=== PATIENT | male | born 1940 | race Caucasian/White ===

== ENCOUNTER 2016-11-14 17:11 | Emergency (ER) | payer BC, MEDICARE ==
[2016-11-14] MEDS ORDERED: solu-MEDROL 125 MG IV ONE (17:33)
[2016-11-14] MEDS ORDERED: DUONEB 0.5-3 MG/3 ml Neb IH ONE (17:33)
--- NOTE | 2016-11-14 17:37 | ERPHSYRPT ---
- History of Present Illness Time Seen by Provider: 11/14/16 17:20 Source: patient Exam Limitations: no limitations Patient Subjective Stated Complaint: "i feel like my lungs are jamming up. i have been using my neb tx like crazy" Triage Nursing Assessment: aox3, breathing rapid, able to speak in complete setences, steady gait Physician History: 76 y/o male with history of COPD and HTN comes to the ER with complaints of shortness of breath, wheezing and cough since Thursday. Pt admits to using the nebulizer very frequently withy no relief. Pt was also taking antibiotics that he does not remember the name for the last few days. Pt arrives with an O2 sat of 92% on RA with audible wheezing. Pt denies any fever, chills, chest pain, leg swelling or orthopnea. Timing/Duration: day(s) Cough Quality/Degree: moderate Associated Symptoms: No fever, No chills Allergies/Adverse Reactions: No Known Drug Allergies Allergy (Verified 08/29/12 17:23) Home Medications: Gabapentin 300 mg [Neurontin 300 mg] 300 mg PO DAILY 08/29/12 [History] Glimepiride 2 mg [Amaryl] 2 mg PO DAILY 08/29/12 [History] Sitagliptin Phos/Metformin HCl [Janumet 50-1,000 mg Tablet] 1 each PO BID [History] Dutasteride/Tamsulosin HCl [Rosibel 0.5-0.4 mg Capsule] 1 each PO DAILY 11/29/12 [ History] Fluticasone/Salmeterol Disc [Advair 250-50 Diskus 14 Dose] 1 each IH [History] Fosinopril Sodium 10 mg [monoPRIL 10 MG] 10 mg PO DAILY 11/29/12 [History] Hx Tetanus, Diphtheria Vaccination/Date Given: Yes (2015) Hx Influenza Vaccination/Date Given: Yes (2015) - Review of Systems Constitutional: No Fever, No Chills Eyes: No Symptoms Ears, Nose, & Throat: No Symptoms Respiratory: Cough, Dyspnea, Dyspnea on Exertion (CARREON), Wheezing Cardiac: No Chest Pain, No Edema, No Syncope Abdominal/Gastrointestinal: No Abdominal Pain, No Nausea, No Vomiting, No Diarrhea Genitourinary Symptoms: No Dysuria Musculoskeletal: No Back Pain, No Neck Pain Skin: No Rash Neurological: No Dizziness, No Focal Weakness, No Sensory Changes Psychological: No Symptoms Endocrine: No Symptoms All Other Systems: Reviewed and Negative - Past Medical History Pertinent Past Medical History: Yes Neurological History: No Pertinent History ENT History: No Pertinent History Cardiac History: Hypertension Respiratory History: COPD Endocrine Medical History: Diabetes Type II Musculoskeletal History: Fractures, Degenerative Disk Disease GI Medical History: Hernia, Hepatitis History: No Pertinent History Psycho-Social History: No Pertinent History Male Reproductive Disorders: Prostate Problems Other Medical History: hep c,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 herniorr. as a child - Social History Smoking Status: Former smoker Exposure to second hand smoke: No Drug Use: none Patient Lives Alone: Yes - Nursing Vital Signs Nursing Vital Signs: Initial Vital Signs Temperature 99.1 F Temperature Source Oral Pulse Rate 80 Respiratory Rate 24 Blood Pressure 183/82 Pain Intensity 0 - Physical Exam General Appearance: no apparent distress, alert Eye Exam: PERRL/EOMI, eyes nml inspection Ears, Nose, Throat Exam: normal ENT inspection, TMs normal, pharynx normal, moist mucous membranes Neck Exam: normal inspection, non-tender, supple, full range of motion Respiratory Exam: normal breath sounds, wheezing, No respiratory distress Cardiovascular Exam: regular rate/rhythm, normal heart sounds Gastrointestinal/Abdomen Exam: soft, No tenderness Back Exam: normal inspection, No CVA tenderness, No vertebral tenderness Extremity Exam: normal inspection, normal range of motion Neurologic Exam: alert, oriented x 3, cooperative, normal mood/affect, sensation nml, No motor deficits Skin Exam: normal color, warm, dry, No rash Lymphatic Exam: No adenopathy SpO2: 93 Oxygen Delivery: Room Air Ordered Tests: Active Orders 24 hr Category Date Time Status EKG-ER Only STAT Care 11/14/16 17:34 Active CHEST 2 VIEWS (PA AND LAT) Stat Exams 11/14/16 17:33 Taken BLOOD CULTURE Stat Lab 11/14/16 17:40 Received CBCD [CBC W DIFF] Stat Lab 11/14/16 17:40 Completed CMP Stat Lab 11/14/16 17:40 Completed NT PRO BNP Stat Lab 11/14/16 17:40 Completed TROPONIN Stat Lab 11/14/16 17:40 Completed Respiratory Nebulizer STAT RT 11/14/16 17:33 Completed Medication Summary Discontinued Medications Generic Name Dose Route Start Last Admin Trade Name Janny PRN Reason Stop Dose Admin Albuterol/Ipratropium 3 ml 11/14/16 17:33 11/14/16 17:42 Duoneb 0.5-3 Mg/3 Ml Neb IH 11/14/16 17:34 3 ml STAT ONE Administration Methylprednisolone Sodium Succinate 125 mg 11/14/16 17:33 11/14/16 17:39 Solu-Medrol 125 Mg IV 11/14/16 17:34 125 mg STAT ONE Administration Methylprednisolone Sodium Succinate Confirm 11/14/16 17:38 Solu-Medrol 125 Mg Administered 11/14/16 17:39 Dose 125 mg .ROUTE .STK-MED ONE Lab/Rad Data: Laboratory Result Diagrams 11/14/16 17:40 11/14/16 17:40 Laboratory Results 11/14/16 11/14/16 11/14/16 Range/Units 17:40 17:40 17:40 WBC 11.4 H (4.0-10.5) K/mm3 RBC 4.54 (4.1-5.6) M/mm3 Hgb 13.7 (12.5-18.0) gm/dl Hct 41.0 L (42-50) % MCV 90.3 (78-100) fl MCH 30.2 (26-32) pg MCHC 33.4 (32-36) g/dl RDW 13.1 (11.5-14.0) % Plt Count 168 (150-450) K/mm3 MPV 9.9 H (6-9.5) fl Gran % 57.1 (36.0-66.0) % Lymphocytes % 19.6 L (24.0-44.0) % Monocytes % 9.9 (0.0-12.0) % Eosinophils % 12.9 H (0.00-5.0) % Basophils % 0.5 (0.0-0.4) % Basophils # 0.06 (0-0.4) Sodium 144 (136-145) mEq/L Potassium 3.9 (3.5-5.1) mEq/L Chloride 107 (98-107) mEq/L Carbon Dioxide 28.3 (21-32) mEq/L Anion Gap 12.5 (5-15) MEQ/L BUN 19 (9-20) mg/dL Creatinine 0.63 (0.55-1.30) mg/dl Estimated GFR > 60 ML/MIN Glucose 86 (70-110) MG/DL Calcium 8.7 (8.5-10.1) mg/dL Total Bilirubin 0.4 (0.2-1.0) mg/dL AST 48 H (15-37) U/L ALT 60 (12-78) U/L Alkaline Phosphatase 94 (46-116) U/L Troponin I 0.022 (0.000-0.056) ng/ml NT-Pro-B Natriuret Pep 303 H (0-125) pg/ml Serum Total Protein 7.2 (6.4-8.2) gm/dL Albumin 3.6 (3.4-5.0) g/dL - Progress Progress: improved Air Movement: good Progress Note: 11/14/16 18:32 Pt feels better after receiving duoneb and solumedrol. The CXR is within normal limits. Pt has an elevated BNP of 303 and will need to have this evaluated with echo as an outpatient. Pt will be d/c home on azithromycin, has a script for steroids that he will fill and will continue on neb treatments at home. - Departure Time of Disposition: 18:34 Departure Disposition: Home Clinical Impression: COPD (chronic obstructive pulmonary disease), Heart failure Condition: Stable Critical Care Time: No Referrals: THANH LARKIN MD [Primary Care Provider] - Instructions: Chronic Obstructive Pulmonary Disease, Heart Failure Additional Instructions: Follow up with your primary care doctor regarding BNP of over 300 which may indicate you have congestive heart failure. Finish the antibiotics and steroids until completion. Return to the ER if you should have worsening shortness of breath, cough, chest pain, fever or chills. Prescriptions: Azithromycin 250 mg [Zithromax 250 MG TABLET] 250 mg PO DAILY #4 tablet
[2016-11-14] MEDS ORDERED: solu-MEDROL 125 MG ONE (17:38)
[2016-11-14 17:51] LABS: BASOPHIL % 0.5 % (0.0-0.4); Eosinophil % 12.9 % (0.00-5.0); Granulocytes % 57.1 % (36.0-66.0); Lymphocytes % 19.6 % (24.0-44.0); Mean Cell Volume 90.3 fl (78-100); Mean Corpuscular Hemoglobin 30.2 pg (26-32); Mean Platelet Volume 9.9 fl (6-9.5); Monocytes % 9.9 % (0.0-12.0); Platelet Count 168 K/mm3 (150-450); Red Blood Count 4.54 M/mm3 (4.1-5.6); Red Cell Distribution Width 13.1 % (11.5-14.0); White Blood Count 11.4 K/mm3 (4.0-10.5)
[2016-11-14 18:14] LABS: ALBUMIN 3.6 g/dL (3.4-5.0); ALKALINE PHOSPHATASE 94 U/L (46-116); ANION GAP 12.5 MEQ/L (5-15); BILIRUBIN,TOTAL 0.4 mg/dL (0.2-1.0); BLOOD UREA NITROGEN 19 mg/dL (9-20); CHLORIDE 107 mEq/L (98-107); Carbon Dioxide 28.3 mEq/L (21-32); Glucose 86 MG/DL (70-110); Potassium 3.9 mEq/L (3.5-5.1); SGOT/AST 48 U/L (15-37); SGPT/ALT 60 U/L (12-78); SODIUM 144 mEq/L (136-145); Total Protein 7.2 gm/dL (6.4-8.2)
[2016-11-14 18:21] LABS: TROPONIN 0.022 ng/ml (0.000-0.056)
[2016-11-14] MEDS ORDERED: Zithromax 250 MG TABLET PO ONE (18:32)
[2016-11-14 18:34] VITALS: BP 177/87; PULSE 70
[2016-11-14 18:37] VITALS: O2SAT 93
[2016-11-14] MEDS ORDERED: Zithromax 250 MG TABLET ONE (18:37)
--- NOTE | 2016-11-14 22:50 | XRAY ---
Indication: Short of breath. Comparison: August 29, 2012 PA/lateral chest again hyperinflated and clear. Heart and mediastinal structures within normal limits. Bony thorax intact again with mild osteopenia and minimal degenerative changes. Impression: Stable nonacute hyperinflated chest.
[2016-11-15] MEDS ORDERED: DUONEB 0.5-3 MG/3 ml Neb IH ONE (03:09)
== END 2016-11-14 18:45 ==
LOC: ED 17:11
DX: J44.9 Chronic obstructive pulmonary disease, unspecified (principal); I50.9 Heart failure, unspecified; I10 Essential (primary) hypertension; Z79.899 Other long term (current) drug therapy; E11.9 Type 2 diabetes mellitus without complications; Z87.891 Personal history of nicotine dependence
CPT/HCPCS: 36000; 36415; 71020; 80053; 83880; 84484; 85025; 87040; 93005; 94640; 96374; 99283; J2930

== ENCOUNTER 2016-12-12 12:04 | Observation (INO) | payer MEDICARE ==
[2016-12-12] MEDS ORDERED: ROCEPHIN 1 Gm-D5w 50 ml Bag** 50 ML IV ONE ×2 (12:46→12:58)
[2016-12-12] MEDS ORDERED: DUONEB 0.5-3 MG/3 ml Neb IH ONE (12:46)
[2016-12-12] MEDS ORDERED: solu-MEDROL 125 MG IV ONE (12:46)
[2016-12-12] MEDS ORDERED: Zithromax 500 MG/ 250 ML NaCl Premix 250 ML IV ONE ×2 (12:46→14:02)
--- NOTE | 2016-12-12 12:53 | ERPHSYRPT ---
- History of Present Illness Time Seen by Provider: 12/12/16 12:35 Source: patient Exam Limitations: clinical condition Patient Subjective Stated Complaint: PT STATES HE BECAME MORE SOB OVER THE PAST FEW DAYS. DENIES ANY FEVER. NON PRODUCTIVE COUGH. Triage Nursing Assessment: PT PINK, WARM, DRY. WHEEZES NOTED IN ANTERIOR LUNG AGRAWAL. ALBUTEROL GIVEN PER EMS. PT AFEBRILE. Physician History: PATIENT WITH HISTORY OF COPD COMPLAINS OF PROGRESSIVE DYSPNEA, EXERTIONAL DYSPNEA AND PRODUCTIVE COUGH FOR 3 DAYS. DENIES FEVER, CHILLS OR CHEST PAIN. HAS HAD NO RELIEF FROM NEBULIZERS AT HOME. Severity of Dyspnea-Max: moderate Severity of Dyspnea-Current: moderate Possible Cause: occasional episodes Modifying Factors: Improves With: activity, coughing Associated Symptoms: cough, productive cough International travel in last 2 weeks: No Allergies/Adverse Reactions: No Known Drug Allergies Allergy (Verified 12/12/16 12:18) Home Medications: Fosinopril Sodium 10 mg [monoPRIL 10 MG] 10 mg PO DAILY 11/29/12 [History] Ibuprofen [Advil] 200 mg PO DAILY 12/12/16 [History] Insulin Regular, Human [Humulin R] 50 unit IJ BID 12/12/16 [History] Hx Tetanus, Diphtheria Vaccination/Date Given: Yes (UP TO DATE) Hx Influenza Vaccination/Date Given: Yes Hx Pneumococcal Vaccination/Date Given: Yes Immunizations Up to Date: Yes - Review of Systems Constitutional: No Fever, No Chills Eyes: No Symptoms Ears, Nose, & Throat: No Symptoms Respiratory: Cough, Dyspnea Cardiac: No Symptoms, No Chest Pain, No Edema, No Syncope Abdominal/Gastrointestinal: No Symptoms, No Abdominal Pain, No Nausea, No Vomiting, No Diarrhea Genitourinary Symptoms: No Symptoms, No Dysuria Musculoskeletal: No Symptoms, No Back Pain, No Neck Pain Skin: No Symptoms, No Rash Neurological: No Dizziness, No Focal Weakness, No Sensory Changes Psychological: No Symptoms Endocrine: No Symptoms All Other Systems: Reviewed and Negative - Past Medical History Pertinent Past Medical History: Yes Neurological History: No Pertinent History ENT History: No Pertinent History Cardiac History: Hypertension Respiratory History: COPD Endocrine Medical History: Diabetes Type II Musculoskeletal History: Fractures, Degenerative Disk Disease GI Medical History: Hernia, Hepatitis History: No Pertinent History Psycho-Social History: No Pertinent History Male Reproductive Disorders: Prostate Problems Other Medical History: hep c,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 herniorr. as a child - Social History Smoking Status: Former smoker Exposure to second hand smoke: No Drug Use: none Patient Lives Alone: No - Nursing Vital Signs Nursing Vital Signs: Initial Vital Signs Temperature 98.7 F Temperature Source Oral Pulse Rate 94 Respiratory Rate 18 Blood Pressure [] 160/88 Pain Intensity 0 - Physical Exam General Appearance: no apparent distress, alert Eye Exam: PERRL/EOMI Neck Exam: normal inspection, supple Respiratory Exam: diminished breath sounds, prolonged expirations (DIFFUSELY, ) , wheezing Cardiovascular/Chest Exam: normal heart sounds, regular rate/rhythm Abdominal/Gastrointestinal Exam: soft, No tenderness, No distention, No mass Extremity Exam: non-tender, normal range of motion, normal inspection, no calf tenderness, no pedal edema Peripheral Pulses Exam: carotid (R): 2+, carotid (L): 2+, femoral (R): 2+, femoral (L): 2+, dorsalis-pedis (R): 2+, dorsalis-pedis (L): 2+ Neurologic Exam: alert, oriented x 3, cooperative, 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 tested, sensation nml, No motor deficits Skin Exam: normal color, warm, No dry SpO2 Interpretation: normal SpO2: 92 Oxygen Delivery: Nasal Cannula - Course EKG Interpreted by Me: RATE, Sinus Rhythm, NORMAL AXIS, Non-specific ST Changes (RATE 84) - Radiology Exams Chest X-ray Interpretation: Discussed w/ radiologist (STABLE NONACUTE CHEST) Ordered Tests: Active Orders 24 hr Category Date Time Status Up With Assistance ROUTINE Activity 12/12/16 14:25 Ordered Accucheck ACHS Care 12/12/16 14:25 Ordered Admission/Status Order ROUTINE Care 12/12/16 14:25 Ordered Clam Picker STAT Care 12/12/16 12:21 Active Code Status Order ROUTINE Care 12/12/16 14:25 Ordered EKG-ER Only STAT Care 12/12/16 12:21 Active IV Care Q6H Care 12/12/16 14:25 Ordered IV Insertion STAT Care 12/12/16 12:21 Active Oxygen-ED Only NASAL CANNULA 2 lpm Care 12/12/16 12:22 Active Estee Tate ROUTINE Care 12/12/16 14:25 Ordered Vital Signs Q4H Care 12/12/16 14:25 Ordered Weight,Daily 0600 Care 12/12/16 14:25 Ordered 1800 Calorie ADA Diet 12/12/16 Dinner Ordered CHEST 1 VIEW (PORTABLE) Stat Exams 12/12/16 12:46 Completed BLOOD CULTURE Stat Lab 12/12/16 13:00 Received CBC W DIFF Stat Lab 12/12/16 12:40 Completed CMP Stat Lab 12/12/16 12:40 Completed MAGNESIUM Stat Lab 12/12/16 12:40 Completed TROPONIN Stat Lab 12/12/16 12:40 Completed Oxygen NASAL CANNULA 2 lpm RT 12/12/16 14:25 Ordered Respiratory Nebulizer STAT RT 12/12/16 13:08 Completed Transfer Order Routine Transfer 12/12/16 14:24 Ordered Medication Summary Generic Name Dose Route Start Last Admin Trade Name Freq PRN Reason Stop Dose Admin Azithromycin 250 mls @ 125 mls/hr 12/12/16 12:46 12/12/16 14:06 Zithromax 500 Mg/ 250 Ml Nacl Premix IV 12/12/16 14:45 125 mls/hr STAT ONE Administration Sodium Chloride 1,000 mls @ 100 mls/hr 12/12/16 13:00 12/12/16 13:00 Sodium Chloride 0.9% 1000 Ml IV 01/11/17 12:59 100 mls/hr .Q10H BEATRIZ Administration Ceftriaxone Sodium/Dextrose 50 mls @ 100 mls/hr 12/13/16 10:00 Rocephin 1 Gm-D5w 50 Ml Bag IV 01/12/17 09:59 Q24H10 BEATRIZ Azithromycin 250 mls @ 125 mls/hr 12/13/16 10:00 Zithromax 500 Mg/ 250 Ml Nacl Premix IV 01/12/17 09:59 Q24H10 BEATRIZ Sodium Chloride 1,000 mls @ 50 mls/hr 12/12/16 14:30 Sodium Chloride 0.9% 1000 Ml IV 01/11/17 14:29 .Q20H BEATRIZ Levalbuterol HCl 1.25 mg 12/12/16 14:28 Xopenex 1.25 Mg/0.5 Ml Ud Nebule IH 01/11/17 14:27 Q2HPRN PRN DIFFICULTY BREATHING Magnesium Oxide 400 mg 12/12/16 22:00 Mag-Ox 400 PO 01/11/17 21:59 BID [facility] Methylprednisolone Sodium Succinate 80 mg 12/12/16 18:00 Solu-Medrol 125 Mg IV 01/11/17 17:59 Q6HT BEATRIZ Discontinued Medications Generic Name Dose Route Start Last Admin Trade Name Freq PRN Reason Stop Dose Admin Albuterol Sulfate Confirm 12/12/16 12:55 Proventil Solution 2.5 Mg/0.5 Ml Administered 12/12/16 12:56 Dose 10 mg IH .STK-MED ONE Albuterol Sulfate 10 mg 12/12/16 13:05 12/12/16 13:05 Proventil 2.5 Mg/3 Ml Neb IH 12/12/16 13:06 10 mg STAT ONE Administration Albuterol/Ipratropium 3 ml 12/12/16 12:46 12/12/16 13:00 Duoneb 0.5-3 Mg/3 Ml Neb IH 12/12/16 12:47 Not Given STAT ONE Ceftriaxone Sodium/Dextrose 50 mls @ 100 mls/hr 12/12/16 12:46 12/12/16 13:01 Rocephin 1 Gm-D5w 50 Ml Bag IV 12/12/16 13:15 100 mls/hr STAT ONE Administration Sodium Chloride Confirm 12/12/16 12:58 Sodium Chloride 0.9% 1000 Ml Administered 12/12/16 12:59 Dose 1,000 mls @ ud .ROUTE .STK-MED ONE Ceftriaxone Sodium/Dextrose Confirm 12/12/16 12:58 Rocephin 1 Gm-D5w 50 Ml Bag Administered 12/12/16 12:59 Dose 50 mls @ ud IV .STK-MED ONE Magnesium Sulfate/Dextrose 100 mls @ 200 mls/hr 12/12/16 13:42 12/12/16 14:06 Magnesium 1 Gm / 100 Ml D5w IV 12/12/16 14:11 200 mls/hr STAT ONE Administration Azithromycin Confirm 12/12/16 14:02 Zithromax 500 Mg/ 250 Ml Nacl Premix Administered 12/12/16 14:03 Dose 250 mls @ ud IV .STK-MED ONE Magnesium Sulfate/Dextrose Confirm 12/12/16 14:02 Magnesium 1 Gm / 100 Ml D5w Administered 12/12/16 14:03 Dose 100 mls @ ud IV .STK-MED ONE Methylprednisolone Sodium Succinate 125 mg 12/12/16 12:46 12/12/16 13:00 Solu-Medrol 125 Mg IV 12/12/16 12:47 125 mg STAT ONE Administration Methylprednisolone Sodium Succinate Confirm 12/12/16 12:58 Solu-Medrol 125 Mg Administered 12/12/16 12:59 Dose 125 mg .ROUTE .STK-MED ONE Sodium Chloride Confirm 12/12/16 12:56 Sodium Chloride 3 Ml Ud Nebules Administered 12/12/16 12:57 Dose 3 ml IH .STK-MED ONE Lab/Rad Data: Laboratory Result Diagrams 12/12/16 12:40 12/12/16 12:40 Laboratory Results 12/12/16 12/12/16 Range/Units 12:40 12:40 WBC 8.8 (4.0-10.5) K/mm3 RBC 4.61 (4.1-5.6) M/mm3 Hgb 13.8 (12.5-18.0) gm/dl Hct 41.8 L (42-50) % MCV 90.7 (78-100) fl MCH 29.9 (26-32) pg MCHC 33.0 (32-36) g/dl RDW 13.2 (11.5-14.0) % Plt Count 183 (150-450) K/mm3 MPV 10.1 H (6-9.5) fl Gran % 44.2 (36.0-66.0) % Lymphocytes % 31.7 (24.0-44.0) % Monocytes % 10.5 (0.0-12.0) % Eosinophils % 12.8 H (0.00-5.0) % Basophils % 0.8 (0.0-0.4) % Basophils # 0.07 (0-0.4) Sodium 143 (136-145) mEq/L Potassium 4.3 (3.5-5.1) mEq/L Chloride 107 (98-107) mEq/L Carbon Dioxide 27.7 (21-32) mEq/L Anion Gap 12.6 (5-15) MEQ/L BUN 19 (9-20) mg/dL Creatinine 0.72 (0.55-1.30) mg/dl Estimated GFR > 60 ML/MIN Glucose 90 (70-110) MG/DL Calcium 9.1 (8.5-10.1) mg/dL Magnesium 1.5 L (1.8-2.4) mg/dL Total Bilirubin 0.3 (0.2-1.0) mg/dL AST 57 H (15-37) U/L ALT 65 (12-78) U/L Alkaline Phosphatase 98 (46-116) U/L Troponin I < 0.017 (0.000-0.056) ng/ml Serum Total Protein 7.0 (6.4-8.2) gm/dL Albumin 3.4 (3.4-5.0) g/dL - Progress Progress Note: 12/12/16 13:44 PATIENT GIVEN IV SOLUMEDROL 125MG, AND AFTER 2 SETS OF BLOOD CULTURES, ROCEPHIN 1GM, ZITHROMAX 5OOMG IVPB, A CONTINUOUS ALBUTEROL 10MG AEROSOL OVER 1 HOUR Discussed with : Reilly (DISCUSSED WITH DR LARKIN AT 1400 FOR OBSERVATION) - Departure Time of Disposition: 14:30 Departure Disposition: Observation Clinical Impression: ACUTE EXACERBATION COPD Condition: Stable Critical Care Time: No Referrals: THANH LARKIN MD [Primary Care Provider] -
[2016-12-12 12:54] LABS: BASOPHIL % 0.8 % (0.0-0.4); Eosinophil % 12.8 % (0.00-5.0); Granulocytes % 44.2 % (36.0-66.0); Lymphocytes % 31.7 % (24.0-44.0); Mean Cell Volume 90.7 fl (78-100); Mean Corpuscular Hemoglobin 29.9 pg (26-32); Mean Platelet Volume 10.1 fl (6-9.5); Monocytes % 10.5 % (0.0-12.0); Platelet Count 183 K/mm3 (150-450); Red Blood Count 4.61 M/mm3 (4.1-5.6); Red Cell Distribution Width 13.2 % (11.5-14.0); White Blood Count 8.8 K/mm3 (4.0-10.5)
[2016-12-12] MEDS ORDERED: PROVENTIL Solution 2.5 MG/0.5 ML IH ONE (12:55)
[2016-12-12] MEDS ORDERED: Sodium Chloride 3 ML UD NEBULES IH ONE ×2 (12:56→19:00)
[2016-12-12] MEDS ORDERED: Sodium Chloride 0.9% 1000 ML 1,000 ML ONE (12:58)
[2016-12-12] MEDS ORDERED: solu-MEDROL 125 MG ONE (12:58)
[2016-12-12] MEDS: Sodium Chloride 0.9% 1000 ML 1,000 ML IV SCH ×3 (13:00→23:22)
[2016-12-12] MEDS ORDERED: PROVENTIL 2.5 MG/3 ML NEB IH ONE (13:05)
--- NOTE | 2016-12-12 13:14 | XRAY ---
Indication: Dyspnea. Comparison: November 14, 2016. Portable chest slightly degraded by respiration artifact. Lungs inflated and remain clear. Heart is not enlarged. Vascularity normal. Impression: Stable nonacute chest.
[2016-12-12 13:19] LABS: ALBUMIN 3.4 g/dL (3.4-5.0); ALKALINE PHOSPHATASE 98 U/L (46-116); ANION GAP 12.6 MEQ/L (5-15); BILIRUBIN,TOTAL 0.3 mg/dL (0.2-1.0); BLOOD UREA NITROGEN 19 mg/dL (9-20); CHLORIDE 107 mEq/L (98-107); Carbon Dioxide 27.7 mEq/L (21-32); Glucose 90 MG/DL (70-110); MAGNESIUM 1.5 mg/dL (1.8-2.4); Potassium 4.3 mEq/L (3.5-5.1); SGOT/AST 57 U/L (15-37); SGPT/ALT 65 U/L (12-78); SODIUM 143 mEq/L (136-145)
[2016-12-12 13:20] LABS: TROPONIN < 0.017 ng/ml (0.000-0.056)
[2016-12-12] MEDS ORDERED: Magnesium 1 Gm / 100 Ml D5W*** 100 ML IV ONE ×2 (13:42→14:02)
[2016-12-12] MEDS ORDERED: Xopenex 1.25 MG/0.5 ML UD NEBULE IH PRN (14:28)
[2016-12-12] MEDS: solu-MEDROL 125 MG IV SCH ×2 (17:22→23:26)
[2016-12-12] MEDS: NovoLOG Insulin SQ PRN ×2 (17:23→22:00)
[2016-12-12] MEDS: PROVENTIL 2.5 MG/3 ML NEB IH SCH (18:55)
[2016-12-12] MEDS: MAG-OX 400 PO SCH (21:33)
[2016-12-13] MEDS: solu-MEDROL 125 MG IV SCH ×4 (05:30→23:04)
[2016-12-13] MEDS: NovoLOG Insulin SQ PRN ×4 (08:35→21:47)
[2016-12-13] MEDS: MOTRIN 200 MG PO SCH (08:36)
[2016-12-13] MEDS: Novolin 70/30 SQ SCH (08:36)
[2016-12-13] MEDS: monoPRIL 10 MG PO SCH (08:36)
[2016-12-13] MEDS: MAG-OX 400 PO SCH ×2 (08:36→21:44)
[2016-12-13] MEDS: ROCEPHIN 1 Gm-D5w 50 ml Bag** 50 ML IV SCH (09:14)
[2016-12-13] MEDS ORDERED: IBUPROFEN 200 MG PO SCH (10:00)
[2016-12-13] MEDS: Zithromax 500 MG/ 250 ML NaCl Premix 250 ML IV SCH (10:05)
[2016-12-13] MEDS: PROVENTIL 2.5 MG/3 ML NEB IH SCH ×5 (14:06→23:02)
[2016-12-13] MEDS: Sodium Chloride 0.9% 1000 ML 1,000 ML IV SCH ×2 (14:54→14:55)
[2016-12-13 16:53] LABS: A-aADO2 37; ARTERIAL BLD GAS O2 SATURATION 96.4 % (95-100); ARTERIAL BLOOD GAS BASE EXCESS -0.1 (-2.0-2.0); ARTERIAL BLOOD GAS FIO2 21 %; ARTERIAL BLOOD GAS PO2 68 mmHg (75-100); ARTERIAL BLOOD GAS pH 7.43 (7.35-7.45)
[2016-12-13] MEDS ORDERED: Novolin 70/30 SQ SCH (22:00)
[2016-12-14] MEDS: PROVENTIL 2.5 MG/3 ML NEB IH SCH ×3 (03:06→10:53)
[2016-12-14] MEDS: Sodium Chloride 0.9% 1000 ML 1,000 ML IV SCH (03:10)
[2016-12-14] MEDS: solu-MEDROL 125 MG IV SCH ×2 (05:48→11:04)
[2016-12-14] MEDS: Novolin 70/30 SQ SCH (08:16)
--- NOTE | 2016-12-14 08:20 | PCM.DS ---
Discharge Summary Date of Admission: 12/12/16 15:40 Admitting Physician: NU NORRIS Primary Care Provider: THANH LARKIN Allergies Allergies No Known Drug Allergies Allergy (Verified 12/12/16 12:18) Hospital Summary - Hospital Course Hospital Course: Chief Complaint Diagnosis copd exacerbation Allergies Allergy/AdvReac Type Severity Reaction Status Date / Time No Known Drug Allergies Allergy Verified 12/12/16 12:18 Vital Signs (Last 24 hours) Temp Pulse Resp BP Pulse Ox 12/14/16 07:23 98.2 F 78 18 178/82 94 L 12/14/16 07:00 78 18 92 L 12/14/16 03:47 97.7 F 71 20 166/73 89 L 12/14/16 03:06 71 20 89 L 12/14/16 00:00 97.7 F 58 L 16 169/86 91 L 12/13/16 23:02 58 L 16 91 L 12/13/16 19:38 98.2 F 93 H 16 172/82 91 L 12/13/16 19:32 91 H 22 92 L 12/13/16 16:00 98.0 F 90 18 179/89 93 L 12/13/16 14:08 79 18 91 L 12/13/16 12:00 18 12/13/16 11:46 98.2 F 95 H 18 137/70 93 L 12/13/16 11:04 94 L Home Medications Medication Instructions Recorded Confirmed Last Taken Type Ibuprofen [Advil] 200 mg PO DAILY 12/12/16 12/12/16 12/12/16 History Insulin NPH/Reg 70/30 [Novolin 50 units SQ QHS 12/12/16 12/12/16 12/11/16 21: 00 History 70/30] Insulin NPH/Reg 70/30 [Novolin 60 units SQ QAM 12/12/16 12/12/16 12/12/16 09: 00 History 70/30] Current Medications Generic Name Dose Route Start Last Admin Trade Name Freq PRN Reason Stop Dose Admin Albuterol Sulfate 2.5 mg 12/12/16 19:00 12/14/16 07:04 Proventil 2.5 Mg/3 Ml Neb IH 01/11/17 18:59 2.5 mg Q4HRT BEATRIZ Administration Fosinopril Sodium 10 mg 02/11/17 10:00 12/13/16 08:36 Monopril 10 Mg PO 01/12/17 09:59 10 mg DAILY BEATRIZ Administration Sodium Chloride 1,000 mls @ 100 mls/hr 12/12/16 13:00 12/14/16 03:10 Sodium Chloride 0.9% 1000 Ml IV 01/11/17 12:59 100 mls/hr .Q10H BEATRIZ Administration Ceftriaxone Sodium/Dextrose 50 mls @ 100 mls/hr 12/13/16 10:00 12/13/16 09:14 Rocephin 1 Gm-D5w 50 Ml Bag IV 01/12/17 09:59 100 mls/hr Q24H10 BEATRIZ Administration Azithromycin 250 mls @ 125 mls/hr 12/13/16 10:00 12/13/16 10:05 Zithromax 500 Mg/ 250 Ml Nacl Premix IV 01/12/17 09:59 125 mls/hr Q24H10 BEATRIZ Administration Sodium Chloride 1,000 mls @ 50 mls/hr 12/12/16 14:30 12/13/16 14:55 Sodium Chloride 0.9% 1000 Ml IV 01/11/17 14:29 Not Given .Q20H BEATRIZ Ibuprofen 200 mg 12/13/16 10:00 12/13/16 08:36 Motrin 200 Mg PO 01/12/17 09:59 200 mg DAILY BEATRIZ Administration Insulin Aspart 0 unit 12/12/16 17:01 12/13/16 21:47 Novolog Insulin SQ 01/11/17 17:00 9 unit UD PRN Administration HYPERGLYCEMIA Insulin Human Isoph/Insulin Regular 50 unit 12/13/16 22:00 12/13/16 22:57 Novolin 70/30 SQ 01/12/17 21:59 50 unit QHS BEATRIZ Administration Insulin Human Isoph/Insulin Regular 60 unit 12/13/16 08:00 12/13/16 08:36 Novolin 70/30 SQ 01/12/17 07:59 60 unit AMINSULIN BEATRIZ Administration Levalbuterol HCl 1.25 mg 12/12/16 14:28 12/12/16 19:01 Xopenex 1.25 Mg/0.5 Ml Ud Nebule IH 01/11/17 14:27 1.25 mg Q2HPRN PRN Administration DIFFICULTY BREATHING Magnesium Oxide 400 mg 12/12/16 22:00 12/13/16 21:44 Mag-Ox 400 PO 01/11/17 21:59 400 mg BID BEATRIZ Administration Methylprednisolone Sodium Succinate 80 mg 12/12/16 18:00 12/14/16 05:48 Solu-Medrol 125 Mg IV 01/11/17 17:59 80 mg Q6HT BEATRIZ Administration Discontinued Medications Generic Name Dose Route Start Last Admin Trade Name Freq PRN Reason Stop Dose Admin Albuterol Sulfate Confirm 12/12/16 12:55 Proventil Solution 2.5 Mg/0.5 Ml Administered 12/12/16 12:56 Dose 10 mg IH .STK-MED ONE Albuterol Sulfate 10 mg 12/12/16 13:05 12/12/16 13:05 Proventil 2.5 Mg/3 Ml Neb IH 12/12/16 13:06 10 mg STAT ONE Administration Albuterol/Ipratropium 3 ml 12/12/16 12:46 12/12/16 13:00 Duoneb 0.5-3 Mg/3 Ml Neb IH 12/12/16 12:47 Not Given STAT ONE Azithromycin 250 mls @ 125 mls/hr 12/12/16 12:46 12/12/16 14:06 Zithromax 500 Mg/ 250 Ml Nacl Premix IV 12/12/16 14:45 125 mls/hr STAT ONE Administration Ceftriaxone Sodium/Dextrose 50 mls @ 100 mls/hr 12/12/16 12:46 12/12/16 13:01 Rocephin 1 Gm-D5w 50 Ml Bag IV 12/12/16 13:15 100 mls/hr STAT ONE Administration Sodium Chloride Confirm 12/12/16 12:58 Sodium Chloride 0.9% 1000 Ml Administered 12/12/16 12:59 Dose 1,000 mls @ ud .ROUTE .STK-MED ONE Ceftriaxone Sodium/Dextrose Confirm 12/12/16 12:58 Rocephin 1 Gm-D5w 50 Ml Bag Administered 12/12/16 12:59 Dose 50 mls @ ud IV .STK-MED ONE Magnesium Sulfate/Dextrose 100 mls @ 200 mls/hr 12/12/16 13:42 12/12/16 14:06 Magnesium 1 Gm / 100 Ml D5w IV 12/12/16 14:11 200 mls/hr STAT ONE Administration Azithromycin Confirm 12/12/16 14:02 Zithromax 500 Mg/ 250 Ml Nacl Premix Administered 12/12/16 14:03 Dose 250 mls @ ud IV .STK-MED ONE Magnesium Sulfate/Dextrose Confirm 12/12/16 14:02 Magnesium 1 Gm / 100 Ml D5w Administered 12/12/16 14:03 Dose 100 mls @ ud IV .STK-MED ONE Methylprednisolone Sodium Succinate 125 mg 12/12/16 12:46 12/12/16 13:00 Solu-Medrol 125 Mg IV 12/12/16 12:47 125 mg STAT ONE Administration Methylprednisolone Sodium Succinate Confirm 12/12/16 12:58 Solu-Medrol 125 Mg Administered 12/12/16 12:59 Dose 125 mg .ROUTE .STK-MED ONE Sodium Chloride Confirm 12/12/16 12:56 Sodium Chloride 3 Ml Ud Nebules Administered 12/12/16 12:57 Dose 3 ml IH .STK-MED ONE Sodium Chloride Confirm 12/12/16 19:00 Sodium Chloride 3 Ml Ud Nebules Administered 12/12/16 19:01 Dose 3 ml IH .STK-MED ONE Intake & Output (Last 24 hours) 12/11/16 12/12/16 12/13/16 12/14/16 11:59 11:59 11:59 11:59 Intake Total 2425 3417 Balance 2425 3417 Weight 98.747 kg 100.698 kg Laboratory Results (Last 24 hours) 12/13/16 12/13/16 16:52 16:30 Puncture Site LEFT BRACHIAL pCO2 36 pO2 68 L Base Excess -0.1 O2 Saturation 93.2 L ABG pH 7.43 ABG HCO3 23.9 ABG O2 Sat (Measured) 96.4 Rosas Test NOT APPLICABLE A-a Gradient 37 a/A Ratio 0.65 Hemoglobin 14.0 Carboxyhemoglobin 2.3 Methemoglobin 1.0 L Potassium 4.4 Temperature 37.0 POC O2 Flow Rate 21 NT-Pro-B Natriuret Pep 546 H Orders (Last 24 hours) Category Date Time Status ARTERIAL BLOOD GASES Routine Lab 12/13/16 16:30 Completed BNP [NT PRO BNP] Routine Lab 12/13/16 16:52 Completed HEMOGLOBIN A1C Urgent Lab 12/13/16 11:45 Completed Azithromycin 500 mg/250 ml [Zithromax 500 MG/ 250 ML Med 12/13/16 10:00 Active NaCl Premix] 250 ml IV Q24H10 Ceftriaxone 1 GM/50 ML PREMIX* [ROCEPHIN 1 Gm-D5w 50 ml Med 12/13/16 10:00 Active Bag] 50 ml IV Q24H10 Fosinopril Sodium 10 mg [monoPRIL 10 MG] Med 12/13/16 10:00 Active 10 mg PO DAILY Ibuprofen 200 mg [Motrin 200 mg] Med 12/13/16 10:00 Active 200 mg PO DAILY Insulin NPH/Reg 70/30 [Novolin 70/30] Med 12/13/16 22:00 Active 50 unit SQ QHS Insulin NPH/Reg 70/30 [Novolin 70/30] Med 12/13/16 08:00 Active 60 unit SQ AMINSULIN Qualify for Home Oxygen TODAY RT 12/14/16 08:13 Active Patient Care Notes (Last 24 hours) 12/14/16 08:01 Respiratory Note by Shanice Silva ROOM AIR RESTING SPO2 86%. PLACED ON 2LPM SPO2 96 Initialized on 12/14/16 08:01 - END OF NOTE patient is feeling much better, patient has hypoxic episodes during overnight pulse oxymetry, Patient will oxygen at home, we will make arrangement - Vitals & Intake/Output Vital Signs: Vital Signs Temperature 98.2 F 12/14/16 07:23 Pulse Rate 78 12/14/16 07:23 Respiratory Rate 18 12/14/16 07:23 Blood Pressure 178/82 12/14/16 07:23 O2 Sat by Pulse Oximetry 94 L 12/14/16 07:23 Oxygen-Last Documented O2 Percentage 2 Liters = 28% Intake & Output: Intake & Output 12/11/16 12/12/16 12/13/16 12/14/16 11:59 11:59 11:59 11:59 Intake Total 2420 3417 Balance 2425 3417 Weight 98.747 kg 100.698 kg - Lab Result Diagrams: 12/12/16 12:40 12/12/16 12:40 Lab Results-Last 24 Hrs: Accuchecks Date 12/13/16 Date 12/13/16 Date 12/13/16 Time 16:40 Time 11:30 Accucheck Value: 324 Accucheck Value: 181 Accucheck Value: 181 Lab Results-Last 24 Hours 12/13/16 12/13/16 Range/Units 16:30 16:52 Puncture Site LEFT BRACHIAL pCO2 36 (35-45) mmHg pO2 68 L (75-100) mmHg Base Excess -0.1 (-2.0-2.0) O2 Saturation 93.2 L (94-100) g/dF ABG pH 7.43 (7.35-7.45) ABG HCO3 23.9 (22-28) ABG O2 Sat (Measured) 96.4 (95-100) % Rosas Test NOT APPLICABLE A-a Gradient 37 a/A Ratio 0.65 Hemoglobin 14.0 Carboxyhemoglobin 2.3 (0.0-6.9) % THgb Methemoglobin 1.0 L (1.4-1.5) % Potassium 4.4 (3.5-5.1) Temperature 37.0 C POC O2 Flow Rate 21 % NT-Pro-B Natriuret Pep 546 H (0-125) pg/ml Micro Results-Entire Visit: Accuchecks Date 12/13/1612/13/16 Date 12/13/16 Time 16:40 Time 11:30 Accucheck Value: 324 Accucheck Value: 181 Accucheck Value: 181 - Procedures and Test Procedures and Tests throughout Hospitalization: Therapy Orders & Screens 12/12/16 16:24 Oxygen NASAL CANNULA 2 lpm Comment: Diagnosis: Shortness of Breath Respiratory Nebulizer PRN Comment: Diagnosis: Shortness of Breath 12/13/16 03:00 Respiratory Nebulizer Q4H Comment: ALBUTEROL Q4 HOURS Diagnosis: copd exacerbation 12/14/16 08:13 Qualify for Home Oxygen TODAY Comment: Diagnosis: copd exacerbation Discharge Exam General Appearance: no apparent distress, alert Neurologic Exam: alert, oriented x 3, cooperative, normal mood/affect, nml cerebellar function, sensation nml, No motor deficits Skin Exam: normal color, warm, dry Eye Exam: PERRL, EOMI, eyes nml inspection Ears, Nose, Throat Exam: normal ENT inspection, pharynx normal, moist mucous membranes Neck Exam: normal inspection, non-tender, supple, full range of motion Respiratory Exam: normal breath sounds, lungs clear, No respiratory distress Cardiovascular Exam: regular rate/rhythm, normal heart sounds Gastrointestinal/Abdomen Exam: soft, No tenderness, No mass Extremity Exam: normal inspection, normal range of motion Back Exam: normal inspection, normal range of motion, No CVA tenderness, No vertebral tenderness Male Genitalia Exam: deferred Rectal Exam: deferred Final Diagnosis/Problem List - Final Discharge Diagnosis/Problem (1) Acute exacerbation of chronic bronchitis Current Visit: Yes Status: Resolved Assessment & Plan: Last Vital Signs Temp 98.2 F 12/14/16 07:23 Pulse 78 12/14/16 07:23 Resp 18 12/14/16 07:23 BP 178/82 12/14/16 07:23 Pulse Ox 94 L 12/14/16 07:23 Allergies No Known Drug Allergies Allergy (Verified 12/12/16 12:18) Active Medications Albuterol Sulfate (Proventil 2.5 Mg/3 Ml Neb) 2.5 mg IH Q4HRT BEATRIZ Stop: 01/11/17 18:59 Last Admin: 12/14/16 07:04 Dose: 2.5 mg Fosinopril Sodium (Monopril 10 Mg) 10 mg PO DAILY BEATRIZ Stop: 01/12/17 09:59 Last Admin: 12/13/16 08:36 Dose: 10 mg Sodium Chloride (Sodium Chloride 0.9% 1000 Ml) 1,000 mls @ 100 mls/hr IV .Q10H BEATRIZ Stop: 01/11/17 12:59 Last Admin: 12/14/16 03:10 Dose: 100 mls/hr Ceftriaxone Sodium/Dextrose (Rocephin 1 Gm-D5w 50 Ml Bag) 50 mls @ 100 mls/ hr IV Q24H10 BEATRIZ Stop: 01/12/17 09:59 Last Admin: 12/13/16 09:14 Dose: 100 mls/hr Azithromycin (Zithromax 500 Mg/ 250 Ml Nacl Premix) 250 mls @ 125 mls/hr IV Q24H10 BEATRIZ Stop: 01/12/17 09:59 Last Admin: 12/13/16 10:05 Dose: 125 mls/hr Sodium Chloride (Sodium Chloride 0.9% 1000 Ml) 1,000 mls @ 50 mls/hr IV .Q20H [facility] Stop: 01/11/17 14:29 Last Admin: 12/13/16 14:55 Dose: Not Given Ibuprofen (Motrin 200 Mg) 200 mg PO DAILY [facility] Stop: 01/12/17 09:59 Last Admin: 12/13/16 08:36 Dose: 200 mg Insulin Aspart (Novolog Insulin) 0 unit SQ UD PRN PRN Reason: HYPERGLYCEMIA Stop: 01/11/17 17:00 Last Admin: 12/13/16 21:47 Dose: 9 unit Insulin Human Isoph/Insulin Regular (Novolin 70/30) 50 unit SQ QHS [facility] Stop: 01/12/17 21:59 Last Admin: 12/13/16 22:57 Dose: 50 unit Insulin Human Isoph/Insulin Regular (Novolin 70/30) 60 unit SQ AMINSULIN [facility] Stop: 01/12/17 07:59 Last Admin: 12/14/16 08:16 Dose: 60 unit Levalbuterol HCl (Xopenex 1.25 Mg/0.5 Ml Ud Nebule) 1.25 mg IH Q2HPRN PRN PRN Reason: DIFFICULTY BREATHING Stop: 01/11/17 14:27 Last Admin: 12/12/16 19:01 Dose: 1.25 mg Magnesium Oxide (Mag-Ox 400) 400 mg PO BID [facility] Stop: 01/11/17 21:59 Last Admin: 12/13/16 21:44 Dose: 400 mg Methylprednisolone Sodium Succinate (Solu-Medrol 125 Mg) 80 mg IV Q6HT [facility] Stop: 01/11/17 17:59 Last Admin: 12/14/16 05:48 Dose: 80 mg Intake & Output 12/13/16 12/14/16 11:59 11:59 Intake Total 2422 3413 Balance 2425 3417 Weight 98.747 kg 100.698 kg Orders 12/13/16 08:00 Insulin NPH/Reg 70/30 [Novolin 70/30] 60 unit SQ AMINSULIN 12/13/16 10:00 Fosinopril Sodium 10 mg [monoPRIL 10 MG] 10 mg PO DAILY Ibuprofen 200 mg [Motrin 200 mg] 200 mg PO DAILY 12/13/16 22:00 Insulin NPH/Reg 70/30 [Novolin 70/30] 50 unit SQ QHS Lab Tests 12/13/16 12/13/16 16:30 16:52 Puncture Site LEFT BRACHIAL pCO2 36 pO2 68 L Base Excess -0.1 O2 Saturation 93.2 L ABG pH 7.43 ABG HCO3 23.9 ABG O2 Sat (Measured) 96.4 Rosas Test NOT APPLICABLE A-a Gradient 37 a/A Ratio 0.65 Hemoglobin 14.0 Carboxyhemoglobin 2.3 Methemoglobin 1.0 L Potassium 4.4 Temperature 37.0 POC O2 Flow Rate 21 NT-Pro-B Natriuret Pep 546 H (2) Hypoxia Current Visit: Yes Status: Chronic (3) Type 2 diabetes mellitus Current Visit: Yes Status: Chronic - Discharge Discharge Date: 12/14/16 Disposition: Home, Self-Care Condition: Stable Prescriptions: New Cephalexin Mh 500 mg [Keflex 500 mg] 500 mg PO QID #20 capsule Continue Fosinopril Sodium 10 mg [monoPRIL 10 MG] 10 mg PO DAILY Ibuprofen [Advil] 200 mg PO DAILY Insulin NPH/Reg 70/30 [Novolin 70/30] 60 units SQ QAM Insulin NPH/Reg 70/30 [Novolin 70/30] 50 units SQ QHS Follow up with: THANH LARKIN MD [Primary Care Provider] - 1 Week Forms: Patient Portal Information
[2016-12-14] MEDS: MAG-OX 400 PO SCH (09:41)
[2016-12-14] MEDS: MOTRIN 200 MG PO SCH (09:41)
[2016-12-14] MEDS: monoPRIL 10 MG PO SCH (09:41)
[2016-12-14] MEDS: ROCEPHIN 1 Gm-D5w 50 ml Bag** 50 ML IV SCH (09:42)
[2016-12-14 10:56] VITALS: PULSE 89
[2016-12-14 11:03] VITALS: BP 172/86; O2SAT 95
[2016-12-14] MEDS: Zithromax 500 MG/ 250 ML NaCl Premix 250 ML IV SCH (11:21)
[2016-12-14] MEDS: NovoLOG Insulin SQ PRN (11:56)
--- NOTE | 2016-12-15 07:55 | HP ---
HISTORY OF PRESENT ILLNESS: Leodan Gomez is a 76 year old male with past medical history of chronic obstructive pulmonary disease and diabetes mellitus. He presented to the emergency room yesterday with increasing shortness of breath, cough with yellow phlegm for three days. He did not report any fever, chills or chest pain. He did not have any improvement in his symptoms from his nebulization's at home. Upon initial evaluation in the emergency room he was noted to have blood pressure of 160/88, heart rate 94, respiratory rate 18, temperature 98.7F. After initial work up he was treated with Rocephin 1 gm IV x1, Zithromax 500 mg IV x1, normal saline 1 liter, Xopenex nebulization, Mag-Ox 400 mg p.o. x1, Solu-Medrol 80 mg IV x1. Subsequently he was admitted to the medical floor for further monitoring and management. His course since admission has been unremarkable. At the time of this evaluation, he states the shortness of breath has improved some, still having some chest tightness, productive cough. Denies chest pain, appears comfortable. PAST MEDICAL HISTORY: As noted above. The patient also has history of hypertension. The patient also has history of degenerative joint disease, prior history of hepatitis C. PAST SURGICAL HISTORY: Noncontributory. ALLERGIES: NKDA. MEDICATIONS: Medications were reviewed. 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 FAMILY HISTORY: Noncontributory. REVIEW OF SYSTEMS: Denies headache or dizziness. Complaints of fatigue. Denies fever. Denies chest pain. Complains of shortness of breath, productive cough with yellow phlegm. Complains of chest tightness. Denies abdominal pain, nausea or vomiting. Denies constipation or diarrhea. Denies urinary complaints. PHYSICAL EXAMINATION: VITAL SIGNS: Blood pressure 179/89, heart rate 90, respiratory rate 18, temperature 98F. Oxygen saturation 92% on 2 liters. HEENT: Pallor is present. No icterus is noted. NECK: No JVD is present. CVS: S1, S2 present. RESPIRATORY: Breath sounds bilaterally diminished, occasional wheezing present. ABDOMEN: Soft, nontender. NEURO: He is alert, oriented x3. EXTREMITIES: No edema on bilateral lower extremities. LABORATORY DATA AND TESTS: Labs from yesterday showed unremarkable CBC and unremarkable CMP except AST was 57, magnesium 1.5, troponin less than 0.017. Blood culture is pending. EKG showed sinus rhythm, normal axis, nonspecific ST-T segment changes, rate 84. Chest x-ray had shown no acute changes. ASSESSMENT: A 76 year old male with impression: 1) Acute chronic obstructive pulmonary disease with exacerbation. 2) Acute bronchopneumonia. 3) Hypertension. 4) History of hepatitis C. 5) Sepsis. PLAN: The patient is admitted for further monitoring and management. Will continue supplemental oxygen, IV antibiotics, IV steroids. Will obtain BMP and ABG. Continue to monitor CBC, electrolytes. Likely discharge home in next one to two days if he improved clinically. The patient's clinical condition, work up results and plan of management was discussed with him. He seems to be in understanding and agreement. Discussed with patient's nurse, Betsey.
== END 2016-12-14 12:30 | disposition home or self-care (01) ==
LOC: ED 12:04 → MED SURG 15:40
PROVIDERS: ADMIT General Practice; ATTEND General Practice
DX: J20.9 Acute bronchitis, unspecified (principal); J44.1 Chronic obstructive pulmonary disease with (acute) exacerbation; J44.0 Chronic obstructive pulmonary disease with (acute) lower respiratory infection; J18.0 Bronchopneumonia, unspecified organism; I10 Essential (primary) hypertension; P91.61 Mild hypoxic ischemic encephalopathy [HIE]; E11.9 Type 2 diabetes mellitus without complications; Z79.4 Long term (current) use of insulin; B19.20 Unspecified viral hepatitis C without hepatic coma; A41.9 Sepsis, unspecified organism; Z79.899 Other long term (current) drug therapy
CPT/HCPCS: 36000; 36415; 36600; 71010; 80053; 82375; 82803; 82962; 83036; 83735; 83880; 84484; 85025; 87040; 93005; 93041; 93268; 94640; 94760; 94762; 96360; 96361; 96365; 96367; 96374; 99284; 99285; G0378; J0456; J0696; J1815; J2930; J3475

== ENCOUNTER 2017-01-04 13:45 | Inpatient (IN) | payer MEDICARE ==
[2017-01-04] MEDS ORDERED: FEVERALL 650 MG PR PRN (14:01)
--- NOTE | 2017-01-04 14:08 | PCM.HP ---
History of Present Illness - Chief Complaint Chief Complaint: c/o shortness of breath for 1 week History of Present Illness: is a 76 year old male.started having shortness of breath for 1 week which got worse today so he called ambulance and was admitted to med surg as direct admit. - Review of Systems Constitutional: No Symptoms Eyes: No Symptoms Ears, Nose, & Throat: No Symptoms Respiratory: Cough, Orthopnea, Short Of Breath, Wheezing Cardiac: No Symptoms Abdominal/Gastrointestinal: No Symptoms Genitourinary Symptoms: No Symptoms Musculoskeletal: No Symptoms Skin: No Symptoms Neurological: No Symptoms Psychological: No Symptoms Endocrine: No Symptoms Hematologic/Lymphatic: No Symptoms Immunological/Allergic: No Symptoms Medications & Allergies Home Medications: Home Medication List Fosinopril Sodium 10 mg [monoPRIL 10 MG] 10 mg PO DAILY 11/29/12 [History Confirmed 12/12/16] Ibuprofen [Advil] 200 mg PO DAILY 12/12/16 [History Confirmed 12/12/16] Insulin NPH/Reg 70/30 [Novolin 70/30] 50 units SQ QHS 12/12/16 [History Confirmed 12/12/16] Insulin NPH/Reg 70/30 [Novolin 70/30] 60 units SQ QAM 12/12/16 [History Confirmed 12/12/16] Cephalexin Mh 500 mg [Keflex 500 mg] 500 mg PO QID #20 capsule 12/14/16 [Rx] Allergies/Adverse Reactions: Allergies Allergy/AdvReac Type Severity Reaction Status Date / Time No Known Drug Allergies Allergy Verified 12/12/16 12:18 - Past Medical History Past Medical History: Yes Neurological History: No Pertinent History ENT History: No Pertinent History Cardiac History: Hypertension Respiratory History: COPD, Emphysema Endocrine Medical History: Diabetes Type II Musculoskelatal History: Fractures, Degenerative Disk Disease GI Medical History: Hernia, Hepatitis History: No Pertinent History Pyscho-Social History: No Pertinent History Male Reproductive Disorders: No Pertinent History Comment: hep c,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 herniorr. as a child - Social History Smoking Status: Former smoker Exposure to second hand smoke: No Alcohol: None Drug Use: none - Physical Exam Vital Signs: Vital Signs - 24 hr Temp Pulse Resp BP Pulse Ox 01/04/17 13:53 97.8 F 92 H 24 181/79 97 Oxygen-Last 24 hours O2 Percentage 3 Liters = 32% General Appearance: no apparent distress, alert Neurologic Exam: alert, oriented x 3, cooperative, normal mood/affect, nml cerebellar function, nml station & gait, sensation nml, No motor deficits Eye Exam: PERRL/EOMI, eyes nml inspection Ears, Nose, Throat Exam: normal ENT inspection, TMs normal, pharynx normal, moist mucous membranes Neck Exam: normal inspection, non-tender, supple, full range of motion Respiratory Exam: respiratory distress, diminished breath sounds, crackles/rales , rhonchi, wheezing Cardiovascular Exam: regular rate/rhythm, normal heart sounds, normal peripheral pulses Gastrointestinal/Abdomen Exam: soft, normal bowel sounds, No tenderness, No mass Back Exam: normal inspection, normal range of motion, No CVA tenderness, No vertebral tenderness Extremity Exam: normal inspection, normal range of motion, pelvis stable Skin Exam: normal color, warm, dry, No rash Lymphatic Exam: No adenopathy Results - Radiology Impressions Radiology Exams & Impressions: Radiology Procedures Category Date Time Status CHEST 2 VIEWS (PA AND LAT) Stat Exams 01/04/17 14:01 Ordered - Other Procedures and Tests Respiratory Therapy 01/04/17 14:01 EKG STAT Oxygen NASAL CANNULA 2 lpm Respiratory Therapy Consult ROUTINE Assessment/Plan (1) Acute exacerbation of chronic bronchitis Current Visit: Yes Status: Acute Code(s): J20.9 - ACUTE BRONCHITIS, UNSPECIFIED; J42 - UNSPECIFIED CHRONIC BRONCHITIS (2) Type 2 diabetes mellitus Current Visit: No Status: Chronic Qualifiers: 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
[2017-01-04 14:25] LABS: BASOPHIL % 0.8 % (0.0-0.4); Eosinophil % 12.5 % (0.00-5.0); Granulocytes % 53.8 % (36.0-66.0); Lymphocytes % 20.9 % (24.0-44.0); Mean Cell Volume 91.3 fl (78-100); Mean Corpuscular Hemoglobin 30.3 pg (26-32); Mean Platelet Volume 9.6 fl (6-9.5); Platelet Count 234 K/mm3 (150-450); Red Blood Count 4.49 M/mm3 (4.1-5.6); Red Cell Distribution Width 13.3 % (11.5-14.0); White Blood Count 8.6 K/mm3 (4.0-10.5)
[2017-01-04 14:37] LABS: A-aADO2 96; ARTERIAL BLD GAS O2 SATURATION 97.3 % (95-100); ARTERIAL BLOOD GAS BASE EXCESS 2.7 (-2.0-2.0); ARTERIAL BLOOD GAS FIO2 32 %; ARTERIAL BLOOD GAS PO2 77 mmHg (75-100); ARTERIAL BLOOD GAS pH 7.41 (7.35-7.45)
[2017-01-04] MEDS: solu-MEDROL 40 MG IV SCH ×2 (14:42→22:42)
[2017-01-04 14:51] LABS: ALBUMIN 3.3 g/dL (3.4-5.0); ALKALINE PHOSPHATASE 100 U/L (46-116); ANION GAP 11.8 MEQ/L (5-15); BILIRUBIN,TOTAL 0.4 mg/dL (0.2-1.0); BLOOD UREA NITROGEN 18 mg/dL (9-20); CHLORIDE 107 mEq/L (98-107); Carbon Dioxide 30.1 mEq/L (21-32); Glucose 142 MG/DL (70-110); SGOT/AST 69 U/L (15-37); SGPT/ALT 90 U/L (12-78); SODIUM 144 mEq/L (136-145); Total Protein 6.8 gm/dL (6.4-8.2)
[2017-01-04] MEDS ORDERED: DUONEB 0.5-3 MG/3 ml Neb IH ONE ×2 (15:04→18:42)
[2017-01-04] MEDS: ROCEPHIN 1 Gm-D5w 50 ml Bag** 50 ML IV SCH (15:30)
[2017-01-04] MEDS: Sodium Chloride 0.9% 1000 ML 1,000 ML IV SCH (16:06)
[2017-01-04] MEDS ORDERED: DUONEB 0.5-3 MG/3 ml Neb IH SCH (19:00)
[2017-01-04] MEDS: DUONEB 0.5-3 MG/3 ml Neb IH SCH ×2 (19:53→23:19)
--- NOTE | 2017-01-04 21:21 | XRAY ---
Indication: Short of breath. Comparison: October 11, 2017. PA/lateral chest again hyperinflated with now subtle left base infiltrate/atelectasis. Remaining heart and lungs unremarkable. Bony thorax intact again with mild osteopenia and degenerative changes. Comment: Preliminary interpretation was made by [facility]. No discrepancy.
[2017-01-04] MEDS ORDERED: NovoLOG 70/30 Mix ONE (22:14)
[2017-01-04] MEDS: Novolin 70/30 SQ SCH (22:42)
[2017-01-05] MEDS: DUONEB 0.5-3 MG/3 ml Neb IH SCH ×6 (03:07→22:49)
[2017-01-05] MEDS: solu-MEDROL 40 MG IV SCH ×3 (06:13→21:59)
[2017-01-05] MEDS: Novolin 70/30 SQ SCH ×2 (07:57→21:59)
[2017-01-05] MEDS ORDERED: BABY ASPIRIN 81 MG CHEW PO SCH (10:00)
[2017-01-05] MEDS: PLAVIX 75 MG Tablet PO SCH (10:01)
[2017-01-05] MEDS: monoPRIL 10 MG PO SCH (10:01)
[2017-01-05] MEDS: ECOTRIN 81 MG PO SCH (10:02)
[2017-01-05] MEDS: Sodium Chloride 0.9% 1000 ML 1,000 ML IV SCH (11:54)
--- NOTE | 2017-01-05 12:48 | PCM.NOTE ---
Date and Time: 01/05/17 1245 - Review of Systems Constitutional: No Fever, No Chills Eyes: No Symptoms Ears, Nose, & Throat: No Symptoms Respiratory: No Cough, No Short Of Breath Cardiac: No Chest Pain, No Edema, No Syncope Abdominal/Gastrointestinal: No Abdominal Pain, No Nausea, No Vomiting, No Diarrhea Genitourinary Symptoms: No Dysuria Musculoskeletal: No Back Pain, No Neck Pain Skin: No Rash Neurological: No Dizziness, No Focal Weakness, No Sensory Changes Psychological: No Symptoms Endocrine: No Symptoms Hematologic/Lymphatic: No Symptoms Immunological/Allergic: No Symptoms Objective Exam General Appearance: no apparent distress, alert Neurologic Exam: alert, oriented x 3, cooperative, normal mood/affect, nml cerebellar function, sensation nml, No motor deficits Skin Exam: normal color, warm, dry Eye Exam: PERRL, EOMI, eyes nml inspection Ears, Nose, Throat Exam: normal ENT inspection, pharynx normal, moist mucous membranes Neck Exam: normal inspection, non-tender, supple, full range of motion Respiratory Exam: diminished breath sounds, crackles/rales, rhonchi, No respiratory distress Cardiovascular Exam: regular rate/rhythm, normal heart sounds Gastrointestinal/Abdomen Exam: soft, No tenderness, No mass Extremity Exam: normal inspection, normal range of motion Back Exam: normal inspection, normal range of motion, No CVA tenderness, No vertebral tenderness Male Genitalia Exam: deferred Rectal Exam: deferred OBJECTIVE DATA Vital Signs: Vital Signs - 24 hr Temp Pulse Resp BP Pulse Ox 01/05/17 12:00 98.3 F 93 H 18 156/74 93 L 01/05/17 10:28 102 H 18 94 L 01/05/17 07:31 98.2 F 87 18 188/83 95 01/05/17 06:37 87 18 95 01/05/17 06:00 18 01/05/17 04:00 97.7 F 84 18 133/81 96 01/05/17 03:08 81 18 96 01/05/17 02:00 18 01/05/17 00:00 98.3 F 93 H 20 158/73 97 01/04/17 23:19 85 20 95 01/04/17 22:00 20 01/04/17 20:00 98.1 F 91 H 20 165/75 96 01/04/17 19:53 91 H 22 92 L 01/04/17 16:47 93 H 22 171/103 96 01/04/17 15:45 81 20 96 01/04/17 14:07 97.8 F 92 H 24 18179 98 01/04/17 13:53 97.8 F 92 H 24 181/79 97 Oxygen-Last 24 hours O2 Percentage 2 Liters = 28% O2 Percentage 2 Liters = 28% O2 Percentage 2 Liters = 28% O2 Percentage 2 Liters = 28% O2 Percentage 3 Liters = 32% O2 Percentage 3 Liters = 32% O2 Percentage 3 Liters = 32% Pain Assessment - Last Documented Pain Intensity 0 Pain Scale Used 0-10 Pain Scale Intake and Output: Intake & Output 01/03/17 01/04/17 01/05/17 01/06/17 11:59 11:59 11:59 11:59 Intake Total 2184 Balance 2184 Weight 97.664 kg Lab Results: Accuchecks Date 01/05/17 Date 01/04/17 Date 01/04/17 Time 07:30 Time 22:00 Time 16:30 Accucheck Value: 80 Accucheck Value: 179 Accucheck Value: 88 Lab Results-Last 24 Hours 01/04/17 01/04/17 01/04/17 Range/Units 14:01 14:01 14:16 WBC 8.6 (4.0-10.5) K/mm3 RBC 4.49 (4.1-5.6) M/mm3 Hgb 13.6 (12.5-18.0) gm/dl Hct 41.0 L (42-50) % MCV 91.3 (78-100) fl MCH 30.3 (26-32) pg MCHC 33.2 (32-36) g/dl RDW 13.3 (11.5-14.0) % Plt Count 234 (150-450) K/mm3 MPV 9.6 H (6-9.5) fl Gran % 53.8 (36.0-66.0) % Lymphocytes % 20.9 L (24.0-44.0) % Monocytes % 12.0 (0.0-12.0) % Eosinophils % 12.5 H (0.00-5.0) % Basophils % 0.8 (0.0-0.4) % Basophils # 0.07 (0-0.4) Puncture Site RIGHT BRACHIAL pCO2 44 (35-45) mmHg pO2 77 (75-100) mmHg Base Excess 2.7 H (-2.0-2.0) O2 Saturation 94.7 (94-100) g/dF ABG pH 7.41 (7.35-7.45) ABG HCO3 27.9 (22-28) ABG O2 Sat (Measured) 97.3 (95-100) % Rosas Test NOT APPLICABLE A-a Gradient 96 a/A Ratio 0.45 Hemoglobin 13.8 Carboxyhemoglobin 1.6 (0.0-6.9) % THgb Methemoglobin 1.1 L (1.4-1.5) % Potassium 4.3 (3.5-5.1) Temperature 37.0 C POC O2 Flow Rate 32 % Sodium (136-145) mEq/L Chloride (98-107) mEq/L Carbon Dioxide (21-32) mEq/L Anion Gap (5-15) MEQ/L BUN (9-20) mg/dL Creatinine (0.55-1.30) mg/dl Estimated GFR ML/MIN Glucose (70-110) MG/DL Hemoglobin A1c 7.8 H (4.5-6.2) Calcium (8.5-10.1) mg/dL Total Bilirubin (0.2-1.0) mg/dL AST (15-37) U/L ALT (12-78) U/L Alkaline Phosphatase (46-116) U/L NT-Pro-B Natriuret Pep (0-125) pg/ml Serum Total Protein (6.4-8.2) gm/dL Albumin (3.4-5.0) g/dL /03/18 Range/Units 14:16 WBC (4.0-10.5) K/mm3 RBC (4.1-5.6) M/mm3 Hgb (12.5-18.0) gm/dl Hct (42-50) % MCV (78-100) fl MCH (26-32) pg MCHC (32-36) g/dl RDW (11.5-14.0) % Plt Count (150-450) K/mm3 MPV (6-9.5) fl Gran % (36.0-66.0) % Lymphocytes % (24.0-44.0) % Monocytes % (0.0-12.0) % Eosinophils % (0.00-5.0) % Basophils % (0.0-0.4) % Basophils # (0-0.4) Puncture Site pCO2 (35-45) mmHg pO2 (75-100) mmHg Base Excess (-2.0-2.0) O2 Saturation (94-100) g/dF ABG pH (7.35-7.45) ABG HCO3 (22-28) ABG O2 Sat (Measured) (95-100) % Rosas Test A-a Gradient a/A Ratio Hemoglobin Carboxyhemoglobin (0.0-6.9) % THgb Methemoglobin (1.4-1.5) % Potassium 5.0 (3.5-5.1) Temperature C POC O2 Flow Rate % Sodium 144 (136-145) mEq/L Chloride 107 (98-107) mEq/L Carbon Dioxide 30.1 (21-32) mEq/L Anion Gap 11.8 (5-15) MEQ/L BUN 18 (9-20) mg/dL Creatinine 0.85 (0.55-1.30) mg/dl Estimated GFR > 60 ML/MIN Glucose 142 H (70-110) MG/DL Hemoglobin A1c (4.5-6.2) Calcium 9.2 (8.5-10.1) mg/dL Total Bilirubin 0.4 (0.2-1.0) mg/dL AST 69 H (15-37) U/L ALT 90 H (12-78) U/L Alkaline Phosphatase 100 (46-116) U/L NT-Pro-B Natriuret Pep 133 H (0-125) pg/ml Serum Total Protein 6.8 (6.4-8.2) gm/dL Albumin 3.3 L (3.4-5.0) g/dL Radiology Exams: Radiology Procedures Category Date Time Status CHEST 2 VIEWS (PA AND LAT) Stat Exams 01/04/17 14:01 Completed Assessment/Plan (1) Acute exacerbation of chronic bronchitis Current Visit: Yes Status: Acute Assessment & Plan: Chief Complaint Diagnosis c/o shortness of breath for 1 week Allergies Allergy/AdvReac Type Severity Reaction Status Date / Time No Known Drug Allergies Allergy Verified 12/12/16 12:18 Vital Signs (Last 24 hours) Temp Pulse Resp BP Pulse Ox 01/05/17 12:00 98.3 F 93 H 18 156/74 93 L 01/05/17 10:28 102 H 18 94 L 01/05/17 07:31 98.2 F 87 18 188/83 95 01/05/17 06:37 87 18 95 01/05/17 06:00 18 01/05/17 04:00 97.7 F 84 18 133/81 96 01/05/17 03:08 81 18 96 01/05/17 02:00 18 01/05/17 00:00 98.3 F 93 H 20 158/73 97 01/04/17 23:19 85 20 95 01/04/17 22:00 20 01/04/17 20:00 98.1 F 91 H 20 165/75 96 01/04/17 19:53 91 H 22 92 L 01/04/17 16:47 93 H 22 171/103 96 01/04/17 15:45 81 20 96 01/04/17 14:07 97.8 F 92 H 24 181/79 98 01/04/17 13:53 97.8 F 92 H 24 181/79 97 Home Medications Medication Instructions Recorded Confirmed Last Taken Type Albuterol 2.5 mg/3 ml Neb 2.5 mg IH QID PRN 01/04/17 01/04/17 01/04/17 12:00 History [Proventil 2.5 mg/3 ml Neb] 1 Neb Aspirin 81 gm Chew [Baby 81 mg PO DAILY 01/04/17 01/04/17 01/04/17 09:00 History Aspirin 81 mg Chew] Clopidogrel Bisulfate 75 mg 75 mg PO DAILY 01/04/17 01/04/17 01/04/17 09:00 History [PLAVIX 75 MG Tablet] 75 mg Current Medications Generic Name Dose Route Start Last Admin Trade Name Freq PRN Reason Stop Dose Admin Acetaminophen 650 mg 01/04/17 14:01 Feverall 650 Mg OK 02/03/17 14:00 Q4H PRN PRN PAIN AND/OR FEVER Albuterol/Ipratropium 3 ml 01/04/17 19:00 01/05/17 10:27 Duoneb 0.5-3 Mg/3 Ml Neb IH 02/03/17 18:59 3 ml Q4HRT BEATRIZ Administration Aspirin 81 mg 01/05/17 10:00 01/05/17 10:02 Ecotrin 81 Mg PO 02/04/17 09:59 81 mg DAILY BEATRIZ Administration Clopidogrel Bisulfate 75 mg 01/05/17 10:00 01/05/17 10:01 Plavix 75 Mg Tablet PO 02/04/17 09:59 75 mg DAILY BEATRIZ Administration Fosinopril Sodium 10 mg 01/05/17 10:00 01/05/17 10:01 Monopril 10 Mg PO 02/04/17 09:59 10 mg DAILY BEATRIZ Administration Ceftriaxone Sodium/Dextrose 50 mls @ 100 mls/hr 01/04/17 15:00 01/04/17 15:30 Rocephin 1 Gm-D5w 50 Ml Bag IV 02/03/17 14:59 100 mls/hr Q24H BEATRIZ Administration Sodium Chloride 1,000 mls @ 50 mls/hr 01/04/17 14:15 01/05/17 11:54 Sodium Chloride 0.9% 1000 Ml IV 02/03/17 14:14 50 mls/hr .Q20H BEATRIZ Administration Insulin Aspart 0 unit 01/04/17 14:01 Novolog Insulin SQ 02/03/17 14:00 UD PRN ACCUCHEK Insulin Human Isoph/Insulin Regular 50 unit 01/04/17 22:00 01/04/17 22:42 Novolin 70/30 SQ 02/03/17 21:59 50 unit HS BEATRIZ Administration Insulin Human Isoph/Insulin Regular 60 unit 01/05/17 08:00 01/05/17 07:57 Novolin 70/30 SQ 02/04/17 07:59 60 unit AMINSULIN BEATRIZ Administration Methylprednisolone Sodium Succinate 40 mg 01/04/17 14:15 01/05/17 06:13 Solu-Medrol 40 Mg IV 02/03/17 14:14 40 mg Q8HT BEATRIZ Administration Discontinued Medications Generic Name Dose Route Start Last Admin Trade Name Freq PRN Reason Stop Dose Admin Albuterol/Ipratropium 3 ml 01/04/17 19:00 01/04/17 15:11 Duoneb 0.5-3 Mg/3 Ml Neb IH 02/03/17 18:59 3 ml Q6HRT BEATRIZ Administration Albuterol/Ipratropium Confirm 01/04/17 15:04 Duoneb 0.5-3 Mg/3 Ml Neb Administered 01/04/17 15:05 Dose 3 ml IH .STK-MED ONE Albuterol/Ipratropium Confirm 01/04/17 18:42 Duoneb 0.5-3 Mg/3 Ml Neb Administered 01/04/17 18:43 Dose 3 ml IH .STK-MED ONE Insulin Aspart Confirm 01/04/17 22:14 Novolog 70/30 Mix Administered 01/04/17 22:15 Dose 50 unit .ROUTE .STK-MED ONE Intake & Output (Last 24 hours) 01/03/17 01/04/17 01/05/17 01/06/17 11:59 11:59 11:59 11:59 Intake Total 2184 Balance 2184 Weight 97.664 kg Laboratory Results (Last 24 hours) 01/04/17 01/04/17 01/04/17 14:16 14:16 14:01 WBC 8.6 RBC 4.49 Hgb 13.6 Hct 41.0 L MCV 91.3 MCH 30.3 MCHC 33.2 RDW 13.3 Plt Count 234 MPV 9.6 H Gran % 53.8 Lymphocytes % 20.9 L Monocytes % 12.0 Eosinophils % 12.5 H Basophils % 0.8 Basophils # 0.07 Puncture Site pCO2 pO2 Base Excess O2 Saturation ABG pH ABG HCO3 ABG O2 Sat (Measured) Rosas Test A-a Gradient a/A Ratio Hemoglobin Carboxyhemoglobin Methemoglobin Potassium 5.0 Temperature POC O2 Flow Rate Sodium 144 Chloride 107 Carbon Dioxide 30.1 Anion Gap 11.8 BUN 18 Creatinine 0.85 Estimated GFR > 60 Glucose 142 H Hemoglobin A1c 7.8 H Calcium 9.2 Total Bilirubin 0.4 AST 69 H ALT 90 H Alkaline Phosphatase 100 NT-Pro-B Natriuret Pep 133 H Serum Total Protein 6.8 Albumin 3.3 L 01/04/17 14:01 WBC RBC Hgb Hct MCV MCH MCHC RDW Plt Count MPV Gran % Lymphocytes % Monocytes % Eosinophils % Basophils % Basophils # Puncture Site RIGHT BRACHIAL pCO2 44 pO2 77 Base Excess 2.7 H O2 Saturation 94.7 ABG pH 7.41 ABG HCO3 27.9 ABG O2 Sat (Measured) 97.3 Rosas Test NOT APPLICABLE A-a Gradient 96 a/A Ratio 0.45 Hemoglobin 13.8 Carboxyhemoglobin 1.6 Methemoglobin 1.1 L Potassium 4.3 Temperature 37.0 POC O2 Flow Rate 32 Sodium Chloride Carbon Dioxide Anion Gap BUN Creatinine Estimated GFR Glucose Hemoglobin A1c Calcium Total Bilirubin AST ALT Alkaline Phosphatase NT-Pro-B Natriuret Pep Serum Total Protein Albumin Orders (Last 24 hours) Category Date Time Status Up Ad Vonnie Activity 01/04/17 14:02 Active Accucheck ACHS Care 01/04/17 14:02 Active Admission/Status Order ROUTINE Care 01/04/17 14:01 Active Code Status Order ROUTINE Care 01/04/17 14:02 Active 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/Discharge Plan Cons 01/04/17 14:31 Active 1800 Calorie ADA Diet 01/04/17 Dinner Active Nutritional Admission Screen Diet 01/04/17 14:31 Active CHEST 2 VIEWS (PA AND LAT) Stat Exams 01/04/17 14:01 Completed ARTERIAL BLOOD GASES Stat Lab 01/04/17 14:01 Completed CBC W DIFF Stat Lab 01/04/17 14:16 Completed CMP Stat Lab 01/04/17 14:16 Completed HEMOGLOBIN A1C Urgent Lab 01/04/17 14:01 Completed NT PRO BNP Stat Lab 01/04/17 14:16 Completed Acetaminophen 650 mg [Feverall 650 mg] Med 01/04/17 14:01 Active 650 mg OK Q4H PRN PRN Albuterol/Ipratropium 3ml Neb* [DUONEB 0.5-3 MG/3 ml Med 01/04/17 15:04 Discontinued Neb] 3 ml IH .STK-MED ONE Albuterol/Ipratropium 3ml Neb* [DUONEB 0.5-3 MG/3 ml Med 01/04/17 18:42 Discontinued Neb] 3 ml IH .STK-MED ONE Albuterol/Ipratropium 3ml Neb* [DUONEB 0.5-3 MG/3 ml Med 01/04/17 19:00 Active Neb] 3 ml IH Q4HRT Albuterol/Ipratropium 3ml Neb* [DUONEB 0.5-3 MG/3 ml Med 01/04/17 19:00 Discontinued Neb] 3 ml IH Q6HRT Aspirin EC 81 mg [Ecotrin 81 mg] Med 01/05/17 10:00 Active 81 mg PO DAILY Ceftriaxone 1 GM/50 ML PREMIX* [ROCEPHIN 1 Gm-D5w 50 ml Med 01/04/17 15:00 Active Bag] 50 ml IV Q24H Clopidogrel Bisulfate 75 mg [PLAVIX 75 MG Tablet] Med 01/05/17 10:00 Active 75 mg PO DAILY Fosinopril Sodium 10 mg [monoPRIL 10 MG] Med 01/05/17 10:00 Active 10 mg PO DAILY Insulin Aspart [NovoLOG Insulin] Med 01/04/17 14:01 Active See Dose Instructions SQ UD PRN Insulin NPH/Reg 70/30 [Novolin 70/30] Med 01/04/17 22:00 Active 50 unit SQ HS Insulin NPH/Reg 70/30 [Novolin 70/30] Med 01/05/17 08:00 Active 60 unit SQ AMINSULIN Insuln Asp Prt/Insulin Aspart* [NovoLOG 70/30 Mix] Med 01/04/17 22:14 Discontinued 50 unit .ROUTE .STK-MED ONE Methylprednisolone Sod Suc 40M [solu-MEDROL 40 MG] Med 01/04/17 14:15 Active 40 mg IV Q8HT NaCl 0.9% 1000 ml [Sodium Chloride 0.9% 1000 ML] 1,000 Med 01/04/17 14:15 Active ml IV 50 mls/hr EKG STAT RT 01/04/17 14:01 Completed Oxygen NASAL CANNULA 2 lpm RT 01/04/17 14:01 Active RT Screen per Nursing Assess RT 01/04/17 14:31 Completed Respiratory Nebulizer Q4H RT 01/04/17 15:48 Active Respiratory Therapy Consult RT 01/04/17 14:01 Completed Patient Care Notes (Last 24 hours) 01/05/17 08:09 Nursing Note by DANIELLE HURTADO charge to pt: 1 humidifier kit Initialized on 01/05/17 08:09 - END OF NOTE 01/04/17 14:03 Nursing Note by Iris Del Valle pt brought in by [facility] reported that pt wears 2L oxygen at home and had an increase SOB. AMBulance medics reported that pt o2 sat 82% on his 2 L , he was brought on the ambulance and put on 15L nonrebreather and given a nebulizer treatment. pt able to speak in full sentences resp 24. skin color natural, pink, and dry. RT called and reported oxygen turned down to 3L and placed on a nasal cannula. current saturation 97% on 3L. denies SOB at present time. RT in to see pt. 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
[2017-01-05] MEDS: ROCEPHIN 1 Gm-D5w 50 ml Bag** 50 ML IV SCH (14:05)
[2017-01-05] MEDS: NovoLOG Insulin SQ PRN (21:59)
[2017-01-06] MEDS: DUONEB 0.5-3 MG/3 ml Neb IH SCH ×5 (02:55→18:57)
[2017-01-06] MEDS: solu-MEDROL 40 MG IV SCH ×2 (05:31→14:10)
[2017-01-06] MEDS: Novolin 70/30 SQ SCH ×2 (07:39→22:17)
[2017-01-06] MEDS: Sodium Chloride 0.9% 1000 ML 1,000 ML IV SCH (07:40)
[2017-01-06] MEDS: ECOTRIN 81 MG PO SCH (08:55)
[2017-01-06] MEDS: monoPRIL 10 MG PO SCH (08:55)
[2017-01-06] MEDS: PLAVIX 75 MG Tablet PO SCH (08:55)
[2017-01-06] MEDS: PULMICORT 0.5 MG/2 ML RESPULES IH SCH ×2 (13:14→18:57)
[2017-01-06] MEDS: ROCEPHIN 1 Gm-D5w 50 ml Bag** 50 ML IV SCH (14:11)
--- NOTE | 2017-01-06 14:16 | PROG NOTE ---
DATE: 01/06/2017 Chart is reviewed and events noted. At the time of this evaluation the patient states that he still continues to have shortness of breath. He states he feels about the same as when he came in. He complains of cough, chest congestion, denies chest pain. Appears comfortable. PHYSICAL EXAMINATION: VITAL SIGNS: Blood pressure 127/60, heart rate 90, respiratory rate 22, temperature 97.9F. Oxygen saturation 90%. HEENT: No pallor or icterus is noted. NECK: No JVD is present. CVS: S1, S2 present. RESPIRATORY: Breath sounds are bilaterally diminished and clear to auscultation. Bilateral rhonchi present. ABDOMEN: Soft, nontender. NEURO: He is alert, oriented x3. EXTREMITIES: No edema on bilateral lower extremities. LABORATORY DATA AND TESTS: There were no new labs today. Medications were reviewed. ASSESSMENT: A 76 year old male with impression: 1) Chronic obstructive pulmonary disease with exacerbation. 2) Congestive heart failure with decompensation. 3) Diabetes mellitus. PLAN: Continue the patient's IV steroids, antibiotics. Addition of diuretic. Will repeat chest x-ray. Pulmonary consultation. The patient's clinical condition, work-up results and plan of management were discussed with him. He seems to be in understanding and agreement. Discussed with supportive employment case manager.
[2017-01-06] MEDS: BUMEX 1 MG IV SCH (14:41)
--- NOTE | 2017-01-06 14:42 | XRAY ---
Indication: COPD. Comparison: March 06, 2017. PA/lateral chest unchanged again hyperinflated with left base infiltrate/atelectasis. Remaining lungs clear. Heart is not enlarged. No new cardiopulmonary findings.
[2017-01-06] MEDS: NovoLOG Insulin SQ PRN ×2 (16:36→22:18)
[2017-01-06] MEDS ORDERED: Dulcolax 10 MG SUPP ONE (20:50)
[2017-01-06] MEDS: solu-MEDROL 125 MG IV SCH (22:15)
[2017-01-06] MEDS ORDERED: MILK OF MAGNESIA 30 ML ONE (22:50)
[2017-01-07] MEDS: DUONEB 0.5-3 MG/3 ml Neb IH SCH ×5 (00:05→15:02)
[2017-01-07] MEDS: Sodium Chloride 0.9% 1000 ML 1,000 ML IV SCH (04:40)
[2017-01-07] MEDS: solu-MEDROL 125 MG IV SCH ×2 (05:14→13:27)
[2017-01-07] MEDS: PULMICORT 0.5 MG/2 ML RESPULES IH SCH (06:42)
[2017-01-07] MEDS: Novolin 70/30 SQ SCH (08:11)
[2017-01-07] MEDS: NovoLOG Insulin SQ PRN ×3 (08:11→16:36)
[2017-01-07] MEDS: BUMEX 1 MG IV SCH (09:46)
[2017-01-07] MEDS: ECOTRIN 81 MG PO SCH (09:46)
[2017-01-07] MEDS: PLAVIX 75 MG Tablet PO SCH (09:46)
[2017-01-07] MEDS: monoPRIL 10 MG PO SCH (09:48)
--- NOTE | 2017-01-07 14:12 | PROG NOTE ---
DATE: 01/07/2017 Chart is reviewed and events noted. At the time of this evaluation the patient is alert, awake, and comfortable. He states his shortness of breath is better, denies any new complaints. He states he is wanting to go home. PHYSICAL EXAMINATION: VITAL SIGNS: Blood pressure 187/85, heart rate 85, respiratory rate 20, temperature 98.3F. Oxygen saturation 94% on 2 liters. HEENT: No pallor or icterus is noted. NECK: No JVD is present. CVS: S1, S2 present. RESPIRATORY: Breath sounds are bilaterally diminished and clear to auscultation. ABDOMEN: Soft, nontender. NEURO: He is alert, oriented x3. EXTREMITIES: No edema on bilateral lower extremities. LABORATORY DATA AND TESTS: Chest x-ray from 01/06/2017 showed unchanged hyperinflated lungs with left base infiltrate/atelectasis, remaining lungs clear. No new labs. Medications were reviewed. ASSESSMENT: A 76 year old male with impression: 1) CHRONIC OBSTRUCTIVE PULMONARY DISEASE WITH EXACERBATION, CLINICALLY IMPROVING. 2) CONGESTIVE HEART FAILURE WITH DECOMPENSATION. 3) DIABETES MELLITUS. PLAN: Continue current management, taper steroids. Pulmonary consultation has been requested. Likely discharge home later today. Will ambulate the patient and check oxygen saturation. Likely discharge home later today if continues to improve. The patient's clinical condition, work-up results and plan of management was discussed with him. He seems to be in understanding and agreement. Discussed with foster care case manager Delmi.
[2017-01-07] MEDS: ROCEPHIN 1 Gm-D5w 50 ml Bag** 50 ML IV SCH (14:41)
--- NOTE | 2017-01-07 14:45 | CONS ---
CONSULT DATE: 01/07/2017 REASON FOR CONSULTATION: Chronic obstructive pulmonary disease exacerbation. HISTORY: Leodan Gomez is a 76 year-old male with prior history of smoking and illicit substance abuse who has been sick for about a week. The patient reports that he started having cough productive of expectoration. He has been hospitalized since 01/04/2017 and has received IV steroids and antibiotics with improvement/resolution of symptoms. On his good days effort tolerance is fairly well preserved. He also has supplemental oxygen that he uses PRN. The patient does have nebulizer at home. His symptoms were well controlled on Symbicort. However, he states that his insurance recently stopped covering for the same. He denies any significant expectoration or any hemoptysis at this point. PAST MEDICAL HISTORY: Positive for coronary artery disease, hypertension, diabetes mellitus. PAST SURGICAL HISTORY: No recent surgery. In the past he had right knee surgery. PERSONAL AND SOCIAL HISTORY: He has smoked but quit smoking when he turned 52. He also used illicit drugs up until 2016 off and on. MEDICATIONS: Medications are reviewed. ALLERGIES: NKDA. PHYSICAL EXAMINATION: An elderly male who appears fairly comfortable. Vital signs are noted. HEENT: Normocephalic. Pupils are reactive. Oral exam is unremarkable. NECK: Supple. CVS: First and second heart sounds are normal, regular, rhythmic. RESPIRATORY: Shows diminished breath sounds, fairly clear to auscultation. ABDOMEN: Soft. EXTREMITIES: Chronic stasis changes are noted on feet. LABORATORY DATA AND TESTS: Hemoglobin A1C 7.8. Sodium 141, potassium 5.0, chloride 107, bicarb 30, glucose 142, BUN 18, creatinine 0.8. The pH 7.42, pCO2 44, pO2 77. White blood cell count 8.4, hemoglobin 13.6, hematocrit 41, PLT 234,000. Chest x-ray shows clear lung freire, basilar atelectasis present on admission has resolved. ASSESSMENT: This is a 76 year old male admitted with: 1) CHRONIC OBSTRUCTIVE PULMONARY DISEASE EXACERBATION. 2) ACUTE BRONCHITIS. 3) HYPOXIA. 4) CORONARY ARTERY DISEASE, COMPENSATED. 5) DIABETES MELLITUS. RECOMMENDATIONS: The patient is doing well from pulmonary standpoint. May discharge home without outpatient follow up, need to abstain from illicit substance and smoking was stressed. PFT as outpatient. Will attempt to get the patient back on Symbicort. Further recommendations pending clinical improvement. Thank you for allowing me to participate in the care of Leodan Gomez.
[2017-01-07 17:18] VITALS: BP 186/90; PULSE 100; O2SAT 92
--- NOTE | 2017-01-09 09:34 | DS ---
DISCHARGE DIAGNOSES: 1) CHRONIC OBSTRUCTIVE PULMONARY DISEASE EXACERBATION, CLINICALLY IMPROVED. 2) CONGESTIVE HEART FAILURE WITH DECOMPENSATION: 3) DIABETES MELLITUS. CONSULTANTS ON CASE: Dr. Caden Winston, Pulmonary. HOSPITAL COURSE: Leodan Gomez is a 76 year-old male with past medical history of chronic obstructive pulmonary disease, hypertension, and congestive heart failure. He was admitted on 01/04/2017 with increasing shortness of breath. Upon admission he was placed on oxygen nebulization, IV steroids, IV antibiotics. Lab work up had shown unremarkable CBC. CMP was notable for glucose of 142, hemoglobin A1C 7.8, AST 69, ALT 90. NT-BNP was 133. Chest x-ray from 01/04/2017 showed hyperinflated chest with left base infiltrate/atelectasis. Follow up chest x-ray from 01/06/2017 showed unchanged again hyperinflated with left base infiltrates/atelectasis, no new cardiopulmonary findings. During his further course ABG showed pH of 7.41, pCO2 44, pO2 77. He had also been placed on IV diuretic. He was evaluated by pulmonary and was treated conservatively. The rest of his course was essentially more or less unremarkable. He improved clinically, remained hemodynamically stable. After discussion with pulmonary client development consultant, he was discharged home in stable condition on 01/07/2017. He ambulated with stable oxygen saturations. Please refer to discharge medication list from 01/07/2017 for details of medications on discharge. Upon discharge the patient was advised to continue supplemental oxygen as directed. Also he was advised to start discharge medications as directed. The patient will garbage pick up worker samples of Symbicort from our office and he was instructed to pick those up and use as directed. The patient has been scheduled to see pulmonary in the next two weeks. Compliance with diet and medications was stressed. Complete cessation of smoking was stressed. The patient was advised to return to the Emergency Room [facility] if any new signs and symptoms or reappearance of previous signs and symptoms are noted. The patient's clinical condition, work-up results and plan of management was discussed with him. He seems to be in understanding and agreement. Discussed with patient's nurse. Please refer to my note from 01/07/2017 for his physical exam prior to discharge. Please refer to patient's chart, labs, diagnostic work up results and notes for details.
== END 2017-01-07 17:00 | disposition home or self-care (01) | DRG 192 ==
LOC: MED SURG 13:45 → OBSVTOIN 01-06 14:00
PROVIDERS: ADMIT General Practice; ATTEND General Practice
DX: J44.0 Chronic obstructive pulmonary disease with (acute) lower respiratory infection (principal); J20.9 Acute bronchitis, unspecified; J44.1 Chronic obstructive pulmonary disease with (acute) exacerbation; E11.618 Type 2 diabetes mellitus with other diabetic arthropathy; R09.02 Hypoxemia; I50.9 Heart failure, unspecified; I25.10 Atherosclerotic heart disease of native coronary artery without angina pectoris; K75.9 Inflammatory liver disease, unspecified; Z79.4 Long term (current) use of insulin
CPT/HCPCS: 36415; 36600; 71020; 80053; 82375; 82803; 82962; 83036; 83880; 85025; 93005; 94640; 94760; G0378; J0696; J1815; J2920; J2930

== ENCOUNTER 2018-09-25 10:00 | Emergency (ER) | payer MEDICARE ==
--- NOTE | 2018-09-25 10:21 | ERPHSYRPT ---
- History of Present Illness Time Seen by Provider: 09/25/18 10:15 Source: patient, EMS, [facility] records Exam Limitations: no limitations Patient Subjective Stated Complaint: Pt states "They took my suprapubic cath out and now they cannot get it in." Triage Nursing Assessment: PT alert and oriented X 3, skin pwd. PT able to speak in clear full sentences. PT suprapubic catheter site is red, intact. no catheter in place upon arrival. Physician History: The patient is a 78-year-old male brought in by ambulance from one of the local [facility], [facility], for reinsertion of a catheter into the suprapubic orifice. He had a suprapubic catheter placed about 5 weeks ago. The catheter was removed today because it was some redness around the area. The nurse tried to replace it and was unable to do so. His urologist asked that the patient be sent to the ER for placement of the catheter. His past medical history is significant for diabetes, CHF, COPD, and stroke. Timing/Duration: today, sudden Activites at Onset: none Onset Location: suprapubic Pain Radiation: none Severity of Pain-Max: none Severity of Pain-Current: none Modifying Factors: Improves With: urinating Prior abdominal problems: other (suprapubic catheter placement) Allergies/Adverse Reactions: No Known Drug Allergies Allergy (Verified 12/12/16 12:18) Home Medications: Fosinopril Sodium 10 mg [monoPRIL 10 MG] 10 mg PO DAILY 11/29/12 [History] Insulin NPH/Reg 70/30 [Novolin 70/30] 50 units SQ QHS 12/12/16 [History] Insulin NPH/Reg 70/30 [Novolin 70/30] 60 units SQ QAM 12/12/16 [History] Albuterol 2.5 mg/3 ml Neb [Proventil 2.5 mg/3 ml Neb] 2.5 mg IH QID PRN [History] Aspirin 81 gm Chew [Baby Aspirin 81 mg Chew] 81 mg PO DAILY 01/04/17 [ History] Clopidogrel Bisulfate 75 mg [PLAVIX 75 MG Tablet] 75 mg PO DAILY 01/04/17 [History] Hx Tetanus, Diphtheria Vaccination/Date Given: Yes Hx Influenza Vaccination/Date Given: Yes Hx Pneumococcal Vaccination/Date Given: Yes Immunizations Up to Date: Yes - Past Medical History Pertinent Past Medical History: Yes Neurological History: No Pertinent History ENT History: No Pertinent History Cardiac History: Hypertension Respiratory History: COPD, Emphysema Endocrine Medical History: Diabetes Type II Musculoskeletal History: Fractures, Degenerative Disk Disease GI Medical History: Hernia, Hepatitis History: No Pertinent History Psycho-Social History: No Pertinent History Male Reproductive Disorders: No Pertinent History Other Medical History: hep c,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 herniorr. as a child - Social History Smoking Status: Former smoker Exposure to second hand smoke: Yes Drug Use: none Patient Lives Alone: No - Review of Systems Constitutional: No Fever, No Chills Eyes: No Symptoms Ears, Nose, & Throat: No Symptoms Respiratory: No Cough, No Dyspnea Cardiac: No Chest Pain, No Edema, No Syncope Abdominal/Gastrointestinal: No Abdominal Pain, No Nausea, No Vomiting, No Diarrhea Genitourinary Symptoms: Urinary Retention Musculoskeletal: No Back Pain, No Neck Pain Skin: No Rash Neurological: No Dizziness, No Focal Weakness, No Sensory Changes Psychological: No Symptoms Endocrine: No Symptoms Hematologic/Lymphatic: No Symptoms Immunological/Allergic: No Symptoms All Other Systems: Reviewed and Negative - Nursing Vital Signs Nursing Vital Signs: Initial Vital Signs Temperature 98.0 F 09/25/18 10:01 Pulse Rate 72 09/25/18 10:01 Respiratory Rate 16 09/25/18 10:01 Blood Pressure 148/77 09/25/18 10:01 O2 Sat by Pulse Oximetry 94 L 09/25/18 10:01 Pain Scale Pain Intensity 0 - Physical Exam General Appearance: no apparent distress, alert Eye Exam: PERRL/EOMI Ears, Nose, Throat Exam: pharynx normal, moist mucous membranes Neck Exam: normal inspection, supple Respiratory Exam: normal breath sounds, lungs clear Cardiovascular Exam: regular rate/rhythm, No edema Rectal Exam: not done Male Genital Exam: normal genitalia (The site of the suprapubic catheter insertion site is devoid of the suprapubic catheter. The area is red with purplish discoloration. There is mild tenderness to palpation.) Back Exam: normal inspection, No CVA tenderness Extremity Exam: normal inspection, normal range of motion, No pedal edema Neurologic Exam: alert, oriented x 3, cooperative, sensation nml, No motor deficits Skin Exam: normal color, warm, dry, No rash SpO2 Interpretation: normal SpO2: 94 Oxygen Delivery: Room Air Ordered Tests: Active Orders 24 hr Category Date Time Status CULTURE,URINE Stat Lab 09/25/18 11:04 Ordered - Progress Progress: improved Progress Note: 09/25/18 11:11 replaced suprapubic cath. Counseled pt/family regarding: diagnosis - Departure Time of Disposition: 11:13 Departure Disposition: Home ([facility]) Clinical Impression: Suprapubic catheter Condition: Stable Critical Care Time: No Referrals: JEAN PIERRE PINA [Primary Care Provider] - Additional Instructions: You had a Pillai catheter placed back in the suprapubic region. To treat possible infection, take levofloxacin 750 mg daily for 7 days. Follow-up with your primary medical doctor on Thursday. Prescriptions: Levofloxacin 750 mg PO DAILY #7 tablet
[2018-09-25 11:02] VITALS: BP 129/71
[2018-09-25 11:37] VITALS: PULSE 75; O2SAT 96
== END 2018-09-25 12:17 ==
LOC: ED 10:00
DX: Z43.6 Encounter for attention to other artificial openings of urinary tract (principal); Z79.899 Other long term (current) drug therapy; E11.9 Type 2 diabetes mellitus without complications; Z79.4 Long term (current) use of insulin
CPT/HCPCS: 51702; 87077; 87086; 87186; 99284

== ENCOUNTER 2019-04-16 11:28 | Emergency (ER) | payer MEDICARE ==
[2019-04-16] MEDS ORDERED: Rocephin 1000 MG INJ IM ONE (11:41)
[2019-04-16] MEDS ORDERED: Cipro 500 MG PO ONE (11:43)
[2019-04-16 11:48] VITALS: BP 155/84; PULSE 83; O2SAT 93
[2019-04-16] MEDS ORDERED: Rocephin 1000 MG INJ ONE (11:52)
[2019-04-16] MEDS ORDERED: Cipro 500 MG ONE (11:52)
--- NOTE | 2019-04-16 12:00 | ERPHSYRPT ---
- History of Present Illness Time Seen by Provider: 04/16/19 11:40 Source: patient, family Exam Limitations: no limitations Patient Subjective Stated Complaint: fell and hit left great toe 2 weeks ago.. scraped top of left great toe. red and sore. denies fever Triage Nursing Assessment: alert and oriented states fell 2 weeks ago and hit left great toe. abrasion to the toe of the great toe. redness with no drainage.. + pedal pulse present. Physician History: 78 y/o diabetic white male scraped left foot big toe one to two weeks ago. pt doctoring it himself with topical antibiotics. not improving. redness around the two abrasion sites. Timing/Duration: week(s) (one to two) Quality: burning Severity: mild Location: feet (left foot big toe) Possible Causes: other (scraped against wheelchair) Associated Symptoms: change in skin texture (abrasion left big toe) Allergies/Adverse Reactions: No Known Drug Allergies Allergy (Verified 04/16/19 11:49) Home Medications: Fosinopril Sodium 10 mg [monoPRIL 10 MG] 10 mg PO DAILY 11/29/12 [History] Insulin NPH/Reg 70/30 [Novolin 70/30] 50 units SQ QHS 12/12/16 [History] Insulin NPH/Reg 70/30 [Novolin 70/30] 60 units SQ QAM 12/12/16 [History] Albuterol 2.5 mg/3 ml Neb [Proventil 2.5 mg/3 ml Neb] 2.5 mg IH QID PRN [History] Aspirin 81 gm Chew [Baby Aspirin 81 mg Chew] 81 mg PO DAILY 01/04/17 [ History] Clopidogrel Bisulfate 75 mg [PLAVIX 75 MG Tablet] 75 mg PO DAILY 01/04/17 [History] Hx Tetanus, Diphtheria Vaccination/Date Given: Yes Hx Influenza Vaccination/Date Given: Yes Hx Pneumococcal Vaccination/Date Given: Yes Immunizations Up to Date: Yes - Review of Systems Constitutional: No Symptoms Eyes: No Symptoms Ears, Nose, & Throat: No Symptoms Respiratory: No Symptoms Cardiac: No Symptoms Abdominal/Gastrointestinal: No Symptoms Genitourinary Symptoms: No Symptoms Musculoskeletal: No Symptoms Skin: Other (abrasion left big toe x2) Neurological: No Symptoms Psychological: No Symptoms Endocrine: No Symptoms Hematologic/Lymphatic: No Symptoms Immunological/Allergic: No Symptoms All Other Systems: Reviewed and Negative - Past Medical History Pertinent Past Medical History: Yes Neurological History: No Pertinent History ENT History: No Pertinent History Cardiac History: Hypertension Respiratory History: COPD, Emphysema Endocrine Medical History: Diabetes Type II Musculoskeletal History: Fractures, Degenerative Disk Disease GI Medical History: Hernia, Hepatitis History: No Pertinent History Psycho-Social History: No Pertinent History Male Reproductive Disorders: No Pertinent History Other Medical History: hep c,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 herniorr. as a child - Social History Smoking Status: Never smoker Exposure to second hand smoke: No Drug Use: marijuana Patient Lives Alone: No - Nursing Vital Signs Nursing Vital Signs: Initial Vital Signs Pulse Rate 83 04/16/19 11:39 Respiratory Rate 18 04/16/19 11:39 Blood Pressure 155/84 04/16/19 11:39 O2 Sat by Pulse Oximetry 93 L 04/16/19 11:39 Pain Scale Pain Intensity 3 - Physical Exam General Appearance: no apparent distress, alert Eye Exam: PERRL/EOMI Ears, Nose, Throat Exam: normal ENT inspection, moist mucous membranes Neck Exam: normal inspection, non-tender, supple, full range of motion Respiratory Exam: airway intact, No chest tenderness, No respiratory distress Gastrointestinal/Abdomen Exam: soft, No tenderness Rectal Exam: not done Back Exam: normal inspection, normal range of motion, No CVA tenderness, No vertebral tenderness Extremity Exam: other (two abrasions left foot anteromedial 1st toe. no abscess. no drainage. 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 Skin Exam: normal color, warm, dry, abrasion Lymphatic Exam: No adenopathy SpO2 Interpretation: borderline oxygenation SpO2: 93 O2 Delivery: Room Air Ordered Tests: Medication Summary Discontinued Medications Generic Name Dose Route Start Last Admin Trade Name Freq PRN Reason Stop Dose Admin Ceftriaxone Sodium 1,000 mg 04/16/19 11:41 Rocephin 1000 Mg Inj IM 04/16/19 11:42 STAT ONE Ceftriaxone Sodium Confirm 04/16/19 11:52 Rocephin 1000 Mg Inj Administered 04/16/19 11:53 Dose 1,000 mg .ROUTE .STK-MED ONE Ciprofloxacin 500 mg 04/16/19 11:43 Cipro 500 Mg PO 04/16/19 11:44 STAT ONE Ciprofloxacin Confirm 04/16/19 11:52 Cipro 500 Mg Administered 04/16/19 11:53 Dose 500 mg .ROUTE .STK-MED ONE - Progress Progress: unchanged Counseled pt/family regarding: diagnosis, need for follow-up - Departure Departure Disposition: Home Clinical Impression: Cellulitis Condition: Stable Critical Care Time: No Referrals: [facility] [Primary Care Provider] - Additional Instructions: keep sites clean with soap and water. apply antibiotic ointment after washing. return in 24 hours for wound check. Prescriptions: Ciprofloxacin [Cipro 500 MG] 500 mg PO BID #14 tablet
== END 2019-04-16 12:53 | disposition home or self-care (01) ==
LOC: ED 11:28
DX: L03.032 Cellulitis of left toe (principal); S90.412A Abrasion, left great toe, initial encounter; W19.XXXA Unspecified fall, initial encounter; I10 Essential (primary) hypertension; J44.9 Chronic obstructive pulmonary disease, unspecified; E11.9 Type 2 diabetes mellitus without complications; K75.9 Inflammatory liver disease, unspecified
CPT/HCPCS: 96372; 99283; J0696; A9270-GY

== ENCOUNTER 2019-04-17 12:41 | Emergency (ER) | payer MEDICARE ==
[2019-04-17] MEDS ORDERED: Rocephin 1000 MG INJ IM ONE (12:57)
--- NOTE | 2019-04-17 13:03 | ERPHSYRPT ---
- History of Present Illness Time Seen by Provider: 04/17/19 12:58 Source: patient Exam Limitations: no limitations Physician History: patient came for great toe wound check, patient was in ER yesterday and advised to come in today for wound check. Patient has diabetis. Allergies/Adverse Reactions: No Known Drug Allergies Allergy (Verified 04/16/19 11:49) Home Medications: Fosinopril Sodium 10 mg [monoPRIL 10 MG] 10 mg PO DAILY 11/29/12 [History] Insulin NPH/Reg 70/30 [Novolin 70/30] 50 units SQ QHS 12/12/16 [History] Insulin NPH/Reg 70/30 [Novolin 70/30] 60 units SQ QAM 12/12/16 [History] Albuterol 2.5 mg/3 ml Neb [Proventil 2.5 mg/3 ml Neb] 2.5 mg IH QID PRN [History] Aspirin 81 gm Chew [Baby Aspirin 81 mg Chew] 81 mg PO DAILY 01/04/17 [ History] Clopidogrel Bisulfate 75 mg [PLAVIX 75 MG Tablet] 75 mg PO DAILY 01/04/17 [History] Hx Tetanus, Diphtheria Vaccination/Date Given: Yes Hx Influenza Vaccination/Date Given: Yes Hx Pneumococcal Vaccination/Date Given: Yes - Review of Systems Constitutional: No Symptoms Eyes: No Symptoms Ears, Nose, & Throat: No Symptoms Respiratory: No Symptoms Skin: Other - Past Medical History Pertinent Past Medical History: Yes Neurological History: No Pertinent History ENT History: No Pertinent History Cardiac History: Hypertension Respiratory History: COPD, Emphysema Endocrine Medical History: Diabetes Type II Musculoskeletal History: Fractures, Degenerative Disk Disease GI Medical History: Hernia, Hepatitis History: No Pertinent History Psycho-Social History: No Pertinent History Male Reproductive Disorders: No Pertinent History Other Medical History: hep c,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 herniorr. as a child - Social History Smoking Status: Never smoker Exposure to second hand smoke: No Drug Use: marijuana Patient Lives Alone: No - Physical Exam General Appearance: no apparent distress, alert Eye Exam: PERRL/EOMI, eyes nml inspection Ears, Nose, Throat Exam: normal ENT inspection, TMs normal, pharynx normal, moist mucous membranes Neck Exam: normal inspection, non-tender, supple, full range of motion Respiratory Exam: normal breath sounds, lungs clear, No respiratory distress Cardiovascular Exam: regular rate/rhythm, normal heart sounds, normal peripheral pulses Gastrointestinal/Abdomen Exam: soft, normal bowel sounds, No tenderness, No mass Back Exam: normal inspection, normal range of motion, No CVA tenderness, No vertebral tenderness Extremity Exam: normal inspection, normal range of motion, pelvis stable, other (left great toe superficial diabetic wound, redness has decreased from yesterday ) Neurologic Exam: alert, oriented x 3, cooperative, normal mood/affect, nml cerebellar function, nml station & gait, sensation nml, No motor deficits Skin Exam: normal color, warm, dry, No rash Lymphatic Exam: No adenopathy - Course Nursing assessment & vital signs reviewed: Yes Ordered Tests: Active Orders 24 hr Category Date Time Status Wound Care STAT Care 04/17/19 12:57 Active Medication Summary Generic Name Dose Route Start Last Admin Trade Name Janny PRN Reason Stop Dose Admin Ceftriaxone Sodium 1,000 mg 04/17/19 12:57 Rocephin 1000 Mg Inj IM 04/17/19 12:58 STAT ONE - Progress Progress: improved Counseled pt/family regarding: diagnosis, need for follow-up - Departure Departure Disposition: Home Clinical Impression: Cellulitis of toe of left foot Cellulitis Qualifiers: Site of cellulitis: extremity Site of cellulitis of extremity: toe Laterality: left Qualified Code(s): L03.032 - Cellulitis of left toe Condition: Stable Critical Care Time: No Referrals: [facility] [Primary Care Provider] - Instructions: Wound Care, Wound Care (DC) Additional Instructions: Discharge/Care Plan GILBERT FINE was seen on 04/17/19 in the Emergency Room. The patient was counseled regarding Diagnosis,Lab results, Imaging studies, need for follow up and when to return to the Emergency Room. Prescriptions given: Discharge Note I have spoken with the patient and/or caregivers. I have explained the patient' s condition, diagnosis and treatment plan based on the information available to me at this time. I have answered the patient's and/or caregiver's questions and addressed any concerns. The patient and/or caregivers have as good understanding of the patient's diagnosis, condition and treatment plan as can be expected at this point. The vital signs have been stable. The patient's condition is stable and appropriate for discharge from the emergency department. The patient will pursue further outpatient evaluation with the primary care physician or other designated or consulting physician as outlined in the discharge instructions. The patient and/or caregivers are agreeable to this plan of care and follow-up instructions have been explained in detail. The patient and/or caregivers have received these instruction. The patient/and or caregivers are aware that any significant change in condition or worsening of symptoms should prompt an immediate return to this or the closest emergency department or call 911. Prescriptions: Insulin Regular, Human [NovoLIN R] 10 unit SQ TIDAC #30 unit
[2019-04-17 13:09] VITALS: O2SAT 98
[2019-04-17] MEDS ORDERED: Rocephin 1000 MG INJ ONE (13:11)
[2019-04-17 13:41] VITALS: BP 136/80; PULSE 68
== END 2019-04-17 13:40 | disposition home or self-care (01) ==
LOC: ED 12:41
DX: L03.032 Cellulitis of left toe (principal); K75.89 Other specified inflammatory liver diseases; E11.9 Type 2 diabetes mellitus without complications; I10 Essential (primary) hypertension; J44.9 Chronic obstructive pulmonary disease, unspecified; Z79.899 Other long term (current) drug therapy
CPT/HCPCS: 96372; 99283; J0696

== ENCOUNTER 2019-10-27 17:30 | Inpatient (IN) | payer MEDICARE ==
[2019-10-27] MEDS ORDERED: Sodium Chloride 0.9% 1000 ML 1,000 ML IV STA ×2 (18:07→21:37)
[2019-10-27] MEDS ORDERED: Sodium Chloride 0.9% 1000 ML 1,000 ML ONE ×2 (18:11→21:40)
[2019-10-27 18:30] LABS: Absolute Neutrophil Ct (ANC) 19.46 (1.4-6.9); BASOPHIL % 0.1 % (0.0-0.4); Basophil (Absolute #) 0.02 (0-0.4); Eosinophil % 0.2 % (0.00-5.0); Eosinophil (Absolute #) 0.05 (0-0.5); Hematocrit 37.9 % (42-50); Hemoglobin 12.4 gm/dl (12.5-18.0); Lymphocyte (Absolute #) 1.21 (1.0-4.6); Lymphocytes % 5.2 % (24.0-44.0); Mean Cell Volume 88.3 fl (78-100); Mean Corpuscular Hemoglobin 28.9 pg (26-32); Mean Corpuscular Hgb Concent. 32.7 g/dl (32-36); Mean Platelet Volume 9.4 fl (6-9.5); Monocyte (Absolute #) 2.62 (0.0-1.3); Monocytes % 11.2 % (0.0-12.0); Neutrophil % 83.3 % (36.0-66.0); Platelet Count 245 K/mm3 (150-450); Red Blood Count 4.29 M/mm3 (4.1-5.6); Red Cell Distribution Width 12.7 % (11.5-14.0); White Blood Count 23.4 K/mm3 (4.0-10.5)
[2019-10-27 18:41] LABS: ALBUMIN 3.9 g/dL (3.5-5.0); ALKALINE PHOSPHATASE 109 U/L (38-126); BLOOD UREA NITROGEN 33 mg/dL (9-20); CHLORIDE 99 mmol/L (98-107); Calcium 9.3 mg/dL (8.4-10.2); Carbon Dioxide 27 mmol/L (22-30); Glucose 414 mg/dL (74-106); Potassium 4.5 mmol/L (3.5-5.1); SGOT/AST 22 U/L (17-59); SGPT/ALT 18 U/L (0-50); SODIUM 135 mmol/L (137-145); Total Protein 7.9 g/dL (6.3-8.2)
[2019-10-27 18:45] LABS: Appearance CLOUDY (CLEAR); Bacteria MANY /HPF (NEGATIVE); Bilirubin NEGATIVE (NEGATIVE); Blood MODERATE Ery/ul (0-5); Glucose >=500 mg/dL (NEGATIVE); Ketones TRACE (NEGATIVE); Leukocyte Esterase LARGE (NEGATIVE); Mucus SLIGHT /HPF (NEGATIVE); Nitrite POSITIVE (NEGATIVE); Protein,Urine Dip 100 (Negative); RBC 26-50 /HPF (0-2); Specific Gravity 1.028 (1.005-1.025); Urobilinogen NEGATIVE mg/dL (0-1); WBC >100 /HPF (0-5)
[2019-10-27 18:46] LABS: Amphetamine,Urine NEGATIVE (NEGATIVE); Barbiturate,Urine NEGATIVE (NEGATIVE); Benzodiazepine,Urine NEGATIVE (NEGATIVE); Cocaine,Urine NEGATIVE (NEGATIVE); Methadone,Urine NEGATIVE (NEGATIVE); Opiate,Urine NEGATIVE (NEGATIVE); PCP,Urine NEGATIVE (NEGATIVE); THC,Urine NEGATIVE (NEGATIVE)
[2019-10-27 19:11] LABS: INFLUENZA A NEGATIVE (NEGATIVE); INFLUENZA B NEGATIVE (NEGATIVE); RESPIRATORY SYNCTIAL VIRUS NEGATIVE (Negative)
[2019-10-27] MEDS ORDERED: Zosyn 3.375GM/100 Ml D5W 3.375 GM/100 ML IVPB IV STA (21:37)
[2019-10-27] MEDS ORDERED: Zosyn 3.375GM/100 Ml D5W 3.375 GM/100 ML IVPB IV ONE (21:40)
[2019-10-27] MEDS ORDERED: Levofloxacin 250MG Tablet ONE (21:41)
[2019-10-27 22:32] LABS: Lactic Acid 2.4 (0.4-2.0)
[2019-10-27 23:59] LABS: Slide Review 1 YES
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
[2019-10-28 00:54] LABS: Lactic Acid 2.3 (0.4-2.0)
[2019-10-28] MEDS ORDERED: PHENERGAN 25 MG PO PRN (01:38)
[2019-10-28] MEDS ORDERED: MILK OF MAGNESIA 30 ML PO PRN (01:39)
[2019-10-28] MEDS ORDERED: PROVENTIL 2.5 MG/3 ML NEB IH PRN (01:47)
[2019-10-28] MEDS: Sodium Chloride 0.9% 1000 ML 1,000 ML IV SCH ×2 (02:00→12:47)
[2019-10-28 04:43] LABS: Hematocrit 35.3 % (42-50); Hemoglobin 11.4 gm/dl (12.5-18.0); Mean Cell Volume 88.7 fl (78-100); Mean Corpuscular Hemoglobin 28.6 pg (26-32); Mean Corpuscular Hgb Concent. 32.3 g/dl (32-36); Mean Platelet Volume 9.9 fl (6-9.5); Platelet Count 228 K/mm3 (150-450); Red Blood Count 3.98 M/mm3 (4.1-5.6); Red Cell Distribution Width 12.6 % (11.5-14.0)
[2019-10-28] MEDS: Zosyn 3.375GM/100 Ml D5W 3.375 GM/100 ML IVPB IV SCH ×3 (04:53→17:22)
[2019-10-28 04:55] LABS: ANION GAP 8.6 MEQ/L (5-15); BLOOD UREA NITROGEN 24 mg/dL (9-20); CHLORIDE 105 mmol/L (98-107); Calcium 8.6 mg/dL (8.4-10.2); Carbon Dioxide 28 mmol/L (22-30); Creatinine 1 0.55 mg/dL (0.66-1.25); Glucose 310 mg/dL (74-106); Potassium 4.1 mmol/L (3.5-5.1); SODIUM 138 mmol/L (137-145)
[2019-10-28 05:45] LABS: Lymphocytes 6 % (24-44); Monocyte 7 % (0.0-12.0); Neutrophils 87 % (36.-66.); Platelet Estimate NORMAL (NORMAL); Total Cells Counted 100
--- NOTE | 2019-10-28 08:35 | XRAY ---
Indication: Fever. Comparison: 2016. Portable chest remains hyperinflated with minimal left base subsegmental atelectasis/scarring and left upper lung calcified granulomas. No focal infiltrate, consolidation, or large effusion. Heart is not enlarged. Bony thorax intact again with osteopenia and degenerative changes. Impression: Stable nonacute chest with chronic features.
--- NOTE | 2019-10-28 08:37 | XRAY ---
Indication: Fever. Altered mental status. Multiple contiguous axial images obtained through the head without contrast. Comparison: August 29, 2012. Again age-appropriate global atrophy and mild periventricular degenerative micro-ischemia bilaterally. No acute intracranial hemorrhage, abnormal extra-axial fluid collection, or mass effect. Fourth ventricle is midline without hydrocephalus. Bony calvarium intact. Mild mucosal thickening floor of the left maxillary sinus. Mastoid air cells are clear. Impression: Nonacute senile brain. Mild paranasal sinus disease. CTDI 55.21
[2019-10-28] MEDS: NovoLOG Insulin SQ PRN ×4 (09:11→22:12)
[2019-10-28 16:34] LABS: Appearance CLOUDY (CLEAR); Bacteria MODERATE /HPF (NEGATIVE); Bilirubin NEGATIVE (NEGATIVE); Blood LARGE Ery/ul (0-5); Glucose >=500 mg/dL (NEGATIVE); Ketones TRACE (NEGATIVE); Leukocyte Esterase LARGE (NEGATIVE); Nitrite NEGATIVE (NEGATIVE); Protein,Urine Dip 100 (Negative); Specific Gravity 1.022 (1.005-1.025); Urobilinogen NEGATIVE mg/dL (0-1); WBC >100 /HPF (0-5)
[2019-10-28 16:48] LABS: RBC >101 /HPF (0-2)
[2019-10-28] MEDS: TYLENOL 325 MG PO PRN (17:53)
--- NOTE | 2019-10-28 19:15 | PCM.HP ---
History of Present Illness - Chief Complaint Chief Complaint: confusion and altered mental status , found unresponsive and confused at History of Present Illness: is a 79 year old male.brought in by ems: found by his neighbor - altered mental status pos: hx freq UTI POS HX OF OLD CVA;RT WITH LT UPPER EXTREMITY WEAKNESS Timing/Duration: today Severity: mild Modifying Factors: Improves With: other (CHRONIC SUPRA-PUBIC CATH ) Associated Symptoms: nausea, fever, other (CONFUSION--) - Review of Systems Constitutional: Lethargy, Weakness Eyes: No Symptoms Ears, Nose, & Throat: No Symptoms Respiratory: No Cough, No Short Of Breath Cardiac: No Chest Pain, No Edema, No Syncope Abdominal/Gastrointestinal: No Abdominal Pain, No Nausea, No Vomiting, No Diarrhea Genitourinary Symptoms: No Dysuria Musculoskeletal: No Back Pain, No Neck Pain Skin: No Rash Neurological: No Dizziness, No Focal Weakness, No Sensory Changes Psychological: No Symptoms Endocrine: No Symptoms Hematologic/Lymphatic: No Symptoms Immunological/Allergic: No Symptoms Medications & Allergies Home Medications: Home Medication List Clopidogrel Bisulfate 75 mg [PLAVIX 75 MG Tablet] 75 mg PO DAILY 01/04/17 [History Confirmed 10/28/19] Aspirin [Aspirin EC] 81 mg PO DAILY 10/28/19 [History Confirmed 10/28/19] Atorvastatin Calcium 80 mg PO DAILY 10/28/19 [History Confirmed 10/28/19] Escitalopram Oxalate 10 mg [Lexapro 10 MG] 10 mg PO HS 10/28/19 [History Confirmed 10/28/19] Gabapentin 300 mg PO TID 10/28/19 [History Confirmed 10/28/19] Insulin NPH Human Isophane [Humulin N] 50 units SQ BIDWM 10/28/19 [History Confirmed 10/28/19] Metformin HCl [Metformin HCl ER] 500 mg PO DAILY 10/28/19 [History Confirmed ] Tamsulosin HCl 1 tablet PO HS 10/28/19 [History Confirmed 10/28/19] Allergies/Adverse Reactions: Allergies Allergy/AdvReac Type Severity Reaction Status Date / Time No Known Drug Allergies Allergy Verified 10/27/19 17:48 - Past Medical History Past Medical History: Yes Neurological History: No Pertinent History ENT History: No Pertinent History Cardiac History: Hypertension Respiratory History: COPD, Emphysema Endocrine Medical History: Diabetes Type II Musculoskelatal History: Fractures, Degenerative Disk Disease GI Medical History: Hernia, Hepatitis History: No Pertinent History Pyscho-Social History: No Pertinent History Male Reproductive Disorders: No Pertinent History Comment: hep c,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 pt poor historian, recalled medical history from previous admission - Past Surgical History Past Surgical History: Yes Neuro Surgical History: No Pertinent History Cardiac History: No Pertinent History Respiratory Surgery: No Pertinent History GI Surgical History: Hernia Repair Genitourinary Surgical Hx: No Pertinent History Musculskeletal Surgical Hx: Orthopedic Surgery Male Surgical History: No Pertinent History Other Surgical History: right knee fx,growth removed from right knee, left lower leg spiral fx,hdwe in right knee,states damian. herniorr. as a child. pt lencho historian, surgical history recalled from previous admission - Social History Smoking Status: Never smoker Exposure to second hand smoke: No Alcohol: None Drug Use: marijuana - Physical Exam Vital Signs: Vital Signs - 24 hr Temp Pulse Resp BP Pulse Ox 10/28/19 16:00 100.1 F 118 H 19 177/72 95 10/28/19 12:00 98.1 F 74 21 188/87 93 L 10/28/19 08:00 98.5 F 78 19 183/75 95 10/28/19 04:15 97.7 F 87 18 170/80 97 10/28/19 01:58 81 22 96 10/28/19 01:51 100.3 F 77 24 154/72 94 L 10/28/19 00:38 95 10/28/19 00:38 93 H 18 134/89 94 L 10/27/19 22:57 88 22 157/60 95 10/27/19 22:04 96 H 18 138/89 94 L 10/27/19 20:52 100 H 18 169/69 95 10/27/19 20:00 91 H 21 169/69 98 Oxygen-Last 24 hours O2 Percentage 2 Liters = 28% O2 Percentage 2 Liters = 28% O2 Percentage 2 Liters = 28% O2 Percentage 2 Liters = 28% O2 Percentage 2 Liters = 28% O2 Percentage 2 Liters = 28% O2 Percentage 2 Liters = 28% O2 Percentage 2 Liters = 28% General Appearance: moderate distress Neurologic Exam: disoriented, confusion, No motor deficits Eye Exam: PERRL/EOMI, eyes nml inspection Ears, Nose, Throat Exam: normal ENT inspection, TMs normal, pharynx normal, moist mucous membranes Neck Exam: normal inspection, non-tender, supple, full range of motion Respiratory Exam: normal breath sounds, lungs clear, No respiratory distress Cardiovascular Exam: regular rate/rhythm, normal heart sounds, normal peripheral pulses Gastrointestinal/Abdomen Exam: soft, normal bowel sounds, No tenderness, No mass Back Exam: normal inspection, normal range of motion, No CVA tenderness, No vertebral tenderness Extremity Exam: normal inspection, normal range of motion, pelvis stable Skin Exam: normal color, warm, dry, No rash Lymphatic Exam: No adenopathy Results - Labs Lab/Micro Results: Accuchecks Accucheck Value: 247 Accucheck Value: 318 Lab Results-Last 24 Hours 10/27/19 10/27/19 10/27/19 Range/Units 18:20 18:20 21:45 WBC (4.0-10.5) K/mm3 RBC (4.1-5.6) M/mm3 Hgb (12.5-18.0) gm/dl Hct (42-50) % MCV (78-100) fl MCH (26-32) pg MCHC (32-36) g/dl RDW (11.5-14.0) % Plt Count (150-450) K/mm3 MPV (6-9.5) fl Segmented Neutrophils (36.-66.) % Lymphocytes (Manual) (24-44) % Monocytes (Manual) (0.0-12.0) % Platelet Estimate (NORMAL) RBC Morphology Sodium (137-145) mmol/L Potassium (3.5-5.1) mmol/L Chloride (98-107) mmol/L Carbon Dioxide (22-30) mmol/L Anion Gap (5-15) MEQ/L BUN (9-20) mg/dL Creatinine (0.66-1.25) mg/dL Estimated GFR ML/MIN Glucose (74-106) mg/dL Hemoglobin A1c (4.5-6.0) % Lactic Acid (0.4-2.0) Calcium (8.4-10.2) mg/dL Troponin I 0.017 (0.000-0.034) ng/mL Urine Color (YELLOW) Urine Appearance (CLEAR) Urine pH (5-6) Ur Specific [place] (1.005-1.025) Urine Protein (Negative) Urine Ketones (NEGATIVE) Urine Blood (0-5) Alvarez/ul Urine Nitrite (NEGATIVE) Urine Bilirubin (NEGATIVE) Urine Urobilinogen (0-1) mg/dL Ur Leukocyte Esterase (NEGATIVE) Urine WBC (Auto) (0-5) /HPF Urine RBC (Auto) (0-2) /HPF U Hyaline Cast (Auto) (0-2) /LPF U Epithel Cells (Auto) (FEW) /HPF Urine Bacteria (Auto) (NEGATIVE) /HPF Urine Culture Reflexed (NO) Urine Glucose (NEGATIVE) mg/dL Influenza Type A Ag NEGATIVE (NEGATIVE) Influenza Type B Ag NEGATIVE (NEGATIVE) RSV (PCR) NEGATIVE (Negative) Group A Strep Antibody NEGATIVE (NEGATIVE) Slides for Path Review YES 10/27/19 10/28/19 10/28/19 Range/Units 22:26 00:49 04:37 WBC 23.0 H (4.0-10.5) K/mm3 RBC 3.98 L (4.1-5.6) M/mm3 Hgb 11.4 L (12.5-18.0) gm/dl Hct 35.3 L (42-50) % MCV 88.7 (78-100) fl MCH 28.6 (26-32) pg MCHC 32.3 (32-36) g/dl RDW 12.6 (11.5-14.0) % Plt Count 228 (150-450) K/mm3 MPV 9.9 H (6-9.5) fl Segmented Neutrophils 87 H (36.-66.) % Lymphocytes (Manual) 6 L (24-44) % Monocytes (Manual) 7 (0.0-12.0) % Platelet Estimate NORMAL (NORMAL) RBC Morphology NORMAL Sodium (137-145) mmol/L Potassium (3.5-5.1) mmol/L Chloride (98-107) mmol/L Carbon Dioxide (22-30) mmol/L Anion Gap (5-15) MEQ/L BUN (9-20) mg/dL Creatinine (0.66-1.25) mg/dL Estimated GFR ML/MIN Glucose (74-106) mg/dL Hemoglobin A1c (4.5-6.0) % Lactic Acid 2.4 H 2.3 H (0.4-2.0) Calcium (8.4-10.2) mg/dL Troponin I (0.000-0.034) ng/mL Urine Color (YELLOW) Urine Appearance (CLEAR) Urine pH (5-6) Ur Specific [place] (1.005-1.025) Urine Protein (Negative) Urine Ketones (NEGATIVE) Urine Blood (0-5) Alvarez/ul Urine Nitrite (NEGATIVE) Urine Bilirubin (NEGATIVE) Urine Urobilinogen (0-1) mg/dL Ur Leukocyte Esterase (NEGATIVE) Urine WBC (Auto) (0-5) /HPF Urine RBC (Auto) (0-2) /HPF U Hyaline Cast (Auto) (0-2) /LPF U Epithel Cells (Auto) (FEW) /HPF Urine Bacteria (Auto) (NEGATIVE) /HPF Urine Culture Reflexed (NO) Urine Glucose (NEGATIVE) mg/dL Influenza Type A Ag (NEGATIVE) Influenza Type B Ag (NEGATIVE) RSV (PCR) (Negative) Group A Strep Antibody (NEGATIVE) Slides for Path Review 10/28/19 10/28/19 10/28/19 Range/Units 04:37 04:37 15:45 WBC (4.0-10.5) K/mm3 RBC (4.1-5.6) M/mm3 Hgb (12.5-18.0) gm/dl Hct (42-50) % MCV (78-100) fl MCH (26-32) pg MCHC (32-36) g/dl RDW (11.5-14.0) % Plt Count (150-450) K/mm3 MPV (6-9.5) fl Segmented Neutrophils (36.-66.) % Lymphocytes (Manual) (24-44) % Monocytes (Manual) (0.0-12.0) % Platelet Estimate (NORMAL) RBC Morphology Sodium 138 (137-145) mmol/L Potassium 4.1 (3.5-5.1) mmol/L Chloride 105 (98-107) mmol/L Carbon Dioxide 28 (22-30) mmol/L Anion Gap 8.6 (5-15) MEQ/L BUN 24 H (9-20) mg/dL Creatinine 0.55 L (0.66-1.25) mg/dL Estimated GFR > 60.0 ML/MIN Glucose 310 H (74-106) mg/dL Hemoglobin A1c 8.62 H (4.5-6.0) % Lactic Acid (0.4-2.0) Calcium 8.6 (8.4-10.2) mg/dL Troponin I (0.000-0.034) ng/mL Urine Color YELLOW (YELLOW) Urine Appearance CLOUDY (CLEAR) Urine pH 5.0 (5-6) Ur Specific [place] 1.022 (1.005-1.025) Urine Protein 100 (Negative) Urine Ketones TRACE (NEGATIVE) Urine Blood LARGE (0-5) Alvarez/ul Urine Nitrite NEGATIVE (NEGATIVE) Urine Bilirubin NEGATIVE (NEGATIVE) Urine Urobilinogen NEGATIVE (0-1) mg/dL Ur Leukocyte Esterase LARGE (NEGATIVE) Urine WBC (Auto) >100 (0-5) /HPF Urine RBC (Auto) >101 (0-2) /HPF U Hyaline Cast (Auto) 3-5 (0-2) /LPF U Epithel Cells (Auto) NONE (FEW) /HPF Urine Bacteria (Auto) MODERATE (NEGATIVE) /HPF Urine Culture Reflexed ORDERED SEPARATELY (NO) Urine Glucose >=500 (NEGATIVE) mg/dL Influenza Type A Ag (NEGATIVE) Influenza Type B Ag (NEGATIVE) RSV (PCR) (Negative) Group A Strep Antibody (NEGATIVE) Slides for Path Review Microbiology 10/27/19 04:02 Urine Culture - Preliminary Suprapubic Cath GRAM POSITIVE ID AND SENSITIVITY PENDING Accuchecks Accucheck Value: 247 Accucheck Value: 318 - Radiology Impressions Radiology Exams & Impressions: Radiology Procedures Category Date Time Status CHEST 1 VIEW (PORTABLE) Stat Exams 10/27/19 18:06 Completed HEAD WITHOUT CONTRAST [CT] Stat Exams 10/27/19 18:55 Completed - Other Procedures and Tests Respiratory Therapy 10/28/19 01:46 Respiratory Therapy Assessment DAILY 10/28/19 01:47 Oxygen NASAL CANNULA 2 lpm Peak Expiratory Flow Rate DAILY Assessment/Plan (1) Sepsis Current Visit: Yes Status: Acute Qualifiers: Sepsis type: Escherichia coli, in Sepsis acute organ dysfunction status: with acute organ dysfunction Severe sepsis acute organ dysfunction type: acute renal failure Severe sepsis shock status: unspecified Assessment & Plan: Chief Complaint Diagnosis URO-SEPSIS,UTI,DEHYDRATION,ALTERED MENTAL STATUS Allergies Allergy/AdvReac Type Severity Reaction Status Date / Time No Known Drug Allergies Allergy Verified 10/27/19 17:48 Vital Signs (Last 24 hours) Temp Pulse Resp BP Pulse Ox 10/28/19 16:00 100.1 F 118 H 19 177/72 95 10/28/19 12:00 98.1 F 74 21 188/87 93 L 10/28/19 08:00 98.5 F 78 19 183/75 95 10/28/19 04:15 97.7 F 87 18 170/80 97 10/28/19 01:58 81 22 96 10/28/19 01:51 100.3 F 77 24 154/72 94 L 10/28/19 00:38 95 10/28/19 00:38 93 H 18 134/89 94 L 10/27/19 22:57 88 22 157/60 95 10/27/19 22:04 96 H 18 138/89 94 L 10/27/19 20:52 100 H 18 169/69 95 10/27/19 20:00 91 H 21 169/69 98 Home Medications Medication Instructions Recorded Confirmed Last Taken Type Aspirin [Aspirin EC] 81 mg PO DAILY 10/28/19 10/28/19 Unknown History Atorvastatin Calcium 80 mg PO DAILY 10/28/19 10/28/19 Unknown History Escitalopram Oxalate 10 mg 10 mg PO HS 10/28/19 10/28/19 Unknown History [Lexapro 10 MG] Gabapentin 300 mg PO TID 10/28/19 10/28/19 Unknown History Insulin NPH Human Isophane 50 units SQ BIDWM 10/28/19 10/28/19 Unknown History [Humulin N] Metformin HCl [Metformin HCl ER] 500 mg PO DAILY 10/28/19 10/28/19 Unknown History Tamsulosin HCl 1 tablet PO HS 10/28/19 10/28/19 Unknown History Current Medications Generic Name Dose Route Start Last Admin Trade Name Freq PRN Reason Stop Dose Admin Acetaminophen 650 mg 10/28/19 01:38 10/28/19 17:53 Tylenol 325 Mg PO 11/27/19 01:37 650 mg Q4H PRN PRN Administration PAIN AND/OR FEVER Albuterol Sulfate 2.5 mg 10/28/19 01:47 Proventil 2.5 Mg/3 Ml Neb IH 11/27/19 01:46 QIDPRN PRN SHORTNESS OF BREATH/WHEEZING Piperacillin Sod/Tazobactam Sod 3.375 gm in 100 mls @ 200 mls/hr 10/28/19 06: 00 10/28/19 17:22 Zosyn 3.375gm/100 Ml D5w IV 11/27/19 05:59 200 mls/hr Q6HT BEATRIZ Administration Sodium Chloride 1,000 mls @ 100 mls/hr 10/28/19 01:45 10/28/19 12:47 Sodium Chloride 0.9% 1000 Ml IV 10/28/19 21:44 100 mls/hr .Q10H BEATRIZ Administration Insulin Aspart 0 unit 10/28/19 01:36 10/28/19 17:21 Novolog Insulin SQ 11/27/19 01:35 5 unit UD PRN Administration HYPERGLYCEMIA Magnesium Hydroxide 30 ml 10/28/19 01:39 Milk Of Magnesia 30 Ml PO 11/27/19 01:38 HS PRN PRN CONSTIPATION Promethazine HCl 12.5 mg 10/28/19 01:38 Phenergan 25 Mg PO 11/27/19 01:37 Q6HPRN PRN NAUSEA/VOMITING Discontinued Medications Generic Name Dose Route Start Last Admin Trade Name Freq PRN Reason Stop Dose Admin Sodium Chloride 1,000 mls @ 999 mls/hr 10/27/19 18:07 10/27/19 19:15 Sodium Chloride 0.9% 1000 Ml IV 10/27/19 19:07 Infused .Q1H1M STA Infusion Sodium Chloride Confirm 10/27/19 18:11 Sodium Chloride 0.9% 1000 Ml Administered 10/27/19 18:12 Dose 1,000 mls @ ud .ROUTE .STK-MED ONE Piperacillin Sod/Tazobactam Sod 3.375 gm in 100 mls @ 200 mls/hr 10/27/19 21: 37 10/27/19 22:17 Zosyn 3.375gm/100 Ml D5w IV 10/27/19 22:06 Infused STAT STA Infusion Sodium Chloride 1,000 mls @ 999 mls/hr 10/27/19 21:37 10/27/19 22:48 Sodium Chloride 0.9% 1000 Ml IV 10/27/19 22:37 Infused .Q1H1M STA Infusion Sodium Chloride Confirm 10/27/19 21:40 Sodium Chloride 0.9% 1000 Ml Administered 10/27/19 21:41 Dose 1,000 mls @ ud .ROUTE .STK-MED ONE Piperacillin Sod/Tazobactam Sod Confirm 10/27/19 21:40 Zosyn 3.375gm/100 Ml D5w Administered 10/27/19 21:41 Dose 3.375 gm in 100 mls @ ud IV .STK-MED ONE Levofloxacin 750 mg 10/28/19 21:40 10/27/19 21:49 Levofloxacin 250mg Tablet PO 10/28/19 21:41 750 mg STAT ONE Administration Levofloxacin Confirm 10/27/19 21:41 Levofloxacin 250mg Tablet Administered 10/27/19 21:42 Dose 750 mg .ROUTE .STK-MED ONE Intake & Output (Last 24 hours) 10/26/19 10/27/19 10/28/19 10/29/19 11:59 11:59 11:59 11:59 Intake Total 407 480 Output Total 1250 1300 Balance -843 -820 Weight 91.7 kg 91.7 kg Microbiology Results (Last 24 hours) 10/28/19 15:45 Urine, Indwelling Catheter Urine Culture - Pending 10/27/19 04:02 Suprapubic Cath Urine Culture - Preliminary GRAM POSITIVE ID AND SENSITIVITY PENDING 10/27/19 18:20 Blood Blood Culture Gram Stain - Pending 10/27/19 18:20 Blood Blood Culture - Pending 10/27/19 18:15 Blood Blood Culture Gram Stain - Pending 10/27/19 18:15 Blood Blood Culture - Pending Laboratory Results (Last 24 hours) 10/28/19 10/28/19 10/28/19 15:45 04:37 04:37 WBC RBC Hgb Hct MCV MCH MCHC RDW Plt Count MPV Segmented Neutrophils Lymphocytes (Manual) Monocytes (Manual) Platelet Estimate RBC Morphology Sodium 138 Potassium 4.1 Chloride 105 Carbon Dioxide 28 Anion Gap 8.6 BUN 24 H Creatinine 0.55 L Estimated GFR > 60.0 Glucose 310 H Hemoglobin A1c 8.62 H Lactic Acid Calcium 8.6 Troponin I Urine Color YELLOW Urine Appearance CLOUDY Urine pH 5.0 Ur Specific [place] 1.022 Urine Protein 100 Urine Ketones TRACE Urine Blood LARGE Urine Nitrite NEGATIVE Urine Bilirubin NEGATIVE Urine Urobilinogen NEGATIVE Ur Leukocyte Esterase LARGE Urine WBC (Auto) >100 Urine RBC (Auto) >101 U Hyaline Cast (Auto) 3-5 U Epithel Cells (Auto) NONE Urine Bacteria (Auto) MODERATE Urine Culture Reflexed ORDERED SEPARATELY Urine Glucose >=500 Slides for Path Review 10/28/19 10/28/19 10/27/19 04:37 00:49 22:26 WBC 23.0 H RBC 3.98 L Hgb 11.4 L Hct 35.3 L MCV 88.7 MCH 28.6 MCHC 32.3 RDW 12.6 Plt Count 228 MPV 9.9 H Segmented Neutrophils 87 H Lymphocytes (Manual) 6 L Monocytes (Manual) 7 Platelet Estimate NORMAL RBC Morphology NORMAL Sodium Potassium Chloride Carbon Dioxide Anion Gap BUN Creatinine Estimated GFR Glucose Hemoglobin A1c Lactic Acid 2.3 H 2.4 H Calcium Troponin I Urine Color Urine Appearance Urine pH Ur Specific [place] Urine Protein Urine Ketones Urine Blood Urine Nitrite Urine Bilirubin Urine Urobilinogen Ur Leukocyte Esterase Urine WBC (Auto) Urine RBC (Auto) U Hyaline Cast (Auto) U Epithel Cells (Auto) Urine Bacteria (Auto) Urine Culture Reflexed Urine Glucose Slides for Path Review 10/27/19 10/27/19 21:45 18:20 WBC RBC Hgb Hct MCV MCH MCHC RDW Plt Count MPV Segmented Neutrophils Lymphocytes (Manual) Monocytes (Manual) Platelet Estimate RBC Morphology Sodium Potassium Chloride Carbon Dioxide Anion Gap BUN Creatinine Estimated GFR Glucose Hemoglobin A1c Lactic Acid Calcium Troponin I 0.017 Urine Color Urine Appearance Urine pH Ur Specific [place] Urine Protein Urine Ketones Urine Blood Urine Nitrite Urine Bilirubin Urine Urobilinogen Ur Leukocyte Esterase Urine WBC (Auto) Urine RBC (Auto) U Hyaline Cast (Auto) U Epithel Cells (Auto) Urine Bacteria (Auto) Urine Culture Reflexed Urine Glucose Slides for Path Review YES Orders (Last 24 hours) Category Date Time Status Bedrest ROUTINE Activity 10/28/19 01:32 Active ACCUCHECK [Accucheck] ACHS Care 10/28/19 07:30 Active Admit as Inpatient ROUTINE Care 10/28/19 01:19 Active Miscellaneous Nursing Order ROUTINE Care 10/28/19 01:41 Active Estee Tate ROUTINE Care 10/28/19 01:37 Active Telemetry q6h Care 10/28/19 01:32 Active Vital Signs Q4H Care 10/28/19 01:33 Active Infection Control Consult ROUTINE Cons 10/28/19 08:00 Active Infection Control Consult ROUTINE Cons 10/28/19 16:48 Active 2000 Calorie ADA Diet 10/28/19 Breakfast Active HEAD WITHOUT CONTRAST [CT] Stat Exams 10/27/19 18:55 Completed BLOOD CULTURE Stat Lab 10/27/19 18:20 Received BMP AM.LAB Lab 10/28/19 04:37 Completed CBC AM.LAB Lab 10/29/19 04:00 Ordered CBC W DIFF AM.LAB Lab 10/28/19 04:37 Completed CBC W DIFF Stat Lab 10/27/19 18:20 Completed CMP AM.LAB Lab 10/29/19 04:00 Ordered CMP Stat Lab 10/27/19 18:20 Completed CULTURE,URINE Urgent Lab 10/28/19 15:45 Ordered ETHYL ALCOHOL Stat Lab 10/27/19 18:20 Completed HEMOGLOBIN A1C Routine Lab 10/28/19 04:37 Completed Lactic Acid AM.LAB Lab 10/29/19 04:00 Ordered Lactic Acid Stat Lab 10/27/19 22:26 Completed Lactic Acid Stat Lab 10/28/19 00:49 Completed Manual Differential NC Routine Lab 10/28/19 04:37 Completed Respiratory Panel Stat Lab 10/27/19 18:20 Completed Strep Swab [Group A Strep] Stat Lab 10/27/19 18:20 Completed TROPONIN Q3H Lab 10/27/19 18:15 Completed TROPONIN Q3H Lab 10/27/19 21:45 Completed UA W/RFX UR CULTURE Stat Lab 10/27/19 18:29 Completed UA W/RFX UR CULTURE Urgent Lab 10/28/19 15:45 Completed Urine Triage Profile Stat Lab 10/27/19 18:29 Completed Acetaminophen 325 mg [Tylenol 325 mg] Med 10/28/19 01:38 Active 650 mg PO Q4H PRN PRN Albuterol 2.5 mg/3 ml Neb [Proventil 2.5 mg/3 ml Neb Med 10/28/19 01:47 Active ] 2.5 mg IH QIDPRN PRN Insulin Aspart [NovoLOG Insulin] Med 10/28/19 01:36 Active See Dose Instructions SQ UD PRN Levofloxacin [Levofloxacin 250MG Tablet] Med 10/27/19 21:41 Discontinued 750 mg .ROUTE .STK-MED ONE Levofloxacin [Levofloxacin 250MG Tablet] Med 10/28/19 21:40 Discontinued 750 mg PO STAT ONE Magnesium Hydroxide 30 ml [Milk of Magnesia 30 ml Med 10/28/19 01:39 Active ] 30 ml PO HS PRN PRN NaCl 0.9% 1000 ml [Sodium Chloride 0.9% 1000 ML] 1,000 Med 10/27/19 21:40 Discontinued ml .ROUTE UD NaCl 0.9% 1000 ml [Sodium Chloride 0.9% 1000 ML] 1,000 Med 10/28/19 01:45 Active ml IV 100 mls/hr NaCl 0.9% 1000 ml [Sodium Chloride 0.9% 1000 ML] 1,000 Med 10/27/19 21:37 Discontinued ml IV 999 mls/hr Piperacillin/Tazobactam Premix [Zosyn 3.375GM/100 Ml Med 10/28/19 06:00 Active D5W] 3.375 gm in 100 ml IV Q6HT Piperacillin/Tazobactam Premix [Zosyn 3.375GM/100 Ml Med 10/27/19 21:37 Discontinued D5W] 3.375 gm in 100 ml IV STAT Piperacillin/Tazobactam Premix [Zosyn 3.375GM/100 Ml Med 10/27/19 21:40 Discontinued D5W] 3.375 gm in 100 ml IV UD Promethazine HCl 25 mg [Phenergan 25 mg] Med 10/28/19 01:38 Active 12.5 mg PO Q6HPRN PRN Oxygen NASAL CANNULA 2 lpm RT 10/28/19 01:47 Active Peak Expiratory Flow Rate DAILY RT 10/28/19 01:47 Active Pulse Oximetry .spot check RT 10/28/19 01:47 Active Respiratory Therapy Assessment DAILY RT 10/28/19 01:46 Active Transfer Order Routine Transfer 10/28/19 Completed Patient Care Notes (Last 24 hours) 10/28/19 18:27 Nursing Note by Sofy Seymour attempt to get pt to feed himself, will hold spoon at times, but will not lift spoon to mouth. Fed pt per this nurse Initialized on 10/28/19 18:27 - END OF NOTE 10/28/19 15:46 Nursing Note by Maximo Mayorga Suprapubic catheter changed per Dr Larkin telephone order. Urine sent to lab. Pt tolerated procedure well. Statlock placed on pt. Initialized on 10/28/19 15:46 - END OF NOTE 10/28/19 12:18 Case Management Note by Delmi Roque DR. ORDERED CBC, CMP, LACTIC ACID TO BE DRAWN IN THE MORNING, 10/29/19. CONTINUE CURRENT TREATMENT FOR UROSEPSIS. Initialized on 10/28/19 12:18 - END OF NOTE 10/28/19 11:00 (created 10/28/19 12:22) Case Management Note by Delmi Roque PT IS CONFUSED, UNABLE TO DISCUSS DISCHARGE PLAN AT THIS TIME. DR. LARKIN DID REPORT THAT EPISODE OF UROSEPSIS HAPPENED TO PT APPROX 5 YEARS AGO WITH SAME CONFUSION. REPORTS THAT HE FEELS PT WILL GET BETTER WITH TREATMENT. DR. LARKIN REPORTS THAT PT HAS A NEIGHBOR THAT HELPS HIM AT HOME AND BRINGS HIM TO APPTS. CASE MANAGEMENT WILL CONTINUE TO FOLLOW PT FOR ALL DC NEEDS. Initialized on 10/28/19 12:22 - END OF NOTE 10/28/19 01:34 Nursing Note by Benja Silva Documented in MAR that pt was given 3 tablets of Levaquin 250 mg in ER. 2 Levaquin 250 mg tablets found in patient's bed when transferring from ER cot to ACU bed. HS stated that another tablet was found on the floor in ER. Initialized on 10/28/19 01:34 - END OF NOTE (2) Altered mental status Current Visit: Yes Status: Acute Qualifiers: Altered mental status type: disorientation Qualified Code(s): R41.0 - Disorientation, unspecified Code(s): R41.82 - ALTERED MENTAL STATUS, UNSPECIFIED (3) UTI (urinary tract infection) Current Visit: Yes Status: Acute Qualifiers: Indwelling urinary catheter type: cystostomy catheter Encounter type: initial encounter Code(s): N39.0 - URINARY TRACT INFECTION, SITE NOT SPECIFIED (4) Suprapubic catheter Current Visit: No Status: Acute Code(s): Z93.59 - OTHER CYSTOSTOMY STATUS (5) Type 2 diabetes mellitus Current Visit: No Status: Chronic Qualifiers:
[2019-10-28] MEDS ORDERED: Levofloxacin 250MG Tablet PO ONE (21:40)
[2019-10-29] MEDS: Zosyn 3.375GM/100 Ml D5W 3.375 GM/100 ML IVPB IV SCH ×2 (00:07→06:32)
[2019-10-29 05:24] LABS: Hemoglobin 11.6 gm/dl (12.5-18.0); Mean Cell Volume 89.8 fl (78-100); Mean Corpuscular Hemoglobin 28.9 pg (26-32); Mean Corpuscular Hgb Concent. 32.2 g/dl (32-36); Mean Platelet Volume 9.8 fl (6-9.5); Platelet Count 208 K/mm3 (150-450); Red Blood Count 4.01 M/mm3 (4.1-5.6); Red Cell Distribution Width 12.6 % (11.5-14.0); White Blood Count 19.4 K/mm3 (4.0-10.5)
[2019-10-29 05:38] LABS: ALBUMIN 2.9 g/dL (3.5-5.0); ALKALINE PHOSPHATASE 109 U/L (38-126); ANION GAP 6.4 MEQ/L (5-15); BLOOD UREA NITROGEN 16 mg/dL (9-20); CHLORIDE 102 mmol/L (98-107); Calcium 8.2 mg/dL (8.4-10.2); Carbon Dioxide 30 mmol/L (22-30); Creatinine 1 0.64 mg/dL (0.66-1.25); Glucose 254 mg/dL (74-106); Potassium 3.5 mmol/L (3.5-5.1); SGOT/AST 27 U/L (17-59); SGPT/ALT 16 U/L (0-50); SODIUM 136 mmol/L (137-145); Total Protein 6.5 g/dL (6.3-8.2)
[2019-10-29] MEDS ORDERED: PHARMACY DOSING REQUEST MC ONE (08:07)
--- NOTE | 2019-10-29 08:25 | PCM.NOTE ---
Date and Time: 10/29/19822 Subjective Assessment: more alert, doing better - Review of Systems Constitutional: No Fever, No Chills Eyes: No Symptoms Ears, Nose, & Throat: No Symptoms Respiratory: No Cough, No Short Of Breath Cardiac: No Chest Pain, No Edema, No Syncope Abdominal/Gastrointestinal: No Abdominal Pain, No Nausea, No Vomiting, No Diarrhea Genitourinary Symptoms: No Dysuria Musculoskeletal: No Back Pain, No Neck Pain Skin: No Rash Neurological: No Dizziness, No Focal Weakness, No Sensory Changes Psychological: No Symptoms Endocrine: No Symptoms Hematologic/Lymphatic: No Symptoms Immunological/Allergic: No Symptoms Objective Exam General Appearance: no apparent distress, alert Neurologic Exam: alert, oriented x 3, cooperative, normal mood/affect, nml cerebellar function, sensation nml, No motor deficits Skin Exam: normal color, warm, dry Eye Exam: PERRL, EOMI, eyes nml inspection Ears, Nose, Throat Exam: normal ENT inspection, pharynx normal, moist mucous membranes Neck Exam: normal inspection, non-tender, supple, full range of motion Respiratory Exam: normal breath sounds, lungs clear, No respiratory distress Cardiovascular Exam: regular rate/rhythm, normal heart sounds Gastrointestinal/Abdomen Exam: soft, No tenderness, No mass Extremity Exam: normal inspection, normal range of motion Back Exam: normal inspection, normal range of motion, No CVA tenderness, No vertebral tenderness Male Genitalia Exam: deferred Rectal Exam: deferred OBJECTIVE DATA Vital Signs: Vital Signs - 24 hr Temp Pulse Resp BP Pulse Ox 10/29/19 07:17 98.4 F 67 18 125/61 96 10/29/19 07:06 98.6 F 65 18 186/87 93 L 10/29/19 06:31 83 20 92 L 10/29/19 05:00 150/80 10/29/19 04:30 99.3 F 81 24 182/78 97 10/29/19 02:00 24 10/29/19 00:00 98.2 F 70 24 183/85 96 10/28/19 20:59 69 20 94 L 10/28/19 20:00 98.2 F 69 24 149/68 94 L 10/28/19 16:00 100.1 F 118 H 19 177/72 95 10/28/19 12:00 98.1 F 74 21 188/87 93 L Oxygen-Last 24 hours O2 Percentage 3 Liters = 32% O2 Percentage 2 Liters = 28% O2 Percentage 2 Liters = 28% O2 Percentage 2 Liters = 28% Oxygen Flowrate (L/min)-RT 2 Oxygen Flowrate (L/min)-RT 2 Oxygen Flowrate (L/min)-RT 2 Pain Assessment - Last Documented Pain Intensity 0 Pain Scale Used FLACC Intake and Output: Intake & Output 10/26/19 10/27/19 10/28/19 10/29/19 11:59 11:59 11:59 11:59 Intake Total 407 2760 Output Total 1250 2050 Balance -843 710 Weight 91.7 kg 91.7 kg Lab Results: Accuchecks Date 10/28/19 Time 21:30 Accucheck Value: 365 Accucheck Value: 239 Accucheck Value: 247 Lab Results-Last 24 Hours 10/28/19 10/29/19 10/29/19 Range/Units 15:45 05:24 05:24 WBC 19.4 H (4.0-10.5) K/mm3 RBC 4.01 L (4.1-5.6) M/mm3 Hgb 11.6 L (12.5-18.0) gm/dl Hct 36.0 L (42-50) % MCV 89.8 (78-100) fl MCH 28.9 (26-32) pg MCHC 32.2 (32-36) g/dl RDW 12.6 (11.5-14.0) % Plt Count 208 (150-450) K/mm3 MPV 9.8 H (6-9.5) fl Sodium 136 L (137-145) mmol/L Potassium 3.5 (3.5-5.1) mmol/L Chloride 102 (98-107) mmol/L Carbon Dioxide 30 (22-30) mmol/L Anion Gap 6.4 (5-15) MEQ/L BUN 16 (9-20) mg/dL Creatinine 0.64 L (0.66-1.25) mg/dL Estimated GFR > 60.0 ML/MIN Glucose 254 H (74-106) mg/dL Lactic Acid (0.4-2.0) Calcium 8.2 L (8.4-10.2) mg/dL Total Bilirubin 0.70 (0.2-1.3) mg/dL AST 27 (17-59) U/L ALT 16 (0-50) U/L Alkaline Phosphatase 109 (38-126) U/L Serum Total Protein 6.5 (6.3-8.2) g/dL Albumin 2.9 L (3.5-5.0) g/dL Urine Color YELLOW (YELLOW) Urine Appearance CLOUDY (CLEAR) Urine pH 5.0 (5-6) Ur Specific [place] 1.022 (1.005-1.025) Urine Protein 100 (Negative) Urine Ketones TRACE (NEGATIVE) Urine Blood LARGE (0-5) Alvarez/ul Urine Nitrite NEGATIVE (NEGATIVE) Urine Bilirubin NEGATIVE (NEGATIVE) Urine Urobilinogen NEGATIVE (0-1) mg/dL Ur Leukocyte Esterase LARGE (NEGATIVE) Urine WBC (Auto) >100 (0-5) /HPF Urine RBC (Auto) >101 (0-2) /HPF U Hyaline Cast (Auto) 3-5 (0-2) /LPF U Epithel Cells (Auto) NONE (FEW) /HPF Urine Bacteria (Auto) MODERATE (NEGATIVE) /HPF Urine Culture Reflexed ORDERED SEPARATELY (NO) Urine Glucose >=500 (NEGATIVE) mg/dL 10/29/19 Range/Units 05:55 WBC (4.0-10.5) K/mm3 RBC (4.1-5.6) M/mm3 Hgb (12.5-18.0) gm/dl Hct (42-50) % MCV (78-100) fl MCH (26-32) pg MCHC (32-36) g/dl RDW (11.5-14.0) % Plt Count (150-450) K/mm3 MPV (6-9.5) fl Sodium (137-145) mmol/L Potassium (3.5-5.1) mmol/L Chloride (98-107) mmol/L Carbon Dioxide (22-30) mmol/L Anion Gap (5-15) MEQ/L BUN (9-20) mg/dL Creatinine (0.66-1.25) mg/dL Estimated GFR ML/MIN Glucose (74-106) mg/dL Lactic Acid 1.2 (0.4-2.0) Calcium (8.4-10.2) mg/dL Total Bilirubin (0.2-1.3) mg/dL AST (17-59) U/L ALT (0-50) U/L Alkaline Phosphatase (38-126) U/L Serum Total Protein (6.3-8.2) g/dL Albumin (3.5-5.0) g/dL Urine Color (YELLOW) Urine Appearance (CLEAR) Urine pH (5-6) Ur Specific [place] (1.005-1.025) Urine Protein (Negative) Urine Ketones (NEGATIVE) Urine Blood (0-5) Alvarze/ul Urine Nitrite (NEGATIVE) Urine Bilirubin (NEGATIVE) Urine Urobilinogen (0-1) mg/dL Ur Leukocyte Esterase (NEGATIVE) Urine WBC (Auto) (0-5) /HPF Urine RBC (Auto) (0-2) /HPF U Hyaline Cast (Auto) (0-2) /LPF U Epithel Cells (Auto) (FEW) /HPF Urine Bacteria (Auto) (NEGATIVE) /HPF Urine Culture Reflexed (NO) Urine Glucose (NEGATIVE) mg/dL Radiology Exams: Radiology Procedures Category Date Time Status CHEST 1 VIEW (PORTABLE) Stat Exams 10/27/19 18:06 Completed HEAD WITHOUT CONTRAST [CT] Stat Exams 10/27/19 18:55 Completed Multi-Disciplinary Progress Notes: Multi-Disciplinary Progress Notes 10/28/19 12:18 Case Management Note by Delmi Roque DR. ORDERED CBC, CMP, LACTIC ACID TO BE DRAWN IN THE MORNING, 10/29/19. CONTINUE CURRENT TREATMENT FOR UROSEPSIS. Initialized on 10/28/19 12:18 - END OF NOTE 10/28/19 11:00 (created 10/28/19 12:22) Case Management Note by Delmi Roque PT IS CONFUSED, UNABLE TO DISCUSS DISCHARGE PLAN AT THIS TIME. DR. LARKIN DID REPORT THAT EPISODE OF UROSEPSIS HAPPENED TO PT APPROX 5 YEARS AGO WITH SAME CONFUSION. REPORTS THAT HE FEELS PT WILL GET BETTER WITH TREATMENT. DR. LARKIN REPORTS THAT PT HAS A NEIGHBOR THAT HELPS HIM AT HOME AND BRINGS HIM TO [facility] [place], [facility]. CASE MANAGEMENT WILL CONTINUE TO FOLLOW PT FOR ALL DC NEEDS. Initialized on 10/28/19 12:22 - END OF NOTE Assessment/Plan (1) Sepsis Current Visit: Yes Status: Acute Qualifiers: Sepsis type: methicillin resistant Staphylococcus aureus Sepsis acute organ dysfunction status: with acute organ dysfunction Severe sepsis acute organ dysfunction type: acute renal failure Severe sepsis shock status: unspecified Assessment & Plan: Chief Complaint Diagnosis confusion and altered mental status , found unresponsive and confused at Allergies Allergy/AdvReac Type Severity Reaction Status Date / Time No Known Drug Allergies Allergy Verified 10/27/19 17:48 Vital Signs (Last 24 hours) Temp Pulse Resp BP Pulse Ox 10/29/19 07:17 98.4 F 67 18 125/61 96 10/29/19 07:06 98.6 F 65 18 186/87 93 L 10/29/19 06:31 83 20 92 L 10/29/19 05:00 150/80 10/29/19 04:30 99.3 F 81 24 182/78 97 10/29/19 02:00 24 10/29/19 00:00 98.2 F 70 24 183/85 96 10/28/19 20:59 69 20 94 L 10/28/19 20:00 98.2 F 69 24 149/68 94 L 10/28/19 16:00 100.1 F 118 H 19 177/72 95 10/28/19 12:00 98.1 F 74 21 188/87 93 L Home Medications Medication Instructions Recorded Confirmed Last Taken Type Aspirin [Aspirin EC] 81 mg PO DAILY 10/28/19 10/28/19 Unknown History Atorvastatin Calcium 80 mg PO DAILY 10/28/19 10/28/19 Unknown History Escitalopram Oxalate 10 mg 10 mg PO HS 10/28/19 10/28/19 Unknown History [Lexapro 10 MG] Gabapentin 300 mg PO TID 10/28/19 10/28/19 Unknown History Insulin NPH Human Isophane 50 units SQ BIDWM 10/28/19 10/28/19 Unknown History [Humulin N] Metformin HCl [Metformin HCl ER] 500 mg PO DAILY 10/28/19 10/28/19 Unknown History Tamsulosin HCl 1 tablet PO HS 10/28/19 10/28/19 Unknown History Current Medications Generic Name Dose Route Start Last Admin Trade Name Freq PRN Reason Stop Dose Admin Acetaminophen 650 mg 10/28/19 01:38 10/28/19 17:53 Tylenol 325 Mg PO 11/27/19 01:37 650 mg Q4H PRN PRN Administration PAIN AND/OR FEVER Albuterol Sulfate 2.5 mg 10/28/19 01:47 Proventil 2.5 Mg/3 Ml Neb IH 11/27/19 01:46 QIDPRN PRN SHORTNESS OF BREATH/WHEEZING Insulin Aspart 0 unit 10/28/19 01:36 10/28/19 22:12 Novolog Insulin SQ 11/27/19 01:35 11 unit UD PRN Administration HYPERGLYCEMIA Magnesium Hydroxide 30 ml 10/28/19 01:39 Milk Of Magnesia 30 Ml PO 11/27/19 01:38 HS PRN PRN CONSTIPATION Minocycline HCl 200 mg 10/29/19 10:00 Minocycline Hcl PO 10/29/19 10:01 1000 BEATRIZ Minocycline HCl 100 mg 10/29/19 22:00 Minocycline Hcl PO 11/28/19 21:59 BID BEATRIZ Promethazine HCl 12.5 mg 10/28/19 01:38 Phenergan 25 Mg PO 11/27/19 01:37 Q6HPRN PRN NAUSEA/VOMITING Discontinued Medications Generic Name Dose Route Start Last Admin Trade Name Freq PRN Reason Stop Dose Admin Sodium Chloride 1,000 mls @ 999 mls/hr 10/27/19 18:07 10/27/19 19:15 Sodium Chloride 0.9% 1000 Ml IV 10/27/19 19:07 Infused .Q1H1M STA Infusion Sodium Chloride Confirm 10/27/19 18:11 Sodium Chloride 0.9% 1000 Ml Administered 10/27/19 18:12 Dose 1,000 mls @ ud .ROUTE .STK-MED ONE Piperacillin Sod/Tazobactam Sod 3.375 gm in 100 mls @ 200 mls/hr 10/27/19 21: 37 10/27/19 22:17 Zosyn 3.375gm/100 Ml D5w IV 10/27/19 22:06 Infused STAT STA Infusion Sodium Chloride 1,000 mls @ 999 mls/hr 10/27/19 21:37 10/27/19 22:48 Sodium Chloride 0.9% 1000 Ml IV 10/27/19 22:37 Infused .Q1H1M STA Infusion Sodium Chloride Confirm 10/27/19 21:40 Sodium Chloride 0.9% 1000 Ml Administered 10/27/19 21:41 Dose 1,000 mls @ ud .ROUTE .STK-MED ONE Piperacillin Sod/Tazobactam Sod Confirm 10/27/19 21:40 Zosyn 3.375gm/100 Ml D5w Administered 10/27/19 21:41 Dose 3.375 gm in 100 mls @ ud IV .STK-MED ONE Piperacillin Sod/Tazobactam Sod 3.375 gm in 100 mls @ 200 mls/hr 10/28/19 06: 00 10/29/19 06:32 Zosyn 3.375gm/100 Ml D5w IV 11/27/19 05:59 200 mls/hr Q6HT BEATRIZ Administration Sodium Chloride 1,000 mls @ 100 mls/hr 10/28/19 01:45 10/28/19 12:47 Sodium Chloride 0.9% 1000 Ml IV 10/28/19 21:44 100 mls/hr .Q10H BEATRIZ Administration Levofloxacin 750 mg 10/28/19 21:40 10/27/19 21:49 Levofloxacin 250mg Tablet PO 10/28/19 21:41 750 mg STAT ONE Administration Levofloxacin Confirm 10/27/19 21:41 Levofloxacin 250mg Tablet Administered 10/27/19 21:42 Dose 750 mg .ROUTE .STK-MED ONE Non-Formulary Medication 1 each 10/29/19 08:07 Pharmacy Dosing Request 10/29/19 08:08 STAT ONE Intake & Output (Last 24 hours) 10/26/19 10/27/19 10/28/19 10/29/19 11:59 11:59 11:59 11:59 Intake Total 407 2760 Output Total 1250 2050 Balance -843 710 Weight 91.7 kg 91.7 kg Microbiology Results (Last 24 hours) 10/27/19 04:02 Suprapubic Cath Urine Culture - Final Methicillin Resist Staph Aur 10/28/19 15:45 Urine, Indwelling Catheter Urine Culture - Pending Laboratory Results (Last 24 hours) 10/29/19 10/29/19 10/29/19 05:55 05:24 05:24 WBC 19.4 H RBC 4.01 L Hgb 11.6 L Hct 36.0 L MCV 89.8 MCH 28.9 MCHC 32.2 RDW 12.6 Plt Count 208 MPV 9.8 H Sodium 136 L Potassium 3.5 Chloride 102 Carbon Dioxide 30 Anion Gap 6.4 BUN 16 Creatinine 0.64 L Estimated GFR > 60.0 Glucose 254 H Lactic Acid 1.2 Calcium 8.2 L Total Bilirubin 0.70 AST 27 ALT 16 Alkaline Phosphatase 109 Serum Total Protein 6.5 Albumin 2.9 L Urine Color Urine Appearance Urine pH Ur Specific [place] Urine Protein Urine Ketones Urine Blood Urine Nitrite Urine Bilirubin Urine Urobilinogen Ur Leukocyte Esterase Urine WBC (Auto) Urine RBC (Auto) U Hyaline Cast (Auto) U Epithel Cells (Auto) Urine Bacteria (Auto) Urine Culture Reflexed Urine Glucose 10/28/19 15:45 WBC RBC Hgb Hct MCV MCH MCHC RDW Plt Count MPV Sodium Potassium Chloride Carbon Dioxide Anion Gap BUN Creatinine Estimated GFR Glucose Lactic Acid Calcium Total Bilirubin AST ALT Alkaline Phosphatase Serum Total Protein Albumin Urine Color YELLOW Urine Appearance CLOUDY Urine pH 5.0 Ur Specific [place] 1.022 Urine Protein 100 Urine Ketones TRACE Urine Blood LARGE Urine Nitrite NEGATIVE Urine Bilirubin NEGATIVE Urine Urobilinogen NEGATIVE Ur Leukocyte Esterase LARGE Urine WBC (Auto) >100 Urine RBC (Auto) >101 U Hyaline Cast (Auto) 3-5 U Epithel Cells (Auto) NONE Urine Bacteria (Auto) MODERATE Urine Culture Reflexed ORDERED SEPARATELY Urine Glucose >=500 Orders (Last 24 hours) Category Date Time Status ACCUCHECK [Accucheck] ACHS Care 10/28/19 07:30 Active Ambulate Patient ROUTINE Care 10/29/19 08:10 Active Infection Control Consult Cons 10/28/19 08:00 Active Infection Control Consult ROUTINE Cons 10/28/19 16:48 Completed CBC AM.LAB Lab 10/29/19 05:24 Completed CMP AM.LAB Lab 10/29/19 05:24 Completed CULTURE,URINE Urgent Lab 10/28/19 15:45 Ordered Lactic Acid AM.LAB Lab 10/29/19 05:55 Completed UA W/RFX UR CULTURE Urgent Lab 10/28/19 15:45 Completed Levofloxacin [Levofloxacin 250MG Tablet] Med 10/28/19 21:40 Discontinued 750 mg PO STAT ONE Minocycline HCl Med 10/29/19 22:00 Active 100 mg PO BID Minocycline HCl Med 10/29/19 10:00 Active 200 mg PO 1000 Pharmacy Dosing Request Med 10/29/19 08:07 Discontinued 1 each MC STAT ONE EKG STAT RT 10/29/19 06:02 Completed Patient Care Notes (Last 24 hours) 10/29/19 06:07 Nursing Note by Lucy Mauricio Called Dr Recio to report change in patient heart rhythm, appears to be having frequent PVC's, approximately every 3rd beat. Received new order for 12 lead EKG. Initialized on 10/29/19 06:07 - END OF NOTE 10/28/19 18:27 Nursing Note by Sofy Seymour attempt to get pt to feed himself, will hold spoon at times, but will not lift spoon to mouth. Fed pt per this nurse Initialized on 10/28/19 18:27 - END OF NOTE 10/28/19 15:46 Nursing Note by Maximo Mayorga Suprapubic catheter changed per Dr Larkin telephone order. Urine sent to lab. Pt tolerated procedure well. Statlock placed on pt. Initialized on 10/28/19 15:46 - END OF NOTE 10/28/19 12:18 Case Management Note by Delmi Roque DR. ORDERED CBC, CMP, LACTIC ACID TO BE DRAWN IN THE MORNING, 10/29/19. CONTINUE CURRENT TREATMENT FOR UROSEPSIS. Initialized on 10/28/19 12:18 - END OF NOTE 10/28/19 11:00 (created 10/28/19 12:22) Case Management Note by Delmi Roque PT IS CONFUSED, UNABLE TO DISCUSS DISCHARGE PLAN AT THIS TIME. DR. LARKIN DID REPORT THAT EPISODE OF UROSEPSIS HAPPENED TO PT APPROX 5 YEARS AGO WITH SAME CONFUSION. REPORTS THAT HE FEELS PT WILL GET BETTER WITH TREATMENT. DR. LARKIN REPORTS THAT PT HAS A NEIGHBOR THAT HELPS HIM AT HOME AND BRINGS HIM TO [facility]. CASE MANAGEMENT WILL CONTINUE TO FOLLOW PT FOR ALL DC NEEDS. Initialized on 10/28/19 12:22 - END OF NOTE according to report will d/c zosyn and start minocycline (2) Altered mental status Current Visit: Yes Status: Acute Qualifiers: Altered mental status type: disorientation Qualified Code(s): R41.0 - Disorientation, unspecified Code(s): R41.82 - ALTERED MENTAL STATUS, UNSPECIFIED (3) UTI (urinary tract infection) Current Visit: Yes Status: Acute Qualifiers: Indwelling urinary catheter type: cystostomy catheter Encounter type: initial encounter Code(s): N39.0 - URINARY TRACT INFECTION, SITE NOT SPECIFIED (4) Suprapubic catheter Current Visit: No Status: Acute Code(s): Z93.59 - OTHER CYSTOSTOMY STATUS (5) Type 2 diabetes mellitus Current Visit: No Status: Chronic Qualifiers:
[2019-10-29] MEDS: NovoLOG Insulin SQ PRN ×4 (09:11→21:09)
[2019-10-29] MEDS: Novolin N SQ SCH ×2 (09:44→17:17)
[2019-10-29] MEDS: ECOTRIN 81 MG PO SCH (09:45)
[2019-10-29] MEDS: NEURONTIN 300 MG PO SCH ×3 (09:45→21:09)
[2019-10-29] MEDS: PLAVIX 75 MG Tablet PO SCH (09:46)
[2019-10-29] MEDS: Glucophage XR 500 MG PO SCH (09:46)
[2019-10-29] MEDS ORDERED: MINOCYCLINE HCL PO SCH (10:00)
[2019-10-29] MEDS ORDERED: NON-FORMULARY ITEM (Metformin Hcl [Metformin Hcl Er] 500 MG) PO SCH (10:00)
[2019-10-29] MEDS ORDERED: NON-FORMULARY ITEM (Atorvastatin Calcium [Atorvastatin Calcium] 80 MG) PO SCH (10:00)
[2019-10-29] MEDS: Lexapro 10 MG PO SCH (21:08)
[2019-10-29] MEDS: MINOCYCLINE HCL PO SCH (21:08)
[2019-10-29] MEDS: ZOCOR 20MG PO SCH (21:09)
[2019-10-29] MEDS: Flomax 0.4 MG PO SCH (21:09)
--- NOTE | 2019-10-30 07:30 | PCM.NOTE ---
Date and Time: 10/30/19728 Subjective Assessment: doing ok - Review of Systems Constitutional: No Fever, No Chills Eyes: No Symptoms Ears, Nose, & Throat: No Symptoms Respiratory: No Cough, No Short Of Breath Cardiac: No Chest Pain, No Edema, No Syncope Abdominal/Gastrointestinal: No Abdominal Pain, No Nausea, No Vomiting, No Diarrhea Genitourinary Symptoms: No Dysuria Musculoskeletal: No Back Pain, No Neck Pain Skin: No Rash Neurological: No Dizziness, No Focal Weakness, No Sensory Changes Psychological: No Symptoms Endocrine: No Symptoms Hematologic/Lymphatic: No Symptoms Immunological/Allergic: No Symptoms Objective Exam General Appearance: no apparent distress, alert Neurologic Exam: alert, oriented x 3, cooperative, normal mood/affect, nml cerebellar function, sensation nml, No motor deficits Skin Exam: normal color, warm, dry Eye Exam: PERRL, EOMI, eyes nml inspection Ears, Nose, Throat Exam: normal ENT inspection, pharynx normal, moist mucous membranes Neck Exam: normal inspection, non-tender, supple, full range of motion Respiratory Exam: normal breath sounds, lungs clear, No respiratory distress Cardiovascular Exam: regular rate/rhythm, normal heart sounds Gastrointestinal/Abdomen Exam: soft, No tenderness, No mass Extremity Exam: normal inspection, normal range of motion Back Exam: normal inspection, normal range of motion, No CVA tenderness, No vertebral tenderness Male Genitalia Exam: deferred Rectal Exam: deferred OBJECTIVE DATA Vital Signs: Vital Signs - 24 hr Temp Pulse Resp BP Pulse Ox 10/30/19 04:00 97.9 F 96 H 17 139/71 95 10/30/19 02:00 20 10/29/19 23:53 96 10/29/19 23:39 97.9 F 95 H 19 159/85 96 10/29/19 20:10 98.6 F 91 H 21 150/79 94 L 10/29/19 20:00 20 10/29/19 16:10 98.0 F 56 L 18 161/82 10/29/19 14:00 18 10/29/19 13:00 97.6 F 82 18 156/60 10/29/19 08:00 18 Oxygen-Last 24 hours O2 Percentage 2 Liters = 28% O2 Percentage 2 Liters = 28% O2 Percentage 2 Liters = 28% Pain Assessment - Last Documented Pain Intensity 0 Pain Scale Used FLACC Intake and Output: Intake & Output 10/27/19 10/28/19 10/29/19 10/30/19 11:59 11:59 11:59 11:59 Intake Total 407 3140 640 Output Total 1250 2050 1350 Balance -843 1090 -710 Weight 91.7 kg 91.7 kg Lab Results: Accuchecks Date 10/29/19 Date 10/29/19 Time 21:30 Time 17:49 Accucheck Value: 198 Accucheck Value: 275 Accucheck Value: 335 Accucheck Value: 254 Assessment/Plan (1) Sepsis Current Visit: Yes Status: Resolved Qualifiers: Sepsis type: methicillin resistant Staphylococcus aureus Sepsis acute organ dysfunction status: with acute organ dysfunction Severe sepsis acute organ dysfunction type: acute renal failure Severe sepsis shock status: unspecified (2) Altered mental status Current Visit: Yes Status: Acute Qualifiers: Altered mental status type: disorientation Qualified Code(s): R41.0 - Disorientation, unspecified Code(s): R41.82 - ALTERED MENTAL STATUS, UNSPECIFIED (3) UTI (urinary tract infection) Current Visit: Yes Status: Resolved Qualifiers: Indwelling urinary catheter type: cystostomy catheter Encounter type: initial encounter Code(s): N39.0 - URINARY TRACT INFECTION, SITE NOT SPECIFIED (4) Suprapubic catheter Current Visit: Yes Status: Chronic Code(s): Z93.59 - OTHER CYSTOSTOMY STATUS (5) Type 2 diabetes mellitus Current Visit: Yes Status: Chronic Qualifiers: 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
[2019-10-30] MEDS: Novolin N SQ SCH ×2 (08:52→17:22)
[2019-10-30] MEDS: NovoLOG Insulin SQ PRN ×3 (08:53→21:20)
[2019-10-30] MEDS: Glucophage XR 500 MG PO SCH (08:53)
[2019-10-30] MEDS: NEURONTIN 300 MG PO SCH ×3 (08:53→21:20)
[2019-10-30] MEDS: ECOTRIN 81 MG PO SCH (08:53)
[2019-10-30] MEDS: MINOCYCLINE HCL PO SCH ×2 (08:53→21:20)
[2019-10-30] MEDS: PLAVIX 75 MG Tablet PO SCH (08:53)
--- NOTE | 2019-10-30 14:16 | PCM.DS ---
Discharge Summary Date of Admission: 10/28/19 01:14 Admitting Physician: THANH LARKIN Primary Care Provider: THANH LARKIN Allergies Allergies No Known Drug Allergies Allergy (Verified 10/27/19 17:48) Hospital Summary - Hospital Course Hospital Course: Chief Complaint Diagnosis confusion and altered mental status , found unresponsive and confused at Allergies Allergy/AdvReac Type Severity Reaction Status Date / Time No Known Drug Allergies Allergy Verified 10/27/19 17:48 Vital Signs (Last 24 hours) Temp Pulse Resp BP Pulse Ox 10/30/19 13:00 98.5 F 101 H 18 151/84 95 10/30/19 08:02 88 18 96 10/30/19 08:00 18 10/30/19 07:45 98.4 F 90 18 166/80 95 10/30/19 04:00 97.9 F 96 H 17 139/71 95 10/30/19 02:00 20 10/29/19 23:53 96 10/29/19 23:39 97.9 F 95 H 19 159/85 96 10/29/19 20:10 98.6 F 91 H 21 150/79 94 L 10/29/19 20:00 20 10/29/19 16:10 98.0 F 56 L 18 161/82 Home Medications Medication Instructions Recorded Confirmed Last Taken Type Aspirin [Aspirin EC] 81 mg PO DAILY 10/28/19 10/28/19 Unknown History Atorvastatin Calcium 80 mg PO DAILY 10/28/19 10/28/19 Unknown History Escitalopram Oxalate 10 mg 10 mg PO HS 10/28/19 10/28/19 Unknown History [Lexapro 10 MG] Gabapentin 300 mg PO TID 10/28/19 10/28/19 Unknown History Insulin NPH Human Isophane 50 units SQ BIDWM 10/28/19 10/28/19 Unknown History [Humulin N] Metformin HCl [Metformin HCl ER] 500 mg PO DAILY 10/28/19 10/28/19 Unknown History Tamsulosin HCl 1 tablet PO HS 10/28/19 10/28/19 Unknown History Current Medications Generic Name Dose Route Start Last Admin Trade Name Freq PRN Reason Stop Dose Admin Acetaminophen 650 mg 10/28/19 01:38 10/28/19 17:53 Tylenol 325 Mg PO 11/27/19 01:37 650 mg Q4H PRN PRN Administration PAIN AND/OR FEVER Albuterol Sulfate 2.5 mg 10/28/19 01:47 Proventil 2.5 Mg/3 Ml Neb IH 11/27/19 01:46 QIDPRN PRN SHORTNESS OF BREATH/WHEEZING Aspirin 81 mg 10/29/19 10:00 10/30/19 08:53 Ecotrin 81 Mg PO 11/28/19 09:59 81 mg DAILY BEATRIZ Administration Clopidogrel Bisulfate 75 mg 10/29/19 10:00 10/30/19 08:53 Plavix 75 Mg Tablet PO 11/28/19 09:59 75 mg DAILY BEATRIZ Administration Escitalopram Oxalate 10 mg 10/29/19 22:00 10/29/19 21:08 Lexapro 10 Mg PO 11/28/19 21:59 10 mg HS BEATRIZ Administration Gabapentin 300 mg 10/29/19 10:00 10/30/19 08:53 Neurontin 300 Mg PO 11/28/19 09:59 300 mg TID BEATRIZ Administration Insulin Aspart 0 unit 10/28/19 01:36 10/30/19 12:20 Novolog Insulin SQ 11/27/19 01:35 11 unit UD PRN Administration HYPERGLYCEMIA Insulin Human NPH 50 unit 10/29/19 09:00 10/30/19 08:52 Novolin N SQ 11/28/19 08:59 50 unit BIDWM BEATRIZ Administration Magnesium Hydroxide 30 ml 10/28/19 01:39 Milk Of Magnesia 30 Ml PO 11/27/19 01:38 HS PRN PRN CONSTIPATION Metformin HCl 500 mg 10/29/19 10:00 10/30/19 08:53 Glucophage Xr 500 Mg PO 11/28/19 09:59 500 mg DAILY BEATRIZ Administration Minocycline HCl 100 mg 10/29/19 22:00 10/30/19 08:53 Minocycline Hcl PO 11/28/19 21:59 100 mg BID BEATRIZ Administration Promethazine HCl 12.5 mg 10/28/19 01:38 Phenergan 25 Mg PO 11/27/19 01:37 Q6HPRN PRN NAUSEA/VOMITING Simvastatin 80 mg 10/29/19 22:00 10/29/19 21:09 Zocor 20mg PO 11/28/19 21:59 80 mg HS BEATRIZ Administration Tamsulosin HCl 0.4 mg 10/29/19 22:00 10/29/19 21:09 Flomax 0.4 Mg PO 11/28/19 21:59 0.4 mg HS BEATRIZ Administration Discontinued Medications Generic Name Dose Route Start Last Admin Trade Name Chaseq PRN Reason Stop Dose Admin Sodium Chloride 1,000 mls @ 999 mls/hr 10/27/19 18:07 10/27/19 19:15 Sodium Chloride 0.9% 1000 Ml IV 10/27/19 19:07 Infused .Q1H1M STA Infusion Sodium Chloride Confirm 10/27/19 18:11 Sodium Chloride 0.9% 1000 Ml Administered 10/27/19 18:12 Dose 1,000 mls @ ud .ROUTE .STK-MED ONE Piperacillin Sod/Tazobactam Sod 3.375 gm in 100 mls @ 200 mls/hr 10/27/19 21: 37 10/27/19 22:17 Zosyn 3.375gm/100 Ml D5w IV 10/27/19 22:06 Infused STAT STA Infusion Sodium Chloride 1,000 mls @ 999 mls/hr 10/27/19 21:37 10/27/19 22:48 Sodium Chloride 0.9% 1000 Ml IV 10/27/19 22:37 Infused .Q1H1M STA Infusion Sodium Chloride Confirm 10/27/19 21:40 Sodium Chloride 0.9% 1000 Ml Administered 10/27/19 21:41 Dose 1,000 mls @ ud .ROUTE .STK-MED ONE Piperacillin Sod/Tazobactam Sod Confirm 10/27/19 21:40 Zosyn 3.375gm/100 Ml D5w Administered 10/27/19 21:41 Dose 3.375 gm in 100 mls @ ud IV .STK-MED ONE Piperacillin Sod/Tazobactam Sod 3.375 gm in 100 mls @ 200 mls/hr 10/28/19 06: 00 10/29/19 06:32 Zosyn 3.375gm/100 Ml D5w IV 11/27/19 05:59 200 mls/hr Q6HT BEATRIZ Administration Sodium Chloride 1,000 mls @ 100 mls/hr 10/28/19 01:45 10/28/19 12:47 Sodium Chloride 0.9% 1000 Ml IV 10/28/19 21:44 100 mls/hr .Q10H BEATRIZ Administration Levofloxacin 750 mg 10/28/19 21:40 10/27/19 21:49 Levofloxacin 250mg Tablet PO 10/28/19 21:41 750 mg STAT ONE Administration Levofloxacin Confirm 10/27/19 21:41 Levofloxacin 250mg Tablet Administered 10/27/19 21:42 Dose 750 mg .ROUTE .STK-MED ONE Minocycline HCl 200 mg 10/29/19 10:00 10/29/19 09:10 Minocycline Hcl PO 10/29/19 10:01 200 mg 1000 BEATRIZ Administration Non-Formulary Medication 1 each 10/29/19 08:07 10/29/19 09:28 Pharmacy Dosing Request 10/29/19 08:08 1 each STAT ONE Administration Intake & Output (Last 24 hours) 10/28/19 10/29/19 10/30/19 10/31/19 11:59 11:59 11:59 11:59 Intake Total 407 3140 1040 Output Total 1250 2050 1350 Balance -843 1090 -310 Weight 91.7 kg 91.7 kg Microbiology Results (Last 24 hours) 10/28/19 15:45 Urine, Indwelling Catheter Urine Culture - Final Methicillin Resist Staph Aur 10/27/19 18:20 Blood Blood Culture Gram Stain - Pending 10/27/19 18:20 Blood Blood Culture - Preliminary NO GROWTH TO DATE 10/27/19 18:15 Blood Blood Culture Gram Stain - Pending 10/27/19 18:15 Blood Blood Culture - Preliminary NO GROWTH TO DATE Orders (Last 24 hours) Category Date Time Status 2000 Calorie ADA Diet 10/30/19 Dinner Active CBC Routine Lab 10/31/19 05:00 Ordered UA W/RFX UR CULTURE Routine Lab 10/31/19 05:00 Uncollected Escitalopram Oxalate 10 mg [Lexapro 10 MG] Med 10/29/19 22:00 Active 10 mg PO HS Minocycline HCl Med 10/29/19 22:00 Active 100 mg PO BID Simvastatin 20Mg [Zocor 20Mg] Med 10/29/19 22:00 Active 80 mg PO HS Tamsulosin HCl 0.4 mg [Flomax 0.4 MG] Med 10/29/19 22:00 Active 0.4 mg PO HS Patient Care Notes (Last 24 hours) 10/30/19 05:26 Nursing Note by Lucy Mauricio Patient has refused turn and reposition by staff this shift. medical office supervisor spoke with patient and he declined. Has been encouraged to make changes to position and shift his weight. Initialized on 10/30/19 05:26 - END OF NOTE - Vitals & Intake/Output Vital Signs: Vital Signs Temperature 98.5 F 10/30/19 13:00 Pulse Rate 101 H 10/30/19 13:00 Respiratory Rate 18 10/30/19 13:00 Blood Pressure 151/84 10/30/19 13:00 O2 Sat by Pulse Oximetry 95 10/30/19 13:00 Oxygen-Last Documented O2 Percentage 2 Liters = 28% Intake & Output: Intake & Output 10/28/19 10/29/19 10/30/19 10/31/19 11:59 11:59 11:59 11:59 Intake Total 407 3140 1040 Output Total 1250 2050 1350 Balance -843 1090 -310 Weight 91.7 kg 91.7 kg - Lab Result Diagrams: 10/29/19 05:24 10/29/19 05:24 Lab Results-Last 24 Hrs: Accuchecks Date 10/29/19 Date 10/29/19 Time 21:30 Time 17:49 Accucheck Value: 378 Accucheck Value: 186 Accucheck Value: 198 Accucheck Value: 275 Micro Results-Entire Visit: Microbiology 10/28/19 15:45 Urine Culture - Final Urine, Indwelling Catheter Methicillin Resist Staph Aur 10/27/19 18:20 Blood Culture - Preliminary Blood NO GROWTH TO DATE 10/27/19 18:15 Blood Culture - Preliminary Blood NO GROWTH TO DATE 10/27/19 04:02 Urine Culture - Final Suprapubic Cath Methicillin Resist Staph Aur Accuchecks Date 10/29/19 Date 10/29/19 Time 21:30 Time 17:49 Accucheck Value: 378 Accucheck Value: 186 Accucheck Value: 198 Accucheck Value: 275 - Procedures and Test Procedures and Tests throughout Hospitalization: Therapy Orders & Screens 10/28/19 01:46 Respiratory Therapy Assessment DAILY Comment: Diagnosis: URO-SEPSIS,UTI,DEHYDRATION,ALTERED MENTAL STATUS 10/28/19 01:47 Oxygen NASAL CANNULA 2 lpm Comment: Diagnosis: URO-SEPSIS,UTI,DEHYDRATION,ALTERED MENTAL STATUS Peak Expiratory Flow Rate DAILY Comment: Reason For Exam: Diagnosis: URO-SEPSIS,UTI,DEHYDRATION,ALTERED MENTAL STATUS 10/29/19 06:02 EKG STAT Comment: Diagnosis: confusion and altered mental status , found unresponsive and confused at ho Discharge Exam General Appearance: no apparent distress, alert Neurologic Exam: alert, oriented x 3, cooperative, normal mood/affect, nml cerebellar function, sensation nml, No motor deficits Eye Exam: PERRL, EOMI, eyes nml inspection Ears, Nose, Throat Exam: normal ENT inspection, pharynx normal, moist mucous membranes Neck Exam: normal inspection, non-tender, supple, full range of motion Respiratory Exam: normal breath sounds, lungs clear, No respiratory distress Cardiovascular Exam: regular rate/rhythm, normal heart sounds Gastrointestinal/Abdomen Exam: soft, No tenderness, No mass Male Genitalia Exam: deferred Rectal Exam: deferred Back Exam: normal inspection, normal range of motion, No CVA tenderness, No vertebral tenderness Extremity Exam: normal inspection, normal range of motion Skin Exam: normal color, warm, dry Final Diagnosis/Problem List - Final Discharge Diagnosis/Problem (1) Sepsis Current Visit: Yes Status: Resolved (2) Altered mental status Current Visit: Yes Status: Resolved Code(s): R41.82 - ALTERED MENTAL STATUS , UNSPECIFIED (3) UTI (urinary tract infection) Current Visit: Yes Status: Resolved Code(s): N39.0 - URINARY TRACT INFECTION , SITE NOT SPECIFIED (4) Suprapubic catheter Current Visit: Yes Status: Chronic Code(s): Z93.59 - OTHER CYSTOSTOMY STATUS (5) Type 2 diabetes mellitus Current Visit: Yes Status: Chronic - Discharge Discharge Date: 10/30/19 Disposition: Home, Self-Care Condition: Stable Prescriptions: New Minocycline HCl 100 mg PO BID #20 capsule Continue Clopidogrel Bisulfate 75 mg [PLAVIX 75 MG Tablet] 75 mg PO DAILY Tamsulosin HCl 1 tablet PO HS Atorvastatin Calcium 80 mg PO DAILY Gabapentin 300 mg PO TID Escitalopram Oxalate 10 mg [Lexapro 10 MG] 10 mg PO HS Metformin HCl [Metformin HCl ER] 500 mg PO DAILY Insulin NPH Human Isophane [Humulin N] 50 units SQ BIDWM Aspirin [Aspirin EC] 81 mg PO DAILY Follow up with: THANH LARKIN MD [Primary Care Provider] - 1 Week
[2019-10-30] MEDS: Flomax 0.4 MG PO SCH (21:19)
[2019-10-30] MEDS: Lexapro 10 MG PO SCH (21:19)
[2019-10-30] MEDS: ZOCOR 20MG PO SCH (21:20)
[2019-10-31 05:27] LABS: Hematocrit 35.5 % (42-50); Hemoglobin 11.5 gm/dl (12.5-18.0); Mean Cell Volume 88.8 fl (78-100); Mean Corpuscular Hemoglobin 28.8 pg (26-32); Mean Corpuscular Hgb Concent. 32.4 g/dl (32-36); Mean Platelet Volume 9.8 fl (6-9.5); Platelet Count 225 K/mm3 (150-450); Red Cell Distribution Width 12.6 % (11.5-14.0); White Blood Count 17.1 K/mm3 (4.0-10.5)
[2019-10-31 05:42] LABS: Appearance CLEAR (CLEAR); Bilirubin NEGATIVE (NEGATIVE); Blood LARGE Ery/ul (0-5); Glucose 50 mg/dL (NEGATIVE); Ketones NEGATIVE (NEGATIVE); Leukocyte Esterase NEGATIVE (NEGATIVE); Mucus SLIGHT /HPF (NEGATIVE); Nitrite NEGATIVE (NEGATIVE); Protein,Urine Dip 30 (Negative); RBC 51-100 /HPF (0-2); Specific Gravity 1.018 (1.005-1.025); Urobilinogen 4 mg/dL (0-1)
[2019-10-31] MEDS: Novolin N SQ SCH ×2 (08:18→16:50)
[2019-10-31] MEDS: ECOTRIN 81 MG PO SCH (10:13)
[2019-10-31] MEDS: Glucophage XR 500 MG PO SCH (10:13)
[2019-10-31] MEDS: PLAVIX 75 MG Tablet PO SCH (10:14)
[2019-10-31] MEDS: MINOCYCLINE HCL PO SCH ×2 (10:15→22:50)
[2019-10-31] MEDS: NEURONTIN 300 MG PO SCH ×3 (10:15→22:49)
[2019-10-31] MEDS: NovoLOG Insulin SQ PRN ×2 (12:13→17:12)
--- NOTE | 2019-10-31 12:27 | PCM.NOTE ---
Date and Time: 10/31/19 1226 Subjective Assessment: doing better, awaiting placement as his caregiver cannot take care of him - Review of Systems Constitutional: No Fever, No Chills Eyes: No Symptoms Ears, Nose, & Throat: No Symptoms Respiratory: No Cough, No Short Of Breath Cardiac: No Chest Pain, No Edema, No Syncope Abdominal/Gastrointestinal: No Abdominal Pain, No Nausea, No Vomiting, No Diarrhea Genitourinary Symptoms: No Dysuria Musculoskeletal: No Back Pain, No Neck Pain Skin: No Rash Neurological: No Dizziness, No Focal Weakness, No Sensory Changes Psychological: No Symptoms Endocrine: No Symptoms Hematologic/Lymphatic: No Symptoms Immunological/Allergic: No Symptoms Objective Exam General Appearance: no apparent distress, alert Neurologic Exam: alert, oriented x 3, cooperative, normal mood/affect, nml cerebellar function, sensation nml, No motor deficits Skin Exam: normal color, warm, dry Eye Exam: PERRL, EOMI, eyes nml inspection Ears, Nose, Throat Exam: normal ENT inspection, pharynx normal, moist mucous membranes Neck Exam: normal inspection, non-tender, supple, full range of motion Respiratory Exam: normal breath sounds, lungs clear, No respiratory distress Cardiovascular Exam: regular rate/rhythm, normal heart sounds Gastrointestinal/Abdomen Exam: soft, No tenderness, No mass Extremity Exam: normal inspection, normal range of motion Back Exam: normal inspection, normal range of motion, No CVA tenderness, No vertebral tenderness Male Genitalia Exam: deferred Rectal Exam: deferred OBJECTIVE DATA Vital Signs: Vital Signs - 24 hr Temp Pulse Resp BP Pulse Ox 10/31/19 11:42 94 L 10/31/19 08:07 98.0 F 98 H 18 140/67 96 10/31/19 08:00 18 10/31/19 05:00 97.1 F 100 H 22 154/78 96 10/31/19 02:00 22 10/31/19 00:25 98.5 F 95 H 19 140/60 96 10/30/19 20:48 96 10/30/19 20:06 97.9 F 93 H 20 139/78 95 10/30/19 16:38 98.1 F 101 H 18 130/80 95 10/30/19 14:00 18 10/30/19 13:00 98.5 F 101 H 18 151/84 95 Oxygen-Last 24 hours O2 Percentage 2 Liters = 28% Pain Assessment - Last Documented Pain Intensity 0 Pain Scale Used FLACC Intake and Output: Intake & Output 10/29/19 10/30/19 10/31/19 11/01/19 11:59 11:59 11:59 11:59 Intake Total 3140 1040 1440 Output Total 2050 1350 500 Balance 1090 -310 940 Weight 91.7 kg Lab Results: Accuchecks Accucheck Value: 178 Accucheck Value: 190 Accucheck Value: 195 Lab Results-Last 24 Hours 10/31/19 10/31/19 Range/Units 05:00 05:23 WBC 17.1 H (4.0-10.5) K/mm3 RBC 4.00 L (4.1-5.6) M/mm3 Hgb 11.5 L (12.5-18.0) gm/dl Hct 35.5 L (42-50) % MCV 88.8 (78-100) fl MCH 28.8 (26-32) pg MCHC 32.4 (32-36) g/dl RDW 12.6 (11.5-14.0) % Plt Count 225 (150-450) K/mm3 MPV 9.8 H (6-9.5) fl Urine Color JESSIE (YELLOW) Urine Appearance CLEAR (CLEAR) Urine pH 5.0 (5-6) Ur Specific [place] 1.018 (1.005-1.025) Urine Protein 30 (Negative) Urine Ketones NEGATIVE (NEGATIVE) Urine Blood LARGE (0-5) Alvarez/ul Urine Nitrite NEGATIVE (NEGATIVE) Urine Bilirubin NEGATIVE (NEGATIVE) Urine Urobilinogen 4 (0-1) mg/dL Ur Leukocyte Esterase NEGATIVE (NEGATIVE) Urine WBC (Auto) 3-5 (0-5) /HPF Urine RBC (Auto) 51-100 (0-2) /HPF U Epithel Cells (Auto) NONE (FEW) /HPF Urine Bacteria (Auto) NONE (NEGATIVE) /HPF Urine Mucus (Auto) SLIGHT (NEGATIVE) /HPF Urine Culture Reflexed YES (NO) Urine Glucose 50 (NEGATIVE) mg/dL Assessment/Plan (1) Sepsis Current Visit: Yes Status: Resolved Qualifiers: Sepsis type: methicillin resistant Staphylococcus aureus Sepsis acute organ dysfunction status: with acute organ dysfunction Severe sepsis acute organ dysfunction type: acute renal failure Severe sepsis shock status: unspecified Assessment & Plan: unable to take care of him at all by himself at home. will try for placement. (2) Altered mental status Current Visit: Yes Status: Resolved Qualifiers: Altered mental status type: disorientation Qualified Code(s): R41.0 - Disorientation, unspecified Code(s): R41.82 - ALTERED MENTAL STATUS, UNSPECIFIED (3) UTI (urinary tract infection) Current Visit: Yes Status: Resolved Qualifiers: Indwelling urinary catheter type: cystostomy catheter Encounter type: initial encounter Code(s): N39.0 - URINARY TRACT INFECTION, SITE NOT SPECIFIED (4) Suprapubic catheter Current Visit: Yes Status: Chronic Code(s): Z93.59 - OTHER CYSTOSTOMY STATUS (5) Type 2 diabetes mellitus Current Visit: Yes Status: Chronic Qualifiers: Diabetes mellitus residential insulin use: with long goods drier use Diabetes mellitus complication status: with hyperglycemia Qualified Code(s): E11.65 - Type 2 diabetes mellitus with hyperglycemia; Z79.4 - roasterman (current) use of insulin
[2019-10-31] MEDS: Flomax 0.4 MG PO SCH (22:49)
[2019-10-31] MEDS: Lexapro 10 MG PO SCH (22:49)
[2019-10-31] MEDS: ZOCOR 20MG PO SCH (22:50)
[2019-11-01] MEDS: Novolin N SQ SCH ×2 (09:12→18:00)
--- NOTE | 2019-11-01 09:12 | PCM.NOTE ---
Date and Time: 11/01/19910 Subjective Assessment: doing ok - Review of Systems Constitutional: No Fever, No Chills Eyes: No Symptoms Ears, Nose, & Throat: No Symptoms Respiratory: Cough, Wheezing, No Short Of Breath Cardiac: No Chest Pain, No Edema, No Syncope Abdominal/Gastrointestinal: No Abdominal Pain, No Nausea, No Vomiting, No Diarrhea Genitourinary Symptoms: No Dysuria Musculoskeletal: No Back Pain, No Neck Pain Skin: No Rash Neurological: No Dizziness, No Focal Weakness, No Sensory Changes Psychological: No Symptoms Endocrine: No Symptoms Hematologic/Lymphatic: No Symptoms Immunological/Allergic: No Symptoms Objective Exam General Appearance: no apparent distress, alert Neurologic Exam: alert, oriented x 3, cooperative, normal mood/affect, nml cerebellar function, sensation nml, No motor deficits Skin Exam: normal color, warm, dry Eye Exam: PERRL, EOMI, eyes nml inspection Ears, Nose, Throat Exam: normal ENT inspection, pharynx normal, moist mucous membranes Neck Exam: normal inspection, non-tender, supple, full range of motion Respiratory Exam: diminished breath sounds, No respiratory distress Cardiovascular Exam: regular rate/rhythm, normal heart sounds Gastrointestinal/Abdomen Exam: soft, No tenderness, No mass Extremity Exam: normal inspection, normal range of motion Back Exam: normal inspection, normal range of motion, No CVA tenderness, No vertebral tenderness Male Genitalia Exam: deferred Rectal Exam: deferred OBJECTIVE DATA Vital Signs: Vital Signs - 24 hr Temp Pulse Resp BP Pulse Ox 11/01/19 05:00 98.1 F 91 H 20 162/71 94 L 11/01/19 02:00 18 11/01/19 01:00 96 H 18 153/82 96 10/31/19 22:53 97 10/31/19 21:00 98.3 F 97 H 18 169/85 97 10/31/19 20:00 18 10/31/19 16:28 98.4 F 93 H 18 153/83 94 L 10/31/19 14:00 18 10/31/19 13:00 98.2 F 101 H 18 136/71 97 10/31/19 11:42 94 L Pain Assessment - Last Documented Pain Intensity 0 Pain Scale Used FLACC Intake and Output: Intake & Output 10/29/19 10/30/19 10/31/19 11/01/19 11:59 11:59 11:59 11:59 Intake Total 3140 1040 1440 980 Output Total 2049 1350 500 500 Balance 1090 -310 940 480 Weight 91.7 kg Lab Results: Accuchecks Accucheck Value: 147 Accucheck Value: 204 Accucheck Value: 211 Multi-Disciplinary Progress Notes: Multi-Disciplinary Progress Notes 10/31/19 15:32 Case Management Note by Sharee Stuart FROM [facility] CALLED- WILL INITIATE PA (COULD TAKE A COUPLE OF DAYS). I FAXED OVER PT NOTES AND TODAY'S PROGRESS NOTES FOR HER TO SEND IN WITH PA REQUEST Initialized on 10/31/19 15:32 - END OF NOTE 10/31/19 14:45 Case Management Note by Sharee Stuart ATTEMPTED TO S/W GREGORY ABOUT DC HOME EARLIER TODAY SHE STATED SHE WOULD NOT TAKE HIM HOME IF HE COULD NOT TRANSFER AND HUNG UP ON ME. BUSINESS DEVELOPMENT ENGINEER AND MYSELF WENT IN TO TRY TO SEE PATIENT TRANSFER AND HE WAS UNABLE TO DO SO WITHOUT MODERATE TO HEAVY ASSIST. PATIENT LIVES ALONE AND USES A SCOOTER BUT MUST BE ABLE TO TRANSFER SELF BEFORE HE CAN SAFELY DISCHARGE HOME. PATIENT AGREEABLE TO REHAB STAY. REFERRAL CALLED TO JORGE AT [facility] PER PATIENT'S CHOICE AND CLINICALS SENT. S/W CARLO HE WAS NOTIFIED AND ALSO AGREEABLE. [facility] PAPERWORK COMPLETED-NO LEVEL II REQUIRED. [facility] PAPERS PLACED ON CHART AND ALSO FAXED TO [facility]. SKILLED NURSING STAY WILL REQUIRE PRECERT. PATIENT WORKING WITH PT WELL WHILE WE WAIT TO HEAR IF HE CAN GO FOR REHAB. Initialized on 10/31/19 14:45 - END OF NOTE 10/31/19 13:57 Nutrition Note by Jennifer Pack F/u note: 1999 ADA diet con't with 50-75% po intake. Labs 10/29= Na 136, Cr 0.64, glu 254 , alb 2.9, hgb 11.5, hct 35.5. 10/28 last weight - stable. goal #1 to decrease glu met; goal #2 to maintain po intake >=50% met. Note pt to be d/c'd to facility. Will monitor and f/u prn. TRAY Ferguson Initialized on 10/31/19 13:57 - END OF NOTE Assessment/Plan (1) Sepsis Current Visit: Yes Status: Resolved Qualifiers: Sepsis type: methicillin resistant Staphylococcus aureus Sepsis acute organ dysfunction status: with acute organ dysfunction Severe sepsis acute organ dysfunction type: acute renal failure Severe sepsis shock status: unspecified Assessment & Plan: resolved. Awaiting NH placement (2) Altered mental status Current Visit: Yes Status: Resolved Qualifiers: Altered mental status type: disorientation Qualified Code(s): R41.0 - Disorientation, unspecified Code(s): R41.82 - ALTERED MENTAL STATUS, UNSPECIFIED (3) UTI (urinary tract infection) Current Visit: Yes Status: Resolved Qualifiers: Indwelling urinary catheter type: cystostomy catheter Encounter type: initial encounter Code(s): N39.0 - URINARY TRACT INFECTION, SITE NOT SPECIFIED (4) Suprapubic catheter Current Visit: Yes Status: Chronic Code(s): Z93.59 - OTHER CYSTOSTOMY STATUS (5) Type 2 diabetes mellitus Current Visit: Yes Status: Chronic Qualifiers: Diabetes mellitus longterm insulin use: with sportspersons use Diabetes mellitus complication status: with hyperglycemia Qualified Code(s): E11.65 - Type 2 diabetes mellitus with hyperglycemia; Z79.4 - nursing home (current) use of insulin
[2019-11-01] MEDS: NovoLOG Insulin SQ PRN ×3 (09:13→18:00)
[2019-11-01] MEDS: NEURONTIN 300 MG PO SCH ×3 (09:13→22:07)
[2019-11-01] MEDS: MINOCYCLINE HCL PO SCH ×2 (09:13→22:07)
[2019-11-01] MEDS: Glucophage XR 500 MG PO SCH (09:13)
[2019-11-01] MEDS: PLAVIX 75 MG Tablet PO SCH (09:13)
[2019-11-01] MEDS: ECOTRIN 81 MG PO SCH (09:13)
[2019-11-01] MEDS: Flomax 0.4 MG PO SCH (22:07)
[2019-11-01] MEDS: ZOCOR 20MG PO SCH (22:07)
[2019-11-01] MEDS: Lexapro 10 MG PO SCH (22:07)
[2019-11-02] MEDS: Novolin N SQ SCH ×2 (07:55→17:07)
[2019-11-02] MEDS: ECOTRIN 81 MG PO SCH (10:29)
[2019-11-02] MEDS: Glucophage XR 500 MG PO SCH (10:30)
[2019-11-02] MEDS: MINOCYCLINE HCL PO SCH ×2 (10:30→22:21)
[2019-11-02] MEDS: NEURONTIN 300 MG PO SCH ×3 (10:30→22:21)
[2019-11-02] MEDS: PLAVIX 75 MG Tablet PO SCH (10:30)
[2019-11-02] MEDS: NovoLOG Insulin SQ PRN (12:26)
[2019-11-02] MEDS ORDERED: DULCOLAX 5 MG PO PRN (13:59)
--- NOTE | 2019-11-02 13:59 | PCM.NOTE ---
Date and Time: 11/02/19 1352 Subjective Assessment: Patient states plans to go to rehab to get strength back. Seems confused at times but alert and pleasant. - Review of Systems Constitutional: Weakness Eyes: No Symptoms Ears, Nose, & Throat: No Symptoms Respiratory: No Symptoms Cardiac: No Symptoms Abdominal/Gastrointestinal: No Symptoms, Other (states will always have roberson catheter (chart notes cystostomy cath)) Skin: No Symptoms Objective Exam General Appearance: no apparent distress, obese, other (lies on right side, very still; little movement) Neurologic Exam: alert, cooperative, normal mood/affect Skin Exam: normal color, warm, dry, No rash Respiratory Exam: normal breath sounds, lungs clear, No crackles/rales, No rhonchi, No wheezing Cardiovascular Exam: regular rate/rhythm, normal heart sounds, No murmur, No friction rub, No gallop Gastrointestinal/Abdomen Exam: soft, normal bowel sounds, No tenderness, No distention, No mass Comments: 11/02/19 13:[address] OBJECTIVE DATA Vital Signs: Vital Signs - 24 hr Temp Pulse Resp BP Pulse Ox 11/02/19 12:23 87 18 90 L 11/02/19 11:56 98.4 F 89 18 140/71 95 11/02/19 09:00 98.4 F 80 18 162/82 95 11/02/19 08:00 18 11/02/19 05:00 98.2 F 86 18 153/83 95 11/02/19 02:00 18 11/02/19 01:00 98.7 F 86 18 158/70 95 11/01/19 22:35 93 H 20 95 11/01/19 21:00 98.6 F 93 H 20 143/76 95 11/01/19 20:00 19 11/01/19 17:55 103 H 19 95 11/01/19 17:00 99 H 18 184/79 94 L Pain Assessment - Last Documented Pain Intensity 0 Pain Scale Used 0-10 Pain Scale Intake and Output: Intake & Output 10/31/19 11/01/19 11/02/19 11/03/19 06:59 06:59 06:59 06:59 Intake Total 1360 1460 1340 Output Total 177 165 8569 Balance 860 960 140 Lab Results: Accuchecks Date 11/02/19 Date 11/02/19 Date 11/01/19 Time 02:39 Time 07:30 Time 16:30 Accucheck Value: 87 Accucheck Value: 69 Accucheck Value: 162 Multi-Disciplinary Progress Notes: Multi-Disciplinary Progress Notes 11/01/19 15:36 Physical Therapy Note by Lexie Weber PT. IS ALERT AND ORIENTED UPON PT ARRIVAL TO ROOM. CONT. 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 PT. IN BED UPON ARRIVAL TO ROOM. REPORTS DIFFUSE LE PN W/ MOBILITY. SUPINE TO SIT W/ MOD ASSIST X 2. BED TO CHAIR TRANSFER W/ MOD - MAX ASSIST X 2 TO L SIDE WHICH IS HEMIPARETIC SIDE. PT. ABLE TO ASSIST SLIGHTLY W/ SCOOTING TO EDGE OF BED AND TO SCOOT BACK IN CHAIR. DIFFICULTY NOTED W/ THIS D/T L UE FLACCIDITY. WILL CONT. P.T. AND PROGRESS TOLERATED. NSG TO ASSIST W/ MOBILITY TOMORROW. LEXIE WEBER, PT Initialized on 11/01/19 15:36 - END OF NOTE 11/01/19 14:04 Case Management Note by Martha Rutledge SPOKE WITH JORGE AT [facility], STILL WAITING ON P.A. PAPERS AT THIS TIME. Initialized on 11/01/19 14:04 - END OF NOTE Assessment/Plan (1) UTI (urinary tract infection) Current Visit: Yes Status: Resolved Qualifiers: Indwelling urinary catheter type: cystostomy catheter Encounter type: initial encounter Assessment & Plan: Urine culture form 10/31 no growth so seems to have resolved. Code(s): N39.0 - URINARY TRACT INFECTION, SITE NOT SPECIFIED (2) Type 2 diabetes mellitus Current Visit: Yes Status: Chronic Qualifiers: Diabetes mellitus care home insulin use: with exterminator helper termite use Diabetes mellitus complication status: with hyperglycemia Qualified Code(s): E11.65 - Type 2 diabetes mellitus with hyperglycemia; Z79.4 - exterminator helper 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 Assessment & Plan: Blood glucoses have been lower end of normal and I changed sliding scale from moderate dose to low dose. Will also decrease long acting insulin. (3) Generalized weakness Current Visit: Yes Status: Acute Assessment & Plan: Looking to go for rehab for PT/OT. Code(s): R53.1 - WEAKNESS
[2019-11-02] MEDS: TYLENOL 325 MG PO PRN (22:20)
[2019-11-02] MEDS: Lexapro 10 MG PO SCH (22:21)
[2019-11-02] MEDS: Colace 100 MG PO SCH (22:21)
[2019-11-02] MEDS: ZOCOR 20MG PO SCH (22:21)
[2019-11-02] MEDS: Flomax 0.4 MG PO SCH (22:21)
[2019-11-03] MEDS: Colace 100 MG PO SCH ×2 (08:43→22:34)
[2019-11-03] MEDS: PLAVIX 75 MG Tablet PO SCH (08:43)
[2019-11-03] MEDS: ECOTRIN 81 MG PO SCH (08:43)
[2019-11-03] MEDS: NEURONTIN 300 MG PO SCH ×3 (08:43→22:33)
[2019-11-03] MEDS: Glucophage XR 500 MG PO SCH (08:43)
[2019-11-03] MEDS: MINOCYCLINE HCL PO SCH ×2 (08:44→22:35)
[2019-11-03] MEDS: Novolin N SQ SCH ×2 (08:57→17:29)
--- NOTE | 2019-11-03 12:06 | PCM.NOTE ---
Date and Time: 11/03/19 1202 Subjective Assessment: doing ok - Review of Systems Constitutional: No Fever, No Chills Eyes: No Symptoms Ears, Nose, & Throat: No Symptoms Respiratory: No Cough, No Short Of Breath Cardiac: No Chest Pain, No Edema, No Syncope Abdominal/Gastrointestinal: No Abdominal Pain, No Nausea, No Vomiting, No Diarrhea Genitourinary Symptoms: No Dysuria Musculoskeletal: No Back Pain, No Neck Pain Skin: No Rash Neurological: No Dizziness, No Focal Weakness, No Sensory Changes Psychological: No Symptoms Endocrine: No Symptoms Hematologic/Lymphatic: No Symptoms Immunological/Allergic: No Symptoms Objective Exam General Appearance: no apparent distress, alert Neurologic Exam: alert, oriented x 3, cooperative, normal mood/affect, nml cerebellar function, sensation nml, No motor deficits Skin Exam: normal color, warm, dry Eye Exam: PERRL, EOMI, eyes nml inspection Ears, Nose, Throat Exam: normal ENT inspection, pharynx normal, moist mucous membranes Neck Exam: normal inspection, non-tender, supple, full range of motion Respiratory Exam: normal breath sounds, lungs clear, No respiratory distress Cardiovascular Exam: regular rate/rhythm, normal heart sounds Gastrointestinal/Abdomen Exam: soft, No tenderness, No mass Extremity Exam: normal inspection, normal range of motion Back Exam: normal inspection, normal range of motion, No CVA tenderness, No vertebral tenderness Male Genitalia Exam: deferred Rectal Exam: deferred OBJECTIVE DATA Vital Signs: Vital Signs - 24 hr Temp Pulse Resp BP Pulse Ox 11/03/19 11:25 98.4 F 87 18 150/66 96 11/03/19 08:06 91 L 11/03/19 07:52 97.9 F 82 18 145/79 95 11/03/19 05:00 98.4 F 80 16 132/70 95 11/03/19 02:00 16 11/03/19 01:00 97.3 F 84 18 138/74 95 11/02/19 23:56 95 H 18 93 L 11/02/19 21:00 100.1 F 96 H 20 130/62 94 L 11/02/19 20:00 20 11/02/19 16:26 98.9 F 87 18 143/68 87 L 11/02/19 14:00 18 11/02/19 12:23 87 18 90 L Oxygen-Last 24 hours O2 Percentage 6 Liters = 44% Pain Assessment - Last Documented Pain Intensity 0 Pain Scale Used 0-10 Pain Scale Intake and Output: Intake & Output 11/01/19 11/02/19 11/03/19 11/04/19 11:59 11:59 11:59 11:59 Intake Total 1220 1100 200 Output Total 500 1200 1350 Balance 720 -100 -1150 Lab Results: Accuchecks Date 11/03/19 Date 11/02/19 Date 11/02/19 Time 07:30 Time 21:30 Time 16:30 Accucheck Value: 190 Accucheck Value: 201 Accucheck Value: 168 Multi-Disciplinary Progress Notes: Multi-Disciplinary Progress Notes 11/03/19 10:17 Case Management Note by Martha Rutledge SPOKE WITH JORGE AT [facility], STILL WAITING ON P.A. PAPERS AT THIS TIME. Initialized on 11/03/19 10:17 - END OF NOTE Assessment/Plan (1) Sepsis Current Visit: Yes Status: Resolved Qualifiers: Sepsis type: methicillin resistant Staphylococcus aureus Sepsis acute organ dysfunction status: with acute organ dysfunction Severe sepsis acute organ dysfunction type: acute renal failure Severe sepsis shock status: unspecified (2) Altered mental status Current Visit: Yes Status: Resolved Qualifiers: Altered mental status type: disorientation Qualified Code(s): R41.0 - Disorientation, unspecified Code(s): R41.82 - ALTERED MENTAL STATUS, UNSPECIFIED (3) UTI (urinary tract infection) Current Visit: Yes Status: Resolved Qualifiers: Indwelling urinary catheter type: cystostomy catheter Encounter type: initial encounter Code(s): N39.0 - URINARY TRACT INFECTION, SITE NOT SPECIFIED (4) Suprapubic catheter Current Visit: Yes Status: Chronic Code(s): Z93.59 - OTHER CYSTOSTOMY STATUS (5) Type 2 diabetes mellitus Current Visit: Yes Status: Chronic Qualifiers: Diabetes mellitus intermediate insulin use: with intermediate use Diabetes mellitus complication status: with hyperglycemia Qualified Code(s): E11.65 - Type 2 diabetes mellitus with hyperglycemia; 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
[2019-11-03] MEDS: NovoLOG Insulin SQ PRN ×2 (17:29→22:35)
[2019-11-03] MEDS: Flomax 0.4 MG PO SCH (22:32)
[2019-11-03] MEDS: ZOCOR 20MG PO SCH (22:33)
[2019-11-03] MEDS: Lexapro 10 MG PO SCH (22:34)
[2019-11-04] MEDS: Glucophage XR 500 MG PO SCH (09:08)
[2019-11-04] MEDS: NEURONTIN 300 MG PO SCH ×3 (09:08→21:25)
[2019-11-04] MEDS: Novolin N SQ SCH ×2 (09:08→16:47)
[2019-11-04] MEDS: Colace 100 MG PO SCH ×2 (09:08→21:25)
[2019-11-04] MEDS: PLAVIX 75 MG Tablet PO SCH (09:09)
[2019-11-04] MEDS: ECOTRIN 81 MG PO SCH (09:09)
[2019-11-04] MEDS: MINOCYCLINE HCL PO SCH ×2 (09:09→21:26)
[2019-11-04 09:11] LABS: Hemoglobin 11.5 gm/dl (12.5-18.0); Mean Cell Volume 88.5 fl (78-100); Mean Corpuscular Hemoglobin 28.3 pg (26-32); Mean Corpuscular Hgb Concent. 31.9 g/dl (32-36); Mean Platelet Volume 9.2 fl (6-9.5); Platelet Count 372 K/mm3 (150-450); Red Blood Count 4.07 M/mm3 (4.1-5.6); Red Cell Distribution Width 12.7 % (11.5-14.0); White Blood Count 10.8 K/mm3 (4.0-10.5)
--- NOTE | 2019-11-04 12:45 | PCM.NOTE ---
Date and Time: 11/04/19 1244 Subjective Assessment: as above - Review of Systems Constitutional: No Fever, No Chills Eyes: No Symptoms Ears, Nose, & Throat: No Symptoms Respiratory: No Cough, No Short Of Breath Cardiac: No Chest Pain, No Edema, No Syncope Abdominal/Gastrointestinal: No Abdominal Pain, No Nausea, No Vomiting, No Diarrhea Genitourinary Symptoms: No Dysuria Musculoskeletal: No Back Pain, No Neck Pain Skin: No Rash Neurological: No Dizziness, No Focal Weakness, No Sensory Changes Psychological: No Symptoms Endocrine: No Symptoms Hematologic/Lymphatic: No Symptoms Immunological/Allergic: No Symptoms Objective Exam General Appearance: no apparent distress, alert Neurologic Exam: alert, oriented x 3, cooperative, normal mood/affect, nml cerebellar function, sensation nml, No motor deficits Skin Exam: normal color, warm, dry Eye Exam: PERRL, EOMI, eyes nml inspection Ears, Nose, Throat Exam: normal ENT inspection, pharynx normal, moist mucous membranes Neck Exam: normal inspection, non-tender, supple, full range of motion Respiratory Exam: normal breath sounds, lungs clear, No respiratory distress Cardiovascular Exam: regular rate/rhythm, normal heart sounds Gastrointestinal/Abdomen Exam: soft, No tenderness, No mass Extremity Exam: normal inspection, normal range of motion Back Exam: normal inspection, normal range of motion, No CVA tenderness, No vertebral tenderness Male Genitalia Exam: deferred Rectal Exam: deferred OBJECTIVE DATA Vital Signs: Vital Signs - 24 hr Temp Pulse Resp BP Pulse Ox 11/04/19 07:43 98.1 F 86 22 138/66 92 L 11/04/19 07:25 91 L 11/04/19 04:59 98.8 F 81 20 140/67 97 11/04/19 00:53 98.6 F 89 20 131/70 92 L 11/03/19 21:00 98.3 F 71 20 142/78 93 L 11/03/19 16:47 98.5 F 87 18 120/67 95 Pain Assessment - Last Documented Pain Intensity 0 [facility] Intake and Output: Intake & Output 11/02/19 11/03/19 11/04/19 11/05/19 11:59 11:59 11:59 11:59 Intake Total 1100 200 200 Output Total 1200 1350 1100 Balance -100 -1150 -900 Lab Results: Accuchecks Date 11/03/19 Time 21:30 Accucheck Value: 295 Accucheck Value: 286 Lab Results-Last 24 Hours 11/04/19 Range/Units 09:00 WBC 10.8 H (4.0-10.5) K/mm3 RBC 4.07 L (4.1-5.6) M/mm3 Hgb 11.5 L (12.5-18.0) gm/dl Hct 36.0 L (42-50) % MCV 88.5 (78-100) fl MCH 28.3 (26-32) pg MCHC 31.9 L (32-36) g/dl RDW 12.7 (11.5-14.0) % Plt Count 372 (150-450) K/mm3 MPV 9.2 (6-9.5) fl Multi-Disciplinary Progress Notes: Multi-Disciplinary Progress Notes 11/03/19 16:21 Physical Therapy Note by Lexie Weber PT. SEEMS CONFUSED AT TIMES. REFERS TO HIS BED A CAR. PT. IN BED UPON P.T. ARRIVAL TO ROOM. REPORTS NO C/O. WOULD LIKE FOR "GEORGE" TO BRING HIS TEETH." PT. PERFORMED SUPINE TO SIT W/ MOD-MAX ASSIST. HAS SOME DIFFICULTY MAINTAINING STATIC SITTING BALANCE ON SIDE OF BED D/T TRUNK WEAKNESS AND FLACCID L UE. PERFORMED SQUAT PIVOT TRANSFER FROM BED TO ZACARIAS-CHAIR W/ MOD-MAX ASSIST X 2. PLACED CALL LIGHT ON REACH AND ELEVATED L HAND D/T 3+PITTING EDEMA. ASSISTED DRAWER IN STITCH BONDING MACHINE W/ ZACARIAS-CHAIR TO BEDSIDE COMMODE TRANSFER IN PM. PT. REQUIRED MOD- MAX ASSIST X 2 FOR THIS WELL. PT. IRRITABLE AT TIMES AND YELLS OUT WHEN HE IS ASSISTED TO PLACE LES ARE ON FLOOR SO THAT HE CAN WB APPROPRIATELY. PT. NOT AMBULATORY AT THIS TIME D/T LE WEAKNESS AND BALANCE DEFICITS. WILL CONT. P.T. TOLERATED DURING STAY LEXIE WEBER PT Initialized on 11/03/19 16:21 - END OF NOTE 11/03/19 15:14 Nutrition Note by Carolyn Palacios F/u Note: Note 1800 ada diet con't with 50-100% po intake. Glu 190-282. No new labs. Still recommend Pt may benefit from adding MALIK restriction. goals ongoing. Pt refused diet ed. Will monitor and f/u prn. RAY De Leon Initialized on 11/03/19 15:14 - END OF NOTE Assessment/Plan (1) Sepsis Current Visit: Yes Status: Resolved Qualifiers: Sepsis type: methicillin resistant Staphylococcus aureus Sepsis acute organ dysfunction status: with acute organ dysfunction Severe sepsis acute organ dysfunction type: acute renal failure Severe sepsis shock status: unspecified (2) Altered mental status Current Visit: Yes Status: Resolved Qualifiers: Altered mental status type: disorientation Qualified Code(s): R41.0 - Disorientation, unspecified Code(s): R41.82 - ALTERED MENTAL STATUS, UNSPECIFIED (3) UTI (urinary tract infection) Current Visit: Yes Status: Resolved Qualifiers: Indwelling urinary catheter type: cystostomy catheter Encounter type: initial encounter Code(s): N39.0 - URINARY TRACT INFECTION, SITE NOT SPECIFIED (4) Suprapubic catheter Current Visit: Yes Status: Chronic Code(s): Z93.59 - OTHER CYSTOSTOMY STATUS (5) Type 2 diabetes mellitus Current Visit: Yes Status: Chronic Qualifiers: Diabetes mellitus chcf insulin use: with chcf use Diabetes mellitus complication status: with hyperglycemia Qualified Code(s): E11.65 - Type 2 diabetes mellitus with hyperglycemia; Z79.4 - snf (current) use of insulin
[2019-11-04] MEDS: ZOCOR 20MG PO SCH (21:25)
[2019-11-04] MEDS: Lexapro 10 MG PO SCH (21:26)
[2019-11-04] MEDS: Flomax 0.4 MG PO SCH (21:26)
[2019-11-05] MEDS: Novolin N SQ SCH ×2 (08:07→17:11)
[2019-11-05] MEDS: MINOCYCLINE HCL PO SCH ×2 (09:11→22:57)
[2019-11-05] MEDS: ECOTRIN 81 MG PO SCH (09:11)
[2019-11-05] MEDS: Colace 100 MG PO SCH ×2 (09:11→22:56)
[2019-11-05] MEDS: Glucophage XR 500 MG PO SCH (09:11)
[2019-11-05] MEDS: NEURONTIN 300 MG PO SCH ×3 (09:12→22:56)
[2019-11-05] MEDS: PLAVIX 75 MG Tablet PO SCH (09:12)
--- NOTE | 2019-11-05 09:22 | PCM.NOTE ---
Date and Time: 11/05/19920 Subjective Assessment: doing better - Review of Systems Constitutional: No Fever, No Chills Eyes: No Symptoms Ears, Nose, & Throat: No Symptoms Respiratory: No Cough, No Short Of Breath Cardiac: No Chest Pain, No Edema, No Syncope Abdominal/Gastrointestinal: No Abdominal Pain, No Nausea, No Vomiting, No Diarrhea Genitourinary Symptoms: No Dysuria Musculoskeletal: No Back Pain, No Neck Pain Skin: No Rash Neurological: No Dizziness, No Focal Weakness, No Sensory Changes Psychological: No Symptoms Endocrine: No Symptoms Hematologic/Lymphatic: No Symptoms Immunological/Allergic: No Symptoms Objective Exam General Appearance: no apparent distress, alert Neurologic Exam: alert, oriented x 3, cooperative, normal mood/affect, nml cerebellar function, sensation nml, No motor deficits Skin Exam: normal color, warm, dry Eye Exam: PERRL, EOMI, eyes nml inspection Ears, Nose, Throat Exam: normal ENT inspection, pharynx normal, moist mucous membranes Neck Exam: normal inspection, non-tender, supple, full range of motion Respiratory Exam: normal breath sounds, lungs clear, No respiratory distress Cardiovascular Exam: regular rate/rhythm, normal heart sounds Gastrointestinal/Abdomen Exam: soft, No tenderness, No mass Extremity Exam: normal inspection, normal range of motion Back Exam: normal inspection, normal range of motion, No CVA tenderness, No vertebral tenderness Male Genitalia Exam: deferred Rectal Exam: deferred OBJECTIVE DATA Vital Signs: Vital Signs - 24 hr Temp Pulse Resp BP Pulse Ox 11/05/19 07:39 98.1 F 79 18 137/68 90 L 11/05/19 04:19 98.4 F 74 20 155/73 94 L 11/05/19 01:00 98.4 F 77 20 148/70 93 L 11/04/19 21:00 98.3 F 79 20 136/66 92 L 11/04/19 16:50 97.8 F 76 20 132/68 94 L 11/04/19 13:09 98 F 80 20 140/78 93 L Oxygen-Last 24 hours O2 Percentage 2 Liters = 28% Pain Assessment - Last Documented Pain Intensity 0 Pain Scale Used 0-10 Pain Scale Intake and Output: Intake & Output 11/02/19 11/03/19 11/04/19 11/05/19 11:59 11:59 11:59 11:59 Intake Total 1100 200 200 240 Output Total 1200 1350 1100 1050 Balance -100 -1150 -900 -810 Lab Results: Accuchecks Date 11/05/19 Date 11/04/19 Time 22:00 Time 11:30 Accucheck Value: 128 Accucheck Value: 196 Multi-Disciplinary Progress Notes: Multi-Disciplinary Progress Notes 11/04/19 19:06 Case Management Note by Sharee Stuart S/W ROSALIA [facility]- PATIENT'S FAMILY HAS NOTHING TO DO WITH PATIENT. [facility] AND [facility] ARE THE ONLY PEOPLE PATIENT HAS. [facility]ORY CAN NOT CARE FOR PATIENT IF HE CANNOT TRANSFER HIMSELF AND [facility] CAN ALSO NOT PROVIDE 24 HRS CARE FOR PATIENT HE NEEDS. PATIENT STILL UNABLE TO TRANSFER SELF SAFELY. STILL WAITING ON [place] APPROVAL AT THIS TIME. WILL CHECK WITH [facility] ON THURSDAY Initialized on 11/04/19 19:06 - END OF NOTE 11/04/19 15:59 Case Management Note by Martha Rutledge talked with dustin at [place], continue to wait on p.a. papers. Initialized on 11/04/19 15:59 - END OF NOTE 11/04/19 14:18 Case Management Note by Martha Rutledge FROM [facility] REQUESTING PROGRESS NOTES FROM PAST COUPLE OF DAYS. PAPERS SENT. STILL AWAITING ACCEPTANCE. Initialized on 11/04/19 14:18 - END OF NOTE 11/04/19 12:50 Physical Therapy Note by Chavez Ruth Pt in mandy-chair and agreeable to PT. Pt was able to stand with walker and 2 person assist. Pt was able to stand for 20 sec x2. Pt needs much cuing to stand and maintain upright posture. Pt reports L knee pain with transfers and standing. Pt was returned to chair with tray locked and call light near by. Initialized on 11/04/19 12:50 - END OF NOTE Assessment/Plan (1) Sepsis Current Visit: Yes Status: Resolved Qualifiers: Sepsis type: methicillin resistant Staphylococcus aureus Sepsis acute organ dysfunction status: with acute organ dysfunction Severe sepsis acute organ dysfunction type: acute renal failure Severe sepsis shock status: unspecified Assessment & Plan: Last Vital Signs Temp 98.1 F 11/05/19 07:39 Pulse 79 11/05/19 07:39 Resp 18 11/05/19 07:39 BP 137/68 11/05/19 07:39 Pulse Ox 90 L 11/05/19 07:39 Allergies No Known Drug Allergies Allergy (Verified 10/27/19 17:48) Active Medications Acetaminophen (Tylenol 325 Mg) 650 mg PO Q4H PRN PRN PRN Reason: PAIN AND/OR FEVER Stop: 11/27/19 01:37 Last Admin: 11/02/19 22:20 Dose: 650 mg Albuterol Sulfate (Proventil 2.5 Mg/3 Ml Neb) 2.5 mg IH QIDPRN PRN PRN Reason: SHORTNESS OF BREATH/WHEEZING Stop: 11/27/19 01:46 Aspirin (Ecotrin 81 Mg) 81 mg PO DAILY [facility] Stop: 11/28/19 09:59 Last Admin: 11/05/19 09:11 Dose: 81 mg Bisacodyl (Dulcolax 5 Mg) 10 mg PO QDP PRN PRN Reason: CONSTIPATION Stop: 12/02/19 13:58 Last Admin: 11/02/19 17:07 Dose: 10 mg Clopidogrel Bisulfate (Plavix 75 Mg Tablet) 75 mg PO DAILY [facility] Stop: 11/28/19 09:59 Last Admin: 11/05/19 09:12 Dose: 75 mg Docusate Sodium (Colace 100 Mg) 100 mg PO BID [facility] Stop: 12/02/19 21:59 Last Admin: 11/05/19 09:11 Dose: 100 mg Escitalopram Oxalate (Lexapro 10 Mg) 10 mg PO HS [facility] Stop: 11/28/19 21:59 Last Admin: 11/04/19 21:26 Dose: 10 mg Gabapentin (Neurontin 300 Mg) 300 mg PO TID [facility] Stop: 11/28/19 09:59 Last Admin: 11/05/19 09:12 Dose: 300 mg Insulin Aspart (Novolog Insulin) 0 unit SQ UD PRN PRN Reason: HYPERGLYCEMIA Stop: 12/02/19 07:39 Last Admin: 11/03/19 22:35 Dose: 4 unit Insulin Human NPH (Novolin N) 50 unit SQ BIDWM [facility] Stop: 11/28/19 08:59 Last Admin: 11/05/19 08:07 Dose: Not Given Magnesium Hydroxide (Milk Of Magnesia 30 Ml) 30 ml PO HS PRN PRN PRN Reason: CONSTIPATION Stop: 11/27/19 01:38 Metformin HCl (Glucophage Xr 500 Mg) 500 mg PO DAILY [facility] Stop: 11/28/19 09:59 Last Admin: 11/05/19 09:11 Dose: 500 mg Minocycline HCl (Minocycline Hcl) 100 mg PO BID [facility] Stop: 11/28/19 21:59 Last Admin: 11/05/19 09:11 Dose: 100 mg Promethazine HCl (Phenergan 25 Mg) 12.5 mg PO Q6HPRN PRN PRN Reason: NAUSEA/VOMITING Stop: 11/27/19 01:37 Simvastatin (Zocor 20mg) 80 mg PO HS [facility] Stop: 11/28/19 21:59 Last Admin: 11/04/19 21:25 Dose: 80 mg Tamsulosin HCl (Flomax 0.4 Mg) 0.4 mg PO HS [facility] Stop: 11/28/19 21:59 Last Admin: 11/04/19 21:26 Dose: 0.4 mg Intake & Output 11/04/19 11/05/19 11:59 11:59 Intake Total 200 240 Output Total 1100 1050 Balance -900 -810 (2) Altered mental status Current Visit: Yes Status: Resolved Qualifiers: Altered mental status type: disorientation Qualified Code(s): R41.0 - Disorientation, unspecified Code(s): R41.82 - ALTERED MENTAL STATUS, UNSPECIFIED (3) UTI (urinary tract infection) Current Visit: Yes Status: Resolved Qualifiers: Indwelling urinary catheter type: cystostomy catheter Encounter type: initial encounter Code(s): N39.0 - URINARY TRACT INFECTION, SITE NOT SPECIFIED (4) Suprapubic catheter Current Visit: Yes Status: Chronic Code(s): Z93.59 - OTHER CYSTOSTOMY STATUS (5) Type 2 diabetes mellitus Current Visit: Yes Status: Chronic Qualifiers: Diabetes mellitus intermediate insulin use: with supervisor intermediates use Diabetes mellitus complication status: with hyperglycemia Qualified Code(s): E11.65 - Type 2 diabetes mellitus with hyperglycemia; 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
[2019-11-05] MEDS: NovoLOG Insulin SQ PRN (17:11)
[2019-11-05] MEDS: Flomax 0.4 MG PO SCH (22:56)
[2019-11-05] MEDS: ZOCOR 20MG PO SCH (22:56)
[2019-11-05] MEDS: Lexapro 10 MG PO SCH (22:56)
--- NOTE | 2019-11-06 06:21 | PCM.NOTE ---
Date and Time: 11/06/19620 Subjective Assessment: doing better - Review of Systems Constitutional: No Fever, No Chills Eyes: No Symptoms Ears, Nose, & Throat: No Symptoms Respiratory: No Cough, No Short Of Breath Cardiac: No Chest Pain, No Edema, No Syncope Abdominal/Gastrointestinal: No Abdominal Pain, No Nausea, No Vomiting, No Diarrhea Genitourinary Symptoms: No Dysuria Musculoskeletal: No Back Pain, No Neck Pain Skin: No Rash Neurological: No Dizziness, No Focal Weakness, No Sensory Changes Psychological: No Symptoms Endocrine: No Symptoms Hematologic/Lymphatic: No Symptoms Immunological/Allergic: No Symptoms Objective Exam General Appearance: no apparent distress, alert Neurologic Exam: alert, oriented x 3, cooperative, normal mood/affect, nml cerebellar function, sensation nml, No motor deficits Skin Exam: normal color, warm, dry Eye Exam: PERRL, EOMI, eyes nml inspection Ears, Nose, Throat Exam: normal ENT inspection, pharynx normal, moist mucous membranes Neck Exam: normal inspection, non-tender, supple, full range of motion Respiratory Exam: normal breath sounds, lungs clear, No respiratory distress Cardiovascular Exam: regular rate/rhythm, normal heart sounds Gastrointestinal/Abdomen Exam: soft, No tenderness, No mass Extremity Exam: normal inspection, normal range of motion Back Exam: normal inspection, normal range of motion, No CVA tenderness, No vertebral tenderness Male Genitalia Exam: deferred Rectal Exam: deferred OBJECTIVE DATA Vital Signs: Vital Signs - 24 hr Temp Pulse Resp BP Pulse Ox 11/06/19 04:00 98.1 F 78 20 124/68 94 L 11/05/19 23:56 98.5 F 80 18 176/76 94 L 11/05/19 22:03 84 18 95 11/05/19 20:00 98.3 F 84 20 160/70 95 11/05/19 16:31 97.5 F 84 18 139/74 95 11/05/19 13:00 97.9 F 80 18 136/98 89 L 11/05/19 09:52 79 18 92 L 11/05/19 07:39 98.1 F 79 18 137/68 90 L Pain Assessment - Last Documented Pain Intensity 0 Pain Scale Used 0-10 Pain Scale Intake and Output: Intake & Output 01/02/20 01/03/20 01/04/20 01/05/20 11:59 11:59 11:59 11:59 Intake Total 200 200 240 600 Output Total 1350 1100 1050 900 [facility] -1150 -900 -810 -300 Lab Results: Accuchecks Date 11/05/19 Time 22:00 Accucheck Value: 164 Accucheck Value: 216 Accucheck Value: 195 Accucheck Value: 92 Assessment/Plan (1) Sepsis Current Visit: Yes Status: Resolved Qualifiers: Sepsis type: methicillin resistant Staphylococcus aureus Sepsis acute organ dysfunction status: with acute organ dysfunction Severe sepsis acute organ dysfunction type: acute renal failure Severe sepsis shock status: unspecified (2) Altered mental status Current Visit: Yes Status: Resolved Qualifiers: Altered mental status type: disorientation Qualified Code(s): R41.0 - Disorientation, unspecified Code(s): R41.82 - ALTERED MENTAL STATUS, UNSPECIFIED (3) UTI (urinary tract infection) Current Visit: Yes Status: Resolved Qualifiers: Indwelling urinary catheter type: cystostomy catheter Encounter type: initial encounter Code(s): N39.0 - URINARY TRACT INFECTION, SITE NOT SPECIFIED (4) Suprapubic catheter Current Visit: Yes Status: Chronic Code(s): Z93.59 - OTHER CYSTOSTOMY STATUS (5) Type 2 diabetes mellitus Current Visit: Yes Status: Chronic Qualifiers: Diabetes mellitus assistant terminal manager insulin use: with fpc use Diabetes mellitus complication status: with hyperglycemia Qualified Code(s): E11.65 - Type 2 diabetes mellitus with hyperglycemia; Z79.4 - exterminator helper 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
[2019-11-06] MEDS: Novolin N SQ SCH ×2 (08:09→17:36)
[2019-11-06] MEDS: Glucophage XR 500 MG PO SCH (09:16)
[2019-11-06] MEDS: ECOTRIN 81 MG PO SCH (09:16)
[2019-11-06] MEDS: Colace 100 MG PO SCH ×2 (09:16→22:30)
[2019-11-06] MEDS: NEURONTIN 300 MG PO SCH ×3 (09:16→22:31)
[2019-11-06] MEDS: MINOCYCLINE HCL PO SCH ×2 (09:16→22:31)
[2019-11-06] MEDS: PLAVIX 75 MG Tablet PO SCH (09:17)
[2019-11-06] MEDS: NovoLOG Insulin SQ PRN (11:58)
[2019-11-06] MEDS: ZOCOR 20MG PO SCH (22:30)
[2019-11-06] MEDS: Lexapro 10 MG PO SCH (22:30)
[2019-11-06] MEDS: Flomax 0.4 MG PO SCH (22:31)
[2019-11-07] MEDS: Novolin N SQ SCH (07:33)
[2019-11-07] MEDS: Colace 100 MG PO SCH (08:04)
[2019-11-07] MEDS: Glucophage XR 500 MG PO SCH (08:04)
[2019-11-07] MEDS: PLAVIX 75 MG Tablet PO SCH (08:04)
[2019-11-07] MEDS: ECOTRIN 81 MG PO SCH (08:04)
[2019-11-07] MEDS: MINOCYCLINE HCL PO SCH (08:05)
[2019-11-07] MEDS: NEURONTIN 300 MG PO SCH (08:05)
[2019-11-07] MEDS: NovoLOG Insulin SQ PRN (11:34)
--- NOTE | 2019-11-07 12:32 | PCM.DS ---
Discharge Summary Date of Admission: 10/28/19 01:14 Date of Discharge: 10/30/19 Admitting Physician: THANH LARKIN Primary Care Provider: THANH LARKIN Allergies Allergies No Known Drug Allergies Allergy (Verified 10/27/19 17:48) Hospital Summary - Hospital Course Hospital Course: Chief Complaint Diagnosis confusion and altered mental status , found unresponsive and confused at Allergies Allergy/AdvReac Type Severity Reaction Status Date / Time No Known Drug Allergies Allergy Verified 10/27/19 17:48 Vital Signs (Last 24 hours) Temp Pulse Resp BP Pulse Ox 11/07/19 08:05 94 L 11/07/19 07:42 97.8 F 69 18 160/73 91 L 11/07/19 04:00 97.5 F 69 18 153/70 94 L 11/06/19 23:38 98.4 F 86 22 139/87 93 L 11/06/19 20:38 77 20 95 11/06/19 19:57 98.1 F 78 24 156/73 94 L 11/06/19 16:00 98.1 F 75 18 144/62 93 L Home Medications Medication Instructions Recorded Confirmed Last Taken Type Aspirin [Aspirin EC] 81 mg PO DAILY 10/28/19 10/28/19 Unknown History Atorvastatin Calcium 80 mg PO DAILY 10/28/19 10/28/19 Unknown History Escitalopram Oxalate 10 mg 10 mg PO HS 10/28/19 10/28/19 Unknown History [Lexapro 10 MG] Gabapentin 300 mg PO TID 10/28/19 10/28/19 Unknown History Insulin NPH Human Isophane 50 units SQ BIDWM 10/28/19 10/28/19 Unknown History [Humulin N] Metformin HCl [Metformin HCl ER] 500 mg PO DAILY 10/28/19 10/28/19 Unknown History Tamsulosin HCl 1 tablet PO HS 10/28/19 10/28/19 Unknown History Minocycline HCl 100 mg PO BID #20 capsule 10/30/19 Unknown Rx Current Medications Generic Name Dose Route Start Last Admin Trade Name Freq PRN Reason Stop Dose Admin Acetaminophen 650 mg 10/28/19 01:38 11/02/19 22:20 Tylenol 325 Mg PO 11/27/19 01:37 650 mg Q4H PRN PRN Administration PAIN AND/OR FEVER Albuterol Sulfate 2.5 mg 10/28/19 01:47 Proventil 2.5 Mg/3 Ml Neb IH 11/27/19 01:46 QIDPRN PRN SHORTNESS OF BREATH/WHEEZING Aspirin 81 mg 10/29/19 10:00 11/07/19 08:04 Ecotrin 81 Mg PO 11/28/19 09:59 81 mg DAILY BEATRIZ Administration Bisacodyl 10 mg 11/02/19 13:59 11/02/19 17:07 Dulcolax 5 Mg PO 12/02/19 13:58 10 mg QDP PRN Administration CONSTIPATION Clopidogrel Bisulfate 75 mg 10/29/19 10:00 11/07/19 08:04 Plavix 75 Mg Tablet PO 11/28/19 09:59 75 mg DAILY BEATRIZ Administration Docusate Sodium 100 mg 11/02/19 22:00 11/07/19 08:04 Colace 100 Mg PO 12/02/19 21:59 100 mg BID BEATRIZ Administration Escitalopram Oxalate 10 mg 10/29/19 22:00 11/06/19 22:30 Lexapro 10 Mg PO 11/28/19 21:59 10 mg HS BEATRIZ Administration Gabapentin 300 mg 10/29/19 10:00 11/07/19 08:05 Neurontin 300 Mg PO 11/28/19 09:59 300 mg TID BEATRIZ Administration Insulin Aspart 0 unit 11/02/19 07:40 11/07/19 11:34 Novolog Insulin SQ 12/02/19 07:39 2 unit UD PRN Administration HYPERGLYCEMIA Insulin Human NPH 50 unit 10/29/19 09:00 11/07/19 07:33 Novolin N SQ 11/28/19 08:59 Not Given BIDWM BEATRIZ Magnesium Hydroxide 30 ml 10/28/19 01:39 Milk Of Magnesia 30 Ml PO 11/27/19 01:38 HS PRN PRN CONSTIPATION Metformin HCl 500 mg 10/29/19 10:00 11/07/19 08:04 Glucophage Xr 500 Mg PO 11/28/19 09:59 500 mg DAILY BEATRIZ Administration Minocycline HCl 100 mg 10/29/19 22:00 11/07/19 08:05 Minocycline Hcl PO 11/28/19 21:59 100 mg BID BEATRIZ Administration Promethazine HCl 12.5 mg 10/28/19 01:38 Phenergan 25 Mg PO 11/27/19 01:37 Q6HPRN PRN NAUSEA/VOMITING Simvastatin 80 mg 10/29/19 22:00 11/06/19 22:30 Zocor 20mg PO 11/28/19 21:59 80 mg HS BEATRIZ Administration Tamsulosin HCl 0.4 mg 10/29/19 22:00 11/06/19 22:31 Flomax 0.4 Mg PO 11/28/19 21:59 0.4 mg HS BEATRIZ Administration Discontinued Medications Generic Name Dose Route Start Last Admin Trade Name Freq PRN Reason Stop Dose Admin Sodium Chloride 1,000 mls @ 999 mls/hr 10/27/19 18:07 10/27/19 19:15 Sodium Chloride 0.9% 1000 Ml IV 10/27/19 19:07 Infused .Q1H1M STA Infusion Sodium Chloride Confirm 10/27/19 18:11 Sodium Chloride 0.9% 1000 Ml Administered 10/27/19 18:12 Dose 1,000 mls @ ud .ROUTE .STK-MED ONE Piperacillin Sod/Tazobactam Sod 3.375 gm in 100 mls @ 200 mls/hr 10/27/19 21: 37 10/27/19 22:17 Zosyn 3.375gm/100 Ml D5w IV 10/27/19 22:06 Infused STAT STA Infusion Sodium Chloride 1,000 mls @ 999 mls/hr 10/27/19 21:37 10/27/19 22:48 Sodium Chloride 0.9% 1000 Ml IV 10/27/19 22:37 Infused .Q1H1M STA Infusion Sodium Chloride Confirm 10/27/19 21:40 Sodium Chloride 0.9% 1000 Ml Administered 10/27/19 21:41 Dose 1,000 mls @ ud .ROUTE .STK-MED ONE Piperacillin Sod/Tazobactam Sod Confirm 10/27/19 21:40 Zosyn 3.375gm/100 Ml D5w Administered 10/27/19 21:41 Dose 3.375 gm in 100 mls @ ud IV .STK-MED ONE Piperacillin Sod/Tazobactam Sod 3.375 gm in 100 mls @ 200 mls/hr 10/28/19 06: 00 10/29/19 06:32 Zosyn 3.375gm/100 Ml D5w IV 11/27/19 05:59 200 mls/hr Q6HT BEATRIZ Administration Sodium Chloride 1,000 mls @ 100 mls/hr 10/28/19 01:45 10/28/19 12:47 Sodium Chloride 0.9% 1000 Ml IV 10/28/19 21:44 100 mls/hr .Q10H BEATRIZ Administration Insulin Aspart 0 unit 10/28/19 01:36 11/01/19 18:00 Novolog Insulin SQ 11/27/19 01:35 3 unit UD PRN Administration HYPERGLYCEMIA Levofloxacin 750 mg 10/28/19 21:40 10/27/19 21:49 Levofloxacin 250mg Tablet PO 10/28/19 21:41 750 mg STAT ONE Administration Levofloxacin Confirm 10/27/19 21:41 Levofloxacin 250mg Tablet Administered 10/27/19 21:42 Dose 750 mg .ROUTE .STK-MED ONE Minocycline HCl 200 mg 10/29/19 10:00 10/29/19 09:10 Minocycline Hcl PO 10/29/19 10:01 200 mg 1000 BEATRIZ Administration Non-Formulary Medication 1 each 10/29/19 08:07 10/29/19 09:28 Pharmacy Dosing Request [facility] 10/29/19 08:08 1 each STAT ONE Administration Intake & Output (Last 24 hours) 11/05/19 11/06/19 11/07/19 11/08/19 11:59 11:59 11:59 11:59 Intake Total 240 600 600 Output Total [id number] Balance -810 -300 -600 Orders (Last 24 hours) Category Date Time Status Discharge Routine Discharge 11/07/19 Ordered Patient Care Notes (Last 24 hours) 11/07/19 11:27 Nursing Note by Maria Isabel Packer Report called to Luz Marina at [facility]. Wheelchair van requested at this time DON reported they are to busy with dialysis runs to pick pt up. Discharge planning notified. Initialized on 11/07/19 11:27 - END OF NOTE 11/07/19 11:19 Nursing Note by Maria Isabel Packer Pt denies wanting anyone notified of transfer to [facility]. Initialized on 11/07/19 11:19 - END OF NOTE 11/07/19 11:08 Case Management Note by Delmi Roque CALL TO DR. LARKIN, PLAN FOR PT TO DISCHARGE TO [facility] TODAY. Initialized on 11/07/19 11:08 - END OF NOTE 11/07/19 10:50 (created 11/07/19 11:07) Case Management Note by Delmi Roque RECEIVED PHONE CALL FROM JAHAIRA WOODRUFF NURSING DELPHI PROGRAMMER AT [facility]. REPORTS THAT PT HAS BEEN APPROVED TO GO TO REHAB AT [facility] TODAY , 11/07/2019. WILL CALL TO REPORT TO DR. LARKIN. Initialized on 11/07/19 11:07 - END OF NOTE 11/07/19 10:00 (created 11/07/19 11:05) Case Management Note by Delmi Roque SPOKE WITH JAHAIRA WOODRUFF AT [facility] DELPHI PROGRAMMER FOR SNF PRIOR AUTH. JAHAIRA REPORTS THAT THEY HAVE JUST RECEIVED THE REQUESTED INFORMATION, AND THEY SHOULD HAVE AN ANSWER TODAY FOR REHAB. Initialized on 11/07/19 11:05 - END OF NOTE - Vitals & Intake/Output Vital Signs: Vital Signs Temperature 97.8 F 11/07/19 07:42 Pulse Rate 69 11/07/19 07:42 Respiratory Rate 18 11/07/19 07:42 Blood Pressure 160/73 11/07/19 07:42 O2 Sat by Pulse Oximetry 94 L 11/07/19 08:05 Oxygen-Last Documented O2 Percentage 2 Liters = 28% Intake & Output: Intake & Output 11/05/19 11/06/19 11/07/19 11/08/19 11:59 11:59 11:59 11:59 Intake Total 240 600 600 Output Total 4805 026 3727 Balance -810 -300 -600 - Lab Result Diagrams: 11/04/19 09:00 10/29/19 05:24 Lab Results-Last 24 Hrs: Accuchecks Date 11/07/19 Date 11/07/19 Date 11/06/19 Date 11/06/19 Time 11:30 Time 07:00 Time 21:00 Time 16:30 Accucheck Value: 130 Accucheck Value: 136 Micro Results-Entire Visit: Microbiology 10/31/19 05:00 Urine Culture - Final Urine, Void NO GROWTH 10/27/19 18:15 Blood Culture Gram Stain - Final Blood Not Reportable Blood Culture - Final NO GROWTH 10/27/19 18:20 Blood Culture Gram Stain - Final Blood Not Reportable Blood Culture - Final NO GROWTH 10/28/19 15:45 Urine Culture - Final Urine, Indwelling Catheter Methicillin Resist Staph Aur 10/27/19 04:02 Urine Culture - Final Suprapubic Cath Methicillin Resist Staph Aur Accuchecks Date 11/07/19 Date 11/07/19 Date 11/06/19 Date 11/06/19 Time 11:30 Time 07:00 Time 21:00 Time 16:30 Accucheck Value: 130 Accucheck Value: 136 - Procedures and Test Procedures and Tests throughout Hospitalization: Therapy Orders & Screens 11/03/19 12:14 PT Eval & Treat (MD Order) ROUTINE Reason for Eval:: increased weakness Diagnosis: confusion and altered mental status , found unresponsive and confused at 10/28/19 01:46 Respiratory Therapy Assessment DAILY Comment: Diagnosis: URO-SEPSIS,UTI,DEHYDRATION,ALTERED MENTAL STATUS 10/28/19 01:47 Oxygen NASAL CANNULA 2 lpm Comment: Diagnosis: URO-SEPSIS,UTI,DEHYDRATION,ALTERED MENTAL STATUS Peak Expiratory Flow Rate DAILY Comment: Reason For Exam: Diagnosis: URO-SEPSIS,UTI,DEHYDRATION,ALTERED MENTAL STATUS 10/29/19 06:02 EKG STAT Comment: Diagnosis: confusion and altered mental status , found unresponsive and confused at 10/31/19 10:47 PT Eval & Treat (MD Order) ROUTINE Reason for Eval:: EVALUATE ABILITY TO AMBULATE AND TRANSFER, PATIENT LIVES ALONE Diagnosis: confusion and altered mental status , found unresponsive and confused at Discharge Exam General Appearance: no apparent distress, alert Neurologic Exam: alert, oriented x 3, cooperative, normal mood/affect, nml cerebellar function, sensation nml, No motor deficits Eye Exam: PERRL, EOMI, eyes nml inspection Ears, Nose, Throat Exam: normal ENT inspection, pharynx normal, moist mucous membranes Neck Exam: normal inspection, non-tender, supple, full range of motion Respiratory Exam: normal breath sounds, lungs clear, No respiratory distress Cardiovascular Exam: regular rate/rhythm, normal heart sounds Gastrointestinal/Abdomen Exam: soft, No tenderness, No mass Male Genitalia Exam: deferred Rectal Exam: deferred Back Exam: normal inspection, normal range of motion, No CVA tenderness, No vertebral tenderness Extremity Exam: normal inspection, normal range of motion Skin Exam: normal color, warm, dry Final Diagnosis/Problem List - Final Discharge Diagnosis/Problem (1) Sepsis Current Visit: Yes Status: Resolved (2) Altered mental status Current Visit: Yes Status: Resolved Code(s): R41.82 - ALTERED MENTAL STATUS , UNSPECIFIED (3) UTI (urinary tract infection) Current Visit: Yes Status: Resolved Code(s): N39.0 - URINARY TRACT INFECTION , SITE NOT SPECIFIED (4) Suprapubic catheter Current Visit: Yes Status: Chronic Code(s): Z93.59 - OTHER CYSTOSTOMY STATUS (5) Type 2 diabetes mellitus Current Visit: Yes Status: Chronic - Discharge Discharge Date: 11/07/19 Disposition: Home, Self-Care Condition: Stable Prescriptions: New Minocycline HCl 100 mg PO BID #20 capsule Continue Clopidogrel Bisulfate 75 mg [PLAVIX 75 MG Tablet] 75 mg PO DAILY Tamsulosin HCl 1 tablet PO HS Atorvastatin Calcium 80 mg PO DAILY Gabapentin 300 mg PO TID Escitalopram Oxalate 10 mg [Lexapro 10 MG] 10 mg PO HS Metformin HCl [Metformin HCl ER] 500 mg PO DAILY Insulin NPH Human Isophane [Humulin N] 50 units SQ BIDWM Aspirin [Aspirin EC] 81 mg PO DAILY Instructions: Sepsis, Adult (DC) Additional Instructions: [facility] ORDERS: --PT/OT EVAL AND TREAT --SUPRAPUBIC CATHETER CARE --1999 ADA DIET --ACCUCHECKS ACHS --SEE ATTACHED MED LIST FOR MEDICATION ORDERS. Follow up with: THANH LARKIN MD [Primary Care Provider] - 11/07/19 2:30 pm
[2019-11-07 13:48] VITALS: BP 111/55; PULSE 78; O2SAT 92
== END 2019-11-07 14:25 | DRG 872 ==
LOC: ED 17:30 → MED SURG 10-28 01:14
PROVIDERS: ADMIT General Practice; ATTEND General Practice
DX: A41.9 Sepsis, unspecified organism (principal); N39.0 Urinary tract infection, site not specified; E11.9 Type 2 diabetes mellitus without complications; I10 Essential (primary) hypertension; Z93.59 Other cystostomy status; Z79.01 Long term (current) use of anticoagulants; Z79.899 Other long term (current) drug therapy
CPT/HCPCS: 36415; 51702; 70450; 80048; 80053; 80307; 81001; 82962; 83036; 83605; 84484; 85025; 85027; 87040; 87077; 87086; 87186; 87631; 87651; 93005; 93041; 94760; 94762; 96360; 96361; 96365; 97110; 97161; 97530; 99291; 99292; G0480; 36000; 71045; 99285; J2543; A9270-GY

== ENCOUNTER 2020-07-24 20:55 | Observation (INO) | payer MEDICARE ==
--- NOTE | 2020-07-24 21:05 | ERPHSYRPT ---
- History of Present Illness Time Seen by Provider: 07/24/20 21:15 Source: patient Exam Limitations: no limitations Physician History: Patient is a 80-year-old male with a history of COPD presents to our ED via EMS with complaints of COPD exacerbation. Patient received 125mg of Solu-Medrol in route. Patient states that he has been using his nebulizer all day with little relief. Patient has been coughing. Cough is productive of yellow mucus. Symptoms have been constant. No associated chest pain. No nausea vomiting or diaphoresis. Symptoms are mild to moderate in intensity. No specific worsening or improving factors. Patient voices no other complaints or concerns at this time. Timing/Duration: today Activities at Onset: none Severity of Dyspnea-Max: moderate Severity of Dyspnea-Current: moderate Possible Cause: occasional episodes Modifying Factors: Improves With: activity, albuterol nebulizer, coughing Associated Symptoms: cough, wheezing, No chest pain/discomfort, No edema, No ankle swelling, No dizziness Allergies/Adverse Reactions: No Known Drug Allergies Allergy (Verified 07/24/20 21:10) Home Medications: Clopidogrel Bisulfate 75 mg [PLAVIX 75 MG Tablet] 75 mg PO DAILY 01/04/17 [History] Aspirin [Aspirin EC] 81 mg PO DAILY 10/28/19 [History] Atorvastatin Calcium 80 mg PO DAILY 10/28/19 [History] Escitalopram Oxalate 10 mg [Lexapro 10 MG] 10 mg PO HS 10/28/19 [History] Gabapentin 300 mg PO TID 10/28/19 [History] Insulin NPH Human Isophane [Humulin N] 50 units SQ BIDWM 10/28/19 [History] Metformin HCl [Metformin HCl ER] 500 mg PO DAILY 10/28/19 [History] Tamsulosin HCl 1 tablet PO HS 10/28/19 [History] Hx Tetanus, Diphtheria Vaccination/Date Given: Yes Hx Influenza Vaccination/Date Given: Yes Hx Pneumococcal Vaccination/Date Given: Yes - Review of Systems Constitutional: No Symptoms, No Fever, No Chills Eyes: No Symptoms Ears, Nose, & Throat: No Symptoms Respiratory: No Symptoms, No Cough, No Dyspnea Cardiac: No Symptoms, No Chest Pain, No Edema, No Syncope Abdominal/Gastrointestinal: No Symptoms, No Abdominal Pain, No Nausea, No Vomiting, No Diarrhea Genitourinary Symptoms: No Symptoms, No Dysuria Musculoskeletal: No Symptoms, No Back Pain, No Neck Pain Skin: No Symptoms, No Rash Neurological: No Symptoms, No Dizziness, No Focal Weakness, No Sensory Changes Psychological: No Symptoms Endocrine: No Symptoms Hematologic/Lymphatic: No Symptoms Immunological/Allergic: No Symptoms All Other Systems: Reviewed and Negative - Past Medical History Pertinent Past Medical History: Yes Neurological History: No Pertinent History ENT History: No Pertinent History Cardiac History: Hypertension Respiratory History: COPD, Emphysema Endocrine Medical History: Diabetes Type II Musculoskeletal History: Fractures, Degenerative Disk Disease GI Medical History: Hernia, Hepatitis History: No Pertinent History Psycho-Social History: No Pertinent History Male Reproductive Disorders: No Pertinent History Other Medical History: hep c,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 pt lencho historian, recalled medical history from previous admission - Past Surgical History Past Surgical History: Yes Neuro Surgical History: No Pertinent History Cardiac: No Pertinent History Respiratory: No Pertinent History Gastrointestinal: Hernia Repair Genitourinary: No Pertinent History Musculoskeletal: Orthopedic Surgery Male Surgical History: No Pertinent History Other Surgical History: right knee fx,growth removed from right knee, left lower leg spiral fx,hdwe in right knee,states damian. herniorr. as a child. pt lencho historian, surgical history recalled from previous admission - Social History Smoking Status: Never smoker Exposure to second hand smoke: No Drug Use: marijuana Patient Lives Alone: No - Nursing Vital Signs Nursing Vital Signs: Initial Vital Signs Temperature 98.7 F 07/24/20 21:10 Pulse Rate 91 H 07/24/20 21:10 Respiratory Rate 22 07/24/20 21:10 Blood Pressure 167/120 07/24/20 21:10 O2 Sat by Pulse Oximetry 92 L 07/24/20 21:10 Pain Scale Pain Intensity 0 - Physical Exam General Appearance: no apparent distress, alert Eye Exam: PERRL/EOMI Ears, Nose, Throat Exam: hearing grossly normal, normal ENT inspection, normal pharynx Neck Exam: normal inspection, non-tender, supple, full range of motion Respiratory Exam: respiratory distress, airway intact, prolonged expirations, wheezing Cardiovascular/Chest Exam: normal heart sounds, regular rate/rhythm, other (1+ pitting edema bilaterally) Abdominal/Gastrointestinal Exam: soft, No tenderness, No distention, No mass Extremity Exam: non-tender, normal range of motion, normal inspection, no calf tenderness, no pedal edema Peripheral Pulses Exam: dorsalis-pedis (R): 2+, dorsalis-pedis (L): 2+ Neurologic Exam: alert, oriented x 3, cooperative, tie in machine operator II-XII nml as tested, sensation nml, No motor deficits Skin Exam: normal color, warm, No dry Lymphatic Exam: No adenopathy SpO2 Interpretation: normal SpO2: 96 O2 Delivery: Nasal Cannula - Course Nursing assessment & vital signs reviewed: Yes EKG Interpreted by Me: RATE ([id number]), Sinus Tach, NORMAL AXIS, NORMAL INTERVALS - Radiology Exams Chest X-ray Interpretation: Teleradiologist Report (PD and old granulomatous disease. Mild bibasilar atelectasis or scarring.) Ordered Tests: Active Orders 24 hr Category Date Time Status E Business Project Manager STAT Care 07/24/20 21:03 Active EKG-ER Only STAT Care 07/24/20 21:02 Active IV Insertion STAT Care 07/24/20 21:02 Active Pulse Oximetry (ED) STAT Care 07/24/20 21:02 Active CHEST 1 VIEW (PORTABLE) Stat Exams 07/24/20 21:03 Taken BLOOD CULTURE Stat Lab 07/24/20 21:44 Received CBC W DIFF Stat Lab 07/24/20 21:43 Completed CMP Stat Lab 07/24/20 21:43 Completed CULTURE,URINE Stat Lab 07/24/20 22:24 Received MAGNESIUM Stat Lab 07/24/20 21:43 Completed NT PRO BNP Stat Lab 07/24/20 21:43 Completed TROPONIN Q3H Lab 07/24/20 21:43 Completed TROPONIN Q3H Lab 07/25/20 00:15 Ordered TROPONIN Q3H Lab 07/25/20 03:15 Ordered TROPONIN Q3H Lab 07/25/20 06:15 Ordered TROPONIN Q3H Lab 07/25/20 09:15 Ordered UA W/RFX UR CULTURE Stat Lab 07/24/20 22:24 Completed Medication Summary Generic Name Dose Route Start Last Admin Trade Name Freq PRN Reason Stop Dose Admin Azithromycin / Sodium Chloride 250 mls @ 125 mls/hr 07/24/20 23:21 IV 07/25/20 01:20 STAT ONE Magnesium Sulfate/Dextrose 100 mls @ 100 mls/hr 07/24/20 23:30 Magnesium 1 Gm / 100 Ml D5w IV 07/25/20 01:29 Q1H BEATRIZ Discontinued Medications Generic Name Dose Route Start Last Admin Trade Name Chaseq PRN Reason Stop Dose Admin Ceftriaxone Sodium/Dextrose 2 g in 50 mls @ 100 mls/hr 07/24/20 23:21 Rocephin 2 Gm-D5w 50ml Bag IV 07/24/20 23:50 STAT STA Lab/Rad Data: Laboratory Result Diagrams 07/24/20 21:43 07/24/20 21:43 Laboratory Results 07/24/20 07/24/20 07/24/20 Range/Units 22:24 21:46 21:43 WBC (4.0-10.5) K/mm3 RBC (4.1-5.6) M/mm3 Hgb (12.5-18.0) gm/dl Hct (42-50) % MCV (78-100) fl MCH (26-32) pg MCHC (32-36) g/dl RDW (11.5-14.0) % Plt Count (150-450) K/mm3 MPV (7.5-11.0) fl Gran % (36.0-66.0) % Eos # (Auto) (0-0.5) Absolute Lymphs (auto) (1.0-4.6) Absolute Monos (auto) (0.0-1.3) Lymphocytes % (24.0-44.0) % Monocytes % (0.0-12.0) % Eosinophils % (0.00-5.0) % Basophils % (0.0-0.4) % Absolute Granulocytes (1.4-6.9) Basophils # (0-0.4) Sodium (137-145) mmol/L Potassium (3.5-5.1) mmol/L Chloride (98-107) mmol/L Carbon Dioxide (22-30) mmol/L Anion Gap (5-15) MEQ/L BUN (9-20) mg/dL Creatinine (0.66-1.25) mg/dL Estimated GFR ML/MIN Glucose (74-106) mg/dL Calcium (8.4-10.2) mg/dL Magnesium (1.6-2.3) mg/dL Total Bilirubin (0.2-1.3) mg/dL AST (17-59) U/L ALT (0-50) U/L Alkaline Phosphatase (38-126) U/L Troponin I (0.000-0.034) ng/mL NT-Pro-B Natriuret Pep (0-1800) pg/mL Serum Total Protein (6.3-8.2) g/dL Albumin (3.5-5.0) g/dL Urine Color YELLOW (YELLOW) Urine Appearance CLOUDY (CLEAR) Urine pH 7.0 (5-6) Ur Specific [place] 1.015 (1.005-1.025) Urine Protein 100 (Negative) Urine Ketones NEGATIVE (NEGATIVE) Urine Blood LARGE (0-5) Alvarez/ul Urine Nitrite POSITIVE (NEGATIVE) Urine Bilirubin NEGATIVE (NEGATIVE) Urine Urobilinogen NEGATIVE (0-1) mg/dL Ur Leukocyte Esterase SMALL (NEGATIVE) Urine WBC (Auto) 26-50 (0-5) /HPF Urine RBC (Auto) >101 (0-2) /HPF U Epithel Cells (Auto) NONE (FEW) /HPF Urine Bacteria (Auto) RARE (NEGATIVE) /HPF Amorphous Crystals FEW (NEGATIVE) /HPF Urine Mucus (Auto) SLIGHT (NEGATIVE) /HPF Urine Culture Reflexed YES (NO) Urine Glucose NEGATIVE (NEGATIVE) mg/dL Influenza Type A Ag NEGATIVE (NEGATIVE) Influenza Type B Ag NEGATIVE (NEGATIVE) RSV (PCR) NEGATIVE (Negative) SARS-CoV-2 (PCR) NEGATIVE (NEGATIVE) 07/24/20 07/24/20 07/24/20 Range/Units 21:43 21:43 21:43 WBC 9.9 (4.0-10.5) K/mm3 RBC 4.37 (4.1-5.6) M/mm3 Hgb 12.3 L (12.5-18.0) gm/dl Hct 39.1 L (42-50) % MCV 89.5 (78-100) fl MCH 28.1 (26-32) pg MCHC 31.5 L (32-36) g/dl RDW 13.9 (11.5-14.0) % Plt Count 200 (150-450) K/mm3 MPV 9.8 (7.5-11.0) fl Gran % 57.5 (36.0-66.0) % Eos # (Auto) 1.23 H (0-0.5) Absolute Lymphs (auto) 1.80 (1.0-4.6) Absolute Monos (auto) 1.10 (0.0-1.3) Lymphocytes % 18.3 L (24.0-44.0) % Monocytes % 11.2 (0.0-12.0) % Eosinophils % 12.5 H (0.00-5.0) % Basophils % 0.5 (0.0-0.4) % Absolute Granulocytes 5.67 (1.4-6.9) Basophils # 0.05 (0-0.4) Sodium 140 (137-145) mmol/L Potassium 3.7 (3.5-5.1) mmol/L Chloride 105 (98-107) mmol/L Carbon Dioxide 31 H (22-30) mmol/L Anion Gap 8.6 (5-15) MEQ/L BUN 14 (9-20) mg/dL Creatinine 0.65 L (0.66-1.25) mg/dL Estimated GFR > 60.0 ML/MIN Glucose 97 (74-106) mg/dL Calcium 9.0 (8.4-10.2) mg/dL Magnesium 1.5 L (1.6-2.3) mg/dL Total Bilirubin 0.40 (0.2-1.3) mg/dL AST 32 (17-59) U/L ALT 21 (0-50) U/L Alkaline Phosphatase 110 (38-126) U/L Troponin I < 0.012 (0.000-0.034) ng/mL NT-Pro-B Natriuret Pep 119 (0-1800) pg/mL Serum Total Protein 7.6 (6.3-8.2) g/dL Albumin 4.0 (3.5-5.0) g/dL Urine Color (YELLOW) Urine Appearance (CLEAR) Urine pH (5-6) Ur Specific [place] (1.005-1.025) Urine Protein (Negative) Urine Ketones (NEGATIVE) Urine Blood (0-5) Alvarez/ul Urine Nitrite (NEGATIVE) Urine Bilirubin (NEGATIVE) Urine Urobilinogen (0-1) mg/dL Ur Leukocyte Esterase (NEGATIVE) Urine WBC (Auto) (0-5) /HPF Urine RBC (Auto) (0-2) /HPF U Epithel Cells (Auto) (FEW) /HPF Urine Bacteria (Auto) (NEGATIVE) /HPF Amorphous Crystals (NEGATIVE) /HPF Urine Mucus (Auto) (NEGATIVE) /HPF Urine Culture Reflexed (NO) Urine Glucose (NEGATIVE) mg/dL Influenza Type A Ag (NEGATIVE) Influenza Type B Ag (NEGATIVE) RSV (PCR) (Negative) SARS-CoV-2 (PCR) (NEGATIVE) - Progress Progress: improved Air Movement: good Progress Note: 07/24/20 23:54 Patient reassessed. Wheezing improved. Patient breathing easier. Patient appears to have had a COPD exacerbation. Will admit for further evaluation and treatment. Case discussed with Dr. Grover who accepts admission to observation. Plan of care discussed with patient. He agrees to admission to [facility] for further evaluation and treatment. Blood cultures obtained. Antibiotics infused. Magnesium was low. Magnesium replaced with 2 g of magnesium sulfate. Rapid COVID negative. Albuterol nebulizer ordered as a floor order. Solu-Medrol administered in route via EMS. Blood Culture(s) Obtained: Yes Antibiotics given: Yes Discussed with : Chloe Will see patient in: hospital (observation) Counseled pt/family regarding: lab results, diagnosis, need for follow-up, rad results - Departure Departure Disposition: Observation Clinical Impression: SOB (shortness of breath), Wheezing, Hypoxia, Tachycardia, COPD exacerbation, Hypomagnesemia Condition: Stable Critical Care Time: No
[2020-07-24 21:47] LABS: Absolute Neutrophil Ct (ANC) 5.67 (1.4-6.9); BASOPHIL % 0.5 % (0.0-0.4); Basophil (Absolute #) 0.05 (0-0.4); Eosinophil % 12.5 % (0.00-5.0); Eosinophil (Absolute #) 1.23 (0-0.5); Hematocrit 39.1 % (42-50); Hemoglobin 12.3 gm/dl (12.5-18.0); Lymphocytes % 18.3 % (24.0-44.0); Mean Cell Volume 89.5 fl (78-100); Mean Corpuscular Hemoglobin 28.1 pg (26-32); Mean Corpuscular Hgb Concent. 31.5 g/dl (32-36); Mean Platelet Volume 9.8 fl (7.5-11.0); Monocytes % 11.2 % (0.0-12.0); Neutrophil % 57.5 % (36.0-66.0); Platelet Count 200 K/mm3 (150-450); Red Blood Count 4.37 M/mm3 (4.1-5.6); Red Cell Distribution Width 13.9 % (11.5-14.0); White Blood Count 9.9 K/mm3 (4.0-10.5)
[2020-07-24 22:08] LABS: ALKALINE PHOSPHATASE 110 U/L (38-126); ANION GAP 8.6 MEQ/L (5-15); BLOOD UREA NITROGEN 14 mg/dL (9-20); CHLORIDE 105 mmol/L (98-107); Carbon Dioxide 31 mmol/L (22-30); Creatinine 1 0.65 mg/dL (0.66-1.25); EST GLOMERULAR FILTRATION RATE > 60.0 ML/MIN; Glucose 97 mg/dL (74-106); MAGNESIUM 1.5 mg/dL (1.6-2.3); NT PRO BNP 119 pg/mL (0-1800); Potassium 3.7 mmol/L (3.5-5.1); SGOT/AST 32 U/L (17-59); SGPT/ALT 21 U/L (0-50); SODIUM 140 mmol/L (137-145); Total Protein 7.6 g/dL (6.3-8.2)
[2020-07-24 22:19] LABS: INFLUENZA A NEGATIVE (NEGATIVE); INFLUENZA B NEGATIVE (NEGATIVE); RESPIRATORY SYNCTIAL VIRUS NEGATIVE (Negative)
[2020-07-24 22:39] LABS: Amourphous Crystal FEW /HPF (NEGATIVE); Appearance CLOUDY (CLEAR); Bacteria RARE /HPF (NEGATIVE); Bilirubin NEGATIVE (NEGATIVE); Blood LARGE Ery/ul (0-5); Glucose NEGATIVE (NEGATIVE); Ketones NEGATIVE (NEGATIVE); Leukocyte Esterase SMALL (NEGATIVE); Mucus SLIGHT /HPF (NEGATIVE); Nitrite POSITIVE (NEGATIVE); Protein,Urine Dip 100 (Negative); Specific Gravity 1.015 (1.005-1.025); Urobilinogen NEGATIVE mg/dL (0-1); WBC 26-50 /HPF (0-5)
[2020-07-24 22:40] LABS: RBC >101 /HPF (0-2)
[2020-07-24] MEDS ORDERED: ZITHROMAX IV 500 MG*** 0 MG in Sodium Chloride 0.9% 250 ML 250 ML IV ONE (23:21)
[2020-07-24] MEDS ORDERED: ROCEPHIN 2 Gm-D5w 50ML BAG** 2 G/50 ML IVPB IV STA (23:21)
[2020-07-25] MEDS ORDERED: DUONEB 0.5-3 MG/3 ml Neb IH ONE
[2020-07-25] MEDS: DUONEB 0.5-3 MG/3 ml Neb IH SCH ×6 (00:03→18:55)
[2020-07-25] MEDS: Magnesium 1 Gm / 100 Ml D5W*** 100 ML IV SCH ×2 (01:58→02:32)
[2020-07-25 05:50] LABS: ALBUMIN 3.5 g/dL (3.5-5.0); ALKALINE PHOSPHATASE 101 U/L (38-126); BLOOD UREA NITROGEN 13 mg/dL (9-20); CHLORIDE 102 mmol/L (98-107); Calcium 8.3 mg/dL (8.4-10.2); Carbon Dioxide 27 mmol/L (22-30); Creatinine 1 0.51 mg/dL (0.66-1.25); EST GLOMERULAR FILTRATION RATE > 60.0 ML/MIN; Glucose 271 mg/dL (74-106); Potassium 4.3 mmol/L (3.5-5.1); SGOT/AST 27 U/L (17-59); SGPT/ALT 19 U/L (0-50); SODIUM 136 mmol/L (137-145); Total Protein 6.9 g/dL (6.3-8.2)
[2020-07-25] MEDS ORDERED: Zithromax 500 MG/ 250 ML NaCl Premix 500 MG/250 ML IVPB IV ONE (07:00)
[2020-07-25] MEDS: HUMULIN R SQ PRN ×3 (07:45→16:38)
[2020-07-25] MEDS ORDERED: Novolin N SQ SCH (08:00)
--- NOTE | 2020-07-25 08:17 | XRAY ---
Exam: AP portable chest film from 07/24/2020. Comparison: AP portable chest film from 10/27/2019. Indication: Shortness of breath, history of COPD per patient. Findings: The transverse heart size is normal. A calcified, mildly tortuous descending thoracic aorta is seen. The sonia and mediastinal structures appear unremarkable. I again see a couple small calcified granulomas within the left upper lung field. Minimal linear scarring versus plate atelectasis is seen at the lateral margin of the right lower lung field. Stable hazy density seen at the left cardiophrenic angle which I believe is due to a prominent left epicardial fat pad. This can be seen on a prior CT scan from 2011. I see no air space infiltrates, vascular congestion, pneumothorax, or pleural fluid. Very slight elevation of the right hemidiaphragm is seen representing no change. No acute osseous process is seen. Impression: 1. No new air space infiltrates or other acute cardiopulmonary disease is seen.
[2020-07-25] MEDS: Novolin N SQ SCH ×2 (08:34→16:37)
--- NOTE | 2020-07-25 08:56 | PCM.HP ---
History of Present Illness - Chief Complaint Chief Complaint: c/o shortness of breath for 2 days History of Present Illness: is a 80-year-old male with a history of COPD presents to our ED via EMS with complaints of COPD exacerbation. Patient received 125mg of Solu-Medrol in route. Patient states that he has been using his nebulizer all day with little relief. Patient has been coughing. Cough is productive of yellow mucus. Symptoms have been constant. No associated chest pain. No nausea vomiting or diaphoresis. Symptoms are mild to moderate in intensity. No specific worsening or improving factors. Patient voices no other complaints or concerns at this time. Timing/Duration: today Activities at Onset: none Severity of Dyspnea-Max: moderate Severity of Dyspnea-Current: moderate Possible Cause: occasional episodes Modifying Factors: Improves With: activity, albuterol nebulizer, coughing Associated Symptoms: cough, wheezing, No chest pain/discomfort, No edema, No ankle swelling, No dizziness - Review of Systems Constitutional: No Fever, No Chills Eyes: No Symptoms Ears, Nose, & Throat: No Symptoms Respiratory: Cough, Orthopnea, Short Of Breath, Wheezing Cardiac: No Chest Pain, No Edema, No Syncope Abdominal/Gastrointestinal: No Abdominal Pain, No Nausea, No Vomiting, No Diarrhea Genitourinary Symptoms: No Dysuria Musculoskeletal: No Back Pain, No Neck Pain Skin: No Rash Neurological: No Dizziness, No Focal Weakness, No Sensory Changes Psychological: No Symptoms Endocrine: No Symptoms Hematologic/Lymphatic: No Symptoms Immunological/Allergic: No Symptoms Medications & Allergies Home Medications: Home Medication List Clopidogrel Bisulfate 75 mg [PLAVIX 75 MG Tablet] 75 mg PO DAILY 01/04/17 [History Confirmed 07/25/20] Aspirin [Aspirin EC] 81 mg PO DAILY 10/28/19 [History Confirmed 07/25/20] Atorvastatin Calcium 80 mg PO DAILY 10/28/19 [History Confirmed 07/25/20] Escitalopram Oxalate 10 mg [Lexapro 10 MG] 10 mg PO HS 10/28/19 [History Confirmed 07/25/20] Gabapentin 300 mg PO BID 10/28/19 [History Confirmed 07/25/20] Insulin NPH Human Isophane [Humulin N] 50 units SQ BIDWM 10/28/19 [History Confirmed 07/25/20] Metformin HCl [Metformin HCl ER] 500 mg PO DAILY 10/28/19 [History Confirmed 07/25/20] Tamsulosin HCl 1 tablet PO HS 10/28/19 [History Confirmed 07/25/20] Ipratropium/Albuterol Sulfate [Iprat-Albut 0.5-3(2.5) mg/3 ml] 1 neb IH QID 07/25/20 [History Confirmed 07/25/20] Allergies/Adverse Reactions: Allergies Allergy/AdvReac Type Severity Reaction Status Date / Time No Known Drug Allergies Allergy Verified 07/25/20 00:33 - Past Medical History Past Medical History: Yes Neurological History: No Pertinent History ENT History: No Pertinent History Cardiac History: Hypertension Respiratory History: COPD, Emphysema Endocrine Medical History: Diabetes Type II Musculoskelatal History: Fractures, Degenerative Disk Disease GI Medical History: Hernia, Hepatitis History: No Pertinent History Pyscho-Social History: No Pertinent History Male Reproductive Disorders: No Pertinent History Comment: hep c,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 pt poor historian, recalled medical history from previous admission - Past Surgical History Past Surgical History: Yes Neuro Surgical History: No Pertinent History Cardiac History: No Pertinent History Respiratory Surgery: No Pertinent History GI Surgical History: Hernia Repair Genitourinary Surgical Hx: No Pertinent History Musculskeletal Surgical Hx: Orthopedic Surgery Male Surgical History: No Pertinent History Other Surgical History: right knee fx,growth removed from right knee, left lower leg spiral fx,hdwe in right knee,states damian. herniorr. as a child - Social History Smoking Status: Current every day smoker How long have you smoked: 66 years Exposure to second hand smoke: No Alcohol: Rarely Drug Use: none - Physical Exam Vital Signs: Vital Signs - 24 hr Temp Pulse Resp BP Pulse Ox 07/25/20 07:50 98.4 F 93 H 16 141/82 95 07/25/20 07:47 98.4 F 93 H 18 141/82 98 07/25/20 06:23 97 H 22 93 L 07/25/20 04:00 98.1 F 95 H 20 146/69 94 L 07/25/20 02:36 80 20 93 L 07/25/20 00:29 93 L 07/25/20 00:24 91 H 20 93 L 07/25/20 00:00 98.1 F 91 H 20 182/88 93 L 07/24/20 23:57 98.1 F 78 20 182/88 95 07/24/20 23:56 96 07/24/20 23:09 80 19 184/94 96 07/24/20 22:06 81 21 185/93 95 07/24/20 21:32 93 L 07/24/20 21:10 98.7 F 91 H 22 167/120 92 L General Appearance: mild distress, alert Neurologic Exam: alert, oriented x 3, cooperative, normal mood/affect, nml cerebellar function, nml station & gait, sensation nml, No motor deficits Eye Exam: PERRL/EOMI, eyes nml inspection Ears, Nose, Throat Exam: normal ENT inspection, TMs normal, pharynx normal, moist mucous membranes Neck Exam: normal inspection, non-tender, supple, full range of motion Respiratory Exam: diminished breath sounds, crackles/rales, rhonchi, wheezing, No respiratory distress Cardiovascular Exam: regular rate/rhythm, normal heart sounds, normal peripheral pulses Gastrointestinal/Abdomen Exam: soft, normal bowel sounds, No tenderness, No mass Back Exam: normal inspection, normal range of motion, No CVA tenderness, No vertebral tenderness Extremity Exam: normal inspection, normal range of motion, pelvis stable Skin Exam: normal color, warm, dry, No rash Lymphatic Exam: No adenopathy Results - Labs Lab/Micro Results: Lab Results-Last 24 Hours 07/24/20 07/24/20 07/24/20 Range/Units 21:43 21:43 21:43 WBC 9.9 (4.0-10.5) K/mm3 RBC 4.37 (4.1-5.6) M/mm3 Hgb 12.3 L (12.5-18.0) gm/dl Hct 39.1 L (42-50) % MCV 89.5 (78-100) fl MCH 28.1 (26-32) pg MCHC 31.5 L (32-36) g/dl RDW 13.9 (11.5-14.0) % Plt Count 200 (150-450) K/mm3 MPV 9.8 (7.5-11.0) fl Gran % 57.5 (36.0-66.0) % Eos # (Auto) 1.23 H (0-0.5) Absolute Lymphs (auto) 1.80 (1.0-4.6) Absolute Monos (auto) 1.10 (0.0-1.3) Lymphocytes % 18.3 L (24.0-44.0) % Monocytes % 11.2 (0.0-12.0) % Eosinophils % 12.5 H (0.00-5.0) % Basophils % 0.5 (0.0-0.4) % Absolute Granulocytes 5.67 (1.4-6.9) Basophils # 0.05 (0-0.4) Sodium 140 (137-145) mmol/L Potassium 3.7 (3.5-5.1) mmol/L Chloride 105 (98-107) mmol/L Carbon Dioxide 31 H (22-30) mmol/L Anion Gap 8.6 (5-15) MEQ/L BUN 14 (9-20) mg/dL Creatinine 0.65 L (0.66-1.25) mg/dL Estimated GFR > 60.0 ML/MIN Glucose 97 (74-106) mg/dL POC Glucometer (74 to 106) mg/dL Calcium 9.0 (8.4-10.2) mg/dL Magnesium 1.5 L (1.6-2.3) mg/dL Total Bilirubin 0.40 (0.2-1.3) mg/dL AST 32 (17-59) U/L ALT 21 (0-50) U/L Alkaline Phosphatase 110 (38-126) U/L Troponin I < 0.012 (0.000-0.034) ng/mL NT-Pro-B Natriuret Pep 119 (0-1800) pg/mL Serum Total Protein 7.6 (6.3-8.2) g/dL Albumin 4.0 (3.5-5.0) g/dL Urine Color (YELLOW) Urine Appearance (CLEAR) Urine pH (5-6) Ur Specific Trent (1.005-1.025) Urine Protein (Negative) Urine Ketones (NEGATIVE) Urine Blood (0-5) Alvarez/ul Urine Nitrite (NEGATIVE) Urine Bilirubin (NEGATIVE) Urine Urobilinogen (0-1) mg/dL Ur Leukocyte Esterase (NEGATIVE) Urine WBC (Auto) (0-5) /HPF Urine RBC (Auto) (0-2) /HPF U Epithel Cells (Auto) (FEW) /HPF Urine Bacteria (Auto) (NEGATIVE) /HPF Amorphous Crystals (NEGATIVE) /HPF Urine Mucus (Auto) (NEGATIVE) /HPF Urine Culture Reflexed (NO) Urine Glucose (NEGATIVE) mg/dL Influenza Type A Ag (NEGATIVE) Influenza Type B Ag (NEGATIVE) RSV (PCR) (Negative) SARS-CoV-2 (PCR) (NEGATIVE) 07/24/20 07/24/20 07/24/20 Range/Units 21:43 21:46 22:24 WBC (4.0-10.5) K/mm3 RBC (4.1-5.6) M/mm3 Hgb (12.5-18.0) gm/dl Hct (42-50) % MCV (78-100) fl MCH (26-32) pg MCHC (32-36) g/dl RDW (11.5-14.0) % Plt Count (150-450) K/mm3 MPV (7.5-11.0) fl Gran % (36.0-66.0) % Eos # (Auto) (0-0.5) Absolute Lymphs (auto) (1.0-4.6) Absolute Monos (auto) (0.0-1.3) Lymphocytes % (24.0-44.0) % Monocytes % (0.0-12.0) % Eosinophils % (0.00-5.0) % Basophils % (0.0-0.4) % Absolute Granulocytes (1.4-6.9) Basophils # (0-0.4) Sodium (137-145) mmol/L Potassium (3.5-5.1) mmol/L Chloride (98-107) mmol/L Carbon Dioxide (22-30) mmol/L Anion Gap (5-15) MEQ/L BUN (9-20) mg/dL Creatinine (0.66-1.25) mg/dL Estimated GFR ML/MIN Glucose (74-106) mg/dL POC Glucometer (74 to 106) mg/dL Calcium (8.4-10.2) mg/dL Magnesium (1.6-2.3) mg/dL Total Bilirubin (0.2-1.3) mg/dL AST (17-59) U/L ALT (0-50) U/L Alkaline Phosphatase (38-126) U/L Troponin I (0.000-0.034) ng/mL NT-Pro-B Natriuret Pep (0-1800) pg/mL Serum Total Protein (6.3-8.2) g/dL Albumin (3.5-5.0) g/dL Urine Color YELLOW (YELLOW) Urine Appearance CLOUDY (CLEAR) Urine pH 7.0 (5-6) Ur Specific Trent 1.015 (1.005-1.025) Urine Protein 100 (Negative) Urine Ketones NEGATIVE (NEGATIVE) Urine Blood LARGE (0-5) Alvarez/ul Urine Nitrite POSITIVE (NEGATIVE) Urine Bilirubin NEGATIVE (NEGATIVE) Urine Urobilinogen NEGATIVE (0-1) mg/dL Ur Leukocyte Esterase SMALL (NEGATIVE) Urine WBC (Auto) 26-50 (0-5) /HPF Urine RBC (Auto) >101 (0-2) /HPF U Epithel Cells (Auto) NONE (FEW) /HPF Urine Bacteria (Auto) RARE (NEGATIVE) /HPF Amorphous Crystals FEW (NEGATIVE) /HPF Urine Mucus (Auto) SLIGHT (NEGATIVE) /HPF Urine Culture Reflexed YES (NO) Urine Glucose NEGATIVE (NEGATIVE) mg/dL Influenza Type A Ag NEGATIVE (NEGATIVE) Influenza Type B Ag NEGATIVE (NEGATIVE) RSV (PCR) NEGATIVE (Negative) SARS-CoV-2 (PCR) NEGATIVE (NEGATIVE) 07/25/20 07/25/20 07/25/20 Range/Units 00:23 05:00 05:00 WBC (4.0-10.5) K/mm3 RBC (4.1-5.6) M/mm3 Hgb (12.5-18.0) gm/dl Hct (42-50) % MCV (78-100) fl MCH (26-32) pg MCHC (32-36) g/dl RDW (11.5-14.0) % Plt Count (150-450) K/mm3 MPV (7.5-11.0) fl Gran % (36.0-66.0) % Eos # (Auto) (0-0.5) Absolute Lymphs (auto) (1.0-4.6) Absolute Monos (auto) (0.0-1.3) Lymphocytes % (24.0-44.0) % Monocytes % (0.0-12.0) % Eosinophils % (0.00-5.0) % Basophils % (0.0-0.4) % Absolute Granulocytes (1.4-6.9) Basophils # (0-0.4) Sodium 136 L (137-145) mmol/L Potassium 4.3 (3.5-5.1) mmol/L Chloride 102 (98-107) mmol/L Carbon Dioxide 27 (22-30) mmol/L Anion Gap 11.0 (5-15) MEQ/L BUN 13 (9-20) mg/dL Creatinine 0.51 L (0.66-1.25) mg/dL Estimated GFR > 60.0 ML/MIN Glucose 271 H (74-106) mg/dL POC Glucometer (74 to 106) mg/dL Calcium 8.3 L (8.4-10.2) mg/dL Magnesium (1.6-2.3) mg/dL Total Bilirubin 0.30 (0.2-1.3) mg/dL AST 27 (17-59) U/L ALT 19 (0-50) U/L Alkaline Phosphatase 101 (38-126) U/L Troponin I < 0.012 < 0.012 (0.000-0.034) ng/mL NT-Pro-B Natriuret Pep (0-1800) pg/mL Serum Total Protein 6.9 (6.3-8.2) g/dL Albumin 3.5 (3.5-5.0) g/dL Urine Color (YELLOW) Urine Appearance (CLEAR) Urine pH (5-6) Ur Specific Trent (1.005-1.025) Urine Protein (Negative) Urine Ketones (NEGATIVE) Urine Blood (0-5) Alvarez/ul Urine Nitrite (NEGATIVE) Urine Bilirubin (NEGATIVE) Urine Urobilinogen (0-1) mg/dL Ur Leukocyte Esterase (NEGATIVE) Urine WBC (Auto) (0-5) /HPF Urine RBC (Auto) (0-2) /HPF U Epithel Cells (Auto) (FEW) /HPF Urine Bacteria (Auto) (NEGATIVE) /HPF Amorphous Crystals (NEGATIVE) /HPF Urine Mucus (Auto) (NEGATIVE) /HPF Urine Culture Reflexed (NO) Urine Glucose (NEGATIVE) mg/dL Influenza Type A Ag (NEGATIVE) Influenza Type B Ag (NEGATIVE) RSV (PCR) (Negative) SARS-CoV-2 (PCR) (NEGATIVE) 09/23/20 09/23/20 09/23/20 Range/Units 05:32 06:07 07:28 WBC (4.0-10.5) K/mm3 RBC (4.1-5.6) M/mm3 Hgb (12.5-18.0) gm/dl Hct (42-50) % MCV (78-100) fl MCH (26-32) pg MCHC (32-36) g/dl RDW (11.5-14.0) % Plt Count (150-450) K/mm3 MPV (7.5-11.0) fl Gran % (36.0-66.0) % Eos # (Auto) (0-0.5) Absolute Lymphs (auto) (1.0-4.6) Absolute Monos (auto) (0.0-1.3) Lymphocytes % (24.0-44.0) % Monocytes % (0.0-12.0) % Eosinophils % (0.00-5.0) % Basophils % (0.0-0.4) % Absolute Granulocytes (1.4-6.9) Basophils # (0-0.4) Sodium (137-145) mmol/L Potassium (3.5-5.1) mmol/L Chloride (98-107) mmol/L Carbon Dioxide (22-30) mmol/L Anion Gap (5-15) MEQ/L BUN (9-20) mg/dL Creatinine (0.66-1.25) mg/dL Estimated GFR ML/MIN Glucose (74-106) mg/dL POC Glucometer 283 H (74 to 106) mg/dL Calcium (8.4-10.2) mg/dL Magnesium 1.9 (1.6-2.3) mg/dL Total Bilirubin (0.2-1.3) mg/dL AST (17-59) U/L ALT (0-50) U/L Alkaline Phosphatase (38-126) U/L Troponin I < 0.012 (0.000-0.034) ng/mL NT-Pro-B Natriuret Pep (0-1800) pg/mL Serum Total Protein (6.3-8.2) g/dL Albumin (3.5-5.0) g/dL Urine Color (YELLOW) Urine Appearance (CLEAR) Urine pH (5-6) Ur Specific Trent (1.005-1.025) Urine Protein (Negative) Urine Ketones (NEGATIVE) Urine Blood (0-5) Alvarez/ul Urine Nitrite (NEGATIVE) Urine Bilirubin (NEGATIVE) Urine Urobilinogen (0-1) mg/dL Ur Leukocyte Esterase (NEGATIVE) Urine WBC (Auto) (0-5) /HPF Urine RBC (Auto) (0-2) /HPF U Epithel Cells (Auto) (FEW) /HPF Urine Bacteria (Auto) (NEGATIVE) /HPF Amorphous Crystals (NEGATIVE) /HPF Urine Mucus (Auto) (NEGATIVE) /HPF Urine Culture Reflexed (NO) Urine Glucose (NEGATIVE) mg/dL Influenza Type A Ag (NEGATIVE) Influenza Type B Ag (NEGATIVE) RSV (PCR) (Negative) SARS-CoV-2 (PCR) (NEGATIVE) Accuchecks Date 07/25/20 Time 07:46 - Radiology Impressions Radiology Exams & Impressions: Radiology Procedures Category Date Time Status CHEST 1 VIEW (PORTABLE) Stat Exams 07/24/20 21:03 Completed - Other Procedures and Tests Respiratory Therapy 07/25/20 00:04 Oxygen Nasal Cannula 3 lpm 07/25/20 00:05 Peak Expiratory Flow Rate ONCE 07/25/20 00:21 Respiratory Therapy Assessment DAILY Assessment/Plan (1) COPD exacerbation Current Visit: Yes Status: Acute Code(s): J44.1 - CHRONIC OBSTRUCTIVE PULMONARY DISEASE W (ACUTE) EXACERBATION (2) SOB (shortness of breath) Current Visit: Yes Status: Acute Code(s): R06.02 - SHORTNESS OF BREATH (3) COPD (chronic obstructive pulmonary disease) Current Visit: No Status: Acute (4) Type 2 diabetes mellitus Current Visit: No Status: Chronic Qualifiers:
[2020-07-25] MEDS: Zithromax 500 MG/ 250 ML NaCl Premix 500 MG/250 ML IVPB IV SCH (08:59)
[2020-07-25] MEDS: PLAVIX 75 MG Tablet PO SCH (09:46)
[2020-07-25] MEDS: ECOTRIN 81 MG PO SCH (09:46)
[2020-07-25] MEDS: NEURONTIN 300 MG PO SCH ×2 (09:46→21:08)
[2020-07-25] MEDS: ENOXAPARIN SODIUM SQ SCH (09:46)
[2020-07-25] MEDS ORDERED: NON-FORMULARY ITEM (Atorvastatin Calcium [Atorvastatin Calcium] 80 MG) PO SCH (10:00)
[2020-07-25] MEDS ORDERED: Glucophage XR 500 MG PO SCH (10:00)
[2020-07-25] MEDS ORDERED: ENOXAPARIN SODIUM SQ SCH (10:00)
[2020-07-25] MEDS ORDERED: NON-FORMULARY ITEM (Metformin Hcl [Metformin Hcl Er] 500 MG) PO SCH (10:00)
[2020-07-25] MEDS ORDERED: PULMICORT 0.5 MG/2 ML RESPULES IH ONE (10:07)
[2020-07-25] MEDS: PULMICORT 0.5 MG/2 ML RESPULES IH SCH ×2 (10:31→18:55)
[2020-07-25] MEDS ORDERED: ZOCOR 20MG PO SCH (22:00)
[2020-07-25] MEDS ORDERED: ROCEPHIN 1 Gm-D5w 50 ml Bag** 1 G/50 ML IVPB IV SCH (22:00)
[2020-07-25] MEDS ORDERED: Lexapro 10 MG PO SCH (22:00)
[2020-07-25] MEDS ORDERED: Flomax 0.4 MG PO SCH (22:00)
[2020-07-26] MEDS: PULMICORT 0.5 MG/2 ML RESPULES IH SCH (06:47)
[2020-07-26] MEDS: DUONEB 0.5-3 MG/3 ml Neb IH SCH ×2 (06:47→11:09)
--- NOTE | 2020-07-26 09:05 | PCM.DS ---
Discharge Summary Date of Admission: 07/24/20 23:50 Admitting Physician: THANH LARKIN Primary Care Provider: THANH LARKIN Allergies Allergies No Known Drug Allergies Allergy (Verified 07/25/20 00:33) Hospital Summary - Hospital Course Hospital Course: Chief Complaint Diagnosis c/o shortness of breath for 2 days Allergies Allergy/AdvReac Type Severity Reaction Status Date / Time No Known Drug Allergies Allergy Verified 07/25/20 00:33 Vital Signs (Last 24 hours) Temp Pulse Resp BP Pulse Ox 07/26/20 07:00 97.5 F 74 16 149/71 97 07/26/20 06:47 76 16 95 07/26/20 03:00 97.7 F 70 17 145/67 91 L 07/25/20 23:52 98.1 F 85 20 158/74 95 07/25/20 20:00 98.3 F 98 H 18 136/65 92 L 07/25/20 18:55 98 H 18 92 L 07/25/20 16:00 98.1 F 101 H 18 110/52 93 L 07/25/20 15:02 100 H 22 93 L 07/25/20 11:48 97.8 F 80 18 128/60 92 L 07/25/20 10:38 97 H 20 92 L Home Medications Medication Instructions Recorded Confirmed Last Taken Type Ipratropium/Albuterol Sulfate 1 neb IH QID 07/25/20 07/25/20 07/24/20 History [Iprat-Albut 0.5-3(2.5) mg/3 ml] Current Medications Generic Name Dose Route Start Last Admin Trade Name Chaseq PRN Reason Stop Dose Admin Albuterol/Ipratropium 3 ml 07/25/20 10:00 07/26/20 06:47 Duoneb 0.5-3 Mg/3 Ml Neb IH 08/24/20 09:59 3 ml QIDRT BEATRIZ Administration Aspirin 81 mg 07/25/20 10:00 07/25/20 09:46 Ecotrin 81 Mg PO 08/24/20 09:59 81 mg DAILY BEATRIZ Administration Budesonide 0.5 mg 07/25/20 10:00 07/26/20 06:47 Pulmicort 0.5 Mg/2 Ml Respules IH 08/24/20 09:59 0.5 mg BIDRT BEATRIZ Administration Clopidogrel Bisulfate 75 mg 07/25/20 10:00 07/25/20 09:46 Plavix 75 Mg Tablet PO 08/24/20 09:59 75 mg DAILY BEATRIZ Administration Enoxaparin Sodium 30 mg 07/25/20 10:00 07/25/20 09:46 Enoxaparin Sodium SQ 08/24/20 09:59 30 mg DAILY BEATRIZ Administration Escitalopram Oxalate 10 mg 07/25/20 22:00 07/25/20 21:08 Lexapro 10 Mg PO 08/24/20 21:59 10 mg HS BEATRIZ Administration Gabapentin 300 mg 07/25/20 10:00 07/25/20 21:08 Neurontin 300 Mg PO 08/24/20 09:59 300 mg BID BEATRIZ Administration Ceftriaxone Sodium/Dextrose 1 g in 50 mls @ 100 mls/hr 07/25/20 22:00 07/25/20 21:09 Rocephin 1 Gm-D5w 50 Ml Bag IV 08/24/20 21:59 100 mls/hr Q24H22 BEATRIZ Administration Azithromycin 500 mg in 250 mls @ 250 mls/hr 07/25/20 10:00 07/25/20 08:59 Zithromax 500 Mg/ 250 Ml Nacl Premix IV 08/24/20 09:59 Not Given Q24H10 BEATRIZ Insulin Human NPH 50 unit 07/25/20 08:00 07/25/20 16:37 Novolin N SQ 08/24/20 07:59 50 unit BIDWM BEATRIZ Administration Insulin Human Regular 0 unit 07/25/20 07:28 07/25/20 16:38 Humulin R SQ 08/24/20 07:27 2 unit UD PRN Administration HYPERGLYCEMIA Metformin HCl 500 mg 07/26/20 17:00 Glucophage Xr 500 Mg PO 08/25/20 16:59 1700 BEATRIZ Simvastatin 40 mg 07/25/20 22:00 07/25/20 21:08 Zocor 20mg PO 08/24/20 21:59 40 mg HS BEATRIZ Administration Tamsulosin HCl 0.4 mg 07/25/20 22:00 07/25/20 21:08 Flomax 0.4 Mg PO 08/24/20 21:59 0.4 mg HS BEATRIZ Administration Discontinued Medications Generic Name Dose Route Start Last Admin Trade Name Chaseq PRN Reason Stop Dose Admin Albuterol/Ipratropium Confirm 07/25/20 00:00 Duoneb 0.5-3 Mg/3 Ml Neb Administered 07/25/20 00:01 Dose 3 ml IH .STK-MED ONE Albuterol/Ipratropium 3 ml 07/25/20 03:00 07/25/20 06:20 Duoneb 0.5-3 Mg/3 Ml Neb IH 08/24/20 02:59 3 ml Q4HRT BEATRIZ Administration Budesonide Confirm 07/25/20 10:07 Pulmicort 0.5 Mg/2 Ml Respules Administered 07/25/20 10:08 Dose 0.5 mg IH .STK-MED ONE Enoxaparin Sodium 40 mg 07/25/20 10:00 Enoxaparin Sodium SQ 08/24/20 09:59 DAILY BEATRIZ Ceftriaxone Sodium/Dextrose 2 g in 50 mls @ 100 mls/hr 07/24/20 23:21 07/25/20 01:18 Rocephin 2 Gm-D5w 50ml Bag IV 07/24/20 23:50 100 mls/hr STAT STA Administration Magnesium Sulfate/Dextrose 100 mls @ 100 mls/hr 07/24/20 23:30 07/25/20 02:32 Magnesium 1 Gm / 100 Ml D5w IV 07/25/20 01:29 100 mls/hr Q1H BEATRIZ Administration Azithromycin 500 mg in 250 mls @ 125 mls/hr 07/25/20 07:00 07/25/20 07:18 Zithromax 500 Mg/ 250 Ml Nacl Premix IV 07/25/20 08:59 125 mls/hr ONCE ONE Administration Metformin HCl 500 mg 07/25/20 10:00 07/25/20 09:46 Glucophage Xr 500 Mg PO 08/24/20 09:59 500 mg DAILY BEATRIZ Administration Intake & Output (Last 24 hours) 07/23/20 07/24/20 07/25/20 07/26/20 11:59 11:59 11:59 11:59 Intake Total 720 1780 Output Total 950 550 Balance -230 1230 Weight 97.5 kg Microbiology Results (Last 24 hours) 07/24/20 21:44 Blood Blood Culture Gram Stain - Pending 07/24/20 21:44 Blood Blood Culture - Preliminary NO GROWTH TO DATE 07/24/20 21:43 Blood Blood Culture Gram Stain - Pending 07/24/20 21:43 Blood Blood Culture - Preliminary NO GROWTH TO DATE 07/24/20 22:24 Urine, Catheterized Urine Culture - Preliminary GRAM NEGATIVE ID AND SENSITIVITY PENDING Laboratory Results (Last 24 hours) 07/26/20 07/25/20 07/25/20 07:03 20:40 16:18 POC Glucometer 118 H 158 H 239 H Hemoglobin A1c 07/25/20 07/25/20 11:44 08:00 POC Glucometer 250 H Hemoglobin A1c 7.83 H Orders (Last 24 hours) Category Date Time Status POCT GLUCOSE Stat Lab 07/25/20 11:40 Received POCT GLUCOSE Stat Lab 07/25/20 11:40 Received POCT GLUCOSE Stat Lab 07/25/20 11:42 Received POCT GLUCOSE Stat Lab 07/25/20 11:44 Completed POCT GLUCOSE Stat Lab 07/25/20 16:18 Completed POCT GLUCOSE Stat Lab 07/25/20 20:40 Completed POCT GLUCOSE Stat Lab 07/26/20 07:03 Completed Albuterol/Ipratropium 3ml Neb* [DUONEB 0.5-3 MG/3 ml Med 07/25/20 10:00 Active Neb] 3 ml IH QIDRT Aspirin EC 81 mg [Ecotrin 81 mg] Med 07/25/20 10:00 Active 81 mg PO DAILY Azithromycin 500 mg/250 ml [Zithromax 500 MG/ 250 ML Med 07/25/20 10:00 Active NaCl Premix] 500 mg in 250 ml IV Q24H10 Budesonide 0.5 mg/2 ml [Pulmicort 0.5 mg/2 ml Med 07/25/20 10:07 Discontinued Respules] 0.5 mg IH .STK-MED ONE Budesonide 0.5 mg/2 ml [Pulmicort 0.5 mg/2 ml Med 07/25/20 10:00 Active Respules] 0.5 mg IH BIDRT Ceftriaxone 1 GM/50 ML PREMIX* [ROCEPHIN 1 Gm-D5w 50 ml Med 07/25/20 22:00 Active Bag] 1 g in 50 ml IV Q24H22 Clopidogrel Bisulfate 75 mg [PLAVIX 75 MG Tablet] Med 07/25/20 10:00 Active 75 mg PO DAILY Enoxaparin Sodium [Enoxaparin Sodium] Med 07/25/20 10:00 Active 30 mg SQ DAILY Enoxaparin Sodium [Enoxaparin Sodium] Med 07/25/20 10:00 Discontinued 40 mg SQ DAILY Escitalopram Oxalate 10 mg [Lexapro 10 MG] Med 07/25/20 22:00 Active 10 mg PO HS Gabapentin 300 mg [Neurontin 300 mg] Med 07/25/20 10:00 Active 300 mg PO BID Metformin HCl Xr 500 mg [Glucophage XR 500 MG] Med 07/26/20 17:00 Active 500 mg PO 1700 Metformin HCl Xr 500 mg [Glucophage XR 500 MG] Med 07/25/20 10:00 Discontinued 500 mg PO DAILY Simvastatin 20Mg [Zocor 20Mg] Med 07/25/20 22:00 Active 40 mg PO HS Tamsulosin HCl 0.4 mg [Flomax 0.4 MG] Med 07/25/20 22:00 Active 0.4 mg PO HS Qualify for Home Oxygen ROUTINE RT 07/26/20 08:30 Active Patient Care Notes (Last 24 hours) 07/26/20 06:53 Respiratory Note by Shanice Silva PT GIVEN AEROSOL MASK FOR [place] Initialized on 07/26/20 06:53 - END OF NOTE 07/25/20 09:46 Case Management Note by Sharee Stuart PATIENT HAS [facility]. RICKY AT [facility] NOTIFIED PATIENT HERE OBS. SHE VERIFIED UNDERSTANDING. NURSING WILL NEED TO NOTIFY [facility] AT TIME OF DC AT [phone]. THEY WILL NEED FAXED THE DC INSTRUCTIONS, MED LIST AND DC SUMMARY(IF AVAILABLE) TO [phone] Initialized on 07/25/20 09:46 - END OF NOTE - Vitals & Intake/Output Vital Signs: Vital Signs Temperature 97.5 F 07/26/20 07:00 Pulse Rate 74 07/26/20 07:00 Respiratory Rate 16 09/24/20 07:00 Blood Pressure 149/71 07/26/20 07:00 O2 Sat by Pulse Oximetry 97 07/26/20 07:00 Intake & Output: Intake & Output 07/23/20 07/24/20 07/25/20 07/26/20 11:59 11:59 11:59 11:59 Intake Total 720 1780 Output Total 950 550 Balance -230 1230 Weight 97.5 kg - Lab Result Diagrams: 07/24/20 21:43 07/25/20 05:00 Lab Results-Last 24 Hrs: Lab Results-Last 24 Hours 07/25/20 07/25/20 07/25/20 Range/Units 08:00 11:44 16:18 POC Glucometer 250 H 239 H (74 to 106) mg/dL Hemoglobin A1c 7.83 H (4.5-6.0) % 07/25/20 07/26/20 Range/Units 20:40 07:03 POC Glucometer 158 H 118 H (74 to 106) mg/dL Hemoglobin A1c (4.5-6.0) % Micro Results-Entire Visit: Microbiology 07/24/20 21:44 Blood Culture - Preliminary Blood NO GROWTH TO DATE 07/24/20 21:43 Blood Culture - Preliminary Blood NO GROWTH TO DATE 07/24/20 22:24 Urine Culture - Preliminary Urine, Catheterized GRAM NEGATIVE ID AND SENSITIVITY PENDING Accuchecks Date 07/26/20 Date 07/25/20 Date 07/25/20 Date 07/25/20 Date 07/25/20 Time 07:03 Time 16:38 Time 12:00 - Radiology Exams Ordered Rad Exams-Entire Visit: Radiology Procedures Category Date Time Status CHEST 1 VIEW (PORTABLE) Stat Exams 07/24/20 21:03 Completed - Procedures and Test Procedures and Tests throughout Hospitalization: Therapy Orders & Screens 07/25/20 00:04 Oxygen Nasal Cannula 3 lpm Comment: 07/25/20 00:05 Peak Expiratory Flow Rate ONCE Comment: Reason For Exam: 07/25/20 00:21 Respiratory Therapy Assessment DAILY Comment: 07/25/20 00:32 Smoking Cessation Education ONCE Comment: Diagnosis: copd exacerbation Smoking Status: Current every day smoker How long have you smoked: 66 years Have you smoked in the past 12 months: Yes Approximately how many cigarettes per day: 30 Do you dip or chew tobacco: No If,Former Smoker,when did you quit: 07/26/20 08:30 Qualify for Home Oxygen ROUTINE Comment: Diagnosis: c/o shortness of breath for 2 days Discharge Exam General Appearance: no apparent distress, alert Neurologic Exam: alert, oriented x 3, cooperative, normal mood/affect, nml cerebellar function, sensation nml, No motor deficits Eye Exam: PERRL, EOMI, eyes nml inspection Ears, Nose, Throat Exam: normal ENT inspection, pharynx normal, moist mucous membranes Neck Exam: normal inspection, non-tender, supple, full range of motion Respiratory Exam: diminished breath sounds, crackles/rales, rhonchi, wheezing, No respiratory distress Cardiovascular Exam: regular rate/rhythm, normal heart sounds Gastrointestinal/Abdomen Exam: soft, No tenderness, No mass Male Genitalia Exam: deferred Rectal Exam: deferred Back Exam: normal inspection, normal range of motion, No CVA tenderness, No vertebral tenderness Extremity Exam: normal inspection, normal range of motion Skin Exam: normal color, warm, dry Final Diagnosis/Problem List - Final Discharge Diagnosis/Problem (1) COPD exacerbation Current Visit: Yes Status: Acute Assessment & Plan: Chief Complaint Diagnosis c/o shortness of breath for 2 days Allergies Allergy/AdvReac Type Severity Reaction Status Date / Time No Known Drug Allergies Allergy Verified 07/25/20 00:33 Vital Signs (Last 24 hours) Temp Pulse Resp BP Pulse Ox 07/26/20 07:00 97.5 F 74 16 149/71 97 07/26/20 06:47 76 16 95 07/26/20 03:00 97.7 F 70 17 145/67 91 L 07/25/20 23:52 98.1 F 85 20 158/74 95 07/25/20 20:00 98.3 F 98 H 18 136/65 92 L 07/25/20 18:55 98 H 18 92 L 07/25/20 16:00 98.1 F 101 H 18 110/52 93 L 07/25/20 15:02 100 H 22 93 L 07/25/20 11:48 97.8 F 80 18 128/60 92 L 07/25/20 10:38 97 H 20 92 L Home Medications Medication Instructions Recorded Confirmed Last Taken Type Ipratropium/Albuterol Sulfate 1 neb IH QID 07/25/20 07/25/20 07/24/20 History [Iprat-Albut 0.5-3(2.5) mg/3 ml] Current Medications Generic Name Dose Route Start Last Admin Trade Name Janny PRN Reason Stop Dose Admin Albuterol/Ipratropium 3 ml 07/25/20 10:00 07/26/20 06:47 Duoneb 0.5-3 Mg/3 Ml Neb IH 08/24/20 09:59 3 ml QIDRT BEATRIZ Administration Aspirin 81 mg 07/25/20 10:00 07/25/20 09:46 Ecotrin 81 Mg PO 08/24/20 09:59 81 mg DAILY BEATRIZ Administration Budesonide 0.5 mg 07/25/20 10:00 07/26/20 06:47 Pulmicort 0.5 Mg/2 Ml Respules IH 08/24/20 09:59 0.5 mg BIDRT BEATRIZ Administration Clopidogrel Bisulfate 75 mg 07/25/20 10:00 07/25/20 09:46 Plavix 75 Mg Tablet PO 08/24/20 09:59 75 mg DAILY BEATRIZ Administration Enoxaparin Sodium 30 mg 07/25/20 10:00 07/25/20 09:46 Enoxaparin Sodium SQ 08/24/20 09:59 30 mg DAILY BEATRIZ Administration Escitalopram Oxalate 10 mg 07/25/20 22:00 07/25/20 21:08 Lexapro 10 Mg PO 08/24/20 21:59 10 mg HS BEATRIZ Administration Gabapentin 300 mg 07/25/20 10:00 07/25/20 21:08 Neurontin 300 Mg PO 08/24/20 09:59 300 mg BID BEATRIZ Administration Ceftriaxone Sodium/Dextrose 1 g in 50 mls @ 100 mls/hr 07/25/20 22:00 07/25/20 21:09 Rocephin 1 Gm-D5w 50 Ml Bag IV 08/24/20 21:59 100 mls/hr Q24H22 BEATRIZ Administration Azithromycin 500 mg in 250 mls @ 250 mls/hr 07/25/20 10:00 07/25/20 08:59 Zithromax 500 Mg/ 250 Ml Nacl Premix IV 08/24/20 09:59 Not Given Q24H10 BEATRIZ Insulin Human NPH 50 unit 07/25/20 08:00 07/25/20 16:37 Novolin N SQ 08/24/20 07:59 50 unit BIDWM BEATRIZ Administration Insulin Human Regular 0 unit 07/25/20 07:28 07/25/20 16:38 Humulin R SQ 08/24/20 07:27 2 unit UD PRN Administration HYPERGLYCEMIA Metformin HCl 500 mg 07/26/20 17:00 Glucophage Xr 500 Mg PO 08/25/20 16:59 1700 BEATRIZ Simvastatin 40 mg 07/25/20 22:00 07/25/20 21:08 Zocor 20mg PO 08/24/20 21:59 40 mg HS BEATRIZ Administration Tamsulosin HCl 0.4 mg 07/25/20 22:00 07/25/20 21:08 Flomax 0.4 Mg PO 08/24/20 21:59 0.4 mg HS BEATRIZ Administration Discontinued Medications Generic Name Dose Route Start Last Admin Trade Name Freq PRN Reason Stop Dose Admin Albuterol/Ipratropium Confirm 07/25/20 00:00 Duoneb 0.5-3 Mg/3 Ml Neb Administered 07/25/20 00:01 Dose 3 ml IH .STK-MED ONE Albuterol/Ipratropium 3 ml 07/25/20 03:00 07/25/20 06:20 Duoneb 0.5-3 Mg/3 Ml Neb IH 08/24/20 02:59 3 ml Q4HRT BEATRIZ Administration Budesonide Confirm 07/25/20 10:07 Pulmicort 0.5 Mg/2 Ml Respules Administered 07/25/20 10:08 Dose 0.5 mg IH .STK-MED ONE Enoxaparin Sodium 40 mg 07/25/20 10:00 Enoxaparin Sodium SQ 08/24/20 09:59 DAILY BEATRIZ Ceftriaxone Sodium/Dextrose 2 g in 50 mls @ 100 mls/hr 07/24/20 23:21 07/25/20 01:18 Rocephin 2 Gm-D5w 50ml Bag IV 07/24/20 23:50 100 mls/hr STAT STA Administration Magnesium Sulfate/Dextrose 100 mls @ 100 mls/hr 07/24/20 23:30 07/25/20 02:32 Magnesium 1 Gm / 100 Ml D5w IV 07/25/20 01:29 100 mls/hr Q1H BEATRIZ Administration Azithromycin 500 mg in 250 mls @ 125 mls/hr 07/25/20 07:00 07/25/20 07:18 Zithromax 500 Mg/ 250 Ml Nacl Premix IV 07/25/20 08:59 125 mls/hr ONCE ONE Administration Metformin HCl 500 mg 07/25/20 10:00 07/25/20 09:46 Glucophage Xr 500 Mg PO 08/24/20 09:59 500 mg DAILY BEATRIZ Administration Intake & Output (Last 24 hours) 07/23/20 07/24/20 07/25/20 07/26/20 11:59 11:59 11:59 11:59 Intake Total 720 1780 Output Total 950 550 Balance -230 1230 Weight 97.5 kg Microbiology Results (Last 24 hours) 07/24/20 21:44 Blood Blood Culture Gram Stain - Pending 07/24/20 21:44 Blood Blood Culture - Preliminary NO GROWTH TO DATE 07/24/20 21:43 Blood Blood Culture Gram Stain - Pending 07/24/20 21:43 Blood Blood Culture - Preliminary NO GROWTH TO DATE 07/24/20 22:24 Urine, Catheterized Urine Culture - Preliminary GRAM NEGATIVE ID AND SENSITIVITY PENDING Laboratory Results (Last 24 hours) 07/26/20 07/25/20 07/25/20 07:03 20:40 16:18 POC Glucometer 118 H 158 H 239 H Hemoglobin A1c 07/25/20 07/25/20 11:44 08:00 POC Glucometer 250 H Hemoglobin A1c 7.83 H Orders (Last 24 hours) Category Date Time Status POCT GLUCOSE Stat Lab 07/25/20 11:40 Received POCT GLUCOSE Stat Lab 07/25/20 11:40 Received POCT GLUCOSE Stat Lab 07/25/20 11:42 Received POCT GLUCOSE Stat Lab 07/25/20 11:44 Completed POCT GLUCOSE Stat Lab 07/25/20 16:18 Completed POCT GLUCOSE Stat Lab 07/25/20 20:40 Completed POCT GLUCOSE Stat Lab 07/26/20 07:03 Completed Albuterol/Ipratropium 3ml Neb* [DUONEB 0.5-3 MG/3 ml Med 07/25/20 10:00 Active Neb] 3 ml IH QIDRT Aspirin EC 81 mg [Ecotrin 81 mg] Med 07/25/20 10:00 Active 81 mg PO DAILY Azithromycin 500 mg/250 ml [Zithromax 500 MG/ 250 ML Med 07/25/20 10:00 Active NaCl Premix] 500 mg in 250 ml IV Q24H10 Budesonide 0.5 mg/2 ml [Pulmicort 0.5 mg/2 ml Med 07/25/20 10:07 Discontinued Respules] 0.5 mg IH .STK-MED ONE Budesonide 0.5 mg/2 ml [Pulmicort 0.5 mg/2 ml Med 07/25/20 10:00 Active Respules] 0.5 mg IH BIDRT Ceftriaxone 1 GM/50 ML PREMIX* [ROCEPHIN 1 Gm-D5w 50 ml Med 07/25/20 22:00 Active Bag] 1 g in 50 ml IV Q24H22 Clopidogrel Bisulfate 75 mg [PLAVIX 75 MG Tablet] Med 07/25/20 10:00 Active 75 mg PO DAILY Enoxaparin Sodium [Enoxaparin Sodium] Med 07/25/20 10:00 Active 30 mg SQ DAILY Enoxaparin Sodium [Enoxaparin Sodium] Med 07/25/20 10:00 Discontinued 40 mg SQ DAILY Escitalopram Oxalate 10 mg [Lexapro 10 MG] Med 07/25/20 22:00 Active 10 mg PO HS Gabapentin 300 mg [Neurontin 300 mg] Med 07/25/20 10:00 Active 300 mg PO BID Metformin HCl Xr 500 mg [Glucophage XR 500 MG] Med 07/26/20 17:00 Active 500 mg PO 1700 Metformin HCl Xr 500 mg [Glucophage XR 500 MG] Med 07/25/20 10:00 Discontinued 500 mg PO DAILY Simvastatin 20Mg [Zocor 20Mg] Med 07/25/20 22:00 Active 40 mg PO HS Tamsulosin HCl 0.4 mg [Flomax 0.4 MG] Med 07/25/20 22:00 Active 0.4 mg PO HS Qualify for Home Oxygen ROUTINE RT 07/26/20 08:30 Active Patient Care Notes (Last 24 hours) 07/26/20 06:53 Respiratory Note by Shanice Silva PT GIVEN AEROSOL MASK FOR [place] Initialized on 07/26/20 06:53 - END OF NOTE 07/25/20 09:46 Case Management Note by Sharee Stuart PATIENT HAS [facility]. RICKY AT [facility] NOTIFIED PATIENT HERE OBS. SHE VERIFIED UNDERSTANDING. NURSING WILL NEED TO NOTIFY [facility] AT TIME OF DC AT [phone]. THEY WILL NEED FAXED THE DC INSTRUCTIONS, MED LIST AND DC [facility](IF AVAILABLE) TO [phone] Initialized on 07/25/20 09:46 - END OF NOTE pt will require 2l oxygen NC 24 hour a day with portability Code(s): J44.1 - CHRONIC OBSTRUCTIVE PULMONARY DISEASE W (ACUTE) EXACERBATION (2) SOB (shortness of breath) Current Visit: Yes Status: Acute Code(s): R06.02 - SHORTNESS OF BREATH (3) COPD (chronic obstructive pulmonary disease) Current Visit: No Status: Resolved (4) Type 2 diabetes mellitus Current Visit: No Status: Chronic - Discharge Discharge Date: 07/26/20 Disposition: Home, Self-Care Condition: Stable Prescriptions: New Cephalexin Mh 500 mg [Keflex 500 mg] 500 mg PO QID #30 capsule Continue Clopidogrel Bisulfate 75 mg [PLAVIX 75 MG Tablet] 75 mg PO DAILY Tamsulosin HCl 1 tablet PO HS Atorvastatin Calcium 80 mg PO DAILY Gabapentin 300 mg PO BID Escitalopram Oxalate 10 mg [Lexapro 10 MG] 10 mg PO HS Metformin HCl [Metformin HCl ER] 500 mg PO DAILY Insulin NPH Human Isophane [Humulin N] 50 units SQ BIDWM Aspirin [Aspirin EC] 81 mg PO DAILY Ipratropium/Albuterol Sulfate [Iprat-Albut 0.5-3(2.5) mg/3 ml] 1 neb IH QID Follow up with: THANH LARKIN MD [Primary Care Provider] - 1 Week
[2020-07-26] MEDS: NEURONTIN 300 MG PO SCH (09:31)
[2020-07-26] MEDS: ECOTRIN 81 MG PO SCH (09:31)
[2020-07-26] MEDS: PLAVIX 75 MG Tablet PO SCH (09:31)
[2020-07-26] MEDS: ENOXAPARIN SODIUM SQ SCH (09:40)
[2020-07-26] MEDS: Zithromax 500 MG/ 250 ML NaCl Premix 500 MG/250 ML IVPB IV SCH (09:41)
[2020-07-26] MEDS: Novolin N SQ SCH (09:45)
[2020-07-26 11:30] VITALS: BP 175/79; PULSE 103; O2SAT 90
[2020-07-26] MEDS ORDERED: Glucophage XR 500 MG PO SCH (17:00)
== END 2020-07-26 13:43 | disposition home or self-care (01) ==
LOC: ED 20:55 → MED SURG 23:50
PROVIDERS: ADMIT General Practice; ATTEND General Practice
DX: J44.1 Chronic obstructive pulmonary disease with (acute) exacerbation (principal); E11.9 Type 2 diabetes mellitus without complications; I10 Essential (primary) hypertension; Z79.01 Long term (current) use of anticoagulants; Z79.899 Other long term (current) drug therapy
CPT/HCPCS: 36000; 36415; 71045; 80053; 81001; 82962; 83036; 83735; 83880; 84484; 85025; 87040; 87077; 87086; 87186; 87631; 93005; 93041; 94150; 94640; 94760; 99285; G0378; U0003; J0456; J0696; J1650; J1815; J3475; A9270-GY

== ENCOUNTER 2020-08-15 12:01 | Observation (INO) | payer MEDICARE ==
[2020-08-15] MEDS ORDERED: Zithromax 500 MG/ 250 ML NaCl Premix 500 MG/250 ML IVPB IV STA (12:30)
[2020-08-15] MEDS ORDERED: ROCEPHIN 1 Gm-D5w 50 ml Bag** 1 G/50 ML IVPB IV STA (12:30)
[2020-08-15] MEDS ORDERED: solu-MEDROL 125 MG IV ONE (12:30)
[2020-08-15] MEDS ORDERED: DUONEB 0.5-3 MG/3 ml Neb IH ONE ×2 (12:30→12:47)
[2020-08-15] MEDS ORDERED: BABY ASPIRIN 81 MG CHEW PO ONE (12:32)
[2020-08-15 12:37] LABS: Absolute Neutrophil Ct (ANC) 6.04 (1.4-6.9); BASOPHIL % 0.5 % (0.0-0.4); Basophil (Absolute #) 0.05 (0-0.4); Eosinophil % 11.6 % (0.00-5.0); Eosinophil (Absolute #) 1.14 (0-0.5); Hematocrit 37.7 % (42-50); Hemoglobin 11.8 gm/dl (12.5-18.0); Lymphocyte (Absolute #) 1.54 (1.0-4.6); Lymphocytes % 15.7 % (24.0-44.0); Mean Corpuscular Hemoglobin 28.2 pg (26-32); Mean Corpuscular Hgb Concent. 31.3 g/dl (32-36); Mean Platelet Volume 10.3 fl (7.5-11.0); Monocyte (Absolute #) 1.07 (0.0-1.3); Monocytes % 10.9 % (0.0-12.0); Neutrophil % 61.3 % (36.0-66.0); Platelet Count 195 K/mm3 (150-450); Red Blood Count 4.19 M/mm3 (4.1-5.6); Red Cell Distribution Width 13.6 % (11.5-14.0); White Blood Count 9.8 K/mm3 (4.0-10.5)
--- NOTE | 2020-08-15 12:41 | ERPHSYRPT ---
- History of Present Illness Time Seen by Provider: 08/15/20 12:16 Source: patient, EMS Exam Limitations: no limitations Patient Subjective Stated Complaint: SOB Triage Nursing Assessment: Patient brought back to ED via EMS and transferred to bed with assist of 3. Patient A+O X3. Patient's skin pink, warm and dry. Patient complains of increased SOB for the past 3 days. Patient states he has an occasional productive cough with thick, yellow sputum noted. Patient's lungs noted to be wheezy throughout. Patient wears home o2 at 2 liters per N/C. Physician History: 80 years old male with history of COPD, diabetes mellitus, hypertension, hyperlipidemia, BPH presented in the ER with chief complaint of gradually worsen ing shortness of breath since last night. Patient uses 2 L oxygen normally but last night was feeling as if he is not getting enough air, increase his oxygen to 3 L but still not feeling at his baseline, has been increase wheezing all over with cough productive of yellow-green sputum. Denies fever or chills. Shortness of breath gets worse with activity and no significant relief except for increasing oxygen. On the way to the ER he received a DuoNeb and currently feeling better but still wheezing all over. Denies fever or chills or chest pain/palpitations. Denies any sick contact. Timing/Duration: yesterday, gradual onset, worse Activities at Onset: rest Severity of Dyspnea-Max: moderate Severity of Dyspnea-Current: moderate Possible Cause: occasional episodes Modifying Factors: Improves With: oxygen, rest. Worsens With: coughing Associated Symptoms: cough, edema, wheezing, leg swelling, productive cough, No dizziness, No heaviness, No heart racing, No lightheadedness, No muscle spasms feet, No painful breathing Allergies/Adverse Reactions: No Known Drug Allergies Allergy (Verified 08/15/20 12:05) Home Medications: Clopidogrel Bisulfate 75 mg [PLAVIX 75 MG Tablet] 75 mg PO DAILY 01/04/17 [History] Aspirin [Aspirin EC] 81 mg PO DAILY 10/28/19 [History] Atorvastatin Calcium 80 mg PO DAILY 10/28/19 [History] Escitalopram Oxalate 10 mg [Lexapro 10 MG] 10 mg PO HS 10/28/19 [History] Gabapentin 300 mg PO BID 10/28/19 [History] Insulin NPH Human Isophane [Humulin N] 50 units SQ BIDWM 10/28/19 [History] Metformin HCl [Metformin HCl ER] 500 mg PO DAILY 10/28/19 [History] Tamsulosin HCl 1 tablet PO HS 10/28/19 [History] Ipratropium/Albuterol Sulfate [Iprat-Albut 0.5-3(2.5) mg/3 ml] 1 neb IH QID 07/25/20 [History] Hx Tetanus, Diphtheria Vaccination/Date Given: Yes Hx Influenza Vaccination/Date Given: Yes Hx Pneumococcal Vaccination/Date Given: Yes Immunizations Up to Date: Yes Travel Risk - International Travel Have you traveled outside of the country in past 3 weeks: No - Coronavirus Screening Are you exhibiting any of the following symptoms?: Yes Symptoms: Cough: New Onset, Shortness of Breath Close contact with a COVID-19 positive Pt in past 14-21 Days: No - Review of Systems Constitutional: Fatigue Eyes: No Symptoms Ears, Nose, & Throat: No Symptoms Respiratory: Cough, Dyspnea, Wheezing Cardiac: No Symptoms Abdominal/Gastrointestinal: No Symptoms Genitourinary Symptoms: No Symptoms Musculoskeletal: No Symptoms Skin: No Symptoms Neurological: No Symptoms Psychological: No Symptoms Endocrine: No Symptoms Hematologic/Lymphatic: No Symptoms Immunological/Allergic: No Symptoms - Past Medical History Pertinent Past Medical History: Yes Neurological History: No Pertinent History ENT History: No Pertinent History Cardiac History: Hypertension Respiratory History: COPD, Emphysema Endocrine Medical History: Diabetes Type II Musculoskeletal History: Fractures, Degenerative Disk Disease GI Medical History: Hernia, Hepatitis History: No Pertinent History Psycho-Social History: No Pertinent History Male Reproductive Disorders: No Pertinent History Other Medical History: hep c,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 pt poor historian, recalled medical history from previous admission - Past Surgical History Past Surgical History: Yes Neuro Surgical History: No Pertinent History Cardiac: No Pertinent History Respiratory: No Pertinent History Gastrointestinal: Hernia Repair Genitourinary: No Pertinent History Musculoskeletal: Orthopedic Surgery Male Surgical History: No Pertinent History Other Surgical History: right knee fx,growth removed from right knee, left lower leg spiral fx,hdwe in right knee,states damian. herniorr. as a child - Social History Smoking Status: Former smoker How long have you smoked: 66 years Exposure to second hand smoke: No Drug Use: none Patient Lives Alone: Yes - Nursing Vital Signs Nursing Vital Signs: Initial Vital Signs Temperature 98.6 F 08/15/20 12:06 Pulse Rate 89 08/15/20 12:06 Respiratory Rate 25 H 08/15/20 12:06 Blood Pressure 169/90 08/15/20 12:06 O2 Sat by Pulse Oximetry 99 08/15/20 12:06 Pain Scale Pain Intensity 0 - Physical Exam General Appearance: no apparent distress, alert Eye Exam: PERRL/EOMI, eyes nml inspection Ears, Nose, Throat Exam: hearing grossly normal, pharyngeal erythema Neck Exam: normal inspection, non-tender, supple, full range of motion Respiratory Exam: diminished breath sounds, crackles/rales, rhonchi, wheezing Cardiovascular/Chest Exam: normal heart sounds, regular rate/rhythm Abdominal/Gastrointestinal Exam: soft, normal bowel sounds Extremity Exam: non-tender, pedal edema Neurologic Exam: alert, oriented x 3, cooperative, mainspring torque tester II-XII nml as tested Skin Exam: normal color SpO2 Interpretation: normal SpO2: 99 O2 Delivery: Nasal Cannula - Course EKG Interpreted by Me: RATE (85), NORMAL AXIS, NORMAL INTERVALS, Non-specific ST Changes Ordered Tests: Active Orders 24 hr Category Date Time Status Bedrest with BRP/BSC ROUTINE Activity 08/15/20 13:22 Ordered Up With Assistance ROUTINE Activity 08/15/20 13:21 Ordered Cath for Specimen-Straight STAT Care 08/15/20 12:31 Active Code Status Order ROUTINE Care 08/15/20 13:21 Ordered EKG-ER Only STAT Care 08/15/20 12:30 Active Fall Protocol ROUTINE Care 08/15/20 13:22 Ordered IV Care Q6H Care 08/15/20 13:21 Ordered IV Insertion STAT Care 08/15/20 12:30 Active Oxygen-ED Only Nasal Cannula 3 lpm Care 08/15/20 12:30 Active POCT Glucose Check ACHS Care 08/15/20 13:[address] in Observation ROUTINE Care 08/15/20 13:21 Ordered Juvenal Hose, Apply ROUTINE Care 08/15/20 13:21 Ordered Weight,Daily 0600 Care 08/15/20 13:21 Ordered Consistent Carbohydrate Diet 1800 Calorie Diet 08/15/20 Dinner Ordered CHEST 1 VIEW (PORTABLE) Stat Exams 08/15/20 12:31 Completed BLOOD CULTURE Stat Lab 08/15/20 12:55 Received CBC W DIFF AM.LAB Lab 08/16/20 04:00 Ordered CBC W DIFF Stat Lab 08/15/20 12:15 Completed CMP AM.LAB Lab 08/16/20 04:00 Ordered CMP Stat Lab 08/15/20 12:15 Completed Lactic Acid Stat Lab 08/15/20 12:30 Completed MAGNESIUM Stat Lab 08/15/20 12:15 Completed NT PRO BNP Stat Lab 08/15/20 12:15 Completed TROPONIN Q3H Lab 08/15/20 12:15 Completed TROPONIN Q3H Lab 08/15/20 15:45 Ordered TROPONIN Q3H Lab 08/15/20 18:45 Ordered TROPONIN Q3H Lab 08/15/20 21:45 Ordered TROPONIN Q3H Lab 08/16/20 00:45 Ordered Respiratory MDI STAT RT 08/15/20 13:22 Active Respiratory Therapy Assessment DAILY RT 08/15/20 13:24 Ordered Medication Summary Generic Name Dose Route Start Last Admin Trade Name Freq PRN Reason Stop Dose Admin Azithromycin 500 mg in 250 mls @ 250 mls/hr 08/15/20 12:30 Zithromax 500 Mg/ 250 Ml Nacl Premix IV 08/15/20 13:29 STAT STA Discontinued Medications Generic Name Dose Route Start Last Admin Trade Name Freq PRN Reason Stop Dose Admin Albuterol Sulfate 4 puff 08/15/20 13:03 08/15/20 13:05 Ventolin Common Canister IH 08/15/20 13:04 4 puff STAT ONE Administration Albuterol/Ipratropium 3 ml 08/15/20 12:30 08/15/20 13:04 Duoneb 0.5-3 Mg/3 Ml Neb IH 08/15/20 12:31 Not Given STAT ONE Albuterol/Ipratropium Confirm 08/15/20 12:47 Duoneb 0.5-3 Mg/3 Ml Neb Administered 08/15/20 12:48 Dose 3 ml IH .STK-MED ONE Aspirin 324 mg 08/15/20 12:32 08/15/20 12:53 Baby Aspirin 81 Mg Chew PO 08/15/20 12:33 324 mg STAT ONE Administration Aspirin Confirm 08/15/20 12:48 Baby Aspirin 81 Mg Chew Administered 08/15/20 12:49 Dose 324 mg .ROUTE .STK-MED ONE Ceftriaxone Sodium/Dextrose 1 g in 50 mls @ 100 mls/hr 08/15/20 12:30 08/15/20 12:52 Rocephin 1 Gm-D5w 50 Ml Bag IV 08/15/20 12:59 100 mls/hr STAT STA 100 mls/hr Administration Ceftriaxone Sodium/Dextrose Confirm 08/15/20 12:48 Rocephin 1 Gm-D5w 50 Ml Bag Administered 08/15/20 12:49 Dose 1 g in 50 mls @ ud IV .STK-MED ONE Methylprednisolone Sodium Succinate 125 mg 08/15/20 12:30 08/15/20 12:52 Solu-Medrol 125 Mg IV 08/15/20 12:31 125 mg STAT ONE Administration Methylprednisolone Sodium Succinate Confirm 08/15/20 12:48 Solu-Medrol 125 Mg Administered 08/15/20 12:49 Dose 125 mg .ROUTE .STK-MED ONE Lab/Rad Data: Laboratory Result Diagrams 08/15/20 12:15 08/15/20 12:15 Laboratory Results 08/15/20 08/15/20 08/15/20 Range/Units 12:30 12:15 12:15 WBC (4.0-10.5) K/mm3 RBC (4.1-5.6) M/mm3 Hgb (12.5-18.0) gm/dl Hct (42-50) % MCV (78-100) fl MCH (26-32) pg MCHC (32-36) g/dl RDW (11.5-14.0) % Plt Count (150-450) K/mm3 MPV (7.5-11.0) fl Gran % (36.0-66.0) % Eos # (Auto) (0-0.5) Absolute Lymphs (auto) (1.0-4.6) Absolute Monos (auto) (0.0-1.3) Lymphocytes % (24.0-44.0) % Monocytes % (0.0-12.0) % Eosinophils % (0.00-5.0) % Basophils % (0.0-0.4) % Absolute Granulocytes (1.4-6.9) Basophils # (0-0.4) Sodium 141 (137-145) mmol/L Potassium 4.0 (3.5-5.1) mmol/L Chloride 105 (98-107) mmol/L Carbon Dioxide 31 H (22-30) mmol/L Anion Gap 9.4 (5-15) MEQ/L BUN 13 (9-20) mg/dL Creatinine 0.58 L (0.66-1.25) mg/dL Estimated GFR > 60.0 ML/MIN Glucose 89 (74-106) mg/dL Lactic Acid 1.1 (0.4-2.0) Calcium 9.1 (8.4-10.2) mg/dL Magnesium 1.6 (1.6-2.3) mg/dL Total Bilirubin 0.30 (0.2-1.3) mg/dL AST 31 (17-59) U/L ALT 22 (0-50) U/L Alkaline Phosphatase 103 (38-126) U/L Troponin I 0.013 (0.000-0.034) ng/mL NT-Pro-B Natriuret Pep 211 (0-1800) pg/mL Serum Total Protein 6.5 (6.3-8.2) g/dL Albumin 3.7 (3.5-5.0) g/dL 08/15/20 Range/Units 12:15 WBC 9.8 (4.0-10.5) K/mm3 RBC 4.19 (4.1-5.6) M/mm3 Hgb 11.8 L (12.5-18.0) gm/dl Hct 37.7 L (42-50) % MCV 90.0 (78-100) fl MCH 28.2 (26-32) pg MCHC 31.3 L (32-36) g/dl RDW 13.6 (11.5-14.0) % Plt Count 195 (150-450) K/mm3 MPV 10.3 (7.5-11.0) fl Gran % 61.3 (36.0-66.0) % Eos # (Auto) 1.14 H (0-0.5) Absolute Lymphs (auto) 1.54 (1.0-4.6) Absolute Monos (auto) 1.07 (0.0-1.3) Lymphocytes % 15.7 L (24.0-44.0) % Monocytes % 10.9 (0.0-12.0) % Eosinophils % 11.6 H (0.00-5.0) % Basophils % 0.5 (0.0-0.4) % Absolute Granulocytes 6.04 (1.4-6.9) Basophils # 0.05 (0-0.4) Sodium (137-145) mmol/L Potassium (3.5-5.1) mmol/L Chloride (98-107) mmol/L Carbon Dioxide (22-30) mmol/L Anion Gap (5-15) MEQ/L BUN (9-20) mg/dL Creatinine (0.66-1.25) mg/dL Estimated GFR ML/MIN Glucose (74-106) mg/dL Lactic Acid (0.4-2.0) Calcium (8.4-10.2) mg/dL Magnesium (1.6-2.3) mg/dL Total Bilirubin (0.2-1.3) mg/dL AST (17-59) U/L ALT (0-50) U/L Alkaline Phosphatase (38-126) U/L Troponin I (0.000-0.034) ng/mL NT-Pro-B Natriuret Pep (0-1800) pg/mL Serum Total Protein (6.3-8.2) g/dL Albumin (3.5-5.0) g/dL - Progress Progress: improved, re-examined Air Movement: fair Progress Note: 08/15/20 13:25 80 years old is evaluated for increasing shortness of breath and wheezing with productive cough. He has received DuoNeb in route to ER and I have given him an albuterol puffs, on reevaluation having some improvement in wheezing and he is currently on 4 L with oxygen saturation are around 95%. He is not in any distress throughout stay in the ER. Work-up showed normal white count, grossly unremarkable chemistries including troponin and lactate. Chest x-ray negative for any focal pneumonic infiltrates. I believe patient has COPD exacerbation and I have given him a dose of Rocephin/Zithromax. Patient I believe would benefit with frequent nebs and steroids along with antibiotics and monitoring. I have discussed with Dr. Larkin and patient is accepted for admission. COVID- 19 rapid testing would be obtained before sending him to the floor. Blood Culture(s) Obtained: Yes Antibiotics given: Yes Discussed with : Chloe Will see patient in: hospital (observation) Counseled pt/family regarding: lab results, diagnosis, rad results - Departure Departure Disposition: Observation Clinical Impression: COPD exacerbation Condition: Stable Critical Care Time: No Referrals: THANH LARKIN MD [Primary Care Provider] - Instructions: Chronic Obstructive Pulmonary Disease
[2020-08-15] MEDS ORDERED: ROCEPHIN 1 Gm-D5w 50 ml Bag** 1 G/50 ML IVPB IV ONE (12:48)
[2020-08-15] MEDS ORDERED: BABY ASPIRIN 81 MG CHEW ONE (12:48)
[2020-08-15] MEDS ORDERED: solu-MEDROL 125 MG ONE (12:48)
--- NOTE | 2020-08-15 12:51 | XRAY ---
Indication: Short of breath and wheezing. Comparison: July 24, 2020. Portable chest remains clear again with incidental left upper lobe calcific granuloma. Heart is not enlarged. Bony thorax intact again with mild osteopenia and degenerative changes. Impression: Continued nonacute chest with chronic features.
[2020-08-15 12:56] LABS: ALBUMIN 3.7 g/dL (3.5-5.0); ALKALINE PHOSPHATASE 103 U/L (38-126); ANION GAP 9.4 MEQ/L (5-15); BLOOD UREA NITROGEN 13 mg/dL (9-20); CHLORIDE 105 mmol/L (98-107); Calcium 9.1 mg/dL (8.4-10.2); Carbon Dioxide 31 mmol/L (22-30); Creatinine 1 0.58 mg/dL (0.66-1.25); EST GLOMERULAR FILTRATION RATE > 60.0 ML/MIN; Glucose 89 mg/dL (74-106); MAGNESIUM 1.6 mg/dL (1.6-2.3); NT PRO BNP 211 pg/mL (0-1800); SGOT/AST 31 U/L (17-59); SGPT/ALT 22 U/L (0-50); SODIUM 141 mmol/L (137-145); Total Protein 6.5 g/dL (6.3-8.2)
[2020-08-15] MEDS ORDERED: VENTOLIN COMMON CANISTER IH ONE (13:03)
[2020-08-15] MEDS ORDERED: TYLENOL 325 MG PO PRN (13:21)
[2020-08-15] MEDS ORDERED: Zofran 4 MG/2 ML VIAL IV PRN (13:21)
[2020-08-15] MEDS ORDERED: Zithromax 500 MG/ 250 ML NaCl Premix 500 MG/250 ML IVPB IV ONE (13:58)
[2020-08-15] MEDS: solu-MEDROL 125 MG IV SCH (18:15)
[2020-08-15] MEDS: HUMALOG SQ PRN ×2 (18:16→21:56)
[2020-08-15] MEDS: DUONEB 0.5-3 MG/3 ml Neb IH SCH (19:11)
[2020-08-15] MEDS: Flomax 0.4 MG PO SCH (21:57)
[2020-08-15] MEDS: Glucophage 500 MG PO SCH (21:57)
[2020-08-15] MEDS: NEURONTIN 300 MG PO SCH (21:57)
[2020-08-15] MEDS: Pepcid 20 MG VIAL IV SCH (21:57)
[2020-08-15] MEDS: ZOCOR 20MG PO SCH (21:57)
[2020-08-15] MEDS: Lexapro 10 MG PO SCH (21:57)
[2020-08-15] MEDS ORDERED: NON-FORMULARY ITEM (Atorvastatin Calcium [Atorvastatin Calcium] 80 MG) PO SCH (22:00)
[2020-08-16] MEDS: ZOCOR 20MG PO SCH ×2 (00:27→21:19)
[2020-08-16] MEDS: NEURONTIN 300 MG PO SCH ×3 (00:28→21:20)
[2020-08-16] MEDS: solu-MEDROL 125 MG IV SCH ×5 (00:29→23:40)
[2020-08-16] MEDS: Lexapro 10 MG PO SCH ×2 (00:29→21:19)
[2020-08-16] MEDS: Flomax 0.4 MG PO SCH ×2 (00:29→21:20)
[2020-08-16] MEDS: DUONEB 0.5-3 MG/3 ml Neb IH PRN (00:50)
[2020-08-16] MEDS: Glucophage 500 MG PO SCH ×2 (00:53→17:28)
[2020-08-16 01:08] LABS: Absolute Neutrophil Ct (ANC) 6.03 (1.4-6.9); BASOPHIL % 0.1 % (0.0-0.4); Basophil (Absolute #) 0.01 (0-0.4); Eosinophil (Absolute #) 0 (0-0.5); Hematocrit 39.1 % (42-50); Hemoglobin 12.3 gm/dl (12.5-18.0); Lymphocyte (Absolute #) 0.63 (1.0-4.6); Lymphocytes % 9.3 % (24.0-44.0); Mean Cell Volume 89.9 fl (78-100); Mean Corpuscular Hemoglobin 28.3 pg (26-32); Mean Corpuscular Hgb Concent. 31.5 g/dl (32-36); Mean Platelet Volume 10.1 fl (7.5-11.0); Monocyte (Absolute #) 0.08 (0.0-1.3); Monocytes % 1.2 % (0.0-12.0); Neutrophil % 89.4 % (36.0-66.0); Platelet Count 190 K/mm3 (150-450); Red Blood Count 4.35 M/mm3 (4.1-5.6); Red Cell Distribution Width 13.7 % (11.5-14.0); White Blood Count 6.8 K/mm3 (4.0-10.5)
[2020-08-16 01:25] LABS: ALBUMIN 3.8 g/dL (3.5-5.0); ALKALINE PHOSPHATASE 135 U/L (38-126); ANION GAP 13.3 MEQ/L (5-15); BLOOD UREA NITROGEN 16 mg/dL (9-20); CHLORIDE 103 mmol/L (98-107); Carbon Dioxide 27 mmol/L (22-30); Creatinine 1 0.59 mg/dL (0.66-1.25); EST GLOMERULAR FILTRATION RATE > 60.0 ML/MIN; Glucose 343 mg/dL (74-106); Potassium 4.5 mmol/L (3.5-5.1); SGOT/AST 32 U/L (17-59); SGPT/ALT 23 U/L (0-50); SODIUM 139 mmol/L (137-145); Total Protein 6.7 g/dL (6.3-8.2)
[2020-08-16] MEDS: DUONEB 0.5-3 MG/3 ml Neb IH SCH ×4 (06:33→18:27)
[2020-08-16] MEDS: HUMALOG SQ PRN ×4 (08:52→21:22)
[2020-08-16] MEDS ORDERED: ROCEPHIN 1 Gm-D5w 50 ml Bag** 1 G/50 ML IVPB IV SCH (10:00)
[2020-08-16] MEDS ORDERED: Zithromax 500 MG/ 250 ML NaCl Premix 500 MG/250 ML IVPB IV SCH (10:00)
[2020-08-16] MEDS ORDERED: ECOTRIN 81 MG PO SCH (10:00)
[2020-08-16] MEDS ORDERED: PLAVIX 75 MG Tablet PO SCH (10:00)
[2020-08-16] MEDS ORDERED: ENOXAPARIN SODIUM SQ SCH (10:00)
[2020-08-16] MEDS: Pepcid 20 MG VIAL IV SCH ×2 (11:37→21:20)
[2020-08-16 15:03] LABS: Slide Review 1 1
--- NOTE | 2020-08-16 16:06 | PCM.HP ---
History of Present Illness - Chief Complaint Chief Complaint: COPD EXACERBATION History of Present Illness: is a 80 years old male with history of COPD, diabetes mellitus, hypertension, hyperlipidemia, BPH presented in the ER with chief complaint of gradually worsening shortness of breath since last night. Patient uses 2 L oxygen normally but last night was feeling as if he is not getting enough air, increase his oxygen to 3 L but still not feeling at his baseline, has been incr ease wheezing all over with cough productive of yellow-green sputum. Denies fever or chills. Shortness of breath gets worse with activity and no significant relief except for increasing oxygen. On the way to the ER he received a DuoNeb and currently feeling better but still wheezing all over. Denies fever or chills or chest pain/palpitations. Denies any sick contact. Timing/Duration: yesterday, gradual onset, worse Activities at Onset: rest Severity of Dyspnea-Max: moderate Severity of Dyspnea-Current: moderate Possible Cause: occasional episodes Modifying Factors: Improves With: oxygen, rest. Worsens With: coughing Associated Symptoms: cough, edema, wheezing, leg swelling, productive cough, No dizziness, No heaviness, No heart racing, No lightheadedness, No muscle spasms feet, No painful breathing - Review of Systems Constitutional: No Fever, No Chills Eyes: No Symptoms Ears, Nose, & Throat: No Symptoms Respiratory: Cough, Orthopnea, Short Of Breath, Wheezing Cardiac: No Chest Pain, No Edema, No Syncope Abdominal/Gastrointestinal: No Abdominal Pain, No Nausea, No Vomiting, No Diarrhea Genitourinary Symptoms: No Dysuria Musculoskeletal: No Back Pain, No Neck Pain Skin: No Rash Neurological: No Dizziness, No Focal Weakness, No Sensory Changes Psychological: No Symptoms Endocrine: No Symptoms Hematologic/Lymphatic: No Symptoms Immunological/Allergic: No Symptoms Medications & Allergies Home Medications: Home Medication List Clopidogrel Bisulfate 75 mg [PLAVIX 75 MG Tablet] 75 mg PO DAILY 01/04/17 [History Confirmed 08/15/20] Aspirin [Aspirin EC] 81 mg PO DAILY 10/28/19 [History Confirmed 08/15/20] Atorvastatin Calcium 80 mg PO HS 10/28/19 [History Confirmed 08/15/20] Escitalopram Oxalate 10 mg [Lexapro 10 MG] 10 mg PO HS 10/28/19 [History Confirmed 08/15/20] Gabapentin 300 mg PO BID 10/28/19 [History Confirmed 08/15/20] Insulin NPH Human Isophane [Humulin N] 50 units SQ BIDWM 10/28/19 [History Confirmed 08/15/20] Metformin HCl [Metformin HCl ER] 500 mg PO 1700 10/28/19 [History Confirmed 08/15/20] Tamsulosin HCl 1 tablet PO HS 10/28/19 [History Confirmed 08/15/20] Ipratropium/Albuterol Sulfate [Iprat-Albut 0.5-3(2.5) mg/3 ml] 1 neb IH QIDPRN PRN 07/25/20 [History Confirmed 08/15/20] Allergies/Adverse Reactions: Allergies Allergy/AdvReac Type Severity Reaction Status Date / Time No Known Drug Allergies Allergy Verified 08/15/20 12:05 - Past Medical History Past Medical History: Yes Neurological History: No Pertinent History ENT History: No Pertinent History Cardiac History: Hypertension Respiratory History: COPD, Emphysema Endocrine Medical History: Diabetes Type II Musculoskelatal History: Fractures, Degenerative Disk Disease GI Medical History: Hernia, Hepatitis History: No Pertinent History Pyscho-Social History: No Pertinent History Male Reproductive Disorders: No Pertinent History Comment: hep c,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 herniorr. as a child - Social History Smoking Status: Former smoker How long have you smoked: 66 years Exposure to second hand smoke: No Alcohol: Rarely Drug Use: none - Physical Exam Vital Signs: Vital Signs - 24 hr Temp Pulse Resp BP Pulse Ox 08/16/20 14:33 96 H 18 94 L 08/16/20 11:42 98.1 F 102 H 18 130/63 90 L 08/16/20 10:43 94 H 18 95 08/16/20 07:52 97.6 F 81 20 161/75 95 08/16/20 06:38 81 20 92 L 08/16/20 04:00 98.1 F 71 20 146/68 95 08/16/20 00:50 88 20 92 L 08/16/20 00:00 97.3 F 79 20 185/80 92 L 08/15/20 20:00 98.5 F 92 H 20 178/79 90 L 08/15/20 19:11 90 20 90 L 08/15/20 17:27 98.2 F 93 H 20 194/87 93 L 08/15/20 16:19 81 18 112/77 98 Oxygen-Last 24 hours Oxygen Flowrate (L/min)-RT 2 General Appearance: no apparent distress, alert Neurologic Exam: alert, oriented x 3, cooperative, normal mood/affect, nml ce rebellar function, nml station & gait, sensation nml, No motor deficits Eye Exam: PERRL/EOMI, eyes nml inspection Ears, Nose, Throat Exam: normal ENT inspection, TMs normal, pharynx normal, moist mucous membranes Neck Exam: normal inspection, non-tender, supple, full range of motion Respiratory Exam: crackles/rales, rhonchi, wheezing, No respiratory distress Cardiovascular Exam: regular rate/rhythm, normal heart sounds, normal peripheral pulses Gastrointestinal/Abdomen Exam: soft, normal bowel sounds, No tenderness, No mass Back Exam: normal inspection, normal range of motion, No CVA tenderness, No vertebral tenderness Extremity Exam: normal inspection, normal range of motion, pelvis stable Skin Exam: normal color, warm, dry, No rash Lymphatic Exam: No adenopathy Results - Labs Lab/Micro Results: Lab Results-Last 24 Hours 08/15/20 08/15/20 08/15/20 Range/Units 16:00 17:31 18:45 WBC (4.0-10.5) K/mm3 RBC (4.1-5.6) M/mm3 Hgb (12.5-18.0) gm/dl Hct (42-50) % MCV (78-100) fl MCH (26-32) pg MCHC (32-36) g/dl RDW (11.5-14.0) % Plt Count (150-450) K/mm3 MPV (7.5-11.0) fl Gran % (36.0-66.0) % Eos # (Auto) (0-0.5) Absolute Lymphs (auto) (1.0-4.6) Absolute Monos (auto) (0.0-1.3) Lymphocytes % (24.0-44.0) % Monocytes % (0.0-12.0) % Eosinophils % (0.00-5.0) % Basophils % (0.0-0.4) % Absolute Granulocytes (1.4-6.9) Basophils # (0-0.4) Sodium (137-145) mmol/L Potassium (3.5-5.1) mmol/L Chloride (98-107) mmol/L Carbon Dioxide (22-30) mmol/L Anion Gap (5-15) MEQ/L BUN (9-20) mg/dL Creatinine (0.66-1.25) mg/dL Estimated GFR ML/MIN Glucose (74-106) mg/dL POC Glucometer 206 H (74 to 106) mg/dL Calcium (8.4-10.2) mg/dL Total Bilirubin (0.2-1.3) mg/dL AST (17-59) U/L ALT (0-50) U/L Alkaline Phosphatase (38-126) U/L Troponin I < 0.012 < 0.012 (0.000-0.034) ng/mL Serum Total Protein (6.3-8.2) g/dL Albumin (3.5-5.0) g/dL Slides for Path Review 08/15/20 08/15/20 08/16/20 Range/Units 21:28 22:05 01:00 WBC (4.0-10.5) K/mm3 RBC (4.1-5.6) M/mm3 Hgb (12.5-18.0) gm/dl Hct (42-50) % MCV (78-100) fl MCH (26-32) pg MCHC (32-36) g/dl RDW (11.5-14.0) % Plt Count (150-450) K/mm3 MPV (7.5-11.0) fl Gran % (36.0-66.0) % Eos # (Auto) (0-0.5) Absolute Lymphs (auto) (1.0-4.6) Absolute Monos (auto) (0.0-1.3) Lymphocytes % (24.0-44.0) % Monocytes % (0.0-12.0) % Eosinophils % (0.00-5.0) % Basophils % (0.0-0.4) % Absolute Granulocytes (1.4-6.9) Basophils # (0-0.4) Sodium (137-145) mmol/L Potassium (3.5-5.1) mmol/L Chloride (98-107) mmol/L Carbon Dioxide (22-30) mmol/L Anion Gap (5-15) MEQ/L BUN (9-20) mg/dL Creatinine (0.66-1.25) mg/dL Estimated GFR ML/MIN Glucose (74-106) mg/dL POC Glucometer 370 H (74 to 106) mg/dL Calcium (8.4-10.2) mg/dL Total Bilirubin (0.2-1.3) mg/dL AST (17-59) U/L ALT (0-50) U/L Alkaline Phosphatase (38-126) U/L Troponin I < 0.012 < 0.012 (0.000-0.034) ng/mL Serum Total Protein (6.3-8.2) g/dL Albumin (3.5-5.0) g/dL Slides for Path Review 08/16/20 08/16/20 08/16/20 Range/Units 01:00 01:00 06:51 WBC 6.8 (4.0-10.5) K/mm3 RBC 4.35 (4.1-5.6) M/mm3 Hgb 12.3 L (12.5-18.0) gm/dl Hct 39.1 L (42-50) % MCV 89.9 (78-100) fl MCH 28.3 (26-32) pg MCHC 31.5 L (32-36) g/dl RDW 13.7 (11.5-14.0) % Plt Count 190 (150-450) K/mm3 MPV 10.1 (7.5-11.0) fl Gran % 89.4 H (36.0-66.0) % Eos # (Auto) 0 (0-0.5) Absolute Lymphs (auto) 0.63 L (1.0-4.6) Absolute Monos (auto) 0.08 (0.0-1.3) Lymphocytes % 9.3 L (24.0-44.0) % Monocytes % 1.2 (0.0-12.0) % Eosinophils % 0.0 (0.00-5.0) % Basophils % 0.1 (0.0-0.4) % Absolute Granulocytes 6.03 (1.4-6.9) Basophils # 0.01 (0-0.4) Sodium 139 (137-145) mmol/L Potassium 4.5 (3.5-5.1) mmol/L Chloride 103 (98-107) mmol/L Carbon Dioxide 27 (22-30) mmol/L Anion Gap 13.3 (5-15) MEQ/L BUN 16 (9-20) mg/dL Creatinine 0.59 L (0.66-1.25) mg/dL Estimated GFR > 60.0 ML/MIN Glucose 343 H (74-106) mg/dL POC Glucometer 308 H (74 to 106) mg/dL Calcium 9.0 (8.4-10.2) mg/dL Total Bilirubin 0.30 (0.2-1.3) mg/dL AST 32 (17-59) U/L ALT 23 (0-50) U/L Alkaline Phosphatase 135 H (38-126) U/L Troponin I (0.000-0.034) ng/mL Serum Total Protein 6.7 (6.3-8.2) g/dL Albumin 3.8 (3.5-5.0) g/dL Slides for Path Review 1 Accuchecks Date 08/16/20 Date 08/15/20 Time 07:30 Time 16:30 - Radiology Impressions Radiology Exams & Impressions: Radiology Procedures Category Date Time Status CHEST 1 VIEW (PORTABLE) Stat Exams 08/15/20 12:31 Completed - Other Procedures and Tests Respiratory Therapy 08/16/20 03:28 Peak Expiratory Flow Rate ONCE 08/16/20 06:35 Oxygen NASAL CANNULA 2 lpm Assessment/Plan (1) COPD exacerbation Current Visit: Yes Status: Acute Code(s): J44.1 - CHRONIC OBSTRUCTIVE PULMONARY DISEASE W (ACUTE) EXACERBATION (2) SOB (shortness of breath) Current Visit: No Status: Acute Code(s): R06.02 - SHORTNESS OF BREATH (3) Type 2 diabetes mellitus Current Visit: No Status: Chronic Qualifiers:
[2020-08-16] MEDS ORDERED: NON-FORMULARY ITEM (Metformin Hcl [Metformin Hcl Er] 500 MG) PO SCH (17:00)
[2020-08-17] MEDS: DUONEB 0.5-3 MG/3 ml Neb IH PRN (03:16)
[2020-08-17] MEDS: solu-MEDROL 125 MG IV SCH (06:47)
[2020-08-17] MEDS: DUONEB 0.5-3 MG/3 ml Neb IH SCH (07:03)
[2020-08-17 08:15] VITALS: BP 132/81; PULSE 91; O2SAT 93
[2020-08-17] MEDS: HUMALOG SQ PRN (09:25)
== END 2020-08-17 10:00 | disposition home or self-care (01) ==
LOC: ED 12:01 → MED SURG 17:07
PROVIDERS: ADMIT General Practice; ATTEND General Practice
DX: J44.1 Chronic obstructive pulmonary disease with (acute) exacerbation (principal); E11.9 Type 2 diabetes mellitus without complications; I10 Essential (primary) hypertension; E78.5 Hyperlipidemia, unspecified; Z79.01 Long term (current) use of anticoagulants; Z79.4 Long term (current) use of insulin; Z79.899 Other long term (current) drug therapy
CPT/HCPCS: 36000; 36415; 71045; 80053; 82962; 83605; 83735; 83880; 84484; 85025; 87040; 93005; 94150; 94640; 94760; 96365; 96367; 96374; 99285; P9612; U0003; J0456; J0696; J1650; J1817; J2930; A9270-GY; G0378

== ENCOUNTER 2020-09-12 16:34 | Emergency (ER) | payer MEDICARE ==
[2020-09-12] MEDS ORDERED: solu-MEDROL 125 MG IV ONE (16:55)
[2020-09-12] MEDS ORDERED: DUONEB 0.5-3 MG/3 ml Neb IH ONE ×3 (16:55→19:26)
[2020-09-12] MEDS ORDERED: solu-MEDROL 125 MG ONE (16:59)
[2020-09-12] MEDS ORDERED: PROVENTIL 2.5 MG/3 ML NEB IH ONE (17:00)
--- NOTE | 2020-09-12 17:02 | ERPHSYRPT ---
- History of Present Illness Source: patient Exam Limitations: no limitations Patient Subjective Stated Complaint: short of breath all day Triage Nursing Assessment: Pt brought to the ER by EMS, ins and exp wheezing throughout, pulses normal, damian lower leg edema, pt is on 2L NC at home, skin n/w/d, pt has right foot wrapped stating that he has a sore on it, denies any pa in Physician History: 80yo male with hx of COPD, CHF. BIBA for SOB, cough white sputum. Home nebs not helping. Unknown trigger. Denies fever, sick contacts, GI sxs. Timing/Duration: week(s) (1) Cough Quality/Degree: moderate, productive cough Possible Cause: occasional episodes Modifying Factors: Improves With: nothing, albuterol nebulizer, coughing Associated Symptoms: shortness of breath, wheezing Allergies/Adverse Reactions: No Known Drug Allergies Allergy (Verified 09/12/20 16:50) Home Medications: Clopidogrel Bisulfate 75 mg [PLAVIX 75 MG Tablet] 75 mg PO DAILY 01/04/17 [History] Aspirin [Aspirin EC] 81 mg PO DAILY 10/28/19 [History] Atorvastatin Calcium 80 mg PO HS 10/28/19 [History] Escitalopram Oxalate 10 mg [Lexapro 10 MG] 10 mg PO HS 10/28/19 [History] Gabapentin 300 mg PO BID 10/28/19 [History] Insulin NPH Human Isophane [Humulin N] 50 units SQ BIDWM 10/28/19 [History] Metformin HCl [Metformin HCl ER] 500 mg PO 1700 10/28/19 [History] Tamsulosin HCl 1 tablet PO HS 10/28/19 [History] Ipratropium/Albuterol Sulfate [Iprat-Albut 0.5-3(2.5) mg/3 ml] 1 neb IH QIDPRN PRN 07/25/20 [History] Hx Tetanus, Diphtheria Vaccination/Date Given: Yes Hx Influenza Vaccination/Date Given: Yes Hx Pneumococcal Vaccination/Date Given: Yes Travel Risk - International Travel Have you traveled outside of the country in past 3 weeks: No - Coronavirus Screening Are you exhibiting any of the following symptoms?: Yes Symptoms: Shortness of Breath Close contact with a COVID-19 positive Pt in past 14-21 Days: No - Review of Systems Constitutional: No Fever, No Chills Eyes: No Symptoms Ears, Nose, & Throat: No Symptoms Respiratory: Cough, Dyspnea, Wheezing Cardiac: No Chest Pain, No Edema, No Syncope Abdominal/Gastrointestinal: No Abdominal Pain, No Nausea, No Vomiting, No Diarrhea Genitourinary Symptoms: No Dysuria Musculoskeletal: No Back Pain, No Neck Pain Skin: No Rash Neurological: No Dizziness, No Focal Weakness, No Sensory Changes Psychological: No Symptoms Endocrine: No Symptoms All Other Systems: Reviewed and Negative - Past Medical History Pertinent Past Medical History: Yes Neurological History: No Pertinent History ENT History: No Pertinent History Cardiac History: Hypertension Respiratory History: COPD, Emphysema Endocrine Medical History: Diabetes Type II Musculoskeletal History: Fractures, Degenerative Disk Disease GI Medical History: Hernia, Hepatitis History: No Pertinent History Psycho-Social History: No Pertinent History Male Reproductive Disorders: No Pertinent History Other Medical History: hep c,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 herniorr. as a child - Social History Smoking Status: Former smoker How long have you smoked: 66 years Exposure to second hand smoke: No Drug Use: none Patient Lives Alone: Yes - Nursing Vital Signs Nursing Vital Signs: Initial Vital Signs Temperature 98.2 F 09/12/20 16:37 Respiratory Rate 17 09/12/20 16:37 O2 Sat by Pulse Oximetry 98 09/12/20 16:37 Pain Scale Pain Intensity 0 - Physical Exam General Appearance: no apparent distress, alert Eye Exam: PERRL/EOMI, eyes nml inspection Ears, Nose, Throat Exam: normal ENT inspection, TMs normal, pharynx normal, mo ist mucous membranes Neck Exam: normal inspection, non-tender, supple, full range of motion Respiratory Exam: chest tenderness (anterior chest wall), diminished breath sounds, wheezing (Diffuse), No respiratory distress Cardiovascular Exam: regular rate/rhythm, normal heart sounds Gastrointestinal/Abdomen Exam: soft, No tenderness Back Exam: normal inspection, No CVA tenderness, No vertebral tenderness Extremity Exam: normal inspection, normal range of motion Neurologic Exam: alert, oriented x 3, cooperative, normal mood/affect, sensation nml, No motor deficits Skin Exam: normal color, warm, dry, No rash Lymphatic Exam: No adenopathy SpO2: 98 - Course Nursing assessment & vital signs reviewed: Yes EKG Interpreted by Me: Sinus Tach (120), NORMAL AXIS, NORMAL INTERVALS, NORMAL QRS, Other ([facility] PACs) - Radiology Exams Chest X-ray Interpretation: Discussed w/ radiologist, Negative, No Pneumonia, No Infiltrates Ordered Tests: Active Orders 24 hr Category Date Time Status Mailroom Personnel STAT Care 09/12/20 16:43 Active EKG-ER Only STAT Care 09/12/20 16:42 Active IV Insertion STAT Care 09/12/20 16:42 Active Oxygen-ED Only Nasal Cannula 2 lpm Care 09/12/20 16:42 Active CHEST 1 VIEW (PORTABLE) Stat Exams 09/12/20 16:43 Completed CBC W DIFF Stat Lab 09/12/20 16:55 Completed CMP Stat Lab 09/12/20 16:55 Completed CULTURE,URINE Stat Lab 09/12/20 18:04 Received MAGNESIUM Stat Lab 09/12/20 16:55 Completed NT PRO BNP Stat Lab 09/12/20 16:55 Completed PROTIME WITH INR Stat Lab 09/12/20 16:55 Completed PTT Stat Lab 09/12/20 16:55 Completed TROPONIN Q3H Lab 09/12/20 16:55 Completed TROPONIN Q3H Lab 09/12/20 19:45 Ordered TROPONIN Q3H Lab 09/12/20 22:45 Ordered TROPONIN Q3H Lab 09/13/20 01:45 Ordered TROPONIN Q3H Lab 09/13/20 04:45 Ordered UA W/RFX UR CULTURE Stat Lab 09/12/20 18:04 Completed Respiratory Therapy Assessment DAILY RT 09/12/20 17:15 Completed Medication Summary Generic Name Dose Route Start Last Admin Trade Name Freq PRN Reason Stop Dose Admin Albuterol/Ipratropium 3 ml 09/12/20 18:39 Duoneb 0.5-3 Mg/3 Ml Neb IH 09/12/20 18:40 STAT ONE Ceftriaxone Sodium/Dextrose 1 g in 50 mls @ 100 mls/hr 09/12/20 18:29 09/12/20 18:34 Rocephin 1 Gm-D5w 50 Ml Bag IV 09/12/20 18:58 100 ml/hr STAT ONE 100 mls/hr Administration Discontinued Medications Generic Name Dose Route Start Last Admin Trade Name Janny PRN Reason Stop Dose Admin Albuterol Sulfate Confirm 09/12/20 17:00 Proventil 2.5 Mg/3 Ml Neb Administered 09/12/20 17:01 Dose 2.5 mg IH .STK-MED ONE Albuterol/Ipratropium 3 ml 09/12/20 16:55 09/12/20 17:00 Duoneb 0.5-3 Mg/3 Ml Neb IH 09/12/20 16:56 3 ml STAT ONE Administration Ceftriaxone Sodium/Dextrose Confirm 09/12/20 18:31 Rocephin 1 Gm-D5w 50 Ml Bag Administered 09/12/20 18:32 Dose 1 g in 50 mls @ ud IV .STK-MED ONE Methylprednisolone Sodium Succinate 125 mg 09/12/20 16:55 09/12/20 17:00 Solu-Medrol 125 Mg IV 09/12/20 16:56 125 mg STAT ONE Administration Methylprednisolone Sodium Succinate Confirm 09/12/20 16:59 Solu-Medrol 125 Mg Administered 09/12/20 17:00 Dose 125 mg .ROUTE .STK-MED ONE Lab/Rad Data: Laboratory Result Diagrams 09/12/20 16:55 09/12/20 16:55 Laboratory Results 09/12/20 09/12/20 09/12/20 Range/Units 18:04 16:55 16:55 WBC (4.0-10.5) K/mm3 RBC (4.1-5.6) M/mm3 Hgb (12.5-18.0) gm/dl Hct (42-50) % MCV (78-100) fl MCH (26-32) pg MCHC (32-36) g/dl RDW (11.5-14.0) % Plt Count (150-450) K/mm3 MPV (7.5-11.0) fl Gran % (36.0-66.0) % Eos # (Auto) (0-0.5) Absolute Lymphs (auto) (1.0-4.6) Absolute Monos (auto) (0.0-1.3) Lymphocytes % (24.0-44.0) % Monocytes % (0.0-12.0) % Eosinophils % (0.00-5.0) % Basophils % (0.0-0.4) % Absolute Granulocytes (1.4-6.9) Basophils # (0-0.4) PT 13.0 H (8.83-12.87) SECONDS INR 1.15 (0.8-3.0) APTT 31.6 (24.1-36.1) SECONDS Sodium (137-145) mmol/L Potassium (3.5-5.1) mmol/L Chloride (98-107) mmol/L Carbon Dioxide (22-30) mmol/L Anion Gap (5-15) MEQ/L BUN (9-20) mg/dL Creatinine (0.66-1.25) mg/dL Estimated GFR ML/MIN Glucose (74-106) mg/dL Calcium (8.4-10.2) mg/dL Magnesium (1.6-2.3) mg/dL Total Bilirubin (0.2-1.3) mg/dL AST (17-59) U/L ALT (0-50) U/L Alkaline Phosphatase (38-126) U/L Troponin I < 0.012 (0.000-0.034) ng/mL NT-Pro-B Natriuret Pep (0-1800) pg/mL Serum Total Protein (6.3-8.2) g/dL Albumin (3.5-5.0) g/dL Urine Color YELLOW (YELLOW) Urine Appearance CLOUDY (CLEAR) Urine pH 6.0 (5-6) Ur Specific Anderson 1.015 (1.005-1.025) Urine Protein 100 (Negative) Urine Ketones NEGATIVE (NEGATIVE) Urine Blood MODERATE (0-5) Lavarez/ul Urine Nitrite POSITIVE (NEGATIVE) Urine Bilirubin NEGATIVE (NEGATIVE) Urine Urobilinogen NEGATIVE (0-1) mg/dL Ur Leukocyte Esterase LARGE (NEGATIVE) Urine WBC (Auto) >100 (0-5) /HPF Urine RBC (Auto) 26-50 (0-2) /HPF U Epithel Cells (Auto) NONE (FEW) /HPF Urine Bacteria (Auto) MODERATE (NEGATIVE) /HPF Urine Culture Reflexed YES (NO) Urine Glucose NEGATIVE (NEGATIVE) mg/dL 09/12/20 09/12/20 Range/Units 16:55 16:55 WBC 8.7 (4.0-10.5) K/mm3 RBC 4.18 (4.1-5.6) M/mm3 Hgb 11.9 L (12.5-18.0) gm/dl Hct 37.9 L (42-50) % MCV 90.7 (78-100) fl MCH 28.5 (26-32) pg MCHC 31.4 L (32-36) g/dl RDW 13.7 (11.5-14.0) % Plt Count 211 (150-450) K/mm3 MPV 10.0 (7.5-11.0) fl Gran % 54.1 (36.0-66.0) % Eos # (Auto) 0.85 H (0-0.5) Absolute Lymphs (auto) 2.00 (1.0-4.6) Absolute Monos (auto) 1.10 (0.0-1.3) Lymphocytes % 23.1 L (24.0-44.0) % Monocytes % 12.7 H (0.0-12.0) % Eosinophils % 9.8 H (0.00-5.0) % Basophils % 0.3 (0.0-0.4) % Absolute Granulocytes 4.67 (1.4-6.9) Basophils # 0.03 (0-0.4) PT (8.83-12.87) SECONDS INR (0.8-3.0) APTT (24.1-36.1) SECONDS Sodium 140 (137-145) mmol/L Potassium 4.2 (3.5-5.1) mmol/L Chloride 104 (98-107) mmol/L Carbon Dioxide 33 H (22-30) mmol/L Anion Gap 7.1 (5-15) MEQ/L BUN 15 (9-20) mg/dL Creatinine 0.73 (0.66-1.25) mg/dL Estimated GFR > 60.0 ML/MIN Glucose 129 H (74-106) mg/dL Calcium 9.0 (8.4-10.2) mg/dL Magnesium 1.8 (1.6-2.3) mg/dL Total Bilirubin 0.30 (0.2-1.3) mg/dL AST 28 (17-59) U/L ALT 19 (0-50) U/L Alkaline Phosphatase 100 (38-126) U/L Troponin I (0.000-0.034) ng/mL NT-Pro-B Natriuret Pep 222 (0-1800) pg/mL Serum Total Protein 7.0 (6.3-8.2) g/dL Albumin 3.8 (3.5-5.0) g/dL Urine Color (YELLOW) Urine Appearance (CLEAR) Urine pH (5-6) Ur Specific Anderson (1.005-1.025) Urine Protein (Negative) Urine Ketones (NEGATIVE) Urine Blood (0-5) Alvarez/ul Urine Nitrite (NEGATIVE) Urine Bilirubin (NEGATIVE) Urine Urobilinogen (0-1) mg/dL Ur Leukocyte Esterase (NEGATIVE) Urine WBC (Auto) (0-5) /HPF Urine RBC (Auto) (0-2) /HPF U Epithel Cells (Auto) (FEW) /HPF Urine Bacteria (Auto) (NEGATIVE) /HPF Urine Culture Reflexed (NO) Urine Glucose (NEGATIVE) mg/dL - Progress Progress: improved Air Movement: good Progress Note: 09/12/20 18:48 Since history of COPD, will get cardiac work-up along with chest x-ray. Patient was not giving anything in route and so we will give Solu-Medrol 125 mg IV and a DuoNeb here. Recheck is found patient breathing much better. Patient talking in full sentences and almost talking nonstop. Patient does not appear to be in any respiratory distress at this time. Patient is on his normal 2 L of O2 nasal cannula here and satting at 98%. Given patient's urine although it may be a chronic issue due to his suprapubic catheter, we will go ahead and treat. Rocephin 1 g IV given. If feels to me the patient is well enough to go home. Patient also willing. DC with prescription of prednisone and Augmentin for 10 days. Blood Culture(s) Obtained: No Antibiotics given: Yes Counseled pt/family regarding: lab results, diagnosis, need for follow-up, rad results - Departure Departure Disposition: Home Clinical Impression: COPD exacerbation, UTI (urinary tract infection) Condition: Stable Critical Care Time: No Referrals: [facility] [Primary Care Provider] - Instructions: Chronic Obstructive Pulmonary Disease, Exacerbation of COPD (DC), Acute Cystitis (DC) Additional Instructions: Monitor symptoms closely. Take medication as prescribed. Continue with your home medicines and nebulizers. Follow-up with your PCP or lead cargo mover for recheck in a few days. Return to ER if worse. Prescriptions: Amoxicillin/Potassium Clav [Augmentin 875-125 Tablet] 1 tab PO BID #20 tablet Prednisone 20 mg [Deltasone 20 mg] 40 mg PO DAILY 5 Days #10 tablet
--- NOTE | 2020-09-12 17:04 | XRAY ---
Indication: Dysmenorrhea. Comparison: August 15, 2020. Portable chest again demonstrates normal heart and lungs with incidental left upper lobe calcified granuloma. Bony thorax intact with mild osteopenia and degenerative changes. No new/acute findings.
[2020-09-12 17:26] LABS: Absolute Neutrophil Ct (ANC) 4.67 (1.4-6.9); BASOPHIL % 0.3 % (0.0-0.4); Basophil (Absolute #) 0.03 (0-0.4); Eosinophil % 9.8 % (0.00-5.0); Eosinophil (Absolute #) 0.85 (0-0.5); Hematocrit 37.9 % (42-50); Hemoglobin 11.9 gm/dl (12.5-18.0); Lymphocytes % 23.1 % (24.0-44.0); Mean Cell Volume 90.7 fl (78-100); Mean Corpuscular Hemoglobin 28.5 pg (26-32); Mean Corpuscular Hgb Concent. 31.4 g/dl (32-36); Monocytes % 12.7 % (0.0-12.0); Neutrophil % 54.1 % (36.0-66.0); Platelet Count 211 K/mm3 (150-450); Red Blood Count 4.18 M/mm3 (4.1-5.6); Red Cell Distribution Width 13.7 % (11.5-14.0); White Blood Count 8.7 K/mm3 (4.0-10.5)
[2020-09-12 17:44] LABS: INR 1.15 (0.8-3.0)
[2020-09-12 17:46] LABS: ALBUMIN 3.8 g/dL (3.5-5.0); ALKALINE PHOSPHATASE 100 U/L (38-126); ANION GAP 7.1 MEQ/L (5-15); BLOOD UREA NITROGEN 15 mg/dL (9-20); CHLORIDE 104 mmol/L (98-107); Carbon Dioxide 33 mmol/L (22-30); Creatinine 1 0.73 mg/dL (0.66-1.25); EST GLOMERULAR FILTRATION RATE > 60.0 ML/MIN; Glucose 129 mg/dL (74-106); MAGNESIUM 1.8 mg/dL (1.6-2.3); NT PRO BNP 222 pg/mL (0-1800); Potassium 4.2 mmol/L (3.5-5.1); SGOT/AST 28 U/L (17-59); SGPT/ALT 19 U/L (0-50); SODIUM 140 mmol/L (137-145)
[2020-09-12 17:47] LABS: PTT 31.6 SECONDS (24.1-36.1)
[2020-09-12 18:21] LABS: Appearance CLOUDY (CLEAR); Bacteria MODERATE /HPF (NEGATIVE); Bilirubin NEGATIVE (NEGATIVE); Blood MODERATE Ery/ul (0-5); Glucose NEGATIVE (NEGATIVE); Ketones NEGATIVE (NEGATIVE); Leukocyte Esterase LARGE (NEGATIVE); Nitrite POSITIVE (NEGATIVE); Protein,Urine Dip 100 (Negative); RBC 26-50 /HPF (0-2); Specific Gravity 1.015 (1.005-1.025); Urobilinogen NEGATIVE mg/dL (0-1); WBC >100 /HPF (0-5)
[2020-09-12] MEDS ORDERED: ROCEPHIN 1 Gm-D5w 50 ml Bag** 1 G/50 ML IVPB IV ONE ×2 (18:29→18:31)
[2020-09-12 18:47] VITALS: O2SAT 98
[2020-09-12 20:05] VITALS: BP 170/88; PULSE 84
== END 2020-09-12 20:15 | disposition home or self-care (01) ==
LOC: ED 16:34
DX: J44.1 Chronic obstructive pulmonary disease with (acute) exacerbation (principal); N39.0 Urinary tract infection, site not specified; R07.89 Other chest pain; R06.02 Shortness of breath; R05 Cough; E11.9 Type 2 diabetes mellitus without complications; I10 Essential (primary) hypertension; J43.9 Emphysema, unspecified; Z79.899 Other long term (current) drug therapy
CPT/HCPCS: 36000; 36415; 71045; 80053; 81001; 83735; 83880; 84484; 85025; 85610; 85730; 87077; 87086; 87186; 93005; 93041; 94640; 96374; 99284; J0696; J2930; J7609; A9270-GY

== ENCOUNTER 2020-10-07 19:30 | Emergency (ER) | payer MEDICARE ==
--- NOTE | 2020-10-07 19:43 | ERPHSYRPT ---
- History of Present Illness Time Seen by Provider: 10/07/20 19:38 Source: patient, EMS Exam Limitations: no limitations Physician History: This Is a 80-year-old white male who has a history of CHF, COPD and diabetes. He is on Plavix. He is on 2 L nasal cannula home oxygen therapy. He was seen here on 09/12/2020 and diagnosed with acute exacerbation of COPD. Patient's primary complaint is shortness of breath. He does not have significant chest pain. Patient was given a nebulizer treatment a Solu-Medrol intravenous dose by EMS prior to arrival. Timing/Duration: today Activities at Onset: none Severity of Dyspnea-Max: moderate Severity of Dyspnea-Current: mild Possible Cause: frequent episodes Associated Symptoms: wheezing, ankle swelling, No chest pain/discomfort Allergies/Adverse Reactions: No Known Drug Allergies Allergy (Verified 10/07/20 19:50) Home Medications: Clopidogrel Bisulfate 75 mg [PLAVIX 75 MG Tablet] 75 mg PO DAILY 01/04/17 [History] Aspirin [Aspirin EC] 81 mg PO DAILY 10/28/19 [History] Atorvastatin Calcium 80 mg PO HS 10/28/19 [History] Escitalopram Oxalate 10 mg [Lexapro 10 MG] 10 mg PO HS 10/28/19 [History] Gabapentin 300 mg PO TID 10/28/19 [History] Insulin NPH Human Isophane [Humulin N] 50 units SQ BIDWM 10/28/19 [History] Metformin HCl [Metformin HCl ER] 500 mg PO 1700 10/28/19 [History] Tamsulosin HCl 1 tablet PO HS 10/28/19 [History] Ipratropium/Albuterol Sulfate [Iprat-Albut 0.5-3(2.5) mg/3 ml] 1 neb IH QIDPRN PRN 07/25/20 [History] Hx Tetanus, Diphtheria Vaccination/Date Given: Yes Hx Influenza Vaccination/Date Given: Yes Hx Pneumococcal Vaccination/Date Given: Yes Travel Risk - International Travel Have you traveled outside of the country in past 3 weeks: No - Coronavirus Screening Are you exhibiting any of the following symptoms?: Yes Symptoms: Shortness of Breath Close contact with a COVID-19 positive Pt in past 14-21 Days: No - Review of Systems Constitutional: No Symptoms Eyes: No Symptoms Ears, Nose, & Throat: No Symptoms Respiratory: Dyspnea, Wheezing Cardiac: No Symptoms Abdominal/Gastrointestinal: No Symptoms Genitourinary Symptoms: No Symptoms Musculoskeletal: No Symptoms Skin: No Symptoms Neurological: No Symptoms Psychological: No Symptoms Endocrine: No Symptoms Hematologic/Lymphatic: No Symptoms Immunological/Allergic: No Symptoms All Other Systems: Reviewed and Negative - Past Medical History Pertinent Past Medical History: Yes Neurological History: No Pertinent History ENT History: No Pertinent History Cardiac History: Hypertension Respiratory History: COPD, Emphysema Endocrine Medical History: Diabetes Type II Musculoskeletal History: Fractures, Degenerative Disk Disease GI Medical History: Hernia, Hepatitis History: No Pertinent History Psycho-Social History: No Pertinent History Male Reproductive Disorders: No Pertinent History Other Medical History: hep c,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 herniorr. as a child - Social History Smoking Status: Former smoker How long have you smoked: 66 years Exposure to second hand smoke: No Drug Use: none Patient Lives Alone: Yes - Nursing Vital Signs Nursing Vital Signs: Initial Vital Signs Pulse Rate 85 10/07/20 19:34 Respiratory Rate 20 10/07/20 19:34 Blood Pressure 177/101 10/07/20 19:34 O2 Sat by Pulse Oximetry 99 10/07/20 19:34 Pain Scale Pain Intensity 0 - Physical Exam General Appearance: no apparent distress, alert, anxiety Eye Exam: PERRL/EOMI, eyes nml inspection Ears, Nose, Throat Exam: hearing grossly normal, normal ENT inspection, normal pharynx Neck Exam: normal inspection, non-tender, supple, full range of motion Respiratory Exam: normal breath sounds, lungs clear, airway intact, No chest tenderness, No respiratory distress Cardiovascular/Chest Exam: normal heart sounds, regular rate/rhythm Abdominal/Gastrointestinal Exam: soft, normal bowel sounds, No tenderness Rectal Exam: not done Extremity Exam: non-tender, normal range of motion, normal inspection, pedal edema (Mild bilateral ankle and feet) Neurologic Exam: alert, oriented x 3, 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 When compared to EKG dated 09/12/2020, today's EKG has sinus rhythm whereas the prior EKG showed sinus tachycardia that is now resolved. No other acute changes.) Ordered Tests: Active Orders 24 hr Category Date Time Status Safety Lamp Keeper STAT Care 10/07/20 19:45 Active EKG-ER Only STAT Care 10/07/20 19:44 Active IV Insertion STAT Care 10/07/20 19:44 Active CHEST 1 VIEW (PORTABLE) Stat Exams 10/07/20 19:45 Taken BLOOD CULTURE Stat Lab 10/07/20 20:20 Received CBC W DIFF Stat Lab 10/07/20 20:15 Completed CMP Stat Lab 10/07/20 20:15 Completed D-DIMER QUANTITATIVE Stat Lab 10/07/20 20:15 Completed INFLUENZA A+B SERENA Stat Lab 10/07/20 20:15 Received Lactic Acid Stat Lab 10/07/20 20:40 Completed NT PRO BNP Stat Lab 10/07/20 20:15 Completed PROTIME WITH INR Stat Lab 10/07/20 20:15 Completed TROPONIN Q3H Lab 10/07/20 20:15 Completed TROPONIN Q3H Lab 10/07/20 22:45 Ordered TROPONIN Q3H Lab 10/08/20 01:45 Ordered TROPONIN Q3H Lab 10/08/20 04:45 Ordered TROPONIN Q3H Lab 10/08/20 07:45 Ordered Respiratory Therapy Assessment DAILY RT 10/07/20 20:11 Completed Medication Summary Discontinued Medications Generic Name Dose Route Start Last Admin Trade Name Freq PRN Reason Stop Dose Admin Albuterol/Ipratropium Confirm 10/07/20 20:08 Duoneb 0.5-3 Mg/3 Ml Neb Administered 10/07/20 20:09 Dose 3 ml IH .STK-MED ONE Albuterol/Ipratropium 3 ml 10/07/20 20:11 10/07/20 20:12 Duoneb 0.5-3 Mg/3 Ml Neb IH 10/07/20 20:12 3 ml STAT ONE Administration Lab/Rad Data: Laboratory Result Diagrams 10/07/20 20:15 10/07/20 20:15 Laboratory Results 10/07/20 10/07/20 10/07/20 Range/Units 20:40 20:15 20:15 WBC (4.0-10.5) K/mm3 RBC (4.1-5.6) M/mm3 Hgb (12.5-18.0) gm/dl Hct (42-50) % MCV (78-100) fl MCH (26-32) pg MCHC (32-36) g/dl RDW (11.5-14.0) % Plt Count (150-450) K/mm3 MPV (7.5-11.0) fl Gran % (36.0-66.0) % Eos # (Auto) (0-0.5) Absolute Lymphs (auto) (1.0-4.6) Absolute Monos (auto) (0.0-1.3) Lymphocytes % (24.0-44.0) % Monocytes % (0.0-12.0) % Eosinophils % (0.00-5.0) % Basophils % (0.0-0.4) % Absolute Granulocytes (1.4-6.9) Basophils # (0-0.4) PT 12.9 H (8.83-12.87) SECONDS INR 1.14 (0.8-3.0) D-Dimer 535 H* (215-500) ng/mL Sodium (137-145) mmol/L Potassium (3.5-5.1) mmol/L Chloride (98-107) mmol/L Carbon Dioxide (22-30) mmol/L Anion Gap (5-15) MEQ/L BUN (9-20) mg/dL Creatinine (0.66-1.25) mg/dL Estimated GFR ML/MIN Glucose (74-106) mg/dL Lactic Acid 1.0 (0.4-2.0) Calcium (8.4-10.2) mg/dL Total Bilirubin (0.2-1.3) mg/dL AST (17-59) U/L ALT (0-50) U/L Alkaline Phosphatase (38-126) U/L Troponin I < 0.012 (0.000-0.034) ng/mL NT-Pro-B Natriuret Pep (0-1800) pg/mL Serum Total Protein (6.3-8.2) g/dL Albumin (3.5-5.0) g/dL 10/07/20 10/07/20 Range/Units 20:15 20:15 WBC 8.3 (4.0-10.5) K/mm3 RBC 4.09 L (4.1-5.6) M/mm3 Hgb 11.4 L (12.5-18.0) gm/dl Hct 36.4 L (42-50) % MCV 89.0 (78-100) fl MCH 27.9 (26-32) pg MCHC 31.3 L (32-36) g/dl RDW 13.7 (11.5-14.0) % Plt Count 200 (150-450) K/mm3 MPV 9.9 (7.5-11.0) fl Gran % 44.6 (36.0-66.0) % Eos # (Auto) 1.43 H (0-0.5) Absolute Lymphs (auto) 2.08 (1.0-4.6) Absolute Monos (auto) 1.04 (0.0-1.3) Lymphocytes % 25.1 (24.0-44.0) % Monocytes % 12.5 H (0.0-12.0) % Eosinophils % 17.2 H (0.00-5.0) % Basophils % 0.6 (0.0-0.4) % Absolute Granulocytes 3.69 (1.4-6.9) Basophils # 0.05 (0-0.4) PT (8.83-12.87) SECONDS INR (0.8-3.0) D-Dimer (215-500) ng/mL Sodium 138 (137-145) mmol/L Potassium 4.3 (3.5-5.1) mmol/L Chloride 105 (98-107) mmol/L Carbon Dioxide 28 (22-30) mmol/L Anion Gap 8.7 (5-15) MEQ/L BUN 14 (9-20) mg/dL Creatinine 0.51 L (0.66-1.25) mg/dL Estimated GFR > 60.0 ML/MIN Glucose 226 H (74-106) mg/dL Lactic Acid (0.4-2.0) Calcium 8.8 (8.4-10.2) mg/dL Total Bilirubin 0.20 (0.2-1.3) mg/dL AST 24 (17-59) U/L ALT 20 (0-50) U/L Alkaline Phosphatase 102 (38-126) U/L Troponin I (0.000-0.034) ng/mL NT-Pro-B Natriuret Pep 310 (0-1800) pg/mL Serum Total Protein 6.2 L (6.3-8.2) g/dL Albumin 3.5 (3.5-5.0) g/dL - Progress Progress: improved, re-examined Air Movement: good Progress Note: 10/07/20 21:05 Chest x-ray reveals no acute cardiopulmonary process. There is no change when compared to the chest x-ray performed on 09/12/2020. Blood Culture(s) Obtained: Yes Antibiotics given: No - Departure Departure Disposition: Home Clinical Impression: COPD exacerbation Condition: Stable Critical Care Time: No Referrals: THANH LARKIN MD [Primary Care Provider] - Instructions: Chronic Obstructive Pulmonary Disease Additional Instructions: Take your medication as prescribed. Monitor your blood sugar closely while taking the steroids. Follow-up with your primary care doctor tomorrow to obtain a follow-up appointment. Prescriptions: Methylprednisolone Packet [Medrol Dosepack] 4 mg PO UD #1 packet
[2020-10-07] MEDS ORDERED: DUONEB 0.5-3 MG/3 ml Neb IH ONE ×2 (20:08→20:11)
[2020-10-07 20:31] LABS: Absolute Neutrophil Ct (ANC) 3.69 (1.4-6.9); BASOPHIL % 0.6 % (0.0-0.4); Basophil (Absolute #) 0.05 (0-0.4); Eosinophil % 17.2 % (0.00-5.0); Eosinophil (Absolute #) 1.43 (0-0.5); Hematocrit 36.4 % (42-50); Hemoglobin 11.4 gm/dl (12.5-18.0); Lymphocyte (Absolute #) 2.08 (1.0-4.6); Lymphocytes % 25.1 % (24.0-44.0); Mean Corpuscular Hemoglobin 27.9 pg (26-32); Mean Corpuscular Hgb Concent. 31.3 g/dl (32-36); Mean Platelet Volume 9.9 fl (7.5-11.0); Monocyte (Absolute #) 1.04 (0.0-1.3); Monocytes % 12.5 % (0.0-12.0); Neutrophil % 44.6 % (36.0-66.0); Platelet Count 200 K/mm3 (150-450); Red Blood Count 4.09 M/mm3 (4.1-5.6); Red Cell Distribution Width 13.7 % (11.5-14.0); White Blood Count 8.3 K/mm3 (4.0-10.5)
[2020-10-07 20:41] LABS: INR 1.14 (0.8-3.0); PROTIME 12.9 SECONDS (8.83-12.87)
[2020-10-07 20:44] VITALS: PULSE 82; O2SAT 96
[2020-10-07 20:53] LABS: ALBUMIN 3.5 g/dL (3.5-5.0); ALKALINE PHOSPHATASE 102 U/L (38-126); ANION GAP 8.7 MEQ/L (5-15); BLOOD UREA NITROGEN 14 mg/dL (9-20); CHLORIDE 105 mmol/L (98-107); Calcium 8.8 mg/dL (8.4-10.2); Carbon Dioxide 28 mmol/L (22-30); Creatinine 1 0.51 mg/dL (0.66-1.25); EST GLOMERULAR FILTRATION RATE > 60.0 ML/MIN; Glucose 226 mg/dL (74-106); NT PRO BNP 310 pg/mL (0-1800); Potassium 4.3 mmol/L (3.5-5.1); SGOT/AST 24 U/L (17-59); SGPT/ALT 20 U/L (0-50); SODIUM 138 mmol/L (137-145); Total Protein 6.2 g/dL (6.3-8.2)
[2020-10-07 21:06] LABS: INFLUENZA A NEGATIVE (NEGATIVE); INFLUENZA B NEGATIVE (NEGATIVE)
[2020-10-07 21:45] VITALS: BP 184/92
--- NOTE | 2020-10-08 08:50 | XRAY ---
Indication: Short of breath. Comparison: September 12, 2020. Portable chest again demonstrates chronic lung markings and tiny left upper lung calcified granuloma. No focal infiltrate, consolidation, or large effusion. Heart is not enlarged. Bony thorax intact again with mild osteopenia and degenerative changes. Impression: Nonacute chest with chronic features.
== END 2020-10-07 21:45 | disposition home or self-care (01) ==
LOC: ED 19:30
DX: J44.1 Chronic obstructive pulmonary disease with (acute) exacerbation (principal); I50.9 Heart failure, unspecified; E11.9 Type 2 diabetes mellitus without complications; Z79.899 Other long term (current) drug therapy; K75.9 Inflammatory liver disease, unspecified
CPT/HCPCS: 36000; 36415; 71045; 80053; 83605; 83880; 84484; 85025; 85379; 85610; 87040; 87400; 93005; 93041; 94640; 99284; A9270-GY

== ENCOUNTER 2021-03-18 18:33 | Observation (INO) | payer MEDICARE ==
[2021-03-18 19:43] LABS: ALKALINE PHOSPHATASE 105 U/L (38-126); ANION GAP 11.8 MEQ/L (5-15); BLOOD UREA NITROGEN 25 mg/dL (9-20); CHLORIDE 98 mmol/L (98-107); Carbon Dioxide 28 mmol/L (22-30); Creatinine 1 0.71 mg/dL (0.66-1.25); EST GLOMERULAR FILTRATION RATE > 60.0 ML/MIN; Glucose 481 mg/dL (74-106); Potassium 4.4 mmol/L (3.5-5.1); SGOT/AST 33 U/L (17-59); SGPT/ALT 24 U/L (0-50); SODIUM 133 mmol/L (137-145); Total Protein 6.9 g/dL (6.3-8.2)
[2021-03-18 19:45] LABS: Absolute Neutrophil Ct (ANC) 4.67 (1.4-6.9); BASOPHIL % 0.4 % (0.0-0.4); Basophil (Absolute #) 0.03 (0-0.4); Eosinophil % 6.1 % (0.00-5.0); Eosinophil (Absolute #) 0.46 (0-0.5); Hematocrit 38.6 % (42-50); Lymphocyte (Absolute #) 1.42 (1.0-4.6); Lymphocytes % 18.8 % (24.0-44.0); Mean Cell Volume 85.4 fl (78-100); Mean Corpuscular Hemoglobin 26.5 pg (26-32); Mean Corpuscular Hgb Concent. 31.1 g/dl (32-36); Mean Platelet Volume 10.8 fl (7.5-11.0); Monocyte (Absolute #) 0.96 (0.0-1.3); Monocytes % 12.7 % (0.0-12.0); Platelet Count 210 K/mm3 (150-450); Red Blood Count 4.52 M/mm3 (4.1-5.6); Red Cell Distribution Width 13.7 % (11.5-14.0); White Blood Count 7.5 K/mm3 (4.0-10.5)
[2021-03-18 20:30] LABS: Appearance SLIGHTLY CLOUDY (CLEAR); Bacteria FEW /HPF (NEGATIVE); Bilirubin NEGATIVE (NEGATIVE); Blood SMALL Ery/ul (0-5); Glucose >=500 mg/dL (NEGATIVE); Ketones NEGATIVE (NEGATIVE); Leukocyte Esterase TRACE (NEGATIVE); Nitrite POSITIVE (NEGATIVE); Protein,Urine Dip 30 (Negative); RBC 0-2 /HPF (0-2); Specific Gravity 1.028 (1.005-1.025); Urobilinogen NEGATIVE mg/dL (0-1)
--- NOTE | 2021-03-18 20:35 | ERPHSYRPT ---
- History of Present Illness Source: patient, other (POA) Patient Subjective Stated Complaint: Hyperglycemia Triage Nursing Assessment: Patient brought into ED via EMS and transferred with assist of 3. Patient A+O X3. Patient's skin pink, warm and dry. Patient states he took his blood sugar and it was 450. Patient is supposed to take S/S insulin but unsure of dose and how to administer. Patient's friend stopped by and states he wasn't acting right so they checked his blood sugar and it was over 400. Patient also had burn to left thigh from cooking fried potatoes. Physician History: 80 yo wm w hyperglycemia today. Pt is a very poor historian. He denies fever/cough/chest pain/N/V/D/melena/hematochezia. 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 Denies new focal weakness. Timing/Duration: today Severity: moderate Associated Symptoms: No nausea, No vomiting, No abdominal pain, No shortness of breath, No heartburn, No diaphoresis, No cough, No chills, No chest pain, No fever, No headaches, No loss of appetite, No malaise, No rash, No syncope Allergies/Adverse Reactions: No Known Drug Allergies Allergy (Verified 03/19/21 00:19) Home Medications: Clopidogrel Bisulfate 75 mg [PLAVIX 75 MG Tablet] 75 mg PO DAILY 01/04/17 [History] Aspirin [Aspirin EC] 81 mg PO DAILY 10/28/19 [History] Atorvastatin Calcium 80 mg PO HS 10/28/19 [History] Escitalopram Oxalate 10 mg [Lexapro 10 MG] 10 mg PO HS 10/28/19 [History] Gabapentin 300 mg PO TID 10/28/19 [History] Insulin NPH Human Isophane [Humulin N] 50 units SQ BIDWM 10/28/19 [History] Metformin HCl [Metformin HCl ER] 500 mg PO DAILY 10/28/19 [History] Tamsulosin HCl 0.4 tablet PO HS 10/28/19 [History] Ipratropium/Albuterol Sulfate [Iprat-Albut 0.5-3(2.5) mg/3 ml] 1 neb IH QIDPRN PRN 07/25/20 [History] Hx Tetanus, Diphtheria Vaccination/Date Given: Yes Hx Influenza Vaccination/Date Given: Yes Hx Pneumococcal Vaccination/Date Given: Yes Immunizations Up to Date: Yes Travel Risk - International Travel Have you traveled outside of the country in past 3 weeks: No - Coronavirus Screening Are you exhibiting any of the following symptoms?: No Close contact with a COVID-19 positive Pt in past 14-21 Days: No - Vaccine Status Have you recieved a Covid-19 vaccination: Yes 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: 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 - Vaccination Dates Date of 2cond Vaccination (if applicable): N/A - Review of Systems Constitutional: No Symptoms Eyes: No Symptoms Ears, Nose, & Throat: No Symptoms Respiratory: No Symptoms Cardiac: No Symptoms Abdominal/Gastrointestinal: No Symptoms Genitourinary Symptoms: No Symptoms Musculoskeletal: No Symptoms Skin: No Symptoms Neurological: No Symptoms Psychological: No Symptoms Endocrine: No Symptoms Hematologic/Lymphatic: No Symptoms Immunological/Allergic: No Symptoms - Past Medical History Pertinent Past Medical History: Yes Neurological History: No Pertinent History ENT History: No Pertinent History Cardiac History: Hypertension Respiratory History: COPD, Emphysema Endocrine Medical History: Diabetes Type II Musculoskeletal History: Fractures, Degenerative Disk Disease GI Medical History: Hernia, Hepatitis History: No Pertinent History Psycho-Social History: No Pertinent History Male Reproductive Disorders: No Pertinent History Other Medical History: hep c,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 herniorr. as a child - Social History Smoking Status: Former smoker How long have you smoked: 66 years Exposure to second hand smoke: No Drug Use: none Patient Lives Alone: Yes - Nursing Vital Signs Nursing Vital Signs: Initial Vital Signs Temperature 97.9 F 03/18/21 18:39 Pulse Rate 78 03/18/21 18:39 Respiratory Rate 18 03/18/21 18:39 Blood Pressure 173/82 03/18/21 18:39 O2 Sat by Pulse Oximetry 95 03/18/21 18:39 Pain Scale Pain Intensity 0 - Physical Exam General Appearance: no apparent distress Eye Exam: PERRL/EOMI, eyes nml inspection Ears, Nose, Throat Exam: normal ENT inspection, TMs normal, pharynx normal, moist mucous membranes Neck Exam: normal inspection, non-tender, supple, full range of motion, No meningismus, No mass, No Brudzinski, No Kernig's, No carotid bruit Respiratory Exam: airway intact, other (Decreased BS R base), No respiratory distress Cardiovascular Exam: regular rate/rhythm, murmur (2/6 MARII) Gastrointestinal/Abdomen Exam: soft, normal bowel sounds, No tenderness (Supra- pubic catheter) Back Exam: normal inspection, normal range of motion Extremity Exam: normal range of motion, other (Pt has a 2nd degree burn L pre- tibial area) Neurologic Exam: alert, oriented x 3, cooperative, 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, normal mood/affect, sensation nml, motor deficits (Chronic L hemiparesis) Skin Exam: normal color, warm, dry Lymphatic Exam: No adenopathy SpO2 Interpretation: normal SpO2: 95 O2 Delivery: Room Air - Course Nursing assessment & vital signs reviewed: Yes EKG Interpreted by Me: RATE (78/NSR/Prolonged QTc/Poor R wave progression/No acute ST-Twave changes) - Radiology Exams Chest X-ray Interpretation: Interpreted by me (Chronic changes) Ordered Tests: Active Orders 24 hr Category Date Time Status EKG-ER Only STAT Care 03/18/21 20:39 Completed Consistent Carbohydrate Diet 1800 Calorie Diet 03/19/21 Breakfast Active CHEST 1 VIEW (PORTABLE) Stat Exams 03/18/21 20:37 Taken CBC W DIFF AM.LAB Lab 03/19/21 04:00 Ordered CBC W DIFF Stat Lab 03/18/21 19:15 Completed CMP AM.LAB Lab 03/19/21 04:00 Ordered CMP Stat Lab 03/18/21 19:15 Completed CULTURE,URINE Stat Lab 03/18/21 19:41 Received Lactic Acid Stat Lab 03/18/21 20:05 Completed TROPONIN Q3H Lab 03/18/21 19:15 Completed TROPONIN Q3H Lab 03/18/21 22:15 Completed UA W/RFX UR CULTURE Stat Lab 03/18/21 19:41 Completed Medication Summary Generic Name Dose Route Start Last Admin Trade Name Freq PRN Reason Stop Dose Admin Albuterol/Ipratropium 3 ml 03/19/21 00:50 Duoneb 0.5-3 Mg/3 Ml Neb IH 04/18/21 00:49 Q4HPRN PRN SHORTNESS OF BREATH/WHEEZING Enoxaparin Sodium 40 mg 03/19/21 10:00 Enoxaparin Sodium SQ 04/18/21 09:59 DAILY BEATRIZ Sodium Chloride 1,000 mls @ 100 mls/hr 03/18/21 22:00 03/18/21 21:59 Sodium Chloride 0.9% 1000 Ml IV 04/17/21 21:59 100 mls/hr .Q10H BEATRIZ Administration Insulin Human Lispro 0 unit 03/18/21 21:49 Humalog SQ 04/17/21 21:48 UD PRN HYPERGLYCEMIA Ondansetron HCl 4 mg 03/18/21 21:49 Zofran 4 Mg/2 Ml Vial IV 04/17/21 21:48 Q6H PRN PRN NAUSEA/VOMITING Pantoprazole Sodium 40 mg 03/19/21 10:00 Protonix 40 Mg Iv IV 04/18/21 09:59 Q24H10 BEATRIZ Discontinued Medications Generic Name Dose Route Start Last Admin Trade Name Freq PRN Reason Stop Dose Admin Insulin Human Regular 10 unit 03/18/21 20:37 03/18/21 21:00 Humulin R SQ 03/18/21 20:38 10 unit STAT ONE Administration Insulin Human Regular 10 unit 03/18/21 20:38 03/18/21 20:58 Humulin R IV 03/18/21 20:39 10 unit STAT ONE Administration Insulin Human Regular Confirm 03/18/21 20:56 Humulin R Administered 03/18/21 20:57 Dose 10 unit .ROUTE .STK-MED ONE Insulin Human Regular Confirm 03/18/21 20:56 Humulin R Administered 03/18/21 20:57 Dose 10 unit .ROUTE .STK-MED ONE Lab/Rad Data: Laboratory Result Diagrams 03/18/21 19:15 03/18/21 19:15 Laboratory Results 03/18/21 03/18/21 03/18/21 Range/Units 22:15 21:57 20:05 WBC (4.0-10.5) K/mm3 RBC (4.1-5.6) M/mm3 Hgb (12.5-18.0) gm/dl Hct (42-50) % MCV (78-100) fl MCH (26-32) pg MCHC (32-36) g/dl RDW (11.5-14.0) % Plt Count (150-450) K/mm3 MPV (7.5-11.0) fl Gran % (36.0-66.0) % Eos # (Auto) (0-0.5) Absolute Lymphs (auto) (1.0-4.6) Absolute Monos (auto) (0.0-1.3) Lymphocytes % (24.0-44.0) % Monocytes % (0.0-12.0) % Eosinophils % (0.00-5.0) % Basophils % (0.0-0.4) % Absolute Granulocytes (1.4-6.9) Basophils # (0-0.4) Sodium (137-145) mmol/L Potassium (3.5-5.1) mmol/L Chloride (98-107) mmol/L Carbon Dioxide (22-30) mmol/L Anion Gap (5-15) MEQ/L BUN (9-20) mg/dL Creatinine (0.66-1.25) mg/dL Estimated GFR ML/MIN Glucose (74-106) mg/dL Lactic Acid 1.7 (0.4-2.0) Calcium (8.4-10.2) mg/dL Total Bilirubin (0.2-1.3) mg/dL AST (17-59) U/L ALT (0-50) U/L Alkaline Phosphatase (38-126) U/L Troponin I < 0.012 (0.000-0.034) ng/mL Serum Total Protein (6.3-8.2) g/dL Albumin (3.5-5.0) g/dL Urine Color (YELLOW) Urine Appearance (CLEAR) Urine pH (5-6) Ur Specific [place] (1.005-1.025) Urine Protein (Negative) Urine Ketones (NEGATIVE) Urine Blood (0-5) Alvarez/ul Urine Nitrite (NEGATIVE) Urine Bilirubin (NEGATIVE) Urine Urobilinogen (0-1) mg/dL Ur Leukocyte Esterase (NEGATIVE) Urine WBC (Auto) (0-5) /HPF Urine RBC (Auto) (0-2) /HPF U Epithel Cells (Auto) (FEW) /HPF Urine Bacteria (Auto) (NEGATIVE) /HPF Urine Culture Reflexed (NO) Urine Glucose (NEGATIVE) mg/dL Influenza Type A Ag NEGATIVE (NEGATIVE) Influenza Type B Ag NEGATIVE (NEGATIVE) RSV (PCR) NEGATIVE (Negative) SARS-CoV-2 (PCR) NEGATIVE (NEGATIVE) 03/18/21 03/18/21 03/18/21 Range/Units 19:41 19:15 19:15 WBC (4.0-10.5) K/mm3 RBC (4.1-5.6) M/mm3 Hgb (12.5-18.0) gm/dl Hct (42-50) % MCV (78-100) fl MCH (26-32) pg MCHC (32-36) g/dl RDW (11.5-14.0) % Plt Count (150-450) K/mm3 MPV (7.5-11.0) fl Gran % (36.0-66.0) % Eos # (Auto) (0-0.5) Absolute Lymphs (auto) (1.0-4.6) Absolute Monos (auto) (0.0-1.3) Lymphocytes % (24.0-44.0) % Monocytes % (0.0-12.0) % Eosinophils % (0.00-5.0) % Basophils % (0.0-0.4) % Absolute Granulocytes (1.4-6.9) Basophils # (0-0.4) Sodium 133 L (137-145) mmol/L Potassium 4.4 (3.5-5.1) mmol/L Chloride 98 (98-107) mmol/L Carbon Dioxide 28 (22-30) mmol/L Anion Gap 11.8 (5-15) MEQ/L BUN 25 H (9-20) mg/dL Creatinine 0.71 (0.66-1.25) mg/dL Estimated GFR > 60.0 ML/MIN Glucose 481 H (74-106) mg/dL Lactic Acid (0.4-2.0) Calcium 9.0 (8.4-10.2) mg/dL Total Bilirubin 0.50 (0.2-1.3) mg/dL AST 33 (17-59) U/L ALT 24 (0-50) U/L Alkaline Phosphatase 105 (38-126) U/L Troponin I 0.012 (0.000-0.034) ng/mL Serum Total Protein 6.9 (6.3-8.2) g/dL Albumin 4.0 (3.5-5.0) g/dL Urine Color YELLOW (YELLOW) Urine Appearance SLIGHTLY CLOUDY (CLEAR) Urine pH 5.0 (5-6) Ur Specific [place] 1.028 (1.005-1.025) Urine Protein 30 (Negative) Urine Ketones NEGATIVE (NEGATIVE) Urine Blood SMALL (0-5) Alvarez/ul Urine Nitrite POSITIVE (NEGATIVE) Urine Bilirubin NEGATIVE (NEGATIVE) Urine Urobilinogen NEGATIVE (0-1) mg/dL Ur Leukocyte Esterase TRACE (NEGATIVE) Urine WBC (Auto) 11-15 (0-5) /HPF Urine RBC (Auto) 0-2 (0-2) /HPF U Epithel Cells (Auto) NONE (FEW) /HPF Urine Bacteria (Auto) FEW (NEGATIVE) /HPF Urine Culture Reflexed ORDERED SEPARATELY (NO) Urine Glucose >=500 (NEGATIVE) mg/dL Influenza Type A Ag (NEGATIVE) Influenza Type B Ag (NEGATIVE) RSV (PCR) (Negative) SARS-CoV-2 (PCR) (NEGATIVE) 03/18/21 Range/Units 19:15 WBC 7.5 (4.0-10.5) K/mm3 RBC 4.52 (4.1-5.6) M/mm3 Hgb 12.0 L (12.5-18.0) gm/dl Hct 38.6 L (42-50) % MCV 85.4 (78-100) fl MCH 26.5 (26-32) pg MCHC 31.1 L (32-36) g/dl RDW 13.7 (11.5-14.0) % Plt Count 210 (150-450) K/mm3 MPV 10.8 (7.5-11.0) fl Gran % 62.0 (36.0-66.0) % Eos # (Auto) 0.46 (0-0.5) Absolute Lymphs (auto) 1.42 (1.0-4.6) Absolute Monos (auto) 0.96 (0.0-1.3) Lymphocytes % 18.8 L (24.0-44.0) % Monocytes % 12.7 H (0.0-12.0) % Eosinophils % 6.1 H (0.00-5.0) % Basophils % 0.4 (0.0-0.4) % Absolute Granulocytes 4.67 (1.4-6.9) Basophils # 0.03 (0-0.4) Sodium (137-145) mmol/L Potassium (3.5-5.1) mmol/L Chloride (98-107) mmol/L Carbon Dioxide (22-30) mmol/L Anion Gap (5-15) MEQ/L BUN (9-20) mg/dL Creatinine (0.66-1.25) mg/dL Estimated GFR ML/MIN Glucose (74-106) mg/dL Lactic Acid (0.4-2.0) Calcium (8.4-10.2) mg/dL Total Bilirubin (0.2-1.3) mg/dL AST (17-59) U/L ALT (0-50) U/L Alkaline Phosphatase (38-126) U/L Troponin I (0.000-0.034) ng/mL Serum Total Protein (6.3-8.2) g/dL Albumin (3.5-5.0) g/dL Urine Color (YELLOW) Urine Appearance (CLEAR) Urine pH (5-6) Ur Specific [place] (1.005-1.025) Urine Protein (Negative) Urine Ketones (NEGATIVE) Urine Blood (0-5) Alvarez/ul Urine Nitrite (NEGATIVE) Urine Bilirubin (NEGATIVE) Urine Urobilinogen (0-1) mg/dL Ur Leukocyte Esterase (NEGATIVE) Urine WBC (Auto) (0-5) /HPF Urine RBC (Auto) (0-2) /HPF U Epithel Cells (Auto) (FEW) /HPF Urine Bacteria (Auto) (NEGATIVE) /HPF Urine Culture Reflexed (NO) Urine Glucose (NEGATIVE) mg/dL Influenza Type A Ag (NEGATIVE) Influenza Type B Ag (NEGATIVE) RSV (PCR) (Negative) SARS-CoV-2 (PCR) (NEGATIVE) - Progress Progress Note: 03/18/21 21:[address] Grover 10units IV InsulinR/10units SQ InsulinR Counseled pt/family regarding: diagnosis, need for follow-up, rad results - Departure Departure Disposition: Observation Clinical Impression: Hyperglycemia due to type 2 diabetes mellitus Condition: Stable Critical Care Time: No
[2021-03-18] MEDS ORDERED: HUMULIN R SQ ONE (20:37)
[2021-03-18] MEDS ORDERED: HUMULIN R IV ONE (20:38)
[2021-03-18] MEDS ORDERED: HUMULIN R ONE ×2 (20:56)
[2021-03-18] MEDS ORDERED: Zofran 4 MG/2 ML VIAL IV PRN (21:49)
[2021-03-18] MEDS: Sodium Chloride 0.9% 1000 ML 1,000 ML IV SCH (21:59)
[2021-03-18 22:36] LABS: INFLUENZA A NEGATIVE (NEGATIVE); INFLUENZA B NEGATIVE (NEGATIVE); RESPIRATORY SYNCTIAL VIRUS NEGATIVE (Negative)
[2021-03-19] MEDS ORDERED: DUONEB 0.5-3 MG/3 ml Neb IH PRN ×2 (00:50→09:43)
[2021-03-19 05:09] LABS: BASOPHIL % 0.3 % (0.0-0.4); Basophil (Absolute #) 0.02 (0-0.4); Eosinophil % 8.6 % (0.00-5.0); Hematocrit 35.1 % (42-50); Hemoglobin 10.9 gm/dl (12.5-18.0); Lymphocyte (Absolute #) 1.77 (1.0-4.6); Lymphocytes % 25.4 % (24.0-44.0); Mean Cell Volume 85.6 fl (78-100); Mean Corpuscular Hemoglobin 26.6 pg (26-32); Mean Corpuscular Hgb Concent. 31.1 g/dl (32-36); Mean Platelet Volume 10.3 fl (7.5-11.0); Monocyte (Absolute #) 0.98 (0.0-1.3); Monocytes % 14.1 % (0.0-12.0); Neutrophil % 51.6 % (36.0-66.0); Platelet Count 183 K/mm3 (150-450); Red Cell Distribution Width 13.7 % (11.5-14.0)
[2021-03-19 05:21] LABS: ALBUMIN 3.3 g/dL (3.5-5.0); ALKALINE PHOSPHATASE 84 U/L (38-126); ANION GAP 9.1 MEQ/L (5-15); BLOOD UREA NITROGEN 20 mg/dL (9-20); CHLORIDE 104 mmol/L (98-107); Calcium 8.5 mg/dL (8.4-10.2); Carbon Dioxide 27 mmol/L (22-30); EST GLOMERULAR FILTRATION RATE > 60.0 ML/MIN; Glucose 171 mg/dL (74-106); Potassium 3.6 mmol/L (3.5-5.1); SGOT/AST 30 U/L (17-59); SGPT/ALT 20 U/L (0-50); SODIUM 136 mmol/L (137-145); Total Protein 5.9 g/dL (6.3-8.2)
[2021-03-19] MEDS: Sodium Chloride 0.9% 1000 ML 1,000 ML IV SCH ×2 (07:50→19:11)
--- NOTE | 2021-03-19 08:49 | XRAY ---
Indication: Hyperglycemia. Comparison: October 07, 2020. Portable chest again demonstrates minimal scattered fibrosis/scarring and a few tiny calcified granulomas. No focal infiltrate, consolidation, or large effusion. Heart and mediastinal structures within normal limits. Bony thorax intact again with mild osteopenia and degenerative changes. Impression: Continued nonacute chest with chronic features.
[2021-03-19] MEDS ORDERED: Glucophage XR 500 MG PO SCH ×2 (10:00→17:00)
[2021-03-19] MEDS ORDERED: NON-FORMULARY ITEM (Metformin Hcl [Metformin Hcl Er] 500 MG) PO SCH (10:00)
[2021-03-19] MEDS ORDERED: NEURONTIN 300 MG PO SCH (10:00)
[2021-03-19] MEDS: HUMALOG SQ PRN ×3 (10:21→21:14)
[2021-03-19] MEDS: PROTONIX 40 MG IV IV SCH (10:36)
[2021-03-19] MEDS: PLAVIX 75 MG Tablet PO SCH (12:27)
[2021-03-19] MEDS: ECOTRIN 81 MG PO SCH (12:27)
[2021-03-19] MEDS: ROCEPHIN 1 Gm-D5w 50 ml Bag** 1 G/50 ML IVPB IV SCH (12:28)
[2021-03-19] MEDS: ENOXAPARIN SODIUM SQ SCH (12:35)
[2021-03-19] MEDS: Neurontin 400 MG PO SCH ×2 (16:38→21:14)
[2021-03-19] MEDS: Novolin N SQ SCH (18:25)
[2021-03-19] MEDS: Zestril 20 MG PO SCH ×2 (19:56→21:17)
[2021-03-19] MEDS: NORVASC 5 MG PO SCH ×2 (19:56→21:17)
[2021-03-19] MEDS ORDERED: Flomax 0.4 MG PO SCH (22:00)
[2021-03-19] MEDS ORDERED: NON-FORMULARY ITEM (Atorvastatin Calcium [Atorvastatin Calcium] 80 MG) PO SCH (22:00)
[2021-03-19] MEDS ORDERED: LIPITOR 40MG PO SCH (22:00)
[2021-03-19] MEDS ORDERED: Lexapro 10 MG PO SCH (22:00)
[2021-03-20] MEDS: Sodium Chloride 0.9% 1000 ML 1,000 ML IV SCH (05:13)
--- NOTE | 2021-03-20 08:24 | PCM.HP ---
History of Present Illness - Chief Complaint Chief Complaint: HYPERGLYCEMIA Date: 03/19/21 History of Present Illness: is a 80 year old male came to ER with confusion..He denies fever/cough/chest pain/N/V/D/melena/hematochezia. 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 Denies new focal weakness. Timing/Duration: today Severity: moderate Associated Symptoms: No nausea, No vomiting, No abdominal pain, No shortness of breath, No heartburn, No diaphoresis, No cough, No chills, No chest pain, No fever, No headaches, No loss of appetite, No malaise, No rash, No syncope - Review of Systems Constitutional: Lethargy, No Fever, No Chills Eyes: No Symptoms Ears, Nose, & Throat: No Symptoms Respiratory: No Cough, No Short Of Breath Cardiac: No Chest Pain, No Edema, No Syncope Abdominal/Gastrointestinal: No Abdominal Pain, No Nausea, No Vomiting, No Diarrhea Genitourinary Symptoms: No Dysuria Musculoskeletal: No Back Pain, No Neck Pain Skin: No Rash Neurological: No Dizziness, No Focal Weakness, No Sensory Changes Psychological: No Symptoms Endocrine: No Symptoms Hematologic/Lymphatic: No Symptoms Immunological/Allergic: No Symptoms Medications & Allergies Home Medications: Home Medication List Clopidogrel Bisulfate 75 mg [PLAVIX 75 MG Tablet] 75 mg PO DAILY 01/04/17 [History Confirmed 03/19/21] Aspirin [Aspirin EC] 81 mg PO DAILY 10/28/19 [History Confirmed 03/19/21] Atorvastatin Calcium 80 mg PO HS 10/28/19 [History Confirmed 03/19/21] Escitalopram Oxalate 10 mg [Lexapro 10 MG] 10 mg PO HS 10/28/19 [History Confirmed 03/19/21] Gabapentin 300 mg PO TID 10/28/19 [History Confirmed 03/19/21] Insulin NPH Human Isophane [Humulin N] 50 units SQ BIDWM 10/28/19 [History Confirmed 03/19/21] Metformin HCl [Metformin HCl ER] 500 mg PO DINNER 10/28/19 [History Confirmed 03/19/21] Tamsulosin HCl 0.4 tablet PO HS 10/28/19 [History Confirmed 03/19/21] Ipratropium/Albuterol Sulfate [Iprat-Albut 0.5-3(2.5) mg/3 ml] 1 neb IH QIDPRN PRN 07/25/20 [History Confirmed 03/19/21] Allergies/Adverse Reactions: Allergies Allergy/AdvReac Type Severity Reaction Status Date / Time No Known Drug Allergies Allergy Verified 03/19/21 00:19 - Past Medical History Past Medical History: Yes Neurological History: No Pertinent History ENT History: No Pertinent History Cardiac History: Hypertension Respiratory History: COPD, Emphysema Endocrine Medical History: Diabetes Type II Musculoskelatal History: Fractures, Degenerative Disk Disease GI Medical History: Hernia, Hepatitis History: No Pertinent History Pyscho-Social History: No Pertinent History Male Reproductive Disorders: No Pertinent History Comment: hep c,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 herniorr. as a child - Social History Smoking Status: Former smoker How long have you smoked: 66 years Exposure to second hand smoke: No Alcohol: Rarely Drug Use: none - Physical Exam Vital Signs: Vital Signs - 24 hr Temp Pulse Resp BP Pulse Ox 03/20/21 07:18 97.9 F 77 16 194/83 93 L 03/20/21 04:00 98.1 F 89 16 161/70 92 L 03/20/21 00:00 97.9 F 76 20 193/91 94 L 03/19/21 21:29 92 L 03/19/21 20:00 97.4 F 71 19 95 03/19/21 16:00 98.5 F 72 18 119/95 95 03/19/21 11:57 98.3 F 73 18 197/88 95 03/19/21 08:57 76 18 93 L General Appearance: no apparent distress, alert Neurologic Exam: alert, oriented x 3, cooperative, normal mood/affect, nml cerebellar function, nml station & gait, sensation nml, No motor deficits Eye Exam: PERRL/EOMI, eyes nml inspection Ears, Nose, Throat Exam: normal ENT inspection, TMs normal, pharynx normal, moist mucous membranes Neck Exam: normal inspection, non-tender, supple, full range of motion Respiratory Exam: normal breath sounds, lungs clear, No respiratory distress Cardiovascular Exam: regular rate/rhythm, normal heart sounds, normal peripheral pulses Gastrointestinal/Abdomen Exam: soft, normal bowel sounds, No tenderness, No mass Back Exam: normal inspection, normal range of motion, No CVA tenderness, No vertebral tenderness Extremity Exam: normal inspection, normal range of motion, pelvis stable Skin Exam: normal color, warm, dry, No rash Wound Assessment: Skin/Wound Assessment Wound/Incision Assessment Start: 03/19/21 00:03 Text: Status: Active Freq: Q6H Protocol: Document 03/20/21 02:00 ST (Rec: 03/20/21 02:[address]) Wound/Incision Assessment Right Heel Wound Assessment Shift Assessment Wound Type Pressure Ulcer Wound Stage Stage II Dressing Status Dry & Intact Drainage Amount None Primary Dressing MEPILEX Left Knee Wound Assessment Shift Assessment Wound Type Burn Wound Stage Stage II Drainage Amount None General Appearance Open to air Wound Photo Photo Taken No Lymphatic Exam: No adenopathy Results - Labs Lab/Micro Results: Lab Results-Last 24 Hours 03/19/21 03/19/21 03/19/21 Range/Units 11:33 16:36 20:53 POC Glucometer 267 H 275 H 265 H (74 to 106) mg/dL 03/20/21 Range/Units 07:10 POC Glucometer 292 H (74 to 106) mg/dL Microbiology 03/18/21 19:41 Urine Culture - Preliminary Suprapubic Cath GRAM NEGATIVE ID AND SENSITIVITY PENDING Accuchecks Date 03/20/21 Date 03/19/21 Date 03/19/21 Time 07:15 Time 16:30 Time 11:57 - Radiology Impressions Radiology Exams & Impressions: Radiology Procedures Category Date Time Status CHEST 1 VIEW (PORTABLE) Stat Exams 03/18/21 20:37 Completed Assessment/Plan (1) Confusion with non-focal neuro exam Current Visit: Yes Status: Acute Assessment & Plan: Last Vital Signs Temp 97.9 F 03/20/21 07:18 Pulse 77 03/20/21 07:18 Resp 16 03/20/21 07:18 BP 194/83 03/20/21 07:18 Pulse Ox 93 L 03/20/21 07:18 Allergies No Known Drug Allergies Allergy (Verified 03/19/21 00:19) Active Medications Albuterol/Ipratropium (Duoneb 0.5-3 Mg/3 Ml Neb) 3 ml IH Q4HPRN PRN PRN Reason: SHORTNESS OF BREATH/WHEEZING Stop: 04/18/21 00:49 Amlodipine Besylate (Norvasc 5 Mg) 5 mg PO HS [facility] Stop: 04/18/21 19:30 Last Admin: 03/19/21 21:17 Dose: Not Given Documented by: Aspirin (Ecotrin 81 Mg) 81 mg PO DAILY BEATRIZ Stop: 04/18/21 09:59 Last Admin: 03/19/21 12:27 Dose: 81 mg Documented by: Atorvastatin Calcium (Lipitor 40mg) 80 mg PO HS [facility] Stop: 04/18/21 21:59 Last Admin: 03/19/21 22:25 Dose: 80 mg Documented by: Clopidogrel Bisulfate (Plavix 75 Mg Tablet) 75 mg PO DAILY BEATRIZ Stop: 04/18/21 09:59 Last Admin: 03/19/21 12:27 Dose: 75 mg Documented by: Enoxaparin Sodium (Enoxaparin Sodium) 40 mg SQ DAILY BEATRIZ Stop: 04/18/21 09:59 Last Admin: 03/19/21 12:35 Dose: 40 mg Documented by: Escitalopram Oxalate (Lexapro 10 Mg) 10 mg PO HS BEATRIZ Stop: 04/18/21 21:59 Last Admin: 03/19/21 21:15 Dose: 10 mg Documented by: Gabapentin (Neurontin 400 Mg) 400 mg PO TID BEATRIZ Stop: 04/18/21 14:59 Last Admin: 03/19/21 21:14 Dose: 400 mg Documented by: Sodium Chloride (Sodium Chloride 0.9% 1000 Ml) 1,000 mls @ 100 mls/hr IV .Q10H BEATRIZ Stop: 04/17/21 21:59 Last Admin: 03/20/21 05:13 Dose: 100 mls/hr Documented by: Ceftriaxone Sodium/Dextrose (Rocephin 1 Gm-D5w 50 Ml Bag) 1 g in 50 mls @ 100 mls/hr IV Q24H10 BEATRIZ Stop: 03/22/21 12:29 Last Admin: 03/19/21 12:28 Dose: 100 mls/hr Documented by: Insulin Human Lispro (Humalog) 0 unit SQ UD PRN PRN Reason: HYPERGLYCEMIA Stop: 04/17/21 21:48 Last Admin: 03/19/21 21:14 Dose: 7 unit Documented by: Insulin Human NPH (Novolin N) 50 unit SQ BIDWM [facility] Stop: 04/18/21 16:59 Last Admin: 03/19/21 18:25 Dose: Not Given Documented by: Lisinopril (Zestril 20 Mg) 20 mg PO [facility] Stop: 04/18/21 19:29 Last Admin: 03/19/21 21:17 Dose: Not Given Documented by: Metformin HCl (Glucophage Xr 500 Mg) 500 mg PO DINNER [facility] Stop: 04/18/21 09:59 Last Admin: 03/19/21 18:25 Dose: Not Given Documented by: Ondansetron HCl (Zofran 4 Mg/2 Ml Vial) 4 mg IV Q6H PRN PRN PRN Reason: NAUSEA/VOMITING Stop: 04/17/21 21:48 Pantoprazole Sodium (Protonix 40 Mg Iv) 40 mg IV Q24H10 [facility] Stop: 04/18/21 09:59 Last Admin: 03/19/21 10:36 Dose: 40 mg Documented by: Tamsulosin HCl (Flomax 0.4 Mg) 0.4 mg PO [facility] Stop: 04/18/21 21:59 Last Admin: 03/19/21 21:15 Dose: 0.4 mg Documented by: Intake & Output 03/19/21 03/20/21 11:59 11:59 Intake Total 1775 5520 Output Total 450 2500 Balance 1325 3020 Weight 98.3 kg Orders 03/19/21 10:00 Aspirin EC 81 mg [Ecotrin 81 mg] 81 mg PO DAILY Clopidogrel Bisulfate 75 mg [PLAVIX 75 MG Tablet] 75 mg PO DAILY 03/19/21 12:30 Ceftriaxone 1 GM/50 ML PREMIX* [ROCEPHIN 1 Gm-D5w 50 ml Bag] 1 g in 50 ml IV Q24H10 03/19/21 15:00 Gabapentin 400 mg [Neurontin 400 MG] 400 mg PO TID 03/19/21 17:00 Insulin NPH Human Recom [Novolin N] 50 unit SQ BIDWM Metformin HCl Xr 500 mg [Glucophage XR 500 MG] 500 mg PO DINNER 03/19/21 19:30 Lisinopril 20 mg [Zestril 20 MG] 20 mg PO HS 03/19/21 19:31 Amlodipine Besylate 5 mg [Norvasc 5 mg] 5 mg PO HS 03/19/21 22:00 Atorvastatin Calcium [Lipitor 40Mg] 80 mg PO HS Escitalopram Oxalate 10 mg [Lexapro 10 MG] 10 mg PO HS Tamsulosin HCl 0.4 mg [Flomax 0.4 MG] 0.4 mg PO HS Lab Tests 03/19/21 03/19/21 03/19/21 11:33 16:36 20:53 POC Glucometer 267 H 275 H 265 H 03/20/21 07:10 POC Glucometer 292 H Microbiology 03/18/21 19:41 Suprapubic Cath Urine Culture - Preliminary GRAM NEGATIVE ID AND SENSITIVITY PENDING Code(s): R41.0 - DISORIENTATION, UNSPECIFIED (2) Hyperglycemia due to type 2 diabetes mellitus Current Visit: Yes Status: Acute Qualifiers: Diabetes mellitus exterminator helper insulin use: with jail use Qualified Code(s): E11.65 - Type 2 diabetes mellitus with hyperglycemia; 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
[2021-03-20] MEDS: Novolin N SQ SCH (08:25)
[2021-03-20] MEDS: HUMALOG SQ PRN ×3 (08:25→13:07)
--- NOTE | 2021-03-20 08:25 | PCM.NOTE ---
Date and Time: 03/20/21823 Subjective Assessment: doing better - Review of Systems Constitutional: No Fever, No Chills Eyes: No Symptoms Ears, Nose, & Throat: No Symptoms Respiratory: No Cough, No Short Of Breath Cardiac: No Chest Pain, No Edema, No Syncope Abdominal/Gastrointestinal: No Abdominal Pain, No Nausea, No Vomiting, No Diarrhea Genitourinary Symptoms: No Dysuria Musculoskeletal: No Back Pain, No Neck Pain Skin: No Rash Neurological: No Dizziness, No Focal Weakness, No Sensory Changes Psychological: No Symptoms Endocrine: No Symptoms Hematologic/Lymphatic: No Symptoms Immunological/Allergic: No Symptoms Objective Exam General Appearance: no apparent distress, alert Neurologic Exam: alert, oriented x 3, cooperative, normal mood/affect, nml cerebellar function, sensation nml, No motor deficits Skin Exam: normal color, warm, dry Wound Assessment: Skin/Wound Assessment Wound/Incision Assessment Start: 03/19/21 00:03 Text: Status: Active Freq: Q6H Protocol: Document 03/20/21 02:00 ST (Rec: 03/20/21 02:[address]) Wound/Incision Assessment Right Heel Wound Assessment Shift Assessment Wound Type Pressure Ulcer Wound Stage Stage II Dressing Status Dry & Intact Drainage Amount None Primary Dressing MEPILEX Left Knee Wound Assessment Shift Assessment Wound Type Burn Wound Stage Stage II Drainage Amount None General Appearance Open to air Wound Photo Photo Taken No Eye Exam: PERRL, EOMI, eyes nml inspection Ears, Nose, Throat Exam: normal ENT inspection, pharynx normal, moist mucous membranes Neck Exam: normal inspection, non-tender, supple, full range of motion Respiratory Exam: normal breath sounds, lungs clear, No respiratory distress Cardiovascular Exam: regular rate/rhythm, normal heart sounds Gastrointestinal/Abdomen Exam: soft, No tenderness, No mass Extremity Exam: normal inspection, normal range of motion Back Exam: normal inspection, normal range of motion, No CVA tenderness, No vertebral tenderness Male Genitalia Exam: deferred Rectal Exam: deferred OBJECTIVE DATA Vital Signs: Vital Signs - 24 hr Temp Pulse Resp BP Pulse Ox 03/20/21 07:18 97.9 F 77 16 194/83 93 L 03/20/21 04:00 98.1 F 89 16 161/70 92 L 03/20/21 00:00 97.9 F 76 20 193/91 94 L 03/19/21 21:29 92 L 03/19/21 20:00 97.4 F 71 19 95 03/19/21 16:00 98.5 F 72 18 119/95 95 03/19/21 11:57 98.3 F 73 18 197/88 95 03/19/21 08:57 76 18 93 L Pain Assessment - Last Documented Pain Intensity 0 Intake and Output: Intake & Output 03/17/21 03/18/21 03/19/21 03/20/21 11:59 11:59 11:59 11:59 Intake Total 1775 5520 Output Total 450 2500 Balance 1325 3020 Weight 98.3 kg Lab Results: Lab Results-Last 24 Hours 03/19/21 03/19/21 03/19/21 Range/Units 11:33 16:36 20:53 POC Glucometer 267 H 275 H 265 H (74 to 106) mg/dL 03/20/21 Range/Units 07:10 POC Glucometer 292 H (74 to 106) mg/dL Radiology Exams: Radiology Procedures Category Date Time Status CHEST 1 VIEW (PORTABLE) Stat Exams 03/18/21 20:37 Completed Multi-Disciplinary Progress Notes: Multi-Disciplinary Progress Notes 03/19/21 13:16 Case Management Note by Sharee Stuart PATIENT HAS [facility] HHC. THEY WILL NEED NOTIFIED WHEN PATIENT DCS HOME AT [phone]. THEY WILL NEED FAXED THE DC INSTRUCTIONS, DC MED LIST AND DC SUMMARY(IF AVAILABLE) TO [phone] Initialized on 03/19/21 13:16 - END OF NOTE 03/19/21 13:07 Case Management Note by Sharee Stuart STARTED TO DISCUSS PATIENT HOME LIFE FOR DC PLAN WITH PATIENT THIS AM - HOWEVER PATIENT NOTED TO NOT BE ABLE TO FINISH IS TRAIN OF THOUGHT VERY WELL. HE DID NOT SEEM HIS NORMAL SELF. PRIMARY RN NOTIFIED. S/W POA TODAY- HE NOTES PATIENT IS NORMALLY INDEPENDENT WITH ALL ADLS, HE TRANSFERS HIMSELF AT HOME AND USES HIS ELECTRIC WHEELCHAIR TO GET AROUND. HE HAS HHC THRU [facility] AND HAS A PRIVATE PAY PERSON COME DO HIS BATHS. HE HAS HOME OXYGEN THRU [facility] BUT [facility]IC[facility] REPORTS HE HASN'T BEEN REQUIRING IT LATELY. HE HAS A NEB MACHINE AND GLUCOMTER. GUICHO NOTES HE IS NON COMPLIANT AT TIMES AND "DOES WHAT HE WANTS". HE FEELS PATIENT IS PRIMARILY SAFE AT HOME AND FEELS THE BURN PATIENT HAS COULD BE FROM THIS HOPEFUL ACUTE EPISODE OF CONFUSION. WILL MONITOR PATIENT- HOPEFULLY PATIENT BECOMES MORE A&O AND WILL BE ABLE TO RETURN HOME TO PRE-EPISODIC LEVEL OF CARE WITH [facility] Initialized on 03/19/21 13:07 - END OF NOTE Assessment/Plan (1) Confusion with non-focal neuro exam Current Visit: Yes Status: Resolved Code(s): R41.0 - DISORIENTATION, UNSPECIFIED (2) Hyperglycemia due to type 2 diabetes mellitus Current Visit: Yes Status: Acute Qualifiers: Diabetes mellitus technician terminal and repeater insulin use: with technician terminal and repeater use Qualified Code(s): E11.65 - Type 2 diabetes mellitus with hyperglycemia; Z79.4 - assisted (current) use of insulin Code(s): E11.65 - TYPE 2 DIABETES MELLITUS WITH HYPERGLYCEMIA
[2021-03-20] MEDS: ECOTRIN 81 MG PO SCH (09:47)
[2021-03-20] MEDS: Neurontin 400 MG PO SCH (09:47)
[2021-03-20] MEDS: ENOXAPARIN SODIUM SQ SCH (09:48)
[2021-03-20] MEDS: PLAVIX 75 MG Tablet PO SCH (09:48)
[2021-03-20] MEDS: PROTONIX 40 MG IV IV SCH (09:48)
[2021-03-20] MEDS: ROCEPHIN 1 Gm-D5w 50 ml Bag** 1 G/50 ML IVPB IV SCH (09:58)
[2021-03-20 12:00] VITALS: BP 119/65; PULSE 58; O2SAT 95
--- NOTE | 2021-03-20 12:34 | PCM.DS ---
Discharge Summary Date of Admission: 03/18/21 23:07 Admitting Physician: THANH LARKIN Primary Care Provider: THANH LARKIN Allergies Allergies No Known Drug Allergies Allergy (Verified 03/19/21 00:19) Hospital Summary - Hospital Course Hospital Course: Chief Complaint Diagnosis HYPERGLYCEMIA Admission Date Date 03/19/21 Allergies Allergy/AdvReac Type Severity Reaction Status Date / Time No Known Drug Allergies Allergy Verified 03/19/21 00:19 Vital Signs (Last 24 hours) Temp Pulse Resp BP Pulse Ox 03/20/21 11:59 97.9 F 58 L 18 119/65 95 03/20/21 08:10 76 16 91 L 03/20/21 07:18 97.9 F 77 16 194/83 93 L 03/20/21 04:00 98.1 F 89 16 161/70 92 L 03/20/21 00:00 97.9 F 76 20 193/91 94 L 03/19/21 21:29 92 L 03/19/21 20:00 97.4 F 71 19 95 03/19/21 16:00 98.5 F 72 18 119/95 95 Current Medications Generic Name Dose Route Start Last Admin Trade Name Freq PRN Reason Stop Dose Admin Albuterol/Ipratropium 3 ml 03/19/21 00:50 Duoneb 0.5-3 Mg/3 Ml Neb IH 04/18/21 00:49 Q4HPRN PRN SHORTNESS OF BREATH/WHEEZING Amlodipine Besylate 5 mg 03/19/21 19:31 03/19/21 21:17 Norvasc 5 Mg PO 04/18/21 19:30 Not Given HS BEATRIZ Aspirin 81 mg 03/19/21 10:00 03/20/21 09:47 Ecotrin 81 Mg PO 04/18/21 09:59 81 mg DAILY BEATRIZ Administration Atorvastatin Calcium 80 mg 03/19/21 22:00 03/19/21 22:25 Lipitor 40mg PO 04/18/21 21:59 80 mg HS BEATRIZ Administration Clopidogrel Bisulfate 75 mg 03/19/21 10:00 03/20/21 09:48 Plavix 75 Mg Tablet PO 04/18/21 09:59 75 mg DAILY BEATRIZ Administration Enoxaparin Sodium 40 mg 03/19/21 10:00 03/20/21 09:48 Enoxaparin Sodium SQ 04/18/21 09:59 40 mg DAILY BEATRIZ Administration Escitalopram Oxalate 10 mg 03/19/21 22:00 03/19/21 21:15 Lexapro 10 Mg PO 04/18/21 21:59 10 mg HS BEATRIZ Administration Gabapentin 400 mg 03/19/21 15:00 03/20/21 09:47 Neurontin 400 Mg PO 04/18/21 14:59 400 mg TID BEATRIZ Administration Sodium Chloride 1,000 mls @ 100 mls/hr 03/18/21 22:00 03/20/21 05:13 Sodium Chloride 0.9% 1000 Ml IV 04/17/21 21:59 100 mls/hr .Q10H BEATRIZ Administration Ceftriaxone Sodium/Dextrose 1 g in 50 mls @ 100 mls/hr 03/19/21 12:30 03/20/21 09:58 Rocephin 1 Gm-D5w 50 Ml Bag IV 03/22/21 12:29 100 mls/hr Q24H10 BEATRIZ Administration Insulin Human Lispro 0 unit 03/18/21 21:49 03/20/21 11:51 Humalog SQ 04/17/21 21:48 9 unit UD PRN Administration HYPERGLYCEMIA Insulin Human NPH 50 unit 03/19/21 17:00 03/20/21 08:25 Novolin N SQ 04/18/21 16:59 50 unit BIDWM BEATRIZ Administration Lisinopril 20 mg 03/19/21 19:30 03/19/21 21:17 Zestril 20 Mg PO 04/18/21 19:29 Not Given HS BEATRIZ Metformin HCl 500 mg 03/19/21 17:00 03/19/21 18:25 Glucophage Xr 500 Mg PO 04/18/21 09:59 Not Given DINNER BEATRIZ Ondansetron HCl 4 mg 03/18/21 21:49 Zofran 4 Mg/2 Ml Vial IV 04/17/21 21:48 Q6H PRN PRN NAUSEA/VOMITING Pantoprazole Sodium 40 mg 03/19/21 10:00 03/20/21 09:48 Protonix 40 Mg Iv IV 04/18/21 09:59 40 mg Q24H10 BEATRIZ Administration Tamsulosin HCl 0.4 mg 03/19/21 22:00 03/19/21 21:15 Flomax 0.4 Mg PO 04/18/21 21:59 0.4 mg HS BEATRIZ Administration Discontinued Medications Generic Name Dose Route Start Last Admin Trade Name Janny PRN Reason Stop Dose Admin Albuterol/Ipratropium ml 03/19/21 09:43 Duoneb 0.5-3 Mg/3 Ml Neb IH 04/18/21 09:42 QIDPRN PRN SHORTNESS OF BREATH/WHEEZING Gabapentin 300 mg 03/19/21 10:00 03/19/21 10:38 Neurontin 300 Mg PO 04/18/21 09:59 300 mg TID BEATRIZ Administration Insulin Human Regular 10 unit 03/18/21 20:37 03/18/21 21:00 Humulin R SQ 03/18/21 20:38 10 unit STAT ONE Administration Insulin Human Regular 10 unit 03/18/21 20:38 03/18/21 20:58 Humulin R IV 03/18/21 20:39 10 unit STAT ONE Administration Insulin Human Regular Confirm 03/18/21 20:56 Humulin R Administered 03/18/21 20:57 Dose 10 unit .ROUTE .STK-MED ONE Insulin Human Regular Confirm 03/18/21 20:56 Humulin R Administered 03/18/21 20:57 Dose 10 unit .ROUTE .STK-MED ONE Metformin HCl 500 mg 03/19/21 10:00 03/19/21 12:40 Glucophage Xr 500 Mg PO 04/18/21 09:59 Not Given DAILY BEATRIZ Intake & Output (Last 24 hours) 03/18/21 03/19/21 03/20/21 03/21/21 11:59 11:59 11:59 11:59 Intake Total 1775 6100 Output Total 450 4200 Balance 1325 1900 Weight 98.3 kg Microbiology Results (Last 24 hours) 03/18/21 19:41 Suprapubic Cath Urine Culture - Preliminary GRAM NEGATIVE ID AND SENSITIVITY PENDING Laboratory Results (Last 24 hours) 03/20/21 03/20/21 03/19/21 11:39 07:10 20:53 POC Glucometer 331 H 292 H 265 H 03/19/21 16:36 POC Glucometer 275 H Orders (Last 24 hours) Category Date Time Status POCT GLUCOSE Stat Lab 03/19/21 11:33 Completed POCT GLUCOSE Stat Lab 03/19/21 16:36 Completed POCT GLUCOSE Stat Lab 03/19/21 20:53 Completed POCT GLUCOSE Stat Lab 03/20/21 07:10 Completed POCT GLUCOSE Stat Lab 03/20/21 11:37 Received POCT GLUCOSE Stat Lab 03/20/21 11:39 Completed Amlodipine Besylate 5 mg [Norvasc 5 mg] Med 03/19/21 19:31 Active 5 mg PO HS Atorvastatin Calcium [Lipitor 40Mg] Med 03/19/21 22:00 Active 80 mg PO HS Ceftriaxone 1 GM/50 ML PREMIX* [ROCEPHIN 1 Gm-D5w 50 ml Med 03/19/21 12:30 Active Bag] 1 g in 50 ml IV Q24H10 Escitalopram Oxalate 10 mg [Lexapro 10 MG] Med 03/19/21 22:00 Active 10 mg PO HS Gabapentin 400 mg [Neurontin 400 MG] Med 03/19/21 15:00 Active 400 mg PO TID Insulin NPH Human Recom [Novolin N] Med 03/19/21 17:00 Active 50 unit SQ BIDWM Lisinopril 20 mg [Zestril 20 MG] Med 03/19/21 19:30 Active 20 mg PO HS Metformin HCl Xr 500 mg [Glucophage XR 500 MG] Med 03/19/21 17:00 Active 500 mg PO DINNER Tamsulosin HCl 0.4 mg [Flomax 0.4 MG] Med 03/19/21 22:00 Active 0.4 mg PO HS Patient Care Notes (Last 24 hours) 03/20/21 11:04 Case Management Note by Sharee Stuart S/W PATIENT THIS AM- PATIENT MUCH MORE LIKE HIMSELF, JOKING, ANSWERING QUESTIONS AND FOLLOWING CONVERSATION APPROPRIATELY. HE DENIES ANY NEW NEEDS REGARDING DC. HE HAS C AND A PRIVATE PAY PERSON THAT COMES AND GIVES HIM HIS BATHS. HE USES HIS MOTORIZED WHEELCHAIR TO GET AROUND. NO NEW NEEDS IDENTIFIED AT THIS TIME CALLED AND S/W POA- HE AGREES PATIENT NORMALLY DOES WELL AT HOME AND IS INDEPENDENT. HE WAS NOTIFIED PATIENT A&O TODAY AND WILL BE DCING HOME. HE ALSO DENIES ANY NEW NEEDS FOR PATIENT AT THIS TIME Initialized on 03/20/21 11:04 - END OF NOTE 03/20/21 09:05 PSYCHIATRIC ATTENDANT Note by Vonda Solomon Got patient up in chair with the assist of the walker patient did well Initialized on 03/20/21 09:05 - END OF NOTE 03/19/21 21:00 PSYCHIATRIC ATTENDANT Note by Mihaela Negron RN Jesus was notified of pts BP 221/120. Initialized on 03/19/21 21:00 - END OF NOTE 03/19/21 13:16 Case Management Note by Sharee Stuart PATIENT HAS [facility]. THEY WILL NEED NOTIFIED WHEN PATIENT DCS HOME AT [phone]. THEY WILL NEED FAXED THE DC INSTRUCTIONS, DC MED LIST AND DC SUMMARY(IF AVAILABLE) TO [phone] Initialized on 03/19/21 13:16 - END OF NOTE 03/19/21 13:07 Case Management Note by Sharee Stuart STARTED TO DISCUSS PATIENT HOME LIFE FOR DC PLAN WITH PATIENT THIS AM - HOWEVER PATIENT NOTED TO NOT BE ABLE TO FINISH IS TRAIN OF THOUGHT VERY WELL. HE DID NOT SEEM HIS NORMAL SELF. PRIMARY RN NOTIFIED. S/W POA TODAY- HE NOTES PATIENT IS NORMALLY INDEPENDENT WITH ALL ADLS, HE TRANSFERS HIMSELF AT HOME AND USES HIS ELECTRIC WHEELCHAIR TO GET AROUND. HE HAS HHC THRU [facility] AND HAS A PRIVATE PAY PERSON COME DO HIS BATHS. HE HAS HOME OXYGEN THRU [facility] BUT [facility] REPORTS HE HASN'T BEEN REQUIRING IT LATELY. HE HAS A NEB MACHINE AND GLUCOMTER. [facility] NOTES HE IS NON COMPLIANT AT TIMES AND "DOES WHAT HE WANTS". HE FEELS PATIENT IS PRIMARILY SAFE AT HOME AND FEELS THE BURN PATIENT HAS COULD BE FROM THIS HOPEFUL ACUTE EPISODE OF CONFUSION. WILL MONITOR PATIENT- HOPEFULLY PATIENT BECOMES MORE A&O AND WILL BE ABLE TO RETURN HOME TO PRE-EPISODIC LEVEL OF CARE WITH HHC Initialized on 03/19/21 13:07 - END OF NOTE - Vitals & Intake/Output Vital Signs: Vital Signs Temperature 97.9 F 03/20/21 11:59 Pulse Rate 58 L 03/20/21 11:59 Respiratory Rate 18 03/20/21 11:59 Blood Pressure 119/65 03/20/21 11:59 O2 Sat by Pulse Oximetry 95 05/19/21 11:59 Intake & Output: Intake & Output 03/18/21 03/19/21 03/20/21 03/21/21 11:59 11:59 11:59 11:59 Intake Total 1775 6100 Output Total 450 4200 Balance 1325 1900 Weight 98.3 kg - Lab Result Diagrams: 03/19/21 04:28 03/19/21 04:28 Lab Results-Last 24 Hrs: Lab Results-Last 24 Hours 03/19/21 03/19/21 03/20/21 Range/Units 16:36 20:53 07:10 POC Glucometer 275 H 265 H 292 H (74 to 106) mg/dL 03/20/21 Range/Units 11:39 POC Glucometer 331 H (74 to 106) mg/dL Micro Results-Entire Visit: Microbiology 03/18/21 19:41 Urine Culture - Preliminary Suprapubic Cath GRAM NEGATIVE ID AND SENSITIVITY PENDING Accuchecks Date 03/20/21 Date 03/20/21 Date 03/19/21 Time 11:58 Time 07:15 Time 16:30 - Radiology Exams Ordered Rad Exams-Entire Visit: Radiology Procedures Category Date Time Status CHEST 1 VIEW (PORTABLE) Stat Exams 03/18/21 20:37 Completed - Procedures and Test Procedures and Tests throughout Hospitalization: Therapy Orders & Screens 03/19/21 00:03 OT Screen per Nursing Assess ONCE Comment: Protocol Order Physician Instructions: Greater than 3 points order OT Admission Screening Reason For Exam: Triggered on Admission Diagnosis: HYPERGLYCEMIA Open Wound/Cellutlitis/Pressure Ulcers: Yes Acute Fx/ORIF/Change in wt bearing status: No Severe MUSCULOSKELETAL pain: No ADL Dysfunction: No Acute CVA w/Hemiparesis/Hemiplegia: No Decreased Functional Mobility/Strength: No Sprain/Strain: No Acute Post-op Mobility Dysfunction: No Total Points: 5 PT Screen per Nursing Assess ONCE Comment: Protocol Order Physician Instructions: Greater than 3 points order PT Admission Screenin Reason For Exam: Triggered on Admission Diagnosis: HYPERGLYCEMIA Open Wound/Cellutlitis/Pressure Ulcers: Yes Acute Fx/ORIF/Change in wt bearing status: No Severe MUSCULOSKELETAL pain: No ADL Dysfunction: No Acute CVA w/Hemiparesis/Hemiplegia: No Decreased Functional Mobility/Strength: No Sprain/Strain: No Acute Post-op Mobility Dysfunction: No Total Points: 5 RT Screen per Nursing Assess ONCE Comment: Protocol Order Physician Instructions: Greater than 3 points order RT Admission Screen Reason For Exam: Triggered on Admission Diagnosis: HYPERGLYCEMIA Diagnosis: HYPERGLYCEMIA Pneumonia: No Home O2: Yes: 2L [place] Asthma: No CHF: No Home CPAP/BIPAP: No Home Nebs/MDI: Yes Total Points: 10 03/19/21 00:51 Respiratory Therapy Assessment DAILY Comment: Diagnosis: HYPERGLYCEMIA Discharge Exam General Appearance: no apparent distress, alert Neurologic Exam: alert, oriented x 3, cooperative, normal mood/affect, nml cerebellar function, sensation nml, No motor deficits Eye Exam: PERRL, EOMI, eyes nml inspection Ears, Nose, Throat Exam: normal ENT inspection, pharynx normal, moist mucous membranes Neck Exam: normal inspection, non-tender, supple, full range of motion Respiratory Exam: normal breath sounds, lungs clear, No respiratory distress Cardiovascular Exam: regular rate/rhythm, normal heart sounds Gastrointestinal/Abdomen Exam: soft, No tenderness, No mass Male Genitalia Exam: deferred Rectal Exam: deferred Back Exam: normal inspection, normal range of motion, No CVA tenderness, No vertebral tenderness Extremity Exam: normal inspection, normal range of motion Skin Exam: normal color, warm, dry Wound Assessment: Skin/Wound Assessment Wound/Incision Assessment Start: 03/19/21 00:03 Text: Status: Active Freq: Q6H Protocol: Document 03/20/21 08:00 GREEN (Rec: 03/20/21 10:26 GREEN [id number]) Wound/Incision Assessment Right Heel Wound Assessment Shift Assessment Wound Type Pressure Ulcer Wound Stage Stage II Dressing Status Dry & Intact Drainage Amount None Primary Dressing MEPILEX Left Knee Wound Assessment Shift Assessment Wound Type Burn Wound Stage Stage II Drainage Amount None General Appearance Open to air Wound Photo Photo Taken No Final Diagnosis/Problem List - Final Discharge Diagnosis/Problem (1) Confusion with non-focal neuro exam Current Visit: Yes Status: Resolved Code(s): R41.0 - DISORIENTATION, UNSPECIFIED (2) Hyperglycemia due to type 2 diabetes mellitus Current Visit: Yes Status: Resolved Code(s): E11.65 - TYPE 2 DIABETES MELLITUS WITH HYPERGLYCEMIA - Discharge Discharge Date: 03/20/21 Disposition: Home, Self-Care Condition: Stable Prescriptions: New Amlodipine Besylate 5 mg [Norvasc 5 mg] 5 mg PO HS #30 tablet Lisinopril 20 mg [Zestril 20 MG] 20 mg PO HS #30 tablet Continue Clopidogrel Bisulfate 75 mg [PLAVIX 75 MG Tablet] 75 mg PO DAILY Tamsulosin HCl 0.4 tablet PO HS Atorvastatin Calcium 80 mg PO HS Gabapentin 300 mg PO TID Escitalopram Oxalate 10 mg [Lexapro 10 MG] 10 mg PO HS Metformin HCl [Metformin HCl ER] 500 mg PO DINNER Insulin NPH Human Isophane [Humulin N] 50 units SQ BIDWM Aspirin [Aspirin EC] 81 mg PO DAILY Ipratropium/Albuterol Sulfate [Iprat-Albut 0.5-3(2.5) mg/3 ml] 1 neb IH QIDPRN PRN PRN Reason: Shortness Of Breath/Wheezing Follow up with: THANH LARKIN MD [Primary Care Provider] -
== END 2021-03-20 15:11 | disposition home health service (06) ==
LOC: ED 18:33 → MED SURG 23:07
PROVIDERS: ADMIT General Practice; ATTEND General Practice
DX: R41.0 Disorientation, unspecified (principal); E11.65 Type 2 diabetes mellitus with hyperglycemia; Z79.899 Other long term (current) drug therapy; Z79.01 Long term (current) use of anticoagulants; J44.9 Chronic obstructive pulmonary disease, unspecified; I10 Essential (primary) hypertension; Z20.828 Contact with and (suspected) exposure to other viral communicable diseases; L89.612 Pressure ulcer of right heel, stage 2; T24.022A Burn of unspecified degree of left knee, initial encounter; X10.2XXA Contact with fats and cooking oils, initial encounter
CPT/HCPCS: 0241U; 36415; 71045; 80053; 81001; 82947; 83605; 84484; 85025; 87077; 87086; 87186; 93005; 94760; 96372; 99284; G0378; 96374; J0696; J1650; J1815; J1817; A9270-GY

== ENCOUNTER 2021-03-22 14:31 | Observation (INO) | payer MEDICARE ==
[2021-03-22] MEDS ORDERED: Sodium Chloride 0.9% 1000 ML 1,000 ML IV SCH (15:15)
[2021-03-22] MEDS ORDERED: Sodium Chloride 0.9% 1000 ML 1,000 ML ONE (15:54)
[2021-03-22 16:02] LABS: Absolute Neutrophil Ct (ANC) 6.51 (1.4-6.9); BASOPHIL % 0.2 % (0.0-0.4); Basophil (Absolute #) 0.02 (0-0.4); Eosinophil % 3.8 % (0.00-5.0); Eosinophil (Absolute #) 0.36 (0-0.5); Hematocrit 36.6 % (42-50); Hemoglobin 11.5 gm/dl (12.5-18.0); Lymphocyte (Absolute #) 1.33 (1.0-4.6); Mean Cell Volume 85.1 fl (78-100); Mean Corpuscular Hemoglobin 26.7 pg (26-32); Mean Corpuscular Hgb Concent. 31.4 g/dl (32-36); Mean Platelet Volume 10.3 fl (7.5-11.0); Monocyte (Absolute #) 1.26 (0.0-1.3); Monocytes % 13.3 % (0.0-12.0); Neutrophil % 68.7 % (36.0-66.0); Platelet Count 203 K/mm3 (150-450); Red Cell Distribution Width 13.9 % (11.5-14.0); White Blood Count 9.5 K/mm3 (4.0-10.5)
[2021-03-22] MEDS ORDERED: Zofran 4 MG/2 ML VIAL IV ONE (16:07)
[2021-03-22] MEDS ORDERED: Zofran 4 MG/2 ML VIAL ONE (16:08)
[2021-03-22] MEDS ORDERED: MORPHINE SULFATE 2 MG INJ IV ONE (16:08)
[2021-03-22] MEDS ORDERED: MORPHINE SULFATE 2 MG INJ ONE (16:08)
[2021-03-22 16:12] LABS: ALBUMIN 3.8 g/dL (3.5-5.0); ALKALINE PHOSPHATASE 84 U/L (38-126); ANION GAP 10.8 MEQ/L (5-15); BLOOD UREA NITROGEN 16 mg/dL (9-20); CHLORIDE 102 mmol/L (98-107); Carbon Dioxide 26 mmol/L (22-30); Creatinine 1 0.63 mg/dL (0.66-1.25); EST GLOMERULAR FILTRATION RATE > 60.0 ML/MIN; Glucose 262 mg/dL (74-106); SGOT/AST 23 U/L (17-59); SGPT/ALT 20 U/L (0-50); SODIUM 135 mmol/L (137-145); Total Protein 6.6 g/dL (6.3-8.2)
--- NOTE | 2021-03-22 17:12 | ERPHSYRPT ---
- History of Present Illness Time Seen by Provider: 03/22/21 14:32 Source: patient, EMS Exam Limitations: no limitations Patient Subjective Stated Complaint: Pt states he is weak. States this has been ongoing for months. Was evaluated in ER 03/21/21 and released. Ambulance was called this morning due to pt sliding out of new electric lift chair when he tried to use it. Home health came to evaluate pt on today's date and felt he was too weak to meet criteria. Triage Nursing Assessment: Pt skin pink, warm, dry. Pt alert and oriented to person, place, and time. Lung sounds clear and equal bilaterally, respirations non-labored. Physician History: 80 years old male with multiple medical problems including hypertension, diabetes mellitus, COPD, left sided weakness who was discharged yesterday is brought in the ER by EMS after home health determined that it was difficult for patient to do any activity at home because of his generalized weakness. Patient is wheelchair-bound and had to call EMS earlier today to help him get up. Patient complains of generalized weakness fatigue tiredness and achiness all o mam[place]. He burned his left lower thigh above knee few days ago which is healing but does have some swelling around without any worsening pain. Denies any fever or chills. He denies any chest pain palpitations or shortness of breath. No abdominal pain nausea or vomiting. Patient states "I am getting old and cannot do anything on my own, needs to go to residential". Allergies/Adverse Reactions: No Known Drug Allergies Allergy (Verified 03/22/21 14:42) Home Medications: Clopidogrel Bisulfate 75 mg [PLAVIX 75 MG Tablet] 75 mg PO DAILY 01/04/17 [History] Aspirin [Aspirin EC] 81 mg PO DAILY 10/28/19 [History] Atorvastatin Calcium 80 mg PO HS 10/28/19 [History] Escitalopram Oxalate 10 mg [Lexapro 10 MG] 10 mg PO HS 10/28/19 [History] Gabapentin 300 mg PO TID 10/28/19 [History] Insulin NPH Human Isophane [Humulin N] 50 units SQ BIDWM 10/28/19 [History] Metformin HCl [Metformin HCl ER] 500 mg PO DINNER 10/28/19 [History] Tamsulosin HCl 0.4 tablet PO HS 10/28/19 [History] Ipratropium/Albuterol Sulfate [Iprat-Albut 0.5-3(2.5) mg/3 ml] 1 neb IH QIDPRN PRN 07/25/20 [History] Hx Tetanus, Diphtheria Vaccination/Date Given: Yes Hx Influenza Vaccination/Date Given: Yes Hx Pneumococcal Vaccination/Date Given: Yes Immunizations Up to Date: Yes Travel Risk - International Travel Have you traveled outside of the country in past 3 weeks: No - Coronavirus Screening Are you exhibiting any of the following symptoms?: No Close contact with a COVID-19 positive Pt in past 14-21 Days: No - Vaccine Status Have you recieved a Covid-19 vaccination: Yes 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 - Vaccination Dates Date of 2cond Vaccination (if applicable): N/A Comment: Pt unsure of dates - Review of Systems Constitutional: Fatigue, Weakness Eyes: No Symptoms Ears, Nose, & Throat: No Symptoms Respiratory: Dyspnea Cardiac: No Symptoms Abdominal/Gastrointestinal: No Symptoms Genitourinary Symptoms: No Symptoms - Past Medical History Pertinent Past Medical History: Yes Neurological History: No Pertinent History ENT History: No Pertinent History Cardiac History: Hypertension Respiratory History: COPD, Emphysema Endocrine Medical History: Diabetes Type II Musculoskeletal History: Fractures, Degenerative Disk Disease GI Medical History: Hernia, Hepatitis History: No Pertinent History Psycho-Social History: No Pertinent History Male Reproductive Disorders: No Pertinent History Other Medical History: hep c,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 herniorr. as a child - Social History Smoking Status: Former smoker How long have you smoked: 66 years Exposure to second hand smoke: No Drug Use: none Patient Lives Alone: Yes - Nursing Vital Signs Nursing Vital Signs: Initial Vital Signs Temperature 98.5 F 03/22/21 14:31 Pulse Rate 78 03/22/21 14:31 Respiratory Rate 16 03/22/21 14:31 Blood Pressure 142/75 03/22/21 14:31 O2 Sat by Pulse Oximetry 95 03/22/21 14:31 Pain Scale Pain Intensity 0 - Physical Exam General Appearance: no apparent distress, alert, anxiety Eye Exam: PERRL/EOMI, eyes nml inspection Ears, Nose, Throat Exam: normal ENT inspection, pharynx normal Neck Exam: normal inspection, non-tender, supple, full range of motion Respiratory Exam: normal breath sounds, lungs clear Cardiovascular Exam: regular rate/rhythm, normal heart sounds Gastrointestinal/Abdomen Exam: soft, normal bowel sounds, No tenderness Extremity Exam: limited range of motion (Left knee with area of superficial w ound just above the knee with good granulation tissue. Mild erythema around. Mild warm and minimal tenderness.), swelling Neurologic Exam: alert, oriented x 3, cooperative, extension agent II-XII nml as tested, motor deficits (Left lower extremity), No nml station & gait, No sensation nml Skin Exam: normal color SpO2 Interpretation: normal SpO2: 95 O2 Delivery: Room Air Ordered Tests: Active Orders 24 hr Category Date Time Status Bedrest ROUTINE Activity 03/22/21 20:15 Active Up With Assistance ROUTINE Activity 03/22/21 20:15 Active Code Status Order ROUTINE Care 03/22/21 20:15 Active Fall Protocol Q1H Care 03/22/21 20:15 Active IV Care Q6H Care 03/22/21 20:15 Active IV Insertion STAT Care 03/22/21 15:10 Completed POCT Glucose Check ACHS Care 03/22/21 20:[address] in Observation ROUTINE Care 03/22/21 20:15 Active Juvenal Mayers, Apply ROUTINE Care 03/22/21 20:15 Active Weight,Daily 0600 Care 03/22/21 20:15 Active Consistent Carbohydrate Diet 2000 Calorie Diet 03/22/21 Dinner Active CBC W DIFF AM.LAB Lab 03/23/21 04:00 Ordered CBC W DIFF Stat Lab 03/22/21 15:10 Completed CMP AM.LAB Lab 03/23/21 04:00 Ordered CMP Stat Lab 03/22/21 15:10 Completed Lactic Acid Stat Lab 03/22/21 15:10 Completed UA W/RFX UR CULTURE Stat Lab 03/22/21 15:11 Ordered Transfer Order Routine Transfer 03/22/21 Completed Medication Summary Generic Name Dose Route Start Last Admin Trade Name Freq PRN Reason Stop Dose Admin Acetaminophen 650 mg 03/22/21 20:15 Tylenol 325 Mg PO 04/21/21 20:14 Q4H PRN PRN PAIN AND/OR FEVER Albuterol/Ipratropium 3 ml 03/22/21 20:15 Duoneb 0.5-3 Mg/3 Ml Neb IH 04/21/21 20:14 Q4HPRN PRN SHORTNESS OF BREATH/WHEEZING Famotidine 20 mg 03/22/21 22:00 Pepcid 20 Mg Vial IV 04/21/21 21:59 Q12HT BEATRIZ Potassium Chloride/Sodium Chloride 1,000 mls @ 100 mls/hr 03/22/21 20:15 Sodium Chloride 0.9% W/ 20 Meq Kcl/Liter IV 04/21/21 20:14 .Q10H BEATRIZ Insulin Human Lispro 0 unit 03/22/21 20:15 Humalog SQ 04/21/21 20:14 UD PRN HYPERGLYCEMIA Morphine Sulfate 2 mg 03/22/21 20:15 Morphine Sulfate 2 Mg Inj IV 03/27/21 20:14 Q4H PRN PRN PAIN Ondansetron HCl 4 mg 03/22/21 20:15 Zofran 4 Mg/2 Ml Vial IV 04/21/21 20:14 Q6H PRN PRN NAUSEA/VOMITING Discontinued Medications Generic Name Dose Route Start Last Admin Trade Name Freq PRN Reason Stop Dose Admin Sodium Chloride 1,000 mls @ 100 mls/hr 03/22/21 15:15 03/22/21 16:06 Sodium Chloride 0.9% 1000 Ml IV 04/21/21 15:14 100 mls/hr .Q10H BEATRIZ Administration Sodium Chloride Confirm 03/22/21 15:54 Sodium Chloride 0.9% 1000 Ml Administered 03/22/21 15:55 Dose 1,000 mls @ ud .ROUTE .STK-MED ONE Morphine Sulfate 2 mg 03/22/21 16:08 03/22/21 16:10 Morphine Sulfate 2 Mg Inj IV 03/22/21 16:09 2 mg STAT ONE Administration Morphine Sulfate Confirm 03/22/21 16:08 Morphine Sulfate 2 Mg Inj Administered 03/22/21 16:09 Dose 2 mg .ROUTE .STK-MED ONE Ondansetron HCl 4 mg 03/22/21 16:07 03/22/21 16:10 Zofran 4 Mg/2 Ml Vial IV 03/22/21 16:08 4 mg STAT ONE Administration Ondansetron HCl Confirm 03/22/21 16:08 Zofran 4 Mg/2 Ml Vial Administered 03/22/21 16:09 Dose 4 mg .ROUTE .STK-MED ONE Lab/Rad Data: Laboratory Result Diagrams 03/22/21 15:10 03/22/21 15:10 Laboratory Results 03/22/21 03/22/21 03/22/21 Range/Units 17:15 15:10 15:10 WBC (4.0-10.5) K/mm3 RBC (4.1-5.6) M/mm3 Hgb (12.5-18.0) gm/dl Hct (42-50) % MCV (78-100) fl MCH (26-32) pg MCHC (32-36) g/dl RDW (11.5-14.0) % Plt Count (150-450) K/mm3 MPV (7.5-11.0) fl Gran % (36.0-66.0) % Eos # (Auto) (0-0.5) Absolute Lymphs (auto) (1.0-4.6) Absolute Monos (auto) (0.0-1.3) Lymphocytes % (24.0-44.0) % Monocytes % (0.0-12.0) % Eosinophils % (0.00-5.0) % Basophils % (0.0-0.4) % Absolute Granulocytes (1.4-6.9) Basophils # (0-0.4) Sodium 135 L (137-145) mmol/L Potassium 4.0 (3.5-5.1) mmol/L Chloride 102 (98-107) mmol/L Carbon Dioxide 26 (22-30) mmol/L Anion Gap 10.8 (5-15) MEQ/L BUN 16 (9-20) mg/dL Creatinine 0.63 L (0.66-1.25) mg/dL Estimated GFR > 60.0 ML/MIN Glucose 262 H (74-106) mg/dL Lactic Acid 0.9 (0.4-2.0) Calcium 9.0 (8.4-10.2) mg/dL Total Bilirubin 0.40 (0.2-1.3) mg/dL AST 23 (17-59) U/L ALT 20 (0-50) U/L Alkaline Phosphatase 84 (38-126) U/L Serum Total Protein 6.6 (6.3-8.2) g/dL Albumin 3.8 (3.5-5.0) g/dL Influenza Type A Ag NEGATIVE (NEGATIVE) Influenza Type B Ag NEGATIVE (NEGATIVE) RSV (PCR) NEGATIVE (Negative) SARS-CoV-2 (PCR) NEGATIVE (NEGATIVE) 03/22/21 Range/Units 15:10 WBC 9.5 (4.0-10.5) K/mm3 RBC 4.30 (4.1-5.6) M/mm3 Hgb 11.5 L (12.5-18.0) gm/dl Hct 36.6 L (42-50) % MCV 85.1 (78-100) fl MCH 26.7 (26-32) pg MCHC 31.4 L (32-36) g/dl RDW 13.9 (11.5-14.0) % Plt Count 203 (150-450) K/mm3 MPV 10.3 (7.5-11.0) fl Gran % 68.7 H (36.0-66.0) % Eos # (Auto) 0.36 (0-0.5) Absolute Lymphs (auto) 1.33 (1.0-4.6) Absolute Monos (auto) 1.26 (0.0-1.3) Lymphocytes % 14.0 L (24.0-44.0) % Monocytes % 13.3 H (0.0-12.0) % Eosinophils % 3.8 (0.00-5.0) % Basophils % 0.2 (0.0-0.4) % Absolute Granulocytes 6.51 (1.4-6.9) Basophils # 0.02 (0-0.4) Sodium (137-145) mmol/L Potassium (3.5-5.1) mmol/L Chloride (98-107) mmol/L Carbon Dioxide (22-30) mmol/L Anion Gap (5-15) MEQ/L BUN (9-20) mg/dL Creatinine (0.66-1.25) mg/dL Estimated GFR ML/MIN Glucose (74-106) mg/dL Lactic Acid (0.4-2.0) Calcium (8.4-10.2) mg/dL Total Bilirubin (0.2-1.3) mg/dL AST (17-59) U/L ALT (0-50) U/L Alkaline Phosphatase (38-126) U/L Serum Total Protein (6.3-8.2) g/dL Albumin (3.5-5.0) g/dL Influenza Type A Ag (NEGATIVE) Influenza Type B Ag (NEGATIVE) RSV (PCR) (Negative) SARS-CoV-2 (PCR) (NEGATIVE) - Progress Progress: improved Progress Note: 03/22/21 17:11 Given fluid. Patient has generalized weakness. Baseline work-up is grossly negative. Discussed with and patient is being admitted for observation. Discussed with : Chloe Will see patient in: hospital (observation) Counseled pt/family regarding: lab results, diagnosis - Departure Departure Disposition: Observation Clinical Impression: Generalized weakness Condition: Stable Critical Care Time: No
--- NOTE | 2021-03-22 17:47 | PCM.HP ---
History of Present Illness - Chief Complaint Chief Complaint: very weak, unable to take care of himself. History of Present Illness: is a 80 year old male.states he is weak. States this has been ongoing for months. Was evaluated in ER 03/21/21 and released. Ambulance was called this morning due to pt sliding out of new electric lift chair when he tried to use it. Home health came to evaluate pt on today's date and felt he was too weak to meet criteria. Patient was recently admitted 2 days ago with UTI and was discharged home . Home health and physical therapy at home found him on floor so patient was bought in to ER - Review of Systems Constitutional: Lethargy, Weakness, No Fever, No Chills Eyes: No Symptoms Ears, Nose, & Throat: No Symptoms Respiratory: No Cough, No Short Of Breath Cardiac: No Chest Pain, No Edema, No Syncope Abdominal/Gastrointestinal: No Abdominal Pain, No Nausea, No Vomiting, No D iarrhea Genitourinary Symptoms: No Dysuria Musculoskeletal: No Back Pain, No Neck Pain Skin: No Rash Neurological: No Dizziness, No Focal Weakness, No Sensory Changes Psychological: No Symptoms Endocrine: No Symptoms Hematologic/Lymphatic: No Symptoms Immunological/Allergic: No Symptoms Medications & Allergies Home Medications: Home Medication List Clopidogrel Bisulfate 75 mg [PLAVIX 75 MG Tablet] 75 mg PO DAILY 01/04/17 [History Confirmed 03/19/21] Aspirin [Aspirin EC] 81 mg PO DAILY 10/28/19 [History Confirmed 03/19/21] Atorvastatin Calcium 80 mg PO HS 10/28/19 [History Confirmed 03/19/21] Escitalopram Oxalate 10 mg [Lexapro 10 MG] 10 mg PO HS 10/28/19 [History Confirmed 03/19/21] Gabapentin 300 mg PO TID 10/28/19 [History Confirmed 03/19/21] Insulin NPH Human Isophane [Humulin N] 50 units SQ BIDWM 10/28/19 [History Confirmed 03/19/21] Metformin HCl [Metformin HCl ER] 500 mg PO DINNER 10/28/19 [History Confirmed 03/19/21] Tamsulosin HCl 0.4 tablet PO HS 10/28/19 [History Confirmed 03/19/21] Ipratropium/Albuterol Sulfate [Iprat-Albut 0.5-3(2.5) mg/3 ml] 1 neb IH QIDPRN PRN 07/25/20 [History Confirmed 03/19/21] Amlodipine Besylate 5 mg [Norvasc 5 mg] 5 mg PO HS #30 tablet 03/20/21 [Rx] Lisinopril 20 mg [Zestril 20 MG] 20 mg PO HS #30 tablet 03/20/21 [Rx] Allergies/Adverse Reactions: Allergies Allergy/AdvReac Type Severity Reaction Status Date / Time No Known Drug Allergies Allergy Verified 03/22/21 14:42 - Past Medical History Past Medical History: Yes Neurological History: No Pertinent History ENT History: No Pertinent History Cardiac History: Hypertension Respiratory History: COPD, Emphysema Endocrine Medical History: Diabetes Type II Musculoskelatal History: Fractures, Degenerative Disk Disease GI Medical History: Hernia, Hepatitis History: No Pertinent History Pyscho-Social History: No Pertinent History Male Reproductive Disorders: No Pertinent History Comment: hep c,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 herniorr. as a child - Social History Smoking Status: Former smoker How long have you smoked: 66 years Exposure to second hand smoke: No Alcohol: Rarely Drug Use: none - Physical Exam Vital Signs: Vital Signs - 24 hr Temp Pulse Resp BP Pulse Ox 03/22/21 17:39 98.4 F 80 20 165/64 91 L 03/22/21 17:36 95 03/22/21 16:00 80 18 166/81 95 03/22/21 15:00 80 18 161/94 95 03/22/21 14:31 98.5 F 78 16 142/75 95 General Appearance: moderate distress, alert, lethargy Neurologic Exam: alert, motor deficits, motor weakness (left hemiplegia) Eye Exam: PERRL/EOMI, eyes nml inspection Ears, Nose, Throat Exam: normal ENT inspection, TMs normal, pharynx normal, moist mucous membranes Neck Exam: normal inspection, non-tender, supple, full range of motion Respiratory Exam: normal breath sounds, lungs clear, No respiratory distress Cardiovascular Exam: regular rate/rhythm, normal heart sounds, normal peripheral pulses Gastrointestinal/Abdomen Exam: soft, normal bowel sounds, No tenderness, No mass Back Exam: normal inspection, normal range of motion, No CVA tenderness, No vertebral tenderness Extremity Exam: normal inspection, normal range of motion, pelvis stable Skin Exam: normal color, warm, dry, No rash Lymphatic Exam: No adenopathy Results - Labs Lab/Micro Results: Lab Results-Last 24 Hours 03/22/21 03/22/21 03/22/21 Range/Units 15:10 15:10 15:10 WBC 9.5 (4.0-10.5) K/mm3 RBC 4.30 (4.1-5.6) M/mm3 Hgb 11.5 L (12.5-18.0) gm/dl Hct 36.6 L (42-50) % MCV 85.1 (78-100) fl MCH 26.7 (26-32) pg MCHC 31.4 L (32-36) g/dl RDW 13.9 (11.5-14.0) % Plt Count 203 (150-450) K/mm3 MPV 10.3 (7.5-11.0) fl Gran % 68.7 H (36.0-66.0) % Eos # (Auto) 0.36 (0-0.5) Absolute Lymphs (auto) 1.33 (1.0-4.6) Absolute Monos (auto) 1.26 (0.0-1.3) Lymphocytes % 14.0 L (24.0-44.0) % Monocytes % 13.3 H (0.0-12.0) % Eosinophils % 3.8 (0.00-5.0) % Basophils % 0.2 (0.0-0.4) % Absolute Granulocytes 6.51 (1.4-6.9) Basophils # 0.02 (0-0.4) Sodium 135 L (137-145) mmol/L Potassium 4.0 (3.5-5.1) mmol/L Chloride 102 (98-107) mmol/L Carbon Dioxide 26 (22-30) mmol/L Anion Gap 10.8 (5-15) MEQ/L BUN 16 (9-20) mg/dL Creatinine 0.63 L (0.66-1.25) mg/dL Estimated GFR > 60.0 ML/MIN Glucose 262 H (74-106) mg/dL Lactic Acid 0.9 (0.4-2.0) Calcium 9.0 (8.4-10.2) mg/dL Total Bilirubin 0.40 (0.2-1.3) mg/dL AST 23 (17-59) U/L ALT 20 (0-50) U/L Alkaline Phosphatase 84 (38-126) U/L Serum Total Protein 6.6 (6.3-8.2) g/dL Albumin 3.8 (3.5-5.0) g/dL Assessment/Plan (1) Generalized weakness Current Visit: Yes Status: Acute Assessment & Plan: Chief Complaint Diagnosis very weak, unable to take care of himself. Allergies Allergy/AdvReac Type Severity Reaction Status Date / Time No Known Drug Allergies Allergy Verified 03/22/21 14:42 Vital Signs (Last 24 hours) Temp Pulse Resp BP Pulse Ox 03/22/21 17:39 98.4 F 80 20 165/64 91 L 03/22/21 17:36 95 03/22/21 16:00 80 18 166/81 95 03/22/21 15:00 80 18 161/94 95 03/22/21 14:31 98.5 F 78 16 142/75 95 Current Medications Generic Name Dose Route Start Last Admin Trade Name Freq PRN Reason Stop Dose Admin Sodium Chloride 1,000 mls @ 100 mls/hr 03/22/21 15:15 03/22/21 16:06 Sodium Chloride 0.9% 1000 Ml IV 04/21/21 15:14 100 mls/hr .Q10H BEATRIZ Administration Discontinued Medications Generic Name Dose Route Start Last Admin Trade Name Freq PRN Reason Stop Dose Admin Morphine Sulfate 2 mg 03/22/21 16:08 03/22/21 16:10 Morphine Sulfate 2 Mg Inj IV 03/22/21 16:09 2 mg STAT ONE Administration Morphine Sulfate Confirm 03/22/21 16:08 Morphine Sulfate 2 Mg Inj Administered 03/22/21 16:09 Dose 2 mg .ROUTE .STK-MED ONE Ondansetron HCl 4 mg 03/22/21 16:07 03/22/21 16:10 Zofran 4 Mg/2 Ml Vial IV 03/22/21 16:08 4 mg STAT ONE Administration Ondansetron HCl Confirm 03/22/21 16:08 Zofran 4 Mg/2 Ml Vial Administered 03/22/21 16:09 Dose 4 mg .ROUTE .STK-MED ONE Intake & Output (Last 24 hours) 03/20/21 03/21/21 03/22/21 03/23/21 11:59 11:59 11:59 11:59 Output Total 400 Balance -400 Laboratory Results (Last 24 hours) 03/22/21 03/22/21 03/22/21 15:10 15:10 15:10 WBC 9.5 RBC 4.30 Hgb 11.5 L Hct 36.6 L MCV 85.1 MCH 26.7 MCHC 31.4 L RDW 13.9 Plt Count 203 MPV 10.3 Gran % 68.7 H Eos # (Auto) 0.36 Absolute Lymphs (auto) 1.33 Absolute Monos (auto) 1.26 Lymphocytes % 14.0 L Monocytes % 13.3 H Eosinophils % 3.8 Basophils % 0.2 Absolute Granulocytes 6.51 Basophils # 0.02 Sodium 135 L Potassium 4.0 Chloride 102 Carbon Dioxide 26 Anion Gap 10.8 BUN 16 Creatinine 0.63 L Estimated GFR > 60.0 Glucose 262 H Lactic Acid 0.9 Calcium 9.0 Total Bilirubin 0.40 AST 23 ALT 20 Alkaline Phosphatase 84 Serum Total Protein 6.6 Albumin 3.8 Orders (Last 24 hours) Category Date Time Status IV Insertion STAT Care 03/22/21 15:10 Active Consistent Carbohydrate Diet 1999 Calorie Diet 03/22/21 Dinner Active CBC W DIFF Stat Lab 03/22/21 15:10 Completed CMP Stat Lab 03/22/21 15:10 Completed Lactic Acid Stat Lab 03/22/21 15:10 Completed UA W/RFX UR CULTURE Stat Lab 03/22/21 15:11 Ordered Morphine Sulfate 2 mg Inj Med 03/22/21 16:08 Discontinued 2 mg .ROUTE .STK-MED ONE Morphine Sulfate 2 mg Inj Med 03/22/21 16:08 Discontinued 2 mg IV STAT ONE NaCl 0.9% 1000 ml [Sodium Chloride 0.9% 1000 ML] 1,000 Med 03/22/21 15:15 Ordered ml IV 100 mls/hr Ondansetron HCl 4 mg/2 ml [Zofran 4 MG/2 ML VIAL] Med 03/22/21 16:08 Discontinued 4 mg .ROUTE .STK-MED ONE Ondansetron HCl 4 mg/2 ml [Zofran 4 MG/2 ML VIAL] Med 03/22/21 16:07 Discontinued 4 mg IV STAT ONE Transfer Order Routine Transfer 03/22/21 Ordered Code(s): R53.1 - WEAKNESS (2) Hemiplegia affecting left nondominant side Current Visit: Yes Status: Acute Qualifiers: Hemiplegia type: flaccid 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
[2021-03-22 18:30] LABS: INFLUENZA A NEGATIVE (NEGATIVE); INFLUENZA B NEGATIVE (NEGATIVE); RESPIRATORY SYNCTIAL VIRUS NEGATIVE (Negative)
[2021-03-22] MEDS ORDERED: MORPHINE SULFATE 2 MG INJ IV PRN (20:15)
[2021-03-22] MEDS ORDERED: Zofran 4 MG/2 ML VIAL IV PRN (20:15)
[2021-03-22] MEDS ORDERED: DUONEB 0.5-3 MG/3 ml Neb IH PRN (20:15)
[2021-03-22] MEDS ORDERED: Sodium Chloride 0.9% W/ 20 mEq KCl/LITER 1,000 ML IV SCH (20:15)
[2021-03-22] MEDS ORDERED: TYLENOL 325 MG PO PRN (20:15)
[2021-03-22] MEDS: Lexapro 10 MG PO SCH (23:27)
[2021-03-22] MEDS: Pepcid 20 MG VIAL IV SCH (23:27)
[2021-03-22] MEDS: Zestril 20 MG PO SCH (23:27)
[2021-03-22] MEDS: NEURONTIN 300 MG PO SCH (23:27)
[2021-03-22] MEDS: Flomax 0.4 MG PO SCH (23:27)
[2021-03-22] MEDS: HUMALOG SQ PRN (23:28)
[2021-03-23 02:13] LABS: Appearance CLEAR (CLEAR); Bacteria RARE /HPF (NEGATIVE); Bilirubin NEGATIVE (NEGATIVE); Blood SMALL Ery/ul (0-5); Glucose >=500 mg/dL (NEGATIVE); Ketones NEGATIVE (NEGATIVE); Leukocyte Esterase TRACE (NEGATIVE); Mucus SLIGHT /HPF (NEGATIVE); Nitrite NEGATIVE (NEGATIVE); Protein,Urine Dip 30 (Negative); RBC 0-2 /HPF (0-2); Specific Gravity 1.018 (1.005-1.025); Urobilinogen NEGATIVE mg/dL (0-1)
[2021-03-23 03:40] LABS: A-aADO2 40; ABG HEMOGLOBIN 11.1; ABG POTASSIUM 4.1 (3.5-5.1); ABG SITE RIGHT BRACHIAL; ARTERIAL BLD GAS O2 SATURATION 99.5 % (95-100); ARTERIAL BLOOD GAS BASE EXCESS 6.4 (-2.0-2.0); ARTERIAL BLOOD GAS FIO2 32 %; ARTERIAL BLOOD GAS PCO2 45 mmHg (35-45); ARTERIAL BLOOD GAS PO2 132 mmHg (75-100); ARTERIAL BLOOD GAS pH 7.45 (7.35-7.45); HCO3- 31.3 (22-28); HGB O2 SAT 97.7 g/dF (94-100); Methhemoglobin 0.8 % (1.4-1.5)
[2021-03-23 07:03] LABS: Absolute Neutrophil Ct (ANC) 4.09 (1.4-6.9); BASOPHIL % 0.3 % (0.0-0.4); Basophil (Absolute #) 0.02 (0-0.4); Eosinophil % 5.4 % (0.00-5.0); Hematocrit 34.8 % (42-50); Hemoglobin 10.6 gm/dl (12.5-18.0); Lymphocyte (Absolute #) 1.67 (1.0-4.6); Lymphocytes % 22.6 % (24.0-44.0); Mean Cell Volume 87.2 fl (78-100); Mean Corpuscular Hemoglobin 26.6 pg (26-32); Mean Corpuscular Hgb Concent. 30.5 g/dl (32-36); Mean Platelet Volume 10.2 fl (7.5-11.0); Monocyte (Absolute #) 1.22 (0.0-1.3); Monocytes % 16.5 % (0.0-12.0); Neutrophil % 55.2 % (36.0-66.0); Platelet Count 190 K/mm3 (150-450); Red Blood Count 3.99 M/mm3 (4.1-5.6); White Blood Count 7.4 K/mm3 (4.0-10.5)
[2021-03-23 07:26] LABS: ALBUMIN 3.2 g/dL (3.5-5.0); ALKALINE PHOSPHATASE 69 U/L (38-126); ANION GAP 6.8 MEQ/L (5-15); BLOOD UREA NITROGEN 17 mg/dL (9-20); CHLORIDE 106 mmol/L (98-107); Calcium 8.6 mg/dL (8.4-10.2); Carbon Dioxide 28 mmol/L (22-30); EST GLOMERULAR FILTRATION RATE > 60.0 ML/MIN; Glucose 192 mg/dL (74-106); Potassium 3.8 mmol/L (3.5-5.1); SGOT/AST 19 U/L (17-59); SGPT/ALT 16 U/L (0-50); SODIUM 138 mmol/L (137-145); Total Protein 5.8 g/dL (6.3-8.2)
[2021-03-23] MEDS: Pepcid 20 MG VIAL IV SCH (11:03)
[2021-03-23] MEDS: PLAVIX 75 MG Tablet PO SCH (11:06)
[2021-03-23] MEDS: NEURONTIN 300 MG PO SCH ×3 (11:06→21:38)
[2021-03-23] MEDS: Novolin N SQ SCH ×2 (11:06→17:27)
[2021-03-23] MEDS: ECOTRIN 81 MG PO SCH (11:06)
[2021-03-23] MEDS: HUMALOG SQ PRN ×2 (13:26→21:38)
[2021-03-23] MEDS: Glucophage XR 500 MG PO SCH (16:35)
[2021-03-23] MEDS ORDERED: NON-FORMULARY ITEM (Metformin Hcl [Metformin Hcl Er] 500 MG) PO SCH (17:00)
[2021-03-23] MEDS: ZOCOR 20MG PO SCH (21:38)
[2021-03-23] MEDS: Flomax 0.4 MG PO SCH (21:38)
[2021-03-23] MEDS: Zestril 20 MG PO SCH (21:38)
[2021-03-23] MEDS: NORVASC 5 MG PO SCH (21:38)
[2021-03-23] MEDS: Lexapro 10 MG PO SCH (21:38)
[2021-03-23] MEDS ORDERED: NON-FORMULARY ITEM (Atorvastatin Calcium [Atorvastatin Calcium] 80 MG) PO SCH (22:00)
[2021-03-24] MEDS: PLAVIX 75 MG Tablet PO SCH (09:03)
[2021-03-24] MEDS: Novolin N SQ SCH ×2 (09:03→17:38)
[2021-03-24] MEDS: NEURONTIN 300 MG PO SCH ×3 (09:03→22:03)
[2021-03-24] MEDS: ECOTRIN 81 MG PO SCH (09:03)
[2021-03-24] MEDS: HUMALOG SQ PRN ×2 (13:24→22:06)
[2021-03-24] MEDS: Glucophage XR 500 MG PO SCH (17:39)
[2021-03-24] MEDS: NORVASC 5 MG PO SCH (22:03)
[2021-03-24] MEDS: Flomax 0.4 MG PO SCH (22:03)
[2021-03-24] MEDS: Zestril 20 MG PO SCH (22:03)
[2021-03-24] MEDS: Lexapro 10 MG PO SCH (22:03)
[2021-03-24] MEDS: ZOCOR 20MG PO SCH (22:04)
--- NOTE | 2021-03-25 07:54 | PCM.NOTE ---
Date and Time: 03/25/21 0752 Subjective Assessment: doing better - Review of Systems Constitutional: No Fever, No Chills Eyes: No Symptoms Ears, Nose, & Throat: No Symptoms Respiratory: No Cough, No Short Of Breath Cardiac: No Chest Pain, No Edema, No Syncope Abdominal/Gastrointestinal: No Abdominal Pain, No Nausea, No Vomiting, No Diarrhea Genitourinary Symptoms: No Dysuria Musculoskeletal: No Back Pain, No Neck Pain Skin: No Rash Neurological: No Dizziness, No Focal Weakness, No Sensory Changes Psychological: No Symptoms Endocrine: No Symptoms Hematologic/Lymphatic: No Symptoms Immunological/Allergic: No Symptoms Objective Exam General Appearance: no apparent distress, alert Neurologic Exam: alert, oriented x 3, cooperative, motor deficits, abnormal cerebellar tests Skin Exam: normal color, warm, dry Wound Assessment: Skin/Wound Assessment Wound/Incision Assessment Start: 03/23/21 02:46 Text: Status: Active Freq: Q6H Protocol: Document 03/25/21 02:00 MG (Rec: 03/25/21 03:05 MG [id number]) Wound/Incision Assessment Left Thigh Wound Assessment Shift Assessment Wound Type Burn Drainage Amount None General Appearance Open to air Primary Dressing open to air Comment No change noted. Eye Exam: PERRL, EOMI, eyes nml inspection Ears, Nose, Throat Exam: normal ENT inspection, pharynx normal, moist mucous membranes Neck Exam: normal inspection, non-tender, supple, full range of motion Respiratory Exam: normal breath sounds, lungs clear, No respiratory distress Cardiovascular Exam: regular rate/rhythm, normal heart sounds Gastrointestinal/Abdomen Exam: soft, No tenderness, No mass Extremity Exam: normal inspection, normal range of motion Back Exam: normal inspection, normal range of motion, No CVA tenderness, No vertebral tenderness Male Genitalia Exam: deferred Rectal Exam: deferred OBJECTIVE DATA Vital Signs: Vital Signs - 24 hr Temp Pulse Resp BP Pulse Ox 03/25/21 07:47 98.2 F 75 18 131/60 94 L 03/25/21 07:45 73 18 97 03/25/21 04:15 98.0 F 67 24 109/57 96 03/25/21 00:00 98.6 F 76 20 128/62 95 03/24/21 20:27 68 19 96 03/24/21 20:00 98.2 F 68 19 148/69 96 03/24/21 16:00 98.1 F 73 18 135/59 95 03/24/21 12:00 74 18 145/63 96 03/24/21 08:00 98.3 F 76 18 136/62 95 03/24/21 07:57 75 20 92 L Pain Assessment - Last Documented Pain Intensity 10 Pain Scale Used 0-10 Pain Scale Intake and Output: Intake & Output 03/22/21 03/23/21 03/24/21 03/25/21 11:59 11:59 11:59 11:59 Intake Total 1021 1700 1000 Output Total 142 891 4010 Balance 421 1150 -200 Weight 98.5 kg 99.9 kg Lab Results: Lab Results-Last 24 Hours 03/24/21 03/24/21 03/24/21 Range/Units 11:44 16:43 21:34 POC Glucometer 321 H 247 H 202 H (74 to 106) mg/dL 03/25/21 Range/Units 07:25 POC Glucometer 165 H (74 to 106) mg/dL Assessment/Plan (1) Generalized weakness Current Visit: Yes Status: Resolved Code(s): R53.1 - WEAKNESS (2) Hemiplegia affecting left nondominant side Current Visit: Yes Status: Acute Qualifiers: Hemiplegia type: flaccid 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
[2021-03-25] MEDS: Novolin N SQ SCH ×2 (08:30→18:53)
[2021-03-25] MEDS: PLAVIX 75 MG Tablet PO SCH (10:11)
[2021-03-25] MEDS: ECOTRIN 81 MG PO SCH (10:11)
[2021-03-25] MEDS: NEURONTIN 300 MG PO SCH ×3 (10:11→21:06)
--- NOTE | 2021-03-25 10:24 | HP ---
CHIEF COMPLAINT: Weak, unable to move his left side. HISTORY OF PRESENT ILLNESS: The patient is a 80 year-old white male patient who reports he has been having increasing weakness over the past several months. EMS was called to bring him to this facility this morning due to sliding out of his new electric lift chair. On the patient's evaluation he was found to have partial left hemiplegia. He is currently unable to care for himself in the home and therefore brought to the hospital for further evaluation and management. PAST MEDICAL/SURGICAL HISTORY: The patient has previously has had a suprapubic catheter placed for urine obstruction problems. He has history of diabetes mellitus type II, chronic obstructive pulmonary disease, emphysema, hypertension, degenerative disc disease. HOME MEDICATIONS: His current home medication list includes amlodipine 5 mg daily, aspirin 81 mg a day, atorvastatin 80 mg a day, Plavix 75 mg daily, Lexapro 10 mg a day, gabapentin 300 mg t.i.d. He has insulin Humulin N 50 units b.i.d., DuoNebs PRN, lisinopril 20 mg a day, Metformin Extended Release 500 mg with dinner and tamsulosin 0.4 mg at night. ALLERGIES: NKDA. PHYSICAL EXAMINATION: The patient appeared to be mildly obese, 80 year-old white male patient who is alert and oriented x3. VITAL SIGNS: His vital signs on admission revealed his temperature to be 98.4F, pulse 80, respiratory rate 20 and blood pressure 165/64. O2 saturation 91%. He does have home oxygen but reports he does not use it but does not want to take it out of his home either. HEENT: Appears to be normocephalic, atraumatic. Pupils appear to be equal round reactive to light. Extraocular movements intact. Oropharynx is dry. NECK: Supple without lymphadenopathy, thyromegaly or JVD. CHEST: Clear to auscultation. HEART: Regular rate and rhythm without significant murmurs, rubs or gallops heard. ABDOMEN: Soft. No palpable masses were felt. EXTREMITIES: Without cyanosis or clubbing. There is mild trace edema noted. NEUROLOGIC: The patient has a partial left hemiplegia. He is able to move the leg fairly well but the arm he is not able to raise without using assist of his other hand. LAB DATA AND TESTS: The patient's laboratory studies showed his white count to be 7.4, hemoglobin 10.6, PLT count 190,000. Blood gas obtained showed pH 7.45, pCO2 45. pO2 132. Urine showed greater than 500 glucose, specific gravity 1.018. He had 11-15 white blood cells per high power field and 0-2 red blood cells. The nitrite was negative. His COVID, influenza and RSV tests were negative. His glucose nonfasting was 262, BUN 16, creatinine 0.63. Electrolytes are slightly low sodium 135 otherwise were normal. Liver enzymes were likewise normal. He had a lactic acid initially of 0.9. ASSESSMENT: A patient with chronic left hemiplegia partial but now no longer able to care for himself. He demonstrated the fact that he slid out of his chair this morning. He has no otherwise acute findings going on at the present time. He has been admitted to the hospital with evaluation to be obtained by physical therapy and what appears like for him to need terminal makeup operator care facility placement due to his inability to care for himself any longer in the home situation.
[2021-03-25] MEDS ORDERED: ZOFRAN ODT 4 MG PO PRN (12:37)
[2021-03-25] MEDS: HUMALOG SQ PRN (12:45)
[2021-03-25] MEDS: Glucophage XR 500 MG PO SCH (18:53)
[2021-03-25] MEDS: FLAGYL 500 MG IVPB 500 MG/100 ML BAG IV SCH ×2 (19:53→21:38)
[2021-03-25] MEDS: Lactated Ringers 1,000 ML IV SCH (19:53)
[2021-03-25 20:38] LABS: Hematocrit 36.4 % (42-50); Hemoglobin 11.1 gm/dl (12.5-18.0); Mean Cell Volume 87.9 fl (78-100); Mean Corpuscular Hemoglobin 26.8 pg (26-32); Mean Corpuscular Hgb Concent. 30.5 g/dl (32-36); Mean Platelet Volume 10.1 fl (7.5-11.0); Platelet Count 218 K/mm3 (150-450); Red Blood Count 4.14 M/mm3 (4.1-5.6); Red Cell Distribution Width 13.8 % (11.5-14.0)
[2021-03-25 20:41] LABS: ALBUMIN 3.6 g/dL (3.5-5.0); ALKALINE PHOSPHATASE 72 U/L (38-126); ANION GAP 8.1 MEQ/L (5-15); BLOOD UREA NITROGEN 23 mg/dL (9-20); CHLORIDE 103 mmol/L (98-107); Carbon Dioxide 32 mmol/L (22-30); EST GLOMERULAR FILTRATION RATE > 60.0 ML/MIN; Glucose 195 mg/dL (74-106); Potassium 4.1 mmol/L (3.5-5.1); SGOT/AST 24 U/L (17-59); SGPT/ALT 16 U/L (0-50); SODIUM 139 mmol/L (137-145); Total Protein 6.4 g/dL (6.3-8.2)
[2021-03-25] MEDS: Lexapro 10 MG PO SCH (21:05)
[2021-03-25] MEDS: Flomax 0.4 MG PO SCH (21:05)
[2021-03-25] MEDS: Zestril 20 MG PO SCH (21:06)
[2021-03-25] MEDS: NORVASC 5 MG PO SCH (21:09)
[2021-03-25] MEDS: ZOCOR 20MG PO SCH (21:12)
[2021-03-26] MEDS: Lactated Ringers 1,000 ML IV SCH ×3 (05:02→21:34)
[2021-03-26] MEDS: FLAGYL 500 MG IVPB 500 MG/100 ML BAG IV SCH ×3 (05:19→21:33)
[2021-03-26] MEDS: Novolin N SQ SCH ×2 (08:23→17:43)
--- NOTE | 2021-03-26 08:42 | XRAY ---
Indication: Nausea and projectile vomiting. Multiple contiguous axial images obtained through the abdomen and pelvis without contrast. Comparison: CT abdomen July 08, 2012. Lung bases demonstrate new mild bibasilar subsegmental atelectasis/scarring and tiny right effusion. Posterior medial right lower lobe demonstrates new 1.8 x 4.2 cm oval subpleural noncalcified masslike opacity with irregular margins, mass versus round atelectasis. Heart is not enlarged. Noncontrasted stomach and bowel loops nonobstructed. Normal appendix. New mild diffuse scattered colonic fecal debris throughout with moderate rectal impaction. Scattered colonic diverticulosis, greatest sigmoid colon. Interval enlarging gallstones, largest 1.1 x 3.4 cm. New 1 cm left mid renal cortical cyst. Incidental suprapubic urinary bladder catheter with balloon tip just anterior to the rectus abdominis. Remaining liver, pancreas, spleen, adrenal glands, kidneys, ureters, and bladder are unremarkable for noncontrast exam. Moderate/advanced diffuse scattered vascular calcifications without AAA. Osseous structures intact and demineralized consistent with patient's age. Impression: 1. New bibasilar atelectasis/scarring and tiny right effusion. Also new right lower lobe subpleural masslike opacity as detailed, mass versus round atelectasis. 2. New diffuse fecal stasis with rectal impaction. 3. Incidental colonic diverticulosis, small left renal cyst, and suprapubic urinary bladder catheter. Balloon tip of the bladder catheter is anterior to rectus abdominis.
[2021-03-26] MEDS: PLAVIX 75 MG Tablet PO SCH (09:51)
[2021-03-26] MEDS: NEURONTIN 300 MG PO SCH ×3 (09:51→21:33)
[2021-03-26] MEDS: ECOTRIN 81 MG PO SCH (09:51)
[2021-03-26] MEDS: Glucophage XR 500 MG PO SCH (16:49)
--- NOTE | 2021-03-26 20:40 | PCM.NOTE ---
Date and Time: 03/26/212036 Subjective Assessment: feeling better - Review of Systems Constitutional: No Fever, No Chills Eyes: No Symptoms Ears, Nose, & Throat: No Symptoms Respiratory: No Cough, No Short Of Breath Cardiac: No Chest Pain, No Edema, No Syncope Abdominal/Gastrointestinal: No Abdominal Pain, No Nausea, No Vomiting, No Diarrhea Genitourinary Symptoms: No Dysuria Musculoskeletal: No Back Pain, No Neck Pain Skin: No Rash Neurological: No Dizziness, No Focal Weakness, No Sensory Changes Psychological: No Symptoms Endocrine: No Symptoms Hematologic/Lymphatic: No Symptoms Immunological/Allergic: No Symptoms Objective Exam General Appearance: no apparent distress, alert Neurologic Exam: alert, oriented x 3, cooperative, motor deficits Skin Exam: normal color, warm, dry Wound Assessment: Skin/Wound Assessment Wound/Incision Assessment Start: 03/23/21 02:46 Text: Status: Active Freq: Q6H Protocol: Document 03/26/21 13:52 [facility] (Rec: 03/26/21 13:53 [facility] [id number]) Wound/Incision Assessment Left Thigh Wound Assessment Shift Assessment Wound Type Burn Drainage Amount None General Appearance Open to air Primary Dressing open to air Wound Photo Photo Taken Yes Date: 03/23/21 Eye Exam: PERRL, EOMI, eyes nml inspection Ears, Nose, Throat Exam: normal ENT inspection, pharynx normal, moist mucous membranes Neck Exam: normal inspection, non-tender, supple, full range of motion Respiratory Exam: normal breath sounds, lungs clear, No respiratory distress Cardiovascular Exam: regular rate/rhythm, normal heart sounds Gastrointestinal/Abdomen Exam: soft, No tenderness, No mass Extremity Exam: normal inspection, normal range of motion Back Exam: normal inspection, normal range of motion, No CVA tenderness, No vertebral tenderness Male Genitalia Exam: deferred Rectal Exam: deferred OBJECTIVE DATA Vital Signs: Vital Signs - 24 hr Temp Pulse Resp BP Pulse Ox 03/26/21 20:00 98.2 F 76 20 137/61 96 03/26/21 19:55 71 17 93 L 03/26/21 16:00 97.1 F 75 16 133/65 97 03/26/21 12:00 98.0 F 74 16 128/60 94 L 03/26/21 08:54 76 16 95 03/26/21 07:33 98.6 F 73 18 130/58 96 03/26/21 04:00 98.4 F 78 24 138/63 93 L 03/25/21 23:51 98.7 F 50 L 22 158/71 90 L Pain Assessment - Last Documented Pain Intensity 5 Pain Scale Used [facility] Intake and Output: Intake & Output 03/24/21 03/25/21 03/26/21 03/27/21 11:59 11:59 11:59 11:59 Intake Total 1700 1240 1244 2077 Output Total 550 1200 1575 850 Balance 1150 40 -331 1227 Weight 99.9 kg 99.7 kg Lab Results: Lab Results-Last 24 Hours 03/25/21 03/25/21 03/26/21 Range/Units 20:10 20:10 07:15 WBC 9.0 (4.0-10.5) K/mm3 RBC 4.14 (4.1-5.6) M/mm3 Hgb 11.1 L (12.5-18.0) gm/dl Hct 36.4 L (42-50) % MCV 87.9 (78-100) fl MCH 26.8 (26-32) pg MCHC 30.5 L (32-36) g/dl RDW 13.8 (11.5-14.0) % Plt Count 218 (150-450) K/mm3 MPV 10.1 (7.5-11.0) fl Sodium 139 (137-145) mmol/L Potassium 4.1 (3.5-5.1) mmol/L Chloride 103 (98-107) mmol/L Carbon Dioxide 32 H (22-30) mmol/L Anion Gap 8.1 (5-15) MEQ/L BUN 23 H (9-20) mg/dL Creatinine 0.60 L (0.66-1.25) mg/dL Estimated GFR > 60.0 ML/MIN Glucose 195 H (74-106) mg/dL POC Glucometer 190 H (74 to 106) mg/dL Calcium 9.0 (8.4-10.2) mg/dL Total Bilirubin 0.50 (0.2-1.3) mg/dL AST 24 (17-59) U/L ALT 16 (0-50) U/L Alkaline Phosphatase 72 (38-126) U/L Serum Total Protein 6.4 (6.3-8.2) g/dL Albumin 3.6 (3.5-5.0) g/dL 03/26/21 03/26/21 Range/Units 11:32 16:48 WBC (4.0-10.5) K/mm3 RBC (4.1-5.6) M/mm3 Hgb (12.5-18.0) gm/dl Hct (42-50) % MCV (78-100) fl MCH (26-32) pg MCHC (32-36) g/dl RDW (11.5-14.0) % Plt Count (150-450) K/mm3 MPV (7.5-11.0) fl Sodium (137-145) mmol/L Potassium (3.5-5.1) mmol/L Chloride (98-107) mmol/L Carbon Dioxide (22-30) mmol/L Anion Gap (5-15) MEQ/L BUN (9-20) mg/dL Creatinine (0.66-1.25) mg/dL Estimated GFR ML/MIN Glucose (74-106) mg/dL POC Glucometer 187 H 223 H (74 to 106) mg/dL Calcium (8.4-10.2) mg/dL Total Bilirubin (0.2-1.3) mg/dL AST (17-59) U/L ALT (0-50) U/L Alkaline Phosphatase (38-126) U/L Serum Total Protein (6.3-8.2) g/dL Albumin (3.5-5.0) g/dL Radiology Exams: Radiology Procedures Category Date Time Status ABDOMEN AND PELVIS W/0 CONTRAS [CT] Stat Exams 03/25/21 16:[address]/ABDOMEN AND PELVIS W/0 CONTRAS Indication: Nausea and projectile vomiting. Multiple contiguous axial images obtained through the abdomen and pelvis without contrast. Comparison: CT abdomen July 08, 2012. Lung bases demonstrate new mild bibasilar subsegmental atelectasis/scarring and tiny right effusion. Posterior medial right lower lobe demonstrates new 1.8 x 4.2 cm oval subpleural noncalcified masslike opacity with irregular margins, mass versus round atelectasis. Heart is not enlarged. Noncontrasted stomach and bowel loops nonobstructed. Normal appendix. New mild diffuse scattered colonic fecal debris throughout with moderate rectal impaction. Scattered colonic diverticulosis, greatest sigmoid colon. Interval enlarging gallstones, largest 1.1 x 3.4 cm. New 1 cm left mid renal cortical cyst. Incidental suprapubic urinary bladder catheter with balloon tip just anterior to the rectus abdominis. Remaining liver, pancreas, spleen, adrenal glands, kidneys, ureters, and bladder are unremarkable for noncontrast exam. Moderate/advanced diffuse scattered vascular calcifications without AAA. Osseous structures intact and demineralized consistent with patient's age. Impression: 1. New bibasilar atelectasis/scarring and tiny right effusion. Also new right lower lobe subpleural masslike opacity as detailed, mass versus round atelectasis. 2. New diffuse fecal stasis with rectal impaction. 3. Incidental colonic diverticulosis, small left renal cyst, and suprapubic urinary bladder catheter. Balloon tip of the bladder catheter is anterior to rectus abdominis. Multi-Disciplinary Progress Notes: Multi-Disciplinary Progress Notes 03/26/21 12:06 Case Management Note by Sharee Stuart WAITING ON PRECERT FROM INSURANCE FOR HIM TO GO TO [facility] Initialized on 03/26/21 12:06 - END OF NOTE Assessment/Plan (1) Diverticulitis large intestine Current Visit: Yes Status: Acute Qualifiers: Diverticulitis bleeding: without bleeding Diverticulitis complication: without perforation or abscess Qualified Code(s): K57.32 - Diverticulitis of large intestine without perforation or abscess without bleeding Assessment & Plan: Chief Complaint Diagnosis Generalized Weakness Allergies Allergy/AdvReac Type Severity Reaction Status Date / Time No Known Drug Allergies Allergy Verified 03/22/21 14:42 Vital Signs (Last 24 hours) Temp Pulse Resp BP Pulse Ox 03/26/21 20:00 98.2 F 76 20 137/61 96 03/26/21 19:55 71 17 93 L 03/26/21 16:00 97.1 F 75 16 133/65 97 03/26/21 12:00 98.0 F 74 16 128/60 94 L 03/26/21 08:54 76 16 95 03/26/21 07:33 98.6 F 73 18 130/58 96 03/26/21 04:00 98.4 F 78 24 138/63 93 L 03/25/21 23:51 98.7 F 50 L 22 158/71 90 L Current Medications Generic Name Dose Route Start Last Admin Trade Name Freq PRN Reason Stop Dose Admin Acetaminophen 650 mg 03/22/21 20:15 03/24/21 22:04 Tylenol 325 Mg PO 04/21/21 20:14 650 mg Q4H PRN PRN Administration PAIN AND/OR FEVER Albuterol/Ipratropium 3 ml 03/22/21 20:15 03/23/21 03:46 Duoneb 0.5-3 Mg/3 Ml Neb IH 04/21/21 20:14 3 ml Q4HPRN PRN Administration SHORTNESS OF BREATH/WHEEZING Amlodipine Besylate 5 mg 03/23/21 22:00 03/25/21 21:09 Norvasc 5 Mg PO 04/22/21 21:59 5 mg HS BEATRIZ Administration Aspirin 81 mg 03/23/21 10:00 03/26/21 09:51 Ecotrin 81 Mg PO 04/22/21 09:59 Not Given DAILY BEATRIZ Clopidogrel Bisulfate 75 mg 03/23/21 10:00 03/26/21 09:51 Plavix 75 Mg Tablet PO 04/22/21 09:59 Not Given DAILY BEATRIZ Escitalopram Oxalate 10 mg 03/22/21 23:00 03/25/21 21:05 Lexapro 10 Mg PO 04/21/21 22:59 10 mg HS BEATRIZ Administration Gabapentin 300 mg 03/22/21 23:00 03/26/21 15:33 Neurontin 300 Mg PO 04/21/21 22:59 Not Given TID BEATRIZ Metronidazole 500 mg in 100 mls @ 200 mls/hr 03/25/21 20:00 03/26/21 14:03 Flagyl 500 Mg Ivpb IV 04/24/21 19:59 200 mls/hr Q8HT BEATRIZ Administration Lactated Ringer's 1,000 mls @ 120 mls/hr 03/25/21 19:30 03/26/21 15:42 Lactated Ringers IV 04/24/21 19:29 120 mls/hr .Q8H20M BEATRIZ Administration Insulin Human Lispro 0 unit 03/22/21 20:15 03/25/21 12:45 Humalog SQ 04/21/21 20:14 5 unit UD PRN Administration HYPERGLYCEMIA Insulin Human NPH 50 unit 03/23/21 10:00 03/26/21 17:43 Novolin N SQ 04/22/21 09:59 50 unit BIDWM BEATRIZ Administration Lisinopril 20 mg 03/22/21 23:00 03/25/21 21:06 Zestril 20 Mg PO 04/21/21 22:59 20 mg HS BEATRIZ Administration Metformin HCl 500 mg 03/23/21 17:00 03/26/21 16:49 Glucophage Xr 500 Mg PO 04/22/21 16:59 500 mg DINNER BEATRIZ Administration Ondansetron HCl 4 mg 03/22/21 20:15 03/26/21 00:20 Zofran 4 Mg/2 Ml Vial IV 04/21/21 20:14 4 mg Q6H PRN PRN Administration NAUSEA/VOMITING Ondansetron HCl 4 mg 03/25/21 12:37 03/25/21 12:51 Zofran Odt 4 Mg PO 04/24/21 12:36 4 mg Q6H PRN PRN Administration NAUSEA/VOMITING Simvastatin 40 mg 03/23/21 22:00 03/25/21 21:12 Zocor 20mg PO 04/22/21 21:59 40 mg HS BEATRIZ Administration Tamsulosin HCl 0.4 mg 03/22/21 23:00 03/25/21 21:05 Flomax 0.4 Mg PO 04/21/21 22:59 0.4 mg HS BEATRIZ Administration Discontinued Medications Generic Name Dose Route Start Last Admin Trade Name Freq PRN Reason Stop Dose Admin Famotidine 20 mg 03/22/21 22:00 03/23/21 11:03 Pepcid 20 Mg Vial IV 04/21/21 21:59 Not Given Q12HT BEATRIZ Sodium Chloride 1,000 mls @ 100 mls/hr 03/22/21 15:15 03/22/21 16:06 Sodium Chloride 0.9% 1000 Ml IV 04/21/21 15:14 100 mls/hr .Q10H BEATRIZ Administration Sodium Chloride Confirm 03/22/21 15:54 Sodium Chloride 0.9% 1000 Ml Administered 03/22/21 15:55 Dose 1,000 mls @ ud .ROUTE .STK-MED ONE Potassium Chloride/Sodium Chloride 1,000 mls @ 100 mls/hr 03/22/21 20:15 0 5/21/21 23:38 Sodium Chloride 0.9% W/ 20 Meq Kcl/Liter IV 04/21/21 20:14 100 mls/hr .Q10H BEATRIZ Administration Morphine Sulfate 2 mg 03/22/21 16:08 03/22/21 16:10 Morphine Sulfate 2 Mg Inj IV 03/22/21 16:09 2 mg STAT ONE Administration Morphine Sulfate Confirm 03/22/21 16:08 Morphine Sulfate 2 Mg Inj Administered 03/22/21 16:09 Dose 2 mg .ROUTE .STK-MED ONE Morphine Sulfate 2 mg 03/22/21 20:15 Morphine Sulfate 2 Mg Inj IV 03/27/21 20:14 Q4H PRN PRN PAIN Ondansetron HCl 4 mg 03/22/21 16:07 03/22/21 16:10 Zofran 4 Mg/2 Ml Vial IV 03/22/21 16:08 4 mg STAT ONE Administration Ondansetron HCl Confirm 03/22/21 16:08 Zofran 4 Mg/2 Ml Vial Administered 03/22/21 16:09 Dose 4 mg .ROUTE .STK-MED ONE Intake & Output (Last 24 hours) 03/24/21 03/25/21 03/26/21 03/27/21 11:59 11:59 11:59 11:59 Intake Total 1700 1240 1244 2077 Output Total 550 1200 1575 850 Balance 1150 40 -331 1227 Weight 99.9 kg 99.7 kg Laboratory Results (Last 24 hours) 03/26/21 03/26/21 03/26/21 16:48 11:32 07:15 WBC RBC Hgb Hct MCV MCH MCHC RDW Plt Count MPV Sodium Potassium Chloride Carbon Dioxide Anion Gap BUN Creatinine Estimated GFR Glucose POC Glucometer 223 H 187 H 190 H Calcium Total Bilirubin AST ALT Alkaline Phosphatase Serum Total Protein Albumin 03/25/21 03/25/21 20:10 20:10 WBC 9.0 RBC 4.14 Hgb 11.1 L Hct 36.4 L MCV 87.9 MCH 26.8 MCHC 30.5 L RDW 13.8 Plt Count 218 MPV 10.1 Sodium 139 Potassium 4.1 Chloride 103 Carbon Dioxide 32 H Anion Gap 8.1 BUN 23 H Creatinine 0.60 L Estimated GFR > 60.0 Glucose 195 H POC Glucometer Calcium 9.0 Total Bilirubin 0.50 AST 24 ALT 16 Alkaline Phosphatase 72 Serum Total Protein 6.4 Albumin 3.6 Orders (Last 24 hours) Category Date Time Status Consistent Carbohydrate Diet 1999 Calorie Diet 03/26/21 Dinner Active CBC Stat Lab 03/25/21 20:10 Completed CMP Stat Lab 03/25/21 20:10 Completed POCT GLUCOSE Stat Lab 03/25/21 20:31 Completed POCT GLUCOSE Stat Lab 03/26/21 07:15 Completed POCT GLUCOSE Stat Lab 03/26/21 11:32 Completed POCT GLUCOSE Stat Lab 03/26/21 16:48 Completed Metronidazole 500 mg Premix [Flagyl 500 mg Ivpb] Med 03/25/21 20:00 Active 500 mg in 100 ml IV Q8HT Patient Care Notes (Last 24 hours) 03/26/21 15:49 Nursing Note by Idalia Loo DR ROUNDED AT THIS TIME NO TREATMENT Initialized on 03/26/21 15:49 - END OF NOTE 03/26/21 13:34 PEST CONTROLLER Note by Vonda Solomon Patient had a large bowel movement Initialized on 03/26/21 13:34 - END OF NOTE 03/26/21 12:06 Case Management Note by Sharee Stuart WAITING ON PRECERT FROM INSURANCE FOR HIM TO GO TO [facility] Initialized on 03/26/21 12:06 - END OF NOTE 03/26/21 08:22 Nursing Note by Idalia Loo CALLED DR THOMSON OFFICE AND SPOKE WITH FELIZ [email or web address] ABOUT CONSULT. DR THOMSON AUTOMOTIVE GLASS MECHANIC WILL WAIT FOR CALL BACK. TIANNA Initialized on 03/26/21 08:22 - END OF NOTE 03/26/21 01:00 (created 03/26/21 01:21) Nursing Note by Magdalena Nelson Pt. c/o nausea. Given emesis bag and vomited approximately 30cc dark brown liquid. Zofran 4mg IV given at 0020. Pt. resting quietly in bed at this time and reports that nausea is better. Initialized on 03/26/21 01:21 - END OF NOTE Code(s): K57.32 - DVTRCLI OF LG INT W/O PERFORATION OR ABSCESS W/O BLEEDING (2) Generalized weakness Current Visit: Yes Status: Resolved Code(s): R53.1 - WEAKNESS (3) Hemiplegia affecting left nondominant side Current Visit: Yes Status: Acute Qualifiers: Hemiplegia type: flaccid Hemiplegia etiology: late effect of cerebrovascular disease Cerebrovascular disease type: cerebral infarction Qualified Code(s): I69.354 - Hemiplegia and hemiparesis following cerebral infarction affecting left non-dominant side Code(s): G81.94 - HEMIPLEGIA, UNSPECIFIED AFFECTING LEFT NONDOMINANT SIDE (4) Type 2 diabetes mellitus Current Visit: Yes Status: Chronic Qualifiers: Diabetes mellitus termination clerk insulin use: with termination clerk use Diabetes mellitus complication status: with hyperglycemia Qualified Code(s): E11.65 - Type 2 diabetes mellitus with hyperglycemia; Z79.4 - penitentiary (current) use of insulin (5) Gallstone Current Visit: Yes Status: Acute Qualifiers: Cholecystitis presence: without cholecystitis Biliary obstruction: without biliary obstruction Qualified Code(s): K80.20 - Calculus of gallbladder without cholecystitis without obstruction Code(s): K80.20 - CALCULUS OF GALLBLADDER W/O CHOLECYSTITIS W/O OBSTRUCTION
[2021-03-26] MEDS: Zestril 20 MG PO SCH (21:33)
[2021-03-26] MEDS: HUMALOG SQ PRN (21:33)
[2021-03-26] MEDS: Flomax 0.4 MG PO SCH (21:33)
[2021-03-26] MEDS: ZOCOR 20MG PO SCH (21:33)
[2021-03-26] MEDS: NORVASC 5 MG PO SCH (21:33)
[2021-03-26] MEDS: Lexapro 10 MG PO SCH (21:33)
[2021-03-27] MEDS: Lactated Ringers 1,000 ML IV SCH ×2 (01:35→11:38)
[2021-03-27] MEDS: FLAGYL 500 MG IVPB 500 MG/100 ML BAG IV SCH ×2 (06:53→14:05)
--- NOTE | 2021-03-27 08:05 | CONS ---
CONSULT DATE: 03/27/2021 HISTORY: A 80 year-old gentleman came in with problems with weakness, has fell once. He has history of stroke in the past and had some weakness on his left side. He had suprapubic catheter for urinary obstructive polyps in the past, had diabetes mellitus type II, chronic obstructive pulmonary disease, emphysema, hypertension, degenerative disc disease. He has been followed by Dr. Caden Winston in the past. He did have some constipation when he came in but he did have a large bowel movement. He did get sick once yesterday but was not having nausea, vomiting on admission. He denies any nausea or vomiting today. He denies any abdominal pain whatsoever today. PAST MEDICAL HISTORY: Pertinent for multiple medical problems noted above. 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 PAST SURGICAL HISTORY: Suprapubic catheter. He denied any prior significant other abdominal surgeries in the past. He did have right knee fracture in the past and some surgery on the right knee. Left leg and spinal fracture in the past. He said he had a colonoscopy in the past that was okay. He is a little foggy on the details of that. MEDICATIONS: Prior to admission he had been on amlodipine, aspirin, atorvastatin, Plavix, Lexapro, gabapentin, Humulin, DuoNeb, Metformin, Tamsulosin. ALLERGIES: NKDA. FAMILY HISTORY: Negative in regards to this problem. SOCIAL HISTORY: Former smoker. No alcohol abuse currently. REVIEW OF SYSTEMS: Fourteen systems reviewed. No chest pain or palpitations. Pertinent for the chronic lung disease mentioned above. He is apparently followed by Dr. Winston for chronic lung disease. PHYSICAL EXAMINATION: GENERAL: No acute distress. A chronically ill 80 year-old gentleman. HEENT: Sclera nonicteric. NECK: No JVD. CHEST: Equal excursion, nonlabored breathing. The patient does have some home oxygen but does not use it apparently. CVS: Regular rate and rhythm. ABDOMEN: Soft. He does not have any tenderness whatsoever. He does have a suprapubic catheter. He denies any tenderness or pain. He is a little bit overweight. EXTREMITIES: He has some chronic stasis changes on the legs. No significant edema currently. NEURO: He is alert. Again, he does have a little bit of limited memory. He had some partial left hemiplegia on admission. He said he is doing better from that standpoint. He is sitting up in a chair. PSYCH: Appropriate mood and affect. IMPRESSION: A 80 year-old gentleman with increasing weakness over the past several months. He is in the hospital now for that reason. They ended up doing a CT scan that showed some incidental diverticulosis, enlarging gallstones, no evidence of inflammatory changes. He is not having any pain over his gallbladder now; question whether he had symptoms at all regarding gallbladder. We were asked to see him as he had some gallstones. Currently he feels quite well. He is not having any pain or symptoms. I feel likely he does not seem to have acute cholecystitis at this moment. Liver function test was within normal limits. His white count is 9. He is in no acute distress. No need for any emergent surgery as he is not having any pain or significant symptoms currently. Will resume his diet. 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 I could see him back for consideration of elective cholecystectomy if he started having more symptoms. He understands if he restarts his diet and develops refractory nausea and vomiting I would recommend considering cholecystectomy this admission but as he is doing quite well right at this time he would like to avoid surgery at all cost at this moment. Will basically try to resume his diet. If he tolerates it then he can continue medical management and he can follow up as an outpatient after medical clearance and would be best for elective procedure to hold his Plavix and aspirin for five to seven days ahead of time. He agrees with the plan. As he is not interested in considering surgical intervention will resume his diet at this time. I will follow with you. I will call and check on him tomorrow.
[2021-03-27] MEDS: ECOTRIN 81 MG PO SCH (09:30)
[2021-03-27] MEDS: PLAVIX 75 MG Tablet PO SCH (09:30)
[2021-03-27] MEDS: NEURONTIN 300 MG PO SCH ×2 (09:33→14:05)
[2021-03-27] MEDS: Novolin N SQ SCH (09:33)
[2021-03-27 13:21] VITALS: BP 196/90; PULSE 80; O2SAT 97
--- NOTE | 2021-03-28 08:31 | PCM.DS ---
Discharge Summary Date of Admission: 03/22/21 20:13 Admitting Physician: THANH LARKIN Consults: Consults on Case 03/25/21 19:05 Consult Surgery ROUTINE Primary Care Provider: THANH LARKIN Allergies Allergies No Known Drug Allergies Allergy (Verified 03/22/21 14:42) Hospital Summary - Hospital Course Hospital Course: Chief Complaint Diagnosis Generalized Weakness Allergies Allergy/AdvReac Type Severity Reaction Status Date / Time No Known Drug Allergies Allergy Verified 03/22/21 14:42 Vital Signs (Last 24 hours) Temp Pulse Resp BP Pulse Ox 03/27/21 12:00 98.0 F 80 16 196/90 97 Home Medications Medication Instructions Recorded Confirmed Last Taken Type Metronidazole 500 mg [Flagyl 500 mg PO Q8H 5 Days #15 tablet 03/27/21 Unknown Rx 500 MG] Current Medications Discontinued Medications Generic Name Dose Route Start Last Admin Trade Name Freq PRN Reason Stop Dose Admin Acetaminophen 650 mg 03/22/21 20:15 03/24/21 22:04 Tylenol 325 Mg PO 04/21/21 20:14 650 mg Q4H PRN PRN Administration PAIN AND/OR FEVER Albuterol/Ipratropium 3 ml 03/22/21 20:15 03/23/21 03:46 Duoneb 0.5-3 Mg/3 Ml Neb IH 04/21/21 20:14 3 ml Q4HPRN PRN Administration SHORTNESS OF BREATH/WHEEZING Amlodipine Besylate 5 mg 03/23/21 22:00 03/26/21 21:33 Norvasc 5 Mg PO 04/22/21 21:59 5 mg HS BEATRIZ Administration Aspirin 81 mg 03/23/21 10:00 03/27/21 09:30 Ecotrin 81 Mg PO 04/22/21 09:59 Not Given DAILY BEATRIZ Clopidogrel Bisulfate 75 mg 03/23/21 10:00 03/27/21 09:30 Plavix 75 Mg Tablet PO 04/22/21 09:59 Not Given DAILY BEATRIZ Escitalopram Oxalate 10 mg 03/22/21 23:00 03/26/21 21:33 Lexapro 10 Mg PO 04/21/21 22:59 10 mg HS BEATRIZ Administration Famotidine 20 mg 03/22/21 22:00 03/23/21 11:03 Pepcid 20 Mg Vial IV 04/21/21 21:59 Not Given Q12HT BEATRIZ Gabapentin 300 mg 03/22/21 23:00 03/27/21 14:05 Neurontin 300 Mg PO 04/21/21 22:59 300 mg TID BEATRIZ Administration Sodium Chloride 1,000 mls @ 100 mls/hr 03/22/21 15:15 03/22/21 16:06 Sodium Chloride 0.9% 1000 Ml IV 04/21/21 15:14 100 mls/hr .Q10H BEATRIZ Administration Sodium Chloride Confirm 03/22/21 15:54 Sodium Chloride 0.9% 1000 Ml Administered 03/22/21 15:55 Dose 1,000 mls @ ud .ROUTE .STK-MED ONE Potassium Chloride/Sodium Chloride 1,000 mls @ 100 mls/hr 03/22/21 20:15 03/22/21 23:38 Sodium Chloride 0.9% W/ 20 Meq Kcl/Liter IV 04/21/21 20:14 100 mls/hr .Q10H BEATRIZ Administration Metronidazole 500 mg in 100 mls @ 200 mls/hr 03/25/21 20:00 03/27/21 14:05 Flagyl 500 Mg Ivpb IV 04/24/21 19:59 200 mls/hr Q8HT BEATRIZ Administration Lactated Ringer's 1,000 mls @ 120 mls/hr 03/25/21 19:30 03/27/21 11:38 Lactated Ringers IV 04/24/21 19:29 120 mls/hr .Q8H20M BEATRIZ Administration Insulin Human Lispro 0 unit 03/22/21 20:15 03/26/21 21:33 Humalog SQ 04/21/21 20:14 2 unit UD PRN Administration HYPERGLYCEMIA Insulin Human NPH 50 unit 03/23/21 10:00 03/27/21 09:33 Novolin N SQ 04/22/21 09:59 50 unit BIDWM BEATRIZ Administration Lisinopril 20 mg 03/22/21 23:00 03/26/21 21:33 Zestril 20 Mg PO 04/21/21 22:59 20 mg HS BEATRIZ Administration Metformin HCl 500 mg 03/23/21 17:00 03/26/21 16:49 Glucophage Xr 500 Mg PO 04/22/21 16:59 500 mg DINNER BEATRIZ Administration Morphine Sulfate 2 mg 03/22/21 16:08 03/22/21 16:10 Morphine Sulfate 2 Mg Inj IV 03/22/21 16:09 2 mg STAT ONE Administration Morphine Sulfate Confirm 03/22/21 16:08 Morphine Sulfate 2 Mg Inj Administered 03/22/21 16:09 Dose 2 mg .ROUTE .STK-MED ONE Morphine Sulfate 2 mg 03/22/21 20:15 Morphine Sulfate 2 Mg Inj IV 03/27/21 20:14 Q4H PRN PRN PAIN Ondansetron HCl 4 mg 03/22/21 16:07 03/22/21 16:10 Zofran 4 Mg/2 Ml Vial IV 03/22/21 16:08 4 mg STAT ONE Administration Ondansetron HCl Confirm 03/22/21 16:08 Zofran 4 Mg/2 Ml Vial Administered 03/22/21 16:09 Dose 4 mg .ROUTE .STK-MED ONE Ondansetron HCl 4 mg 03/22/21 20:15 03/26/21 00:20 Zofran 4 Mg/2 Ml Vial IV 04/21/21 20:14 4 mg Q6H PRN PRN Administration NAUSEA/VOMITING Ondansetron HCl 4 mg 03/25/21 12:37 03/25/21 12:51 Zofran Odt 4 Mg PO 04/24/21 12:36 4 mg Q6H PRN PRN Administration NAUSEA/VOMITING Simvastatin 40 mg 03/23/21 22:00 03/26/21 21:33 Zocor 20mg PO 04/22/21 21:59 40 mg HS BEATRIZ Administration Tamsulosin HCl 0.4 mg 03/22/21 23:00 03/26/21 21:33 Flomax 0.4 Mg PO 04/21/21 22:59 0.4 mg HS BEATRIZ Administration Intake & Output (Last 24 hours) 03/25/21 03/26/21 03/27/21 03/28/21 11:59 11:59 11:59 11:59 Intake Total 1240 1244 3694 Output Total 1200 1575 1725 Balance 40 -331 1969 Weight 99.7 kg 99.7 kg Laboratory Results (Last 24 hours) 03/27/21 11:41 POC Glucometer 183 H Orders (Last 24 hours) Category Date Time Status Discharge Routine Discharge 03/27/21 14:45 Ordered POCT GLUCOSE Stat Lab 03/27/21 11:41 Completed Patient Care Notes (Last 24 hours) 03/28/21 08:18 Case Management Note by Sharee Stuart S/W GUICHO THIS AM- HE WAS AWARE PATIENT TRANSFERRED TO [facility] YEST. HE HAS ALREADY BEEN TO SEE HIM Initialized on 03/28/21 08:18 - END OF NOTE 03/27/21 15:20 Case Management Note by Delmi Roque REPORT CALLED TO YAMILEX NURSE, AT [facility]. ALL QUESTIONS ANSWERED. Initialized on 03/27/21 15:20 - END OF NOTE 03/27/21 14:45 (created 03/27/21 15:21) Case Management Note by Delmi Roque ORDERS FROM DR. LARKIN TO DISCHARGE TO REHAB TODAY, CONTINUE CURRENT HOME MEDS, CURRENT DIET, PT/OT TO EVAL AND TREAT, RX FLAGYL 500MG PO Q8H X 5 DAYS, #15, NO REFILLS. Initialized on 03/27/21 15:21 - END OF NOTE 03/27/21 14:40 (created 03/27/21 15:20) Case Management Note by Delmi Roque FROM [facility] PHONED TO REPORT THAT THEY HAVE APPROVAL FOR PT TO COME TO REHAB AND THAT THEY ARE READY FOR PATIENT. Initialized on 03/27/21 15:20 - END OF NOTE 03/27/21 13:10 (created 03/27/21 13:20) Case Management Note by Delmi Roque DR. ROUNDED AND EVALUATED, CONTINUE CURRENT TREATMENT , CONTINUE TO AWAIT APPROVAL FOR REHAB STAY @ [facility]. PT IS HOPEFUL FOR THIS DISCHARGE PLAN. PT AND MD DO NOT FEEL THAT PT IS ABLE TO SAFELY CARE FOR SELF IN THE HOME AT PRESENT TIME. WILL CONTINUE TO FOLLOW AND ASSESS FOR ALL DC NEEDS. Initialized on 03/27/21 13:20 - END OF NOTE 03/27/21 09:37 Case Management Note by Sharee Stuart UPDATED CLINICALS SENT TO [facility] AT THIS TIME TO SUBMIT WITH PRECERT FOR STAY. Initialized on 03/27/21 09:37 - END OF NOTE - Vitals & Intake/Output Vital Signs: Vital Signs Temperature 98.0 F 03/27/21 12:00 Pulse Rate 80 03/27/21 12:00 Respiratory Rate 16 03/27/21 12:00 Blood Pressure 196/90 03/27/21 12:00 O2 Sat by Pulse Oximetry 97 03/27/21 12:00 Intake & Output: Intake & Output 03/25/21 03/26/21 03/27/21 03/28/21 11:59 11:59 11:59 11:59 Intake Total 1240 1244 3694 Output Total 1200 1575 1725 Balance 40 -331 1969 Weight 99.7 kg 99.7 kg - Lab Result Diagrams: 03/25/21 20:10 03/25/21 20:10 Lab Results-Last 24 Hrs: Lab Results-Last 24 Hours 03/27/21 Range/Units 11:41 POC Glucometer 183 H (74 to 106) mg/dL Micro Results-Entire Visit: Microbiology 03/23/21 01:57 Urine Culture - Final Urine, Void <10K NORMAL SKIN LYDIA PROBABLE SKIN CONTAMINANT Accuchecks Date 03/27/21 - Procedures and Test Procedures and Tests throughout Hospitalization: Therapy Orders & Screens 03/22/21 21:11 OT Screen per Nursing Assess ONCE Comment: Protocol Order Physician Instructions: Greater than 3 points order OT Admission Screening Reason For Exam: Triggered on Admission Diagnosis: Generalized Weakness Open Wound/Cellutlitis/Pressure Ulcers: Yes Acute Fx/ORIF/Change in wt bearing status: No Severe MUSCULOSKELETAL pain: No ADL Dysfunction: Yes Acute CVA w/Hemiparesis/Hemiplegia: No Decreased Functional Mobility/Strength: Yes Sprain/Strain: No Acute Post-op Mobility Dysfunction: No Total Points: 9 PT Screen per Nursing Assess ONCE Comment: Protocol Order Physician Instructions: Greater than 3 points order PT Admission Screenin Reason For Exam: Triggered on Admission Diagnosis: Generalized Weakness Open Wound/Cellutlitis/Pressure Ulcers: Yes Acute Fx/ORIF/Change in wt bearing status: No Severe MUSCULOSKELETAL pain: No ADL Dysfunction: Yes Acute CVA w/Hemiparesis/Hemiplegia: No Decreased Functional Mobility/Strength: Yes Sprain/Strain: No Acute Post-op Mobility Dysfunction: No Total Points: 9 RT Screen per Nursing Assess ONCE Comment: Protocol Order Physician Instructions: Greater than 3 points order RT Admission Screen Reason For Exam: Triggered on Admission Diagnosis: Generalized Weakness Diagnosis: Generalized Weakness Pneumonia: No Home O2: Yes Asthma: No CHF: No Home CPAP/BIPAP: No Home Nebs/MDI: Yes Total Points: 10 03/22/21 21:54 Oxygen Nasal Cannula 3 lpm Comment: Diagnosis: Generalized Weakness 03/22/21 21:56 Respiratory Therapy Assessment DAILY Comment: Diagnosis: Generalized Weakness 03/23/21 03:50 EKG ROUTINE Comment: Diagnosis: Generalized Weakness 03/25/21 08:22 PT Eval & Treat (MD Order) ONCE Reason for Eval:: weakness Diagnosis: Generalized Weakness Discharge Exam General Appearance: no apparent distress, alert Neurologic Exam: alert, oriented x 3, cooperative, normal mood/affect, nml cerebellar function, sensation nml, No motor deficits Eye Exam: PERRL, EOMI, eyes nml inspection Ears, Nose, Throat Exam: normal ENT inspection, pharynx normal, moist mucous membranes Neck Exam: normal inspection, non-tender, supple, full range of motion Respiratory Exam: normal breath sounds, lungs clear, No respiratory distress Cardiovascular Exam: regular rate/rhythm, normal heart sounds Gastrointestinal/Abdomen Exam: soft, No tenderness, No mass Male Genitalia Exam: deferred Rectal Exam: deferred Back Exam: normal inspection, normal range of motion, No CVA tenderness, No vertebral tenderness Extremity Exam: normal inspection, normal range of motion Skin Exam: normal color, warm, dry Wound Assessment: Skin/Wound Assessment Wound/Incision Assessment Start: 03/23/21 02:46 Text: Status: Active Freq: Q6H Protocol: Document 03/27/21 14:00 Dwayne (Rec: 03/27/21 15:27 [facility] [id number]) Wound/Incision Assessment Right Fourth Toe Wound Assessment Shift Assessment Wound Type blood blister Wound Stage Non Pressure Wound Drainage Amount None General Appearance Well Approximated,Open to air Surrounding Tissue Dark Red,Purple Right Heel Wound Assessment Shift Assessment Wound Type patient stated old blood blister Drainage Amount None General Appearance Well Approximated,Open to air Left Thigh Wound Assessment Shift Assessment Wound Type Burn Drainage Amount None General Appearance Open to air Primary Dressing open to air Wound Photo Photo Taken Yes Date: 03/23/21 Final Diagnosis/Problem List - Final Discharge Diagnosis/Problem (1) Diverticulitis large intestine Status: Resolved Code(s): K57.32 - DVTRCLI OF LG INT W/O PERFORATION OR ABSCESS W/O BLEEDING (2) Generalized weakness Status: Resolved Code(s): R53.1 - WEAKNESS (3) Hemiplegia affecting left nondominant side Status: Acute Code(s): G81.94 - HEMIPLEGIA, UNSPECIFIED AFFECTING LEFT NONDOMINANT SIDE (4) Type 2 diabetes mellitus Status: Chronic (5) Gallstone Status: Acute Code(s): K80.20 - CALCULUS OF GALLBLADDER W/O CHOLECYSTITIS W/O OBSTRUCTION - Discharge Discharge Date: 03/27/21 Disposition: DE TO [facility] Condition: Stable Prescriptions: New Metronidazole 500 mg [Flagyl 500 MG] 500 mg PO Q8H 5 Days #15 tablet Continue Clopidogrel Bisulfate 75 mg [PLAVIX 75 MG Tablet] 75 mg PO DAILY Tamsulosin HCl 0.4 tablet PO HS Atorvastatin Calcium 80 mg PO HS Gabapentin 300 mg PO TID Escitalopram Oxalate 10 mg [Lexapro 10 MG] 10 mg PO HS Metformin HCl [Metformin HCl ER] 500 mg PO DINNER Insulin NPH Human Isophane [Humulin N] 50 units SQ BIDWM Aspirin [Aspirin EC] 81 mg PO DAILY Ipratropium/Albuterol Sulfate [Iprat-Albut 0.5-3(2.5) mg/3 ml] 1 neb IH QIDPRN PRN PRN Reason: Shortness Of Breath/Wheezing Amlodipine Besylate 5 mg [Norvasc 5 mg] 5 mg PO HS #30 tablet Lisinopril 20 mg [Zestril 20 MG] 20 mg PO HS #30 tablet Additional Instructions: JAIL ORDERS- PT EVAL AND TREAT OT EVAL AND TREAT ACCU CHECKS AC/HS CONSISTENT CARBOHYDRATE DIET 2000 CALORIE 2L OXYGEN PER N/C NEEDED TO KEEP SPO2 > 92% SEE ATTACHED MEDICATION LIST FOR CURRENT MEDICATION ORDERS Follow up with: THANH LARKIN MD [Primary Care Provider] -
== END 2021-03-27 15:25 ==
LOC: ED 14:31 → MED SURG 20:13
PROVIDERS: ADMIT General Practice; ATTEND General Practice
DX: K57.32 Diverticulitis of large intestine without perforation or abscess without bleeding (principal); R53.1 Weakness; I10 Essential (primary) hypertension; E11.9 Type 2 diabetes mellitus without complications; J44.9 Chronic obstructive pulmonary disease, unspecified; Z79.899 Other long term (current) drug therapy; Z79.01 Long term (current) use of anticoagulants; G81.94 Hemiplegia, unspecified affecting left nondominant side; K80.20 Calculus of gallbladder without cholecystitis without obstruction; V00.811A Fall from moving wheelchair (powered), initial encounter; Z20.828 Contact with and (suspected) exposure to other viral communicable diseases
CPT/HCPCS: 0241U; 36000; 36415; 36600; 74176; 80053; 81001; 82375; 82803; 82947; 83036; 83605; 85025; 85027; 87086; 93005; 94640; 94760; 96360; 96361; 96374; 96375; 97161; 99285; G0378; J1817; J2270; J2405; Q0162; A9270-GY

== ENCOUNTER 2021-09-10 20:47 | Emergency (ER) | payer MEDICARE ==
[2012-08-29 20:52] VITALS: BP 132/66
--- NOTE | 2021-09-10 21:08 | ERPHSYRPT ---
- History of Present Illness Time Seen by Provider: 09/10/21 21:03 Source: patient, EMS Exam Limitations: no limitations Patient Subjective Stated Complaint: pt states he had a nosebleed tonight and "was having a hard day" so he called for the ambualnce to bring him into the hospital. states he has frequent nosebleeds and this one was similar to his usual nose bleed. no active bleeding noted at this time. Triage Nursing Assessment: pt alert and oriented, answers questions approp. pt arrive per ambulance and transfers to [facility] with assist of 3. respirations nonlabored with lungs cta. dried blood in rt nare, no active bleeding noted at this time. Physician History: This is a 81-year-old white male who is on Plavix and has frequent nosebleeds and presents via EMS. He has nosebleeds nearly every other day. Patient denies trauma. He does use oxygen chronically via nasal cannula. There also has been a change in his heating system. The air in his living quarters is not humidified. Timing/Duration: abrupt onset (But abruptly stopped prior to EMS arriving to the patient's home), this evening Severity: mild ENT Location: nose Prearrival Treatment: no prearrival treatment Associated Symptoms: other (Bleeding was primarily the right nostril. ) Allergies/Adverse Reactions: No Known Drug Allergies Allergy (Verified 09/10/21 21:01) Home Medications: Clopidogrel Bisulfate 75 mg [PLAVIX 75 MG Tablet] 75 mg PO DAILY 01/04/17 [History] Aspirin [Aspirin EC] 81 mg PO DAILY 10/28/19 [History] Escitalopram Oxalate 10 mg [Lexapro 10 MG] 10 mg PO HS 10/28/19 [History] Gabapentin 300 mg PO TID 10/28/19 [History] Insulin NPH Human Isophane [Humulin N] 50 units SQ BIDWM 10/28/19 [History] Metformin HCl [Metformin HCl ER] 500 mg PO DINNER 10/28/19 [History] Tamsulosin HCl 0.4 tablet PO HS 10/28/19 [History] Ipratropium/Albuterol Sulfate [Iprat-Albut 0.5-3(2.5) mg/3 ml] 1 neb IH QIDPRN PRN 07/25/20 [History] Insulin Lispro [Humalog] 100 unit SQ UD 06/17/21 [History] Hx Tetanus, Diphtheria Vaccination/Date Given: Yes Hx Influenza Vaccination/Date Given: Yes Hx Pneumococcal Vaccination/Date Given: Yes Immunizations Up to Date: Yes Travel Risk - International Travel Have you traveled outside of the country in past 3 weeks: No - Coronavirus Screening Are you exhibiting any of the following symptoms?: No Close contact with a COVID-19 positive Pt in past 14-21 Days: No - Vaccine Status Have you recieved a Covid-19 vaccination: Yes 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 - Vaccination Dates Date of 2cond Vaccination (if applicable): december 2020 - Review of Systems Constitutional: No Symptoms Eyes: No Symptoms Ears, Nose, & Throat: Other (nosebleed right nostril stopped) Respiratory: No Symptoms Cardiac: No Symptoms Abdominal/Gastrointestinal: No Symptoms Genitourinary Symptoms: No Symptoms Musculoskeletal: No Symptoms Skin: No Symptoms Neurological: No Symptoms Psychological: No Symptoms Endocrine: No Symptoms Hematologic/Lymphatic: No Symptoms Immunological/Allergic: No Symptoms All Other Systems: Reviewed and Negative - Past Medical History Pertinent Past Medical History: Yes Neurological History: No Pertinent History ENT History: No Pertinent History Cardiac History: Hypertension Respiratory History: COPD, Emphysema Endocrine Medical History: Diabetes Type II Musculoskeletal History: Fractures, Degenerative Disk Disease GI Medical History: Hernia, Hepatitis History: No Pertinent History Psycho-Social History: No Pertinent History Male Reproductive Disorders: No Pertinent History Other Medical History: hep c,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 herniorr. as a child - Social History Smoking Status: Former smoker How long have you smoked: 66 years Exposure to second hand smoke: No Drug Use: none Patient Lives Alone: Yes - Nursing Vital Signs Nursing Vital Signs: Initial Vital Signs Respiratory Rate 16 09/10/21 20:48 Blood Pressure 165/95 09/10/21 20:48 O2 Sat by Pulse Oximetry 96 09/10/21 20:48 - Physical Exam General Appearance: no apparent distress, alert, anxiety Eye Exam: bilateral eye: normal inspection, PERRL, EOMI Ear Exam: bilateral ear: auricle normal, canal normal, TM normal Nasal Exam: dried blood (outside nostrils. 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 Place the nasal clamp as instructed as well. Stop your Plavix and aspirin for 48 hours before restarting.
[2021-09-10] MEDS ORDERED: NEOSYNEPHRINE 0.5% NASAL SPRAY/DROPS NS ONE (21:12)
[2021-09-10] MEDS ORDERED: NEOSYNEPHRINE 0.5% NASAL SPRAY/DROPS ONE (21:16)
== END 2021-09-10 22:06 | disposition home or self-care (01) ==
LOC: ED 20:47
DX: R04.0 Epistaxis (principal); Z79.899 Other long term (current) drug therapy
CPT/HCPCS: 99283; A9270-GY

== ENCOUNTER 2021-09-11 01:16 | Emergency (ER) | payer MEDICARE ==
[2012-08-29 20:52] VITALS: BP 132/66
--- NOTE | 2021-09-11 01:40 | ERPHSYRPT ---
- History of Present Illness Time Seen by Provider: 09/11/21 01:36 Source: patient Exam Limitations: no limitations Physician History: This is a 81-year-old white male who was discharged from our emergency department 1 to 2 hours ago. He has no complaints of nosebleed. However, he is unable to get a ride home and therefore he was due to have a nebulizer breathing treatment at home. However he is not home and he states that at home he would give himself a nebulizer breathing treatment so he wants to check back in in order for him to receive a nebulizer breathing treatment. He has his typical shortness of breath. He has no chest pain. He is still waiting for ride home. He only wants a breathing treatment Timing/Duration: today Severity: mild Modifying Factors: Improves With: nothing Associated Symptoms: shortness of breath (Mild, typical for him) Allergies/Adverse Reactions: No Known Drug Allergies Allergy (Verified 09/10/21 21:01) Home Medications: Clopidogrel Bisulfate 75 mg [PLAVIX 75 MG Tablet] 75 mg PO DAILY 01/04/17 [History] Aspirin [Aspirin EC] 81 mg PO DAILY 10/28/19 [History] Escitalopram Oxalate 10 mg [Lexapro 10 MG] 10 mg PO HS 10/28/19 [History] Gabapentin 300 mg PO TID 10/28/19 [History] Insulin NPH Human Isophane [Humulin N] 50 units SQ BIDWM 10/28/19 [History] Metformin HCl [Metformin HCl ER] 500 mg PO DINNER 10/28/19 [History] Tamsulosin HCl 0.4 tablet PO HS 10/28/19 [History] Ipratropium/Albuterol Sulfate [Iprat-Albut 0.5-3(2.5) mg/3 ml] 1 neb IH QIDPRN P RN 07/25/20 [History] Insulin Lispro [Humalog] 100 unit SQ UD 06/17/21 [History] Hx Tetanus, Diphtheria Vaccination/Date Given: Yes Hx Influenza Vaccination/Date Given: Yes Hx Pneumococcal Vaccination/Date Given: Yes Travel Risk - International Travel Have you traveled outside of the country in past 3 weeks: No - Coronavirus Screening Are you exhibiting any of the following symptoms?: No Close contact with a COVID-19 positive Pt in past 14-21 Days: No - Vaccine Status Have you recieved a Covid-19 vaccination: Yes Outpatient Clerk: Moderna - Vaccination Dates Date of 2cond Vaccination (if applicable): N/A - Review of Systems Constitutional: No Symptoms Eyes: No Symptoms Ears, Nose, & Throat: No Symptoms Respiratory: Dyspnea (Mild, typical shortness of breath he has) Cardiac: No Symptoms Abdominal/Gastrointestinal: No Symptoms Genitourinary Symptoms: No Symptoms Musculoskeletal: No Symptoms Skin: No Symptoms Neurological: No Symptoms Psychological: No Symptoms Endocrine: No Symptoms Hematologic/Lymphatic: No Symptoms Immunological/Allergic: No Symptoms All Other Systems: Reviewed and Negative - Past Medical History Pertinent Past Medical History: Yes Neurological History: No Pertinent History ENT History: No Pertinent History Cardiac History: Hypertension Respiratory History: COPD, Emphysema Endocrine Medical History: Diabetes Type II Musculoskeletal History: Fractures, Degenerative Disk Disease GI Medical History: Hernia, Hepatitis History: No Pertinent History Psycho-Social History: No Pertinent History Male Reproductive Disorders: No Pertinent History Other Medical History: hep c,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 herniorr. as a child - Social History Smoking Status: Former smoker How long have you smoked: 66 years Exposure to second hand smoke: No Drug Use: none Patient Lives Alone: Yes - Physical Exam General Appearance: no apparent distress, alert Eye Exam: PERRL/EOMI, eyes nml inspection Ears, Nose, Throat Exam: normal ENT inspection, moist mucous membranes Neck Exam: normal inspection, non-tender, supple, full range of motion Respiratory Exam: normal breath sounds, lungs clear, airway intact, No chest tenderness, No respiratory distress Cardiovascular Exam: regular rate/rhythm, normal heart sounds, normal peripheral pulses Gastrointestinal/Abdomen Exam: No tenderness Rectal Exam: not done Back Exam: normal inspection, normal range of motion, No CVA tenderness Extremity Exam: normal inspection, normal range of motion, pelvis stable Neurologic Exam: alert, oriented x 3, 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, 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, normal mood/affect, nml cerebellar function, nml station & gait, sensation nml Skin Exam: normal color, warm, dry Lymphatic Exam: No adenopathy SpO2 Interpretation: normal O2 Delivery: Room Air - Course Nursing assessment & vital signs reviewed: Yes - Progress Progress: improved Counseled pt/family regarding: diagnosis, need for follow-up - Departure Departure Disposition: Home Clinical Impression: Encounter for medical screening examination Condition: Stable Critical Care Time: No Referrals: THANH LARKIN MD [Primary Care Provider] - Follow up/PCP as directed Additional Instructions: Take all your medications as prescribed except for your blood thinning medications. Follow-up with your primary care physician for further management.
[2021-09-11] MEDS ORDERED: DUONEB 0.5-3 MG/3 ml Neb IH ONE ×2 (02:04→02:10)
== END 2021-09-11 04:40 | disposition home or self-care (01) ==
LOC: ED 01:16
DX: Z00.00 Encounter for general adult medical examination without abnormal findings (principal)
CPT/HCPCS: 94640; 99283; A9270-GY

== ENCOUNTER 2021-11-07 12:17 | Emergency (ER) | payer MEDICARE ==
[2021-11-07] MEDS ORDERED: DUONEB 0.5-3 MG/3 ml Neb IH ONE ×2 (12:52→13:07)
--- NOTE | 2021-11-07 12:59 | ERPHSYRPT ---
- History of Present Illness Time Seen by Provider: 11/07/21 12:23 Source: patient, EMS Exam Limitations: no limitations Patient Subjective Stated Complaint: "I can't breath." Triage Nursing Assessment: Patient reported a one week progressive onset of dyspnea with productive cough. He reported hx of copd/emphysema and use home supplemental oxygen at 2 L/min via NC PRN. He does use an inhaler at home. He reported an increased use in his home oxygen and his nebulizer treatments. He denied chest pain, vomiting, conspitation, hematochezia. He did reported having a right sided rib pain. Symmetrical chest expansion. heart tones S1/S2 RRR. Lungs with coarse rhales in the mid/lower freire and expiratory wheezes in the upper freire. Abdomen non-distended, non-tender, and without peritoneal signs. The patient does have a supra-pubic catheter which he reported was recently changed. There is moderate blood and discharge at the site which the patient reported to always be present. Peripheral pulses +3 bilateral. Physician History: 81-year-old male with history of hypertension, hyperlipidemia, diabetes mellitus, CVA with left-sided residual weakness, chronic respiratory failure secondary to COPD on 2 L oxygen as needed, vaccinated for COVID-19 presented in the ER with chief complaint of worsening cough productive of thick yellow-green sputum moderate in amount with increasing shortness of breath for 1 week. Singh hopper reports he feels short of breath despite using oxygen and he is not very compliant with using oxygen. Breathing treatments does help but does not last very long. Feeling of generalized chest tightness with wheezing but no pain. Earlier home health nurse saw him and patient was recommended to be seen in the ER as he was not breathing well. On presentation his oxygen dropped to 85% on room air despite receiving DuoNeb and Solu-Medrol on the way to the ER by EMS. Timing/Duration: week(s) (1), constant, gradual onset, worse Activities at Onset: activity, rest Severity of Dyspnea-Max: moderate Severity of Dyspnea-Current: moderate Possible Cause: occasional episodes Modifying Factors: Improves With: albuterol nebulizer, oxygen. Worsens With: coughing, exertion Associated Symptoms: cough, tightness, No fever Allergies/Adverse Reactions: No Known Drug Allergies Allergy (Verified 11/07/21 12:20) Home Medications: Clopidogrel Bisulfate 75 mg [PLAVIX 75 MG Tablet] 75 mg PO DAILY 01/04/17 [History] Aspirin [Aspirin EC] 81 mg PO DAILY 10/28/19 [History] Escitalopram Oxalate 10 mg [Lexapro 10 MG] 10 mg PO HS 10/28/19 [History] Gabapentin 300 mg PO TID 10/28/19 [History] Insulin NPH Human Isophane [Humulin N] 50 units SQ BIDWM 10/28/19 [History] Metformin HCl [Metformin HCl ER] 500 mg PO DINNER 10/28/19 [History] Tamsulosin HCl 0.4 tablet PO HS 10/28/19 [History] Ipratropium/Albuterol Sulfate [Iprat-Albut 0.5-3(2.5) mg/3 ml] 1 neb IH QIDPRN PRN 07/25/20 [History] Insulin Lispro [Humalog] 100 unit SQ UD 06/17/21 [History] Hx Tetanus, Diphtheria Vaccination/Date Given: Yes Hx Influenza Vaccination/Date Given: Yes Hx Pneumococcal Vaccination/Date Given: Yes Travel Risk - International Travel Have you traveled outside of the country in past 3 weeks: No - Coronavirus Screening Are you exhibiting any of the following symptoms?: Yes Symptoms: Cough: New Onset, Shortness of Breath Close contact with a COVID-19 positive Pt in past 14-21 Days: No - Vaccine Status Have you recieved a Covid-19 vaccination: Yes [facility] [place]: Moderna - Vaccination Dates Date of 2cond Vaccination (if applicable): 12/2020 - Review of Systems Constitutional: No Symptoms Eyes: No Symptoms Ears, Nose, & Throat: No Symptoms Respiratory: Cough, Dyspnea, Dyspnea on Exertion (CARREON), Wheezing Cardiac: No Symptoms Abdominal/Gastrointestinal: No Symptoms Genitourinary Symptoms: No Symptoms Skin: Rash, Skin Lesions Neurological: Focal Weakness Psychological: No Symptoms Endocrine: No Symptoms Hematologic/Lymphatic: No Symptoms Immunological/Allergic: No Symptoms - Past Medical History Pertinent Past Medical History: Yes Neurological History: No Pertinent History ENT History: No Pertinent History Cardiac History: Hypertension Respiratory History: COPD, Emphysema Endocrine Medical History: Diabetes Type II Musculoskeletal History: Fractures, Degenerative Disk Disease GI Medical History: Hernia, Hepatitis History: No Pertinent History Psycho-Social History: No Pertinent History Male Reproductive Disorders: No Pertinent History Other Medical History: hep c,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 herniorr. as a child - Social History Smoking Status: Former smoker How long have you smoked: 66 years Exposure to second hand smoke: No Drug Use: none Patient Lives Alone: Yes - Nursing Vital Signs Nursing Vital Signs: Initial Vital Signs Temperature 98.6 F 11/07/21 12:17 Pulse Rate 83 11/07/21 12:17 Respiratory Rate 22 11/07/21 12:17 Blood Pressure 142/81 11/07/21 12:17 O2 Sat by Pulse Oximetry 96 11/07/21 12:17 Pain Scale Pain Intensity 0 - Physical Exam General Appearance: no apparent distress, alert Eye Exam: PERRL/EOMI, eyes nml inspection Ears, Nose, Throat Exam: hearing grossly normal, normal ENT inspection, normal pharynx Neck Exam: normal inspection, non-tender, supple, full range of motion Respiratory Exam: airway intact, diminished breath sounds, crackles/rales, wheezing Cardiovascular/Chest Exam: normal heart sounds, regular rate/rhythm Abdominal/Gastrointestinal Exam: soft Extremity Exam: non-tender, swelling (Bilateral chronic venous stasis) Neurologic Exam: alert, oriented x 3, cooperative Skin Exam: normal color SpO2 Interpretation: O2 applied SpO2: 95 O2 Delivery: Nasal Cannula (2l) - Course EKG Interpreted by Me: RATE (81), Sinus Rhythm, NORMAL AXIS, NORMAL INTERVALS, Non-specific ST Changes Ordered Tests: Active Orders 24 hr Category Date Time Status Leather Grader STAT Care 11/07/21 12:53 Active EKG-ER Only STAT Care 11/07/21 12:52 Active IV Insertion STAT Care 11/07/21 12:52 Active Oxygen-ED Only Nasal Cannula 2 lpm Care 11/07/21 12:52 Active CHEST 1 VIEW (PORTABLE) Stat Exams 11/07/21 12:53 Completed CHEST WITH CONTRAST [CT] Stat Exams 11/07/21 14:28 Completed BLOOD CULTURE Stat Lab 11/07/21 13:25 Received CBC W DIFF Stat Lab 11/07/21 12:10 Completed CMP Stat Lab 11/07/21 12:10 Completed CULTURE,URINE Stat Lab 11/07/21 13:25 Received D-DIMER QUANTITATIVE Stat Lab 11/07/21 13:56 Completed Lactic Acid Stat Lab 11/07/21 13:20 Completed MAGNESIUM Stat Lab 11/07/21 12:10 Completed NT PRO BNP Stat Lab 11/07/21 12:10 Completed TROPONIN Q3H Lab 11/07/21 12:10 Completed TROPONIN Q3H Lab 11/07/21 15:54 Completed TROPONIN Q3H Lab 11/07/21 19:00 Ordered TROPONIN Q3H Lab 11/07/21 22:00 Ordered TROPONIN Q3H Lab 11/08/21 01:00 Ordered UA W/RFX UR CULTURE Stat Lab 11/07/21 13:25 Completed Respiratory Therapy Assessment DAILY RT 11/07/21 13:17 Active Medication Summary Discontinued Medications Generic Name Dose Route Start Last Admin Trade Name Freq PRN Reason Stop Dose Admin Albuterol/Ipratropium 3 ml 11/07/21 12:52 11/07/21 13:08 Ipratropium/Albuterol Sulfate 3 Ml Ampul.Neb IH 11/07/21 12:53 3 ml STAT ONE Administration Albuterol/Ipratropium Confirm 11/07/21 13:07 Ipratropium/Albuterol Sulfate 3 Ml Ampul.Neb Administered 11/07/21 13:08 Dose 3 ml IH .STK-MED ONE Ceftriaxone Sodium/Dextrose 2 g in 50 mls @ 100 mls/hr 11/07/21 14:15 11/07/21 16:23 Rocephin 2 Gm-D5w 50ml Bag IV 11/07/21 14:44 Infused STAT STA Infusion Ceftriaxone Sodium/Dextrose Confirm 11/07/21 14:44 Rocephin 2 Gm-D5w 50ml Bag Administered 11/07/21 14:45 Dose 2 g in 50 mls @ ud IV .STK-MED ONE Lab/Rad Data: Laboratory Result Diagrams 11/07/21 12:10 11/07/21 12:10 Laboratory Results 11/07/21 11/07/21 11/07/21 Range/Units 15:54 13:56 13:25 WBC (4.0-10.5) K/mm3 RBC (4.1-5.6) M/mm3 Hgb (12.5-18.0) gm/dl Hct (42-50) % MCV (78-100) fl MCH (26-32) pg MCHC (32-36) g/dl RDW (11.5-14.0) % Plt Count (150-450) K/mm3 MPV (7.5-11.0) fl Gran % (36.0-66.0) % Eos # (Auto) (0-0.5) Absolute Lymphs (auto) (1.0-4.6) Absolute Monos (auto) (0.0-1.3) Lymphocytes % (24.0-44.0) % Monocytes % (0.0-12.0) % Eosinophils % (0.00-5.0) % Basophils % (0.0-0.4) % Absolute Granulocytes (1.4-6.9) Basophils # (0-0.4) D-Dimer 866 H* (215-500) ng/mL Sodium (137-145) mmol/L Potassium (3.5-5.1) mmol/L Chloride (98-107) mmol/L Carbon Dioxide (22-30) mmol/L Anion Gap (5-15) MEQ/L BUN (9-20) mg/dL Creatinine (0.66-1.25) mg/dL Estimated GFR ML/MIN Glucose (74-106) mg/dL Lactic Acid (0.4-2.0) Calcium (8.4-10.2) mg/dL Magnesium (1.6-2.3) mg/dL Total Bilirubin (0.2-1.3) mg/dL AST (17-59) U/L ALT (0-50) U/L Alkaline Phosphatase (38-126) U/L Troponin I < 0.012 (0.000-0.034) ng/mL NT-Pro-B Natriuret Pep (0-1800) pg/mL Serum Total Protein (6.3-8.2) g/dL Albumin (3.5-5.0) g/dL Urine Color YELLOW (YELLOW) Urine Appearance CLOUDY (CLEAR) Urine pH 5.0 (5-6) Ur Specific [place] 1.014 (1.005-1.025) Urine Protein 30 (Negative) Urine Ketones NEGATIVE (NEGATIVE) Urine Blood MODERATE (0-5) Alvarez/ul Urine Nitrite POSITIVE (NEGATIVE) Urine Bilirubin NEGATIVE (NEGATIVE) Urine Urobilinogen NEGATIVE (0-1) mg/dL Ur Leukocyte Esterase LARGE (NEGATIVE) Urine WBC (Auto) >100 (0-5) /HPF Urine RBC (Auto) 51-100 (0-2) /HPF U Epithel Cells (Auto) FEW (FEW) /HPF Urine Bacteria (Auto) MODERATE (NEGATIVE) /HPF Urine Mucus (Auto) SLIGHT (NEGATIVE) /HPF Urine Culture Reflexed YES (NO) Urine Glucose NEGATIVE (NEGATIVE) mg/dL 11/07/21 11/07/21 11/07/21 Range/Units 13:20 12:10 12:10 WBC (4.0-10.5) K/mm3 RBC (4.1-5.6) M/mm3 Hgb (12.5-18.0) gm/dl Hct (42-50) % MCV (78-100) fl MCH (26-32) pg MCHC (32-36) g/dl RDW (11.5-14.0) % Plt Count (150-450) K/mm3 MPV (7.5-11.0) fl Gran % (36.0-66.0) % Eos # (Auto) (0-0.5) Absolute Lymphs (auto) (1.0-4.6) Absolute Monos (auto) (0.0-1.3) Lymphocytes % (24.0-44.0) % Monocytes % (0.0-12.0) % Eosinophils % (0.00-5.0) % Basophils % (0.0-0.4) % Absolute Granulocytes (1.4-6.9) Basophils # (0-0.4) D-Dimer (215-500) ng/mL Sodium 136 L (137-145) mmol/L Potassium 4.9 (3.5-5.1) mmol/L Chloride 104 (98-107) mmol/L Carbon Dioxide 28 (22-30) mmol/L Anion Gap 9.0 (5-15) MEQ/L BUN 19 (9-20) mg/dL Creatinine 0.69 (0.66-1.25) mg/dL Estimated GFR > 60.0 ML/MIN Glucose 133 H (74-106) mg/dL Lactic Acid 0.9 (0.4-2.0) Calcium 9.0 (8.4-10.2) mg/dL Magnesium 1.6 (1.6-2.3) mg/dL Total Bilirubin 0.50 (0.2-1.3) mg/dL AST 26 (17-59) U/L ALT 17 (0-50) U/L Alkaline Phosphatase 107 (38-126) U/L Troponin I < 0.012 (0.000-0.034) ng/mL NT-Pro-B Natriuret Pep 122 (0-1800) pg/mL Serum Total Protein 6.5 (6.3-8.2) g/dL Albumin 3.5 (3.5-5.0) g/dL Urine Color (YELLOW) Urine Appearance (CLEAR) Urine pH (5-6) Ur Specific [place] (1.005-1.025) Urine Protein (Negative) Urine Ketones (NEGATIVE) Urine Blood (0-5) Alvarez/ul Urine Nitrite (NEGATIVE) Urine Bilirubin (NEGATIVE) Urine Urobilinogen (0-1) mg/dL Ur Leukocyte Esterase (NEGATIVE) Urine WBC (Auto) (0-5) /HPF Urine RBC (Auto) (0-2) /HPF U Epithel Cells (Auto) (FEW) /HPF Urine Bacteria (Auto) (NEGATIVE) /HPF Urine Mucus (Auto) (NEGATIVE) /HPF Urine Culture Reflexed (NO) Urine Glucose (NEGATIVE) mg/dL 11/07/21 Range/Units 12:10 WBC 8.7 (4.0-10.5) K/mm3 RBC 3.67 L (4.1-5.6) M/mm3 Hgb 9.7 L (12.5-18.0) gm/dl Hct 32.2 L (42-50) % MCV 87.7 (78-100) fl MCH 26.4 (26-32) pg MCHC 30.1 L (32-36) g/dl RDW 14.3 H (11.5-14.0) % Plt Count 225 (150-450) K/mm3 MPV 10.4 (7.5-11.0) fl Gran % 59.6 (36.0-66.0) % Eos # (Auto) 0.75 H (0-0.5) Absolute Lymphs (auto) 1.59 (1.0-4.6) Absolute Monos (auto) 1.16 (0.0-1.3) Lymphocytes % 18.3 L (24.0-44.0) % Monocytes % 13.3 H (0.0-12.0) % Eosinophils % 8.6 H (0.00-5.0) % Basophils % 0.2 (0.0-0.4) % Absolute Granulocytes 5.17 (1.4-6.9) Basophils # 0.02 (0-0.4) D-Dimer (215-500) ng/mL Sodium (137-145) mmol/L Potassium (3.5-5.1) mmol/L Chloride (98-107) mmol/L Carbon Dioxide (22-30) mmol/L Anion Gap (5-15) MEQ/L BUN (9-20) mg/dL Creatinine (0.66-1.25) mg/dL Estimated GFR ML/MIN Glucose (74-106) mg/dL Lactic Acid (0.4-2.0) Calcium (8.4-10.2) mg/dL Magnesium (1.6-2.3) mg/dL Total Bilirubin (0.2-1.3) mg/dL AST (17-59) U/L ALT (0-50) U/L Alkaline Phosphatase (38-126) U/L Troponin I (0.000-0.034) ng/mL NT-Pro-B Natriuret Pep (0-1800) pg/mL Serum Total Protein (6.3-8.2) g/dL Albumin (3.5-5.0) g/dL Urine Color (YELLOW) Urine Appearance (CLEAR) Urine pH (5-6) Ur Specific [place] (1.005-1.025) Urine Protein (Negative) Urine Ketones (NEGATIVE) Urine Blood (0-5) Alvarez/ul Urine Nitrite (NEGATIVE) Urine Bilirubin (NEGATIVE) Urine Urobilinogen (0-1) mg/dL Ur Leukocyte Esterase (NEGATIVE) Urine WBC (Auto) (0-5) /HPF Urine RBC (Auto) (0-2) /HPF U Epithel Cells (Auto) (FEW) /HPF Urine Bacteria (Auto) (NEGATIVE) /HPF Urine Mucus (Auto) (NEGATIVE) /HPF Urine Culture Reflexed (NO) Urine Glucose (NEGATIVE) mg/dL - Progress Progress: improved Air Movement: good Progress Note: 11/07/21 16:47 81-year-old is evaluated for worsening shortness of breath and cough. Patient oxygen saturation on room air was 85% but improved on 2 L 97%. Patient does have oxygen to use at home. Has normal white count, grossly unremarkable chemi stries and negative troponin. Ruled out pulmonary embolism. No obvious pneumonia. Does have UTI and given a dose of Rocephin. Patient is also given breathing treatment on reevaluation feeling much better. Not in any distress. I do not think patient needs to be admitted and will send him home on short course of steroid and Omnicef which will cover for UTI and COPD exacerbation which is causing his symptoms. He is advised to continue using his neb treatments and more strict with this oxygen use. Discussed signs symptoms of worsening needing return to ER which he seems understanding. Stable for discharge. Blood Culture(s) Obtained: Yes Antibiotics given: Yes Counseled pt/family regarding: lab results, diagnosis, need for follow-up, rad results - Departure Departure Disposition: Home Clinical Impression: COPD exacerbation, UTI (urinary tract infection) Condition: Stable Critical Care Time: No Referrals: THANH LARKIN MD [Primary Care Provider] - Follow up/PCP as directed (In 1-2 days for reevaluation) Instructions: Chronic Obstructive Pulmonary Disease, Exacerbation of COPD (DC) Additional Instructions: Continue using 2 L oxygen all the time. Take neb treatments every 4-6 hours as needed. Follow-up with primary care for reevaluation. Return to ER for worsening shortness of breath despite being on oxygen or if develop fever chills etc. strict monitoring of your blood sugar while taking steroids as it will bump up your blood sugar and may need to talk to your doctor if it is more than 200. Prescriptions: Dexamethasone [Decadron] 6 mg PO DAILY #5 tablet Cefdinir [Omnicef 300 mg] 300 mg PO BID 7 Days #14 tab
--- NOTE | 2021-11-07 13:14 | XRAY ---
Indication: Short of breath. Comparison: March 18, 2021. Portable chest again hyperinflated minimal scattered fibrosis/scarring bilaterally and a few tiny calcified granulomas. Remaining heart and lungs unremarkable. Bony thorax intact again with mild osteopenia and degenerative changes. Impression: Continued nonacute hyperinflated chest with chronic features.
[2021-11-07 13:45] LABS: ALBUMIN 3.5 g/dL (3.5-5.0); ALKALINE PHOSPHATASE 107 U/L (38-126); BLOOD UREA NITROGEN 19 mg/dL (9-20); CHLORIDE 104 mmol/L (98-107); Carbon Dioxide 28 mmol/L (22-30); Creatinine 1 0.69 mg/dL (0.66-1.25); EST GLOMERULAR FILTRATION RATE > 60.0 ML/MIN; Glucose 133 mg/dL (74-106); MAGNESIUM 1.6 mg/dL (1.6-2.3); NT PRO BNP 122 pg/mL (0-1800); Potassium 4.9 mmol/L (3.5-5.1); SGOT/AST 26 U/L (17-59); SGPT/ALT 17 U/L (0-50); SODIUM 136 mmol/L (137-145); Total Protein 6.5 g/dL (6.3-8.2)
[2021-11-07 13:52] LABS: Absolute Neutrophil Ct (ANC) 5.17 (1.4-6.9); Basophil (Absolute #) 0.02 (0-0.4); Eosinophil % 8.6 % (0.00-5.0); Eosinophil (Absolute #) 0.75 (0-0.5); Hematocrit 32.2 % (42-50); Hemoglobin 9.7 gm/dl (12.5-18.0); Lymphocyte (Absolute #) 1.59 (1.0-4.6); Lymphocytes % 18.3 % (24.0-44.0); Mean Cell Volume 87.7 fl (78-100); Mean Corpuscular Hemoglobin 26.4 pg (26-32); Mean Corpuscular Hgb Concent. 30.1 g/dl (32-36); Mean Platelet Volume 10.4 fl (7.5-11.0); Monocyte (Absolute #) 1.16 (0.0-1.3); Monocytes % 13.3 % (0.0-12.0); Neutrophil % 59.6 % (36.0-66.0); Platelet Count 225 K/mm3 (150-450); Red Blood Count 3.67 M/mm3 (4.1-5.6); Red Cell Distribution Width 14.3 % (11.5-14.0); White Blood Count 8.7 K/mm3 (4.0-10.5)
[2021-11-07 14:03] LABS: Appearance CLOUDY (CLEAR); Bacteria MODERATE /HPF (NEGATIVE); Bilirubin NEGATIVE (NEGATIVE); Blood MODERATE Ery/ul (0-5); Epithelial Cells FEW /HPF (FEW); Glucose NEGATIVE (NEGATIVE); Ketones NEGATIVE (NEGATIVE); Leukocyte Esterase LARGE (NEGATIVE); Mucus SLIGHT /HPF (NEGATIVE); Nitrite POSITIVE (NEGATIVE); Protein,Urine Dip 30 (Negative); RBC 51-100 /HPF (0-2); Specific Gravity 1.014 (1.005-1.025); Urobilinogen NEGATIVE mg/dL (0-1); WBC >100 /HPF (0-5)
[2021-11-07] MEDS ORDERED: ROCEPHIN 2 Gm-D5w 50ML BAG** 2 G/50 ML IVPB IV STA (14:15)
[2021-11-07] MEDS ORDERED: ROCEPHIN 2 Gm-D5w 50ML BAG** 2 G/50 ML IVPB IV ONE (14:44)
--- NOTE | 2021-11-07 15:28 | XRAY ---
Indication: Short of breath. Elevated d-dimer. Multiple contiguous axial images obtained through the chest using 80 cc Isovue 370 contrast and PE protocol. Comparison: June 03, 2021 There is poor opacification of the pulmonary arteries limiting evaluation for pulmonary embolus. No obvious central pulmonary embolus. Heart not enlarged. Aorta remains mildly actress carotid without aneurysm/dissection. No pathologic mediastinal/hilar lymphadenopathy. Stable small hiatal hernia. Lungs again demonstrates mild scattered fibrosis/scarring right greater than left. Posterior medial right lower lobe demonstrates enlarging subpleural noncalcified masslike opacity today measuring 2.0 x 4.6 cm again with posterior pleural thickening. Stable 9 mm posterior medial right upper lobe peripheral noncalcified nodule and minimal left hemithorax calcified pleural plaquing. No effusion or pneumothorax. Bony thorax intact again with minimal degenerative changes throughout the spine. New healing left anterior 5/6 rib fractures. Limited upper abdomen again demonstrates chunky gallstones. Impression: 1. Pulmonary embolus evaluation limited due to suboptimal contrast opacification. No obvious central pulmonary embolus. 2. Interval enlarging right lower lobe subpleural noncalcified masslike opacity as detailed. As before, PET/CT may yield further information. 3. Stable 9 mm right upper lobe noncalcified nodule, scattered pulmonary fibrosis/scarring, minimal left hemithorax calcified pleural plaquing, small hiatal hernia, and cholelithiasis. 4. New healing left 5/6 rib fractures.
[2021-11-07 17:27] VITALS: BP 132/72; PULSE 76; O2SAT 96
== END 2021-11-07 18:07 | disposition home or self-care (01) ==
LOC: ED 12:17
DX: N39.0 Urinary tract infection, site not specified (principal); J44.1 Chronic obstructive pulmonary disease with (acute) exacerbation; Z99.81 Dependence on supplemental oxygen; I10 Essential (primary) hypertension; E78.5 Hyperlipidemia, unspecified; E11.9 Type 2 diabetes mellitus without complications; Z79.4 Long term (current) use of insulin; Z79.84 Long term (current) use of oral hypoglycemic drugs; I63.9 Cerebral infarction, unspecified; G81.94 Hemiplegia, unspecified affecting left nondominant side; J96.10 Chronic respiratory failure, unspecified whether with hypoxia or hypercapnia; Z79.52 Long term (current) use of systemic steroids; Z79.899 Other long term (current) drug therapy
CPT/HCPCS: 36000; 36415; 71045; 71260; 80053; 81001; 83605; 83735; 83880; 84484; 85025; 85379; 87040; 87077; 87086; 87186; 93005; 93041; 94640; 96365; 99284; J0696; A9270-GY

== ENCOUNTER 2021-11-21 15:59 | Emergency (ER) | payer MEDICARE ==
--- NOTE | 2021-11-21 16:10 | ERPHSYRPT ---
- History of Present Illness Time Seen by Provider: 11/21/21 16:09 Source: patient, EMS Exam Limitations: clinical condition Physician History: This is a 81-year-old white male patient who was brought in by EMS service because of confusion. Patient's primary care physician is Dr. Larkin. 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 He has a history of CHF, COPD, insulin-dependent diabetes, and elevated cholesterol. He is on Plavix. He uses 2 L of oxygen via nasal cannula at home. Patient has a suprapubic catheter in place. Patient was seen earlier today by EMS for lift assistance after fall. It is not unusual for him to fall frequently. However, the patient's family called because he was more confused Severity: moderate Baseline/Normal Cognition: alert but confused Current Cognition: alert but confused Baseline Gait: walks w/o assistance Associated Symptoms: confusion, No loss of consciousness Allergies/Adverse Reactions: No Known Drug Allergies Allergy (Verified 11/21/21 16:38) Home Medications: Clopidogrel Bisulfate 75 mg [PLAVIX 75 MG Tablet] 75 mg PO DAILY 01/04/17 [History] Aspirin [Aspirin EC] 81 mg PO DAILY 10/28/19 [History] Escitalopram Oxalate 10 mg [Lexapro 10 MG] 10 mg PO HS 10/28/19 [History] Gabapentin 300 mg PO TID 10/28/19 [History] Insulin NPH Human Isophane [Humulin N] 50 units SQ BIDWM 10/28/19 [History] Metformin HCl [Metformin HCl ER] 500 mg PO DINNER 10/28/19 [History] Tamsulosin HCl 0.4 tablet PO HS 10/28/19 [History] Ipratropium/Albuterol Sulfate [Iprat-Albut 0.5-3(2.5) mg/3 ml] 1 neb IH QIDPRN PRN 07/25/20 [History] Insulin Lispro [Humalog] 100 unit SQ UD 06/17/21 [History] Hx Tetanus, Diphtheria Vaccination/Date Given: Yes Hx Influenza Vaccination/Date Given: Yes Hx Pneumococcal Vaccination/Date Given: Yes Travel Risk - International Travel Have you traveled outside of the country in past 3 weeks: No - Coronavirus Screening Are you exhibiting any of the following symptoms?: No Close contact with a COVID-19 positive Pt in past 14-21 Days: No - Vaccine Status Have you recieved a Covid-19 vaccination: Yes Warehouse Order Selector: Moderna - Vaccination Dates Date of 2cond Vaccination (if applicable): 12/2020 - Review of Systems Constitutional: No Symptoms Eyes: No Symptoms Ears, Nose, & Throat: No Symptoms Respiratory: No Symptoms Cardiac: No Symptoms Abdominal/Gastrointestinal: No Symptoms Genitourinary Symptoms: No Symptoms Musculoskeletal: No Symptoms Skin: No Symptoms Neurological: Other Psychological: No Symptoms (Confusion) Endocrine: No Symptoms Hematologic/Lymphatic: No Symptoms Immunological/Allergic: No Symptoms All Other Systems: Reviewed and Negative - Past Medical History Pertinent Past Medical History: Yes Neurological History: No Pertinent History ENT History: No Pertinent History Cardiac History: Hypertension Respiratory History: COPD, Emphysema Endocrine Medical History: Diabetes Type II Musculoskeletal History: Fractures, Degenerative Disk Disease GI Medical History: Hernia, Hepatitis History: No Pertinent History Psycho-Social History: No Pertinent History Male Reproductive Disorders: No Pertinent History Other Medical History: hep c,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 herniorr. as a child - Social History Smoking Status: Former smoker How long have you smoked: 66 years Exposure to second hand smoke: No Drug Use: none Patient Lives Alone: Yes - Nursing Vital Signs Nursing Vital Signs: Initial Vital Signs Temperature 98.3 F 11/21/21 16:10 Pulse Rate 91 H 11/21/21 16:10 Respiratory Rate 20 11/21/21 16:10 Blood Pressure 137/74 11/21/21 16:10 O2 Sat by Pulse Oximetry 95 11/21/21 16:10 Pain Scale Pain Intensity 0 - [place] Coma Scale Best Eye Response ([place]): (4) open spontaneously Best Verbal Response ([place]): (4) confused conversation Best Motor Response ([place]): (6) obeys commands [place] Total: 14 - Physical Exam General Appearance: no apparent distress, alert, anxiety Eye Exam: bilateral eye: normal inspection, PERRL, EOMI Ears, Nose, Throat Exam: normal ENT inspection, moist mucous membranes Neck Exam: normal inspection, non-tender, supple, full range of motion Respiratory: normal breath sounds, lungs clear, airway intact, No chest tenderness, No respiratory distress Cardiovascular: regular rate/rhythm, normal heart sounds, normal peripheral pulses Gastrointestinal: soft, normal bowel sounds, other (Suprapubic catheter in p lace), No tenderness Rectal Exam: not done Back Exam: normal inspection, normal range of motion, No CVA tenderness, No vertebral tenderness Extremity Exam: normal inspection, normal range of motion, pelvis stable 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 Exam: normal hearing, normal speech, PERRL, tongue midline Coordination/Gait: normal finger to nose Skin Exam: normal color, warm, dry SpO2 Interpretation: borderline oxygenation O2 Delivery: Room Air - Course Nursing assessment & vital signs reviewed: Yes Ordered Tests: Active Orders 24 hr Category Date Time Status Fusing Machine Operator STAT Care 11/21/21 16:12 Active IV Insertion STAT Care 11/21/21 16:11 Active NPO (ED) STAT Care 11/21/21 16:11 Active Pulse Oximetry (ED) STAT Care 11/21/21 16:11 Active HEAD WITHOUT CONTRAST [CT] Stat Exams 11/21/21 16:12 Completed BLOOD CULTURE Stat Lab 11/21/21 17:15 Received CBC W DIFF Stat Lab 11/21/21 16:15 Completed CMP Stat Lab 11/21/21 16:15 Completed CULTURE,URINE Stat Lab 11/21/21 17:17 Received Lactic Acid Stat Lab 11/21/21 16:11 Completed PROTIME WITH INR Stat Lab 11/21/21 16:15 Completed Sputum Culture [CULTURE,SPUTUM] Stat Lab 11/21/21 17:17 Ordered UA W/RFX UR CULTURE Stat Lab 11/21/21 17:17 Completed Medication Summary Generic Name Dose Route Start Last Admin Trade Name Freq PRN Reason Stop Dose Admin Sodium Chloride 1,000 mls @ 100 mls/hr 11/21/21 16:15 11/21/21 18:13 Sodium Chloride 0.9% 1000 Ml IV 12/21/21 16:14 100 mls/hr .Q10H BEATRIZ Administration Ceftriaxone Sodium/Dextrose 1 g in 50 mls @ 100 mls/hr 11/21/21 18:48 Rocephin 1 Gm-D5w 50 Ml Bag IV 11/21/21 19:17 STAT STA Discontinued Medications Generic Name Dose Route Start Last Admin Trade Name Janny PRN Reason Stop Dose Admin Insulin Human Regular 10 unit 11/21/21 18:08 11/21/21 18:13 Insulin Regular, Human 1 Unit IV 11/21/21 18:09 10 unit STAT ONE Administration Insulin Human Regular Confirm 11/21/21 18:10 Insulin Regular, Human 1 Unit Administered 11/21/21 18:11 Dose 10 unit .ROUTE [employer]MED ONE Lab/Rad Data: Laboratory Result Diagrams 11/21/21 16:15 11/21/21 16:15 Laboratory Results 11/21/21 11/21/21 11/21/21 Range/Units 17:17 17:15 16:15 WBC (4.0-10.5) K/mm3 RBC (4.1-5.6) M/mm3 Hgb (12.5-18.0) gm/dl Hct (42-50) % MCV (78-100) fl MCH (26-32) pg MCHC (32-36) g/dl RDW (11.5-14.0) % Plt Count (150-450) K/mm3 MPV (7.5-11.0) fl Gran % (36.0-66.0) % Eos # (Auto) (0-0.5) Absolute Lymphs (auto) (1.0-4.6) Absolute Monos (auto) (0.0-1.3) Lymphocytes % (24.0-44.0) % Monocytes % (0.0-12.0) % Eosinophils % (0.00-5.0) % Basophils % (0.0-0.4) % Absolute Granulocytes (1.4-6.9) Basophils # (0-0.4) PT 14.0 H (9.4-12.5) SECONDS INR 1.19 (0.8-3.0) Sodium (137-145) mmol/L Potassium (3.5-5.1) mmol/L Chloride (98-107) mmol/L Carbon Dioxide (22-30) mmol/L Anion Gap (5-15) MEQ/L BUN (9-20) mg/dL Creatinine (0.66-1.25) mg/dL Estimated GFR ML/MIN Glucose (74-106) mg/dL Lactic Acid (0.4-2.0) Calcium (8.4-10.2) mg/dL Total Bilirubin (0.2-1.3) mg/dL AST (17-59) U/L ALT (0-50) U/L Alkaline Phosphatase (38-126) U/L Ammonia < 9 L (9-30) umol/L Serum Total Protein (6.3-8.2) g/dL Albumin (3.5-5.0) g/dL Urine Color STRAW (YELLOW) Urine Appearance CLEAR (CLEAR) Urine pH 6.0 (5-6) Ur Specific Howard 1.024 (1.005-1.025) Urine Protein NEGATIVE (Negative) Urine Ketones NEGATIVE (NEGATIVE) Urine Blood SMALL (0-5) Alvarez/ul Urine Nitrite NEGATIVE (NEGATIVE) Urine Bilirubin NEGATIVE (NEGATIVE) Urine Urobilinogen NEGATIVE (0-1) mg/dL Ur Leukocyte Esterase NEGATIVE (NEGATIVE) Urine WBC (Auto) 0-2 (0-5) /HPF Urine RBC (Auto) 3-5 (0-2) /HPF U Epithel Cells (Auto) NONE (FEW) /HPF Urine Bacteria (Auto) NONE (NEGATIVE) /HPF Urine Culture Reflexed NO (NO) Urine Glucose >=500 (NEGATIVE) mg/dL 11/21/21 11/21/21 11/21/21 Range/Units 16:15 16:15 16:11 WBC 11.8 H (4.0-10.5) K/mm3 RBC 3.70 L (4.1-5.6) M/mm3 Hgb 9.9 L (12.5-18.0) gm/dl Hct 31.3 L (42-50) % MCV 84.6 (78-100) fl MCH 26.8 (26-32) pg MCHC 31.6 L (32-36) g/dl RDW 14.1 H (11.5-14.0) % Plt Count 178 (150-450) K/mm3 MPV 10.3 (7.5-11.0) fl Gran % 80.4 H (36.0-66.0) % Eos # (Auto) 0.16 (0-0.5) Absolute Lymphs (auto) 1.06 (1.0-4.6) Absolute Monos (auto) 1.06 (0.0-1.3) Lymphocytes % 9.0 L (24.0-44.0) % Monocytes % 9.0 (0.0-12.0) % Eosinophils % 1.4 (0.00-5.0) % Basophils % 0.2 (0.0-0.4) % Absolute Granulocytes 9.49 H (1.4-6.9) Basophils # 0.02 (0-0.4) PT (9.4-12.5) SECONDS INR (0.8-3.0) Sodium 137 (137-145) mmol/L Potassium 4.4 (3.5-5.1) mmol/L Chloride 104 (98-107) mmol/L Carbon Dioxide 26 (22-30) mmol/L Anion Gap 11.0 (5-15) MEQ/L BUN 15 (9-20) mg/dL Creatinine 0.63 L (0.66-1.25) mg/dL Estimated GFR > 60.0 ML/MIN Glucose 412 H (74-106) mg/dL Lactic Acid 2.4 H (0.4-2.0) Calcium 8.5 (8.4-10.2) mg/dL Total Bilirubin 0.50 (0.2-1.3) mg/dL AST 36 (17-59) U/L ALT 25 (0-50) U/L Alkaline Phosphatase 97 (38-126) U/L Ammonia (9-30) umol/L Serum Total Protein 5.6 L (6.3-8.2) g/dL Albumin 3.0 L (3.5-5.0) g/dL Urine Color (YELLOW) Urine Appearance (CLEAR) Urine pH (5-6) Ur Specific Howard (1.005-1.025) Urine Protein (Negative) Urine Ketones (NEGATIVE) Urine Blood (0-5) Alvarez/ul Urine Nitrite (NEGATIVE) Urine Bilirubin (NEGATIVE) Urine Urobilinogen (0-1) mg/dL Ur Leukocyte Esterase (NEGATIVE) Urine WBC (Auto) (0-5) /HPF Urine RBC (Auto) (0-2) /HPF U Epithel Cells (Auto) (FEW) /HPF Urine Bacteria (Auto) (NEGATIVE) /HPF Urine Culture Reflexed (NO) Urine Glucose (NEGATIVE) mg/dL - Progress Progress: improved Progress Note: 11/21/21 17:06 CAT scan of the head without contrast shows nonacute senile brain. In addition, new finding of pansinusitis present. Counseled pt/family regarding: lab results, diagnosis, need for follow-up, rad results - Departure Departure Disposition: Home Clinical Impression: Hyperglycemia, Pansinusitis, Confusion Condition: Stable Critical Care Time: No Referrals: THANH LARKIN MD [Primary Care Provider] - Follow up/PCP as directed Additional Instructions: Take your medication as prescribed. Follow-up with your primary care physician for further management. Prescriptions: Cefdinir 300 mg PO BID #[id number]
[2021-11-21] MEDS ORDERED: Sodium Chloride 0.9% 1000 ML 1,000 ML IV SCH (16:15)
[2021-11-21 16:45] LABS: Absolute Neutrophil Ct (ANC) 9.49 (1.4-6.9); Basophil (Absolute #) 0.02 (0-0.4); Eosinophil % 1.4 % (0.00-5.0); Eosinophil (Absolute #) 0.16 (0-0.5); Hematocrit 31.3 % (42-50); Hemoglobin 9.9 gm/dl (12.5-18.0); Lymphocyte (Absolute #) 1.06 (1.0-4.6); Mean Cell Volume 84.6 fl (78-100); Mean Corpuscular Hemoglobin 26.8 pg (26-32); Mean Corpuscular Hgb Concent. 31.6 g/dl (32-36); Mean Platelet Volume 10.3 fl (7.5-11.0); Monocyte (Absolute #) 1.06 (0.0-1.3); Neutrophil % 80.4 % (36.0-66.0); Platelet Count 178 K/mm3 (150-450); Red Cell Distribution Width 14.1 % (11.5-14.0); White Blood Count 11.8 K/mm3 (4.0-10.5)
[2021-11-21 16:52] LABS: INR 1.19 (0.8-3.0)
--- NOTE | 2021-11-21 16:57 | XRAY ---
Indication: Confusion. Uncooperative. Multiple contiguous axial images obtained through the head without contrast. Comparison: October 27, 2019. There is again age-appropriate global atrophy with progressive worsening mild/moderate periventricular degenerative micro-ischemia bilaterally. No acute intracranial hemorrhage, abnormal extra-axial fluid collection, or mass effect. Fourth ventricle is midline without hydrocephalus. Bony calvarium intact. New moderate mucosal thickening of both maxillary sinuses with fluid leveling, near-complete opacification of both ethmoid sinuses, and minimal mucosal thickening of remaining paranasal sinuses. There remains partial opacification of the both mastoid air cells presumed inflammatory. Impression: 1. Continued nonacute senile brain. 2. New pansinusitis. Partial opacification of both mastoid air cells also presumed inflammatory.
[2021-11-21 17:05] LABS: ALKALINE PHOSPHATASE 97 U/L (38-126); BLOOD UREA NITROGEN 15 mg/dL (9-20); CHLORIDE 104 mmol/L (98-107); Calcium 8.5 mg/dL (8.4-10.2); Carbon Dioxide 26 mmol/L (22-30); Creatinine 1 0.63 mg/dL (0.66-1.25); EST GLOMERULAR FILTRATION RATE > 60.0 ML/MIN; Glucose 412 mg/dL (74-106); Potassium 4.4 mmol/L (3.5-5.1); SGOT/AST 36 U/L (17-59); SGPT/ALT 25 U/L (0-50); SODIUM 137 mmol/L (137-145); Total Protein 5.6 g/dL (6.3-8.2)
[2021-11-21] MEDS ORDERED: HUMULIN R IV ONE (18:08)
[2021-11-21] MEDS ORDERED: Sodium Chloride 0.9% 1000 ML 1,000 ML ONE (18:10)
[2021-11-21] MEDS ORDERED: HUMULIN R ONE (18:10)
[2021-11-21 18:19] LABS: Appearance CLEAR (CLEAR); Bilirubin NEGATIVE (NEGATIVE); Blood SMALL Ery/ul (0-5); Glucose >=500 mg/dL (NEGATIVE); Ketones NEGATIVE (NEGATIVE); Leukocyte Esterase NEGATIVE (NEGATIVE); Nitrite NEGATIVE (NEGATIVE); Protein,Urine Dip NEGATIVE (Negative); Specific Gravity 1.024 (1.005-1.025); Urobilinogen NEGATIVE mg/dL (0-1); WBC 0-2 /HPF (0-5)
[2021-11-21] MEDS ORDERED: ROCEPHIN 1 Gm-D5w 50 ml Bag** 1 G/50 ML IVPB IV STA (18:48)
[2021-11-21] MEDS ORDERED: ROCEPHIN 1 Gm-D5w 50 ml Bag** 1 G/50 ML IVPB IV ONE (18:55)
[2021-11-21 19:18] VITALS: BP 111/57; PULSE 94; O2SAT 96
== END 2021-11-21 20:00 | disposition home or self-care (01) ==
LOC: ED 15:59
DX: J01.40 Acute pansinusitis, unspecified (principal); E11.65 Type 2 diabetes mellitus with hyperglycemia; Z79.4 Long term (current) use of insulin; Z79.84 Long term (current) use of oral hypoglycemic drugs; R41.0 Disorientation, unspecified; B18.2 Chronic viral hepatitis C; I10 Essential (primary) hypertension; J43.9 Emphysema, unspecified; Z99.81 Dependence on supplemental oxygen; E78.5 Hyperlipidemia, unspecified; Z79.01 Long term (current) use of anticoagulants; Z79.899 Other long term (current) drug therapy
CPT/HCPCS: 36000; 36415; 70450; 80053; 81001; 82140; 83605; 85025; 85610; 87040; 87070; 87086; 93041; 94760; 96374; 99284; J0696; J1815

== ENCOUNTER 2021-11-27 12:27 | Observation (INO) | payer MEDICARE ==
--- NOTE | 2021-11-27 12:59 | XRAY ---
Indication: Pneumonia. Comparison: November 07, 2021. Portable chest unchanged again hyperinflated with scattered fibrosis/scarring and a few tiny calcified granulomas. Remaining heart and lungs unremarkable. No new/acute findings.
[2021-11-27 13:06] LABS: Absolute Neutrophil Ct (ANC) 4.25 (1.4-6.9); Basophil (Absolute #) 0.03 (0-0.4); Eosinophil % 3.8 % (0.00-5.0); Eosinophil (Absolute #) 0.25 (0-0.5); Hematocrit 31.1 % (42-50); Hemoglobin 9.7 gm/dl (12.5-18.0); Lymphocyte (Absolute #) 1.35 (1.0-4.6); Lymphocytes % 20.7 % (24.0-44.0); Mean Corpuscular Hemoglobin 26.5 pg (26-32); Mean Corpuscular Hgb Concent. 31.2 g/dl (32-36); Mean Platelet Volume 9.3 fl (7.5-11.0); Monocyte (Absolute #) 0.64 (0.0-1.3); Monocytes % 9.8 % (0.0-12.0); Neutrophil % 65.2 % (36.0-66.0); Platelet Count 208 K/mm3 (150-450); Red Blood Count 3.66 M/mm3 (4.1-5.6); Red Cell Distribution Width 14.2 % (11.5-14.0); White Blood Count 6.5 K/mm3 (4.0-10.5)
[2021-11-27 13:10] LABS: Appearance CLEAR (CLEAR); Bacteria RARE /HPF (NEGATIVE); Bilirubin NEGATIVE (NEGATIVE); Blood MODERATE Ery/ul (0-5); Epithelial Cells RARE /HPF (FEW); Glucose >=500 mg/dL (NEGATIVE); Ketones TRACE (NEGATIVE); Leukocyte Esterase TRACE (NEGATIVE); Nitrite NEGATIVE (NEGATIVE); Protein,Urine Dip 30 (Negative); RBC 26-50 /HPF (0-2); Specific Gravity 1.012 (1.005-1.025); Urobilinogen NEGATIVE mg/dL (0-1)
--- NOTE | 2021-11-27 13:47 | ERPHSYRPT ---
- History of Present Illness Time Seen by Provider: 11/27/21 13:00 Source: patient Exam Limitations: no limitations Patient Subjective Stated Complaint: Pt was at home and slid out of his chair, pt states that he hit his head, he has a skin tear on his right elbow and has bruising to his lower chest, pt had pulled out his supra pubic catheter while he was at home Triage Nursing Assessment: Pt brought to the ER by EMS, hypertensive, suprapubic replaced with a 20F ro[place], non bleeding skin tear to right elbow, bruising to damian lower chest, hematoma to left forehead, pt originally brought in due to confusion and has been getting treatment for a UTI but pt doesn't appear any different to this nurse than the last visit to this ER, no difficulties with breathing, skin n/w/d, pulses normal Physician History: Patient is a 81-year-old male presents to our ED via EMS nonboarded noncollared for evaluation of confusion. Per report patient was at home slid out of his chair and hit his head. Patient has a contusion to his frontal forehead. EMS reports patient is confused however nursing staff notes patient feels patient is functioning at his baseline. Patient denies pain. No headache. No chest pain or shortness of breath. No nausea or vomiting. No diaphoresis. Patient reportedly pulled his suprapubic catheter out prior to arrival. On exam patient has a right elbow skin tear. Patient not in distress. Patient has a history of dementia. HPI limited Timing/Duration: today Severity: mild Modifying Factors: Improves With: nothing Associated Symptoms: denies symptoms, No nausea, No abdominal pain, No fever, No syncope, No weakness Allergies/Adverse Reactions: No Known Drug Allergies Allergy (Verified 11/27/21 13:22) Home Medications: Clopidogrel Bisulfate 75 mg [PLAVIX 75 MG Tablet] 75 mg PO DAILY 01/04/17 [History] Aspirin [Aspirin EC] 81 mg PO DAILY 10/28/19 [History] Escitalopram Oxalate 10 mg [Lexapro 10 MG] 10 mg PO HS 10/28/19 [History] Gabapentin 300 mg PO TID 10/28/19 [History] Insulin NPH Human Isophane [Humulin N] 50 units SQ BIDWM 10/28/19 [History] Metformin HCl [Metformin HCl ER] 500 mg PO DINNER 10/28/19 [History] Tamsulosin HCl 0.4 tablet PO HS 10/28/19 [History] Ipratropium/Albuterol Sulfate [Iprat-Albut 0.5-3(2.5) mg/3 ml] 1 neb IH QIDPRN PRN 07/25/20 [History] Insulin Lispro [Humalog] 100 unit SQ UD 06/17/21 [History] Hx Tetanus, Diphtheria Vaccination/Date Given: Yes Hx Influenza Vaccination/Date Given: Yes Hx Pneumococcal Vaccination/Date Given: Yes Travel Risk - International Travel Have you traveled outside of the country in past 3 weeks: No - Coronavirus Screening Are you exhibiting any of the following symptoms?: No Close contact with a COVID-19 positive Pt in past 14-21 Days: No - Vaccine Status Have you recieved a Covid-19 vaccination: Yes Regulatory Coordinator: Moderna - Vaccination Dates Date of 2cond Vaccination (if applicable): 01/2021 - Review of Systems Constitutional: No Symptoms, No Fever, No Chills Eyes: No Symptoms Ears, Nose, & Throat: No Symptoms Respiratory: No Symptoms, No Cough, No Dyspnea Cardiac: No Symptoms, No Chest Pain, No Edema, No Syncope Abdominal/Gastrointestinal: No Symptoms, No Abdominal Pain, No Nausea, No Vomiting, No Diarrhea Genitourinary Symptoms: No Symptoms, No Dysuria Musculoskeletal: No Symptoms, No Back Pain, No Neck Pain Skin: No Symptoms, No Rash Neurological: No Symptoms, No Dizziness, No Focal Weakness, No Sensory Changes Psychological: No Symptoms Endocrine: No Symptoms Hematologic/Lymphatic: No Symptoms Immunological/Allergic: No Symptoms All Other Systems: Reviewed and Negative - Past Medical History Pertinent Past Medical History: Yes Neurological History: No Pertinent History ENT History: No Pertinent History Cardiac History: Hypertension Respiratory History: COPD, Emphysema Endocrine Medical History: Diabetes Type II Musculoskeletal History: Fractures, Degenerative Disk Disease GI Medical History: Hernia, Hepatitis History: No Pertinent History Psycho-Social History: No Pertinent History Male Reproductive Disorders: No Pertinent History Other Medical History: hep c,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 herniorr. as a child - Social History Smoking Status: Former smoker How long have you smoked: 66 years Exposure to second hand smoke: No Drug Use: none Patient Lives Alone: Yes - Nursing Vital Signs Nursing Vital Signs: Initial Vital Signs Temperature 97.2 F 11/27/21 12:46 Pulse Rate 87 11/27/21 12:46 Respiratory Rate 20 11/27/21 12:46 Blood Pressure 149/73 11/27/21 12:46 O2 Sat by Pulse Oximetry 98 11/27/21 12:46 Pain Scale Pain Intensity 0 - Physical Exam General Appearance: no apparent distress, alert Eye Exam: PERRL/EOMI, eyes nml inspection Ears, Nose, Throat Exam: normal ENT inspection, TMs normal, pharynx normal, moist mucous membranes Neck Exam: normal inspection, non-tender, supple, full range of motion Respiratory Exam: normal breath sounds, lungs clear, airway intact, other (Chest bruising), No respiratory distress Cardiovascular Exam: regular rate/rhythm, normal heart sounds, normal peripheral pulses Gastrointestinal/Abdomen Exam: soft, normal bowel sounds, No tenderness, No mass Back Exam: normal inspection, normal range of motion, No CVA tenderness, No vertebral tenderness Extremity Exam: normal inspection, normal range of motion, pelvis stable, other (Skin tear right elbow) Neurologic Exam: alert, oriented x 3, cooperative, normal mood/affect, sensation nml, No motor deficits Skin Exam: normal color, warm, dry, No rash Lymphatic Exam: No adenopathy SpO2 Interpretation: normal SpO2: 95 O2 Delivery: Room Air - Course Nursing assessment & vital signs reviewed: Yes EKG Interpreted by Me: RATE (90), Sinus Rhythm, NORMAL AXIS, NORMAL INTERVALS - Radiology Exams Chest X-ray Interpretation: Teleradiologist Report (Portable chest unchanged again hyperinflated with scattered fibrosis/scarring and a few tiny calcified granulomas. Remaining heart and lungs unremarkable. No new acute findings.) - CT Exams Head CT Interpretation: Tele-radiologist Report (Compared to 6 days ago stable nonacute senile brain with again incidental pansinusitis. No new acute findings. Global atrophy with mild to moderate periventricular degenerative microischemia. No acute intracranial hemorrhage abnormal extra-axial fluid collection or mass-effect. Fourth ventricle ) Ordered Tests: Active Orders 24 hr Category Date Time Status Pattern Marker STAT Care 11/27/21 12:31 Active EKG-ER Only STAT Care 11/27/21 12:30 Active IV Insertion STAT Care 11/27/21 12:30 Active Pulse Oximetry (ED) STAT Care 11/27/21 12:30 Active CHEST 1 VIEW (PORTABLE) Stat Exams 11/27/21 12:31 Completed HEAD WITHOUT CONTRAST [CT] Stat Exams 11/27/21 13:48 Completed BLOOD CULTURE Stat Lab 11/27/21 12:40 Received CBC W DIFF Stat Lab 11/27/21 12:56 Completed CMP Stat Lab 11/27/21 12:56 Completed CULTURE,URINE Stat Lab 11/27/21 13:03 Received TROPONIN Q3H Lab 11/27/21 12:56 Received TROPONIN Q3H Lab 11/27/21 15:11 Completed TROPONIN Q3H Lab 11/27/21 18:30 Ordered TROPONIN Q3H Lab 11/27/21 21:30 Ordered TROPONIN Q3H Lab 11/28/21 00:30 Ordered UA W/RFX UR CULTURE Stat Lab 11/27/21 13:03 Completed Lab/Rad Data: Laboratory Result Diagrams 11/27/21 12:56 11/27/21 12:56 Laboratory Results 11/27/21 11/27/21 11/27/21 Range/Units 15:11 13:03 12:56 WBC (4.0-10.5) K/mm3 RBC (4.1-5.6) M/mm3 Hgb (12.5-18.0) gm/dl Hct (42-50) % MCV (78-100) fl MCH (26-32) pg MCHC (32-36) g/dl RDW (11.5-14.0) % Plt Count (150-450) K/mm3 MPV (7.5-11.0) fl Gran % (36.0-66.0) % Eos # (Auto) (0-0.5) Absolute Lymphs (auto) (1.0-4.6) Absolute Monos (auto) (0.0-1.3) Lymphocytes % (24.0-44.0) % Monocytes % (0.0-12.0) % Eosinophils % (0.00-5.0) % Basophils % (0.0-0.4) % Absolute Granulocytes (1.4-6.9) Basophils # (0-0.4) Sodium 137 (137-145) mmol/L Potassium 4.4 (3.5-5.1) mmol/L Chloride 101 (98-107) mmol/L Carbon Dioxide 30 (22-30) mmol/L Anion Gap 10.3 (5-15) MEQ/L BUN 18 (9-20) mg/dL Creatinine 0.58 L (0.66-1.25) mg/dL Estimated GFR > 60.0 ML/MIN Glucose 270 H (74-106) mg/dL Calcium 9.0 (8.4-10.2) mg/dL Total Bilirubin 0.60 (0.2-1.3) mg/dL AST 27 (17-59) U/L ALT 27 (0-50) U/L Alkaline Phosphatase 93 (38-126) U/L Troponin I < 0.012 (0.000-0.034) ng/mL Serum Total Protein 6.1 L (6.3-8.2) g/dL Albumin 3.2 L (3.5-5.0) g/dL Urine Color YELLOW (YELLOW) Urine Appearance CLEAR (CLEAR) Urine pH 5.0 (5-6) Ur Specific [place] 1.012 (1.005-1.025) Urine Protein 30 (Negative) Urine Ketones TRACE (NEGATIVE) Urine Blood MODERATE (0-5) Alvarez/ul Urine Nitrite NEGATIVE (NEGATIVE) Urine Bilirubin NEGATIVE (NEGATIVE) Urine Urobilinogen NEGATIVE (0-1) mg/dL Ur Leukocyte Esterase TRACE (NEGATIVE) Urine WBC (Auto) 3-5 (0-5) /HPF Urine RBC (Auto) 26-50 (0-2) /HPF U Epithel Cells (Auto) RARE (FEW) /HPF Urine Bacteria (Auto) RARE (NEGATIVE) /HPF Urine Culture Reflexed YES (NO) Urine Glucose >=500 (NEGATIVE) mg/dL 11/27/21 Range/Units 12:56 WBC 6.5 (4.0-10.5) K/mm3 RBC 3.66 L (4.1-5.6) M/mm3 Hgb 9.7 L (12.5-18.0) gm/dl Hct 31.1 L (42-50) % MCV 85.0 (78-100) fl MCH 26.5 (26-32) pg MCHC 31.2 L (32-36) g/dl RDW 14.2 H (11.5-14.0) % Plt Count 208 (150-450) K/mm3 MPV 9.3 (7.5-11.0) fl Gran % 65.2 (36.0-66.0) % Eos # (Auto) 0.25 (0-0.5) Absolute Lymphs (auto) 1.35 (1.0-4.6) Absolute Monos (auto) 0.64 (0.0-1.3) Lymphocytes % 20.7 L (24.0-44.0) % Monocytes % 9.8 (0.0-12.0) % Eosinophils % 3.8 (0.00-5.0) % Basophils % 0.5 (0.0-0.4) % Absolute Granulocytes 4.25 (1.4-6.9) Basophils # 0.03 (0-0.4) Sodium (137-145) mmol/L Potassium (3.5-5.1) mmol/L Chloride (98-107) mmol/L Carbon Dioxide (22-30) mmol/L Anion Gap (5-15) MEQ/L BUN (9-20) mg/dL Creatinine (0.66-1.25) mg/dL Estimated GFR ML/MIN Glucose (74-106) mg/dL Calcium (8.4-10.2) mg/dL Total Bilirubin (0.2-1.3) mg/dL AST (17-59) U/L ALT (0-50) U/L Alkaline Phosphatase (38-126) U/L Troponin I (0.000-0.034) ng/mL Serum Total Protein (6.3-8.2) g/dL Albumin (3.5-5.0) g/dL Urine Color (YELLOW) Urine Appearance (CLEAR) Urine pH (5-6) Ur Specific [place] (1.005-1.025) Urine Protein (Negative) Urine Ketones (NEGATIVE) Urine Blood (0-5) Alvarez/ul Urine Nitrite (NEGATIVE) Urine Bilirubin (NEGATIVE) Urine Urobilinogen (0-1) mg/dL Ur Leukocyte Esterase (NEGATIVE) Urine WBC (Auto) (0-5) /HPF Urine RBC (Auto) (0-2) /HPF U Epithel Cells (Auto) (FEW) /HPF Urine Bacteria (Auto) (NEGATIVE) /HPF Urine Culture Reflexed (NO) Urine Glucose (NEGATIVE) mg/dL - Progress Progress: improved Progress Note: Case discussed with who accepts admission to observation. He feels since this is patient's second fall in 1 week patient needs to be admitted for longterm placement. 11/27/21 16:13 Discussed with : Chloe Will see patient in: hospital (observation) Counseled pt/family regarding: lab results, diagnosis, rad results - Departure Departure Disposition: Home Clinical Impression: Lung granuloma, Fall, Head contusion, Skin tear of right elbow without compl ication, Chronic anemia, Pansinusitis Condition: Stable Critical Care Time: No Referrals: THANH LARKIN MD [Primary Care Provider] - Follow up/PCP as directed
[2021-11-27 14:02] LABS: ALBUMIN 3.2 g/dL (3.5-5.0); ALKALINE PHOSPHATASE 93 U/L (38-126); ANION GAP 10.3 MEQ/L (5-15); BLOOD UREA NITROGEN 18 mg/dL (9-20); CHLORIDE 101 mmol/L (98-107); Carbon Dioxide 30 mmol/L (22-30); Creatinine 1 0.58 mg/dL (0.66-1.25); EST GLOMERULAR FILTRATION RATE > 60.0 ML/MIN; Potassium 4.4 mmol/L (3.5-5.1); SGOT/AST 27 U/L (17-59); SGPT/ALT 27 U/L (0-50); SODIUM 137 mmol/L (137-145); Total Protein 6.1 g/dL (6.3-8.2)
[2021-11-27 14:03] LABS: Glucose 270 mg/dL (74-106)
--- NOTE | 2021-11-27 14:33 | XRAY ---
Indication: Confusion. Multiple contiguous axial images obtained through the head without contrast. Comparison: November 21, 2021. Stable age-appropriate global atrophy with mild/moderate periventricular degenerative micro-ischemia. No acute intracranial hemorrhage, abnormal extra-axial fluid collection, or mass effect. Fourth ventricle is midline without hydrocephalus. Bony calvarium intact. Stable pansinusitis. Mastoid air cells again demonstrates partial opacification bilaterally. Impression: Compared to CT 6 days ago, stable nonacute senile brain with again incidental pansinusitis. No new/acute findings.
[2021-11-27 16:21] LABS: INFLUENZA A NEGATIVE (NEGATIVE); INFLUENZA B NEGATIVE (NEGATIVE); RESPIRATORY SYNCTIAL VIRUS NEGATIVE (Negative); SARS-CoV-2 Xpert Express NEGATIVE (NEGATIVE)
[2021-11-28] MEDS: MORPHINE SULFATE 2 MG INJ IV PRN (02:14)
[2021-11-28 05:28] LABS: Absolute Neutrophil Ct (ANC) 3.09 (1.4-6.9); Basophil (Absolute #) 0.03 (0-0.4); Eosinophil % 6.9 % (0.00-5.0); Eosinophil (Absolute #) 0.41 (0-0.5); Hematocrit 29.5 % (42-50); Hemoglobin 9.1 gm/dl (12.5-18.0); Lymphocyte (Absolute #) 1.71 (1.0-4.6); Mean Corpuscular Hemoglobin 26.5 pg (26-32); Mean Corpuscular Hgb Concent. 30.8 g/dl (32-36); Mean Platelet Volume 9.7 fl (7.5-11.0); Monocyte (Absolute #) 0.66 (0.0-1.3); Monocytes % 11.2 % (0.0-12.0); Neutrophil % 52.4 % (36.0-66.0); Platelet Count 210 K/mm3 (150-450); Red Blood Count 3.43 M/mm3 (4.1-5.6); Red Cell Distribution Width 14.2 % (11.5-14.0); White Blood Count 5.9 K/mm3 (4.0-10.5)
[2021-11-28 06:00] LABS: ALKALINE PHOSPHATASE 83 U/L (38-126); ANION GAP 9.4 MEQ/L (5-15); BLOOD UREA NITROGEN 12 mg/dL (9-20); CHLORIDE 103 mmol/L (98-107); Calcium 8.6 mg/dL (8.4-10.2); Carbon Dioxide 29 mmol/L (22-30); Creatinine 1 0.62 mg/dL (0.66-1.25); EST GLOMERULAR FILTRATION RATE > 60.0 ML/MIN; Glucose 114 mg/dL (74-106); Potassium 3.8 mmol/L (3.5-5.1); SGOT/AST 26 U/L (17-59); SGPT/ALT 23 U/L (0-50); SODIUM 137 mmol/L (137-145); Total Protein 6.1 g/dL (6.3-8.2)
--- NOTE | 2021-11-28 12:38 | PCM.HP ---
History of Present Illness - Chief Complaint Chief Complaint: generalized weakness and fall at home History of Present Illness: is a 81 year old male.presents to our ED via EMS nonboarded noncollared for evaluation of confusion. Per report patient was at home slid out of his chair and hit his head. Patient has a contusion to his frontal forehead. EMS reports patient is confused however nursing staff notes patient feels patient is functioning at his baseline. Patient denies pain. No headache. No chest pain or shortness of breath. No nausea or vomiting. No diaphoresis. Patient reportedly pulled his suprapubic catheter out prior to arrival. On exam patient has a right elbow skin tear. Patient not in distress. Patient has a history of dementia. - Review of Systems Constitutional: Weakness, No Fever, No Chills Eyes: No Symptoms Ears, Nose, & Throat: No Symptoms Respiratory: No Cough, No Short Of Breath Cardiac: No Chest Pain, No Edema, No Syncope Abdominal/Gastrointestinal: No Abdominal Pain, No Nausea, No Vomiting, No Diarrhea Genitourinary Symptoms: No Dysuria Musculoskeletal: Fall, No Back Pain, No Neck Pain Skin: No Rash Neurological: Gait Changes, Lethargy, No Dizziness, No Focal Weakness, No Sensory Changes Psychological: No Symptoms Endocrine: No Symptoms Hematologic/Lymphatic: No Symptoms Immunological/Allergic: No Symptoms Medications & Allergies Home Medications: Home Medication List Clopidogrel Bisulfate 75 mg [PLAVIX 75 MG Tablet] 75 mg PO DAILY 01/04/17 [History Confirmed 11/27/21] Aspirin [Aspirin EC] 81 mg PO DAILY 10/28/19 [History Confirmed 11/27/21] Escitalopram Oxalate 10 mg [Lexapro 10 MG] 10 mg PO DAILY 10/28/19 [History Confirmed 11/28/21] Gabapentin 300 mg PO TID 10/28/19 [History Confirmed 11/27/21] Metformin HCl [Metformin HCl ER] 500 mg PO DINNER 10/28/19 [History Confirmed 11/27/21] Tamsulosin HCl 0.4 tablet PO HS 10/28/19 [History Confirmed 11/27/21] Ipratropium/Albuterol Sulfate [Iprat-Albut 0.5-3(2.5) mg/3 ml] 1 neb IH QIDPRN PRN 07/25/20 [History Confirmed 11/27/21] Cefdinir 300 mg PO BID #14 11/21/21 [Rx Confirmed 11/27/21] Amlodipine Besylate 5 mg [Norvasc 5 mg] 5 mg PO DAILY 11/28/21 [History Confirmed 11/28/21] Atorvastatin Calcium [Lipitor] 80 mg PO HS 11/28/21 [History Confirmed 11/28/21] Lisinopril 20 mg [Zestril 20 MG] 20 mg PO DAILY 11/28/21 [History Confirmed 11/28/21] Pramipexole Di-HCl 0.5 mg [Mirapex 0.5 MG Tablet] 0.5 mg PO DAILY 11/28/21 [History Confirmed 11/28/21] Allergies/Adverse Reactions: Allergies Allergy/AdvReac Type Severity Reaction Status Date / Time No Known Drug Allergies Allergy Verified 11/27/21 13:22 - Past Medical History Past Medical History: Yes Neurological History: No Pertinent History ENT History: No Pertinent History Cardiac History: Hypertension Respiratory History: COPD, Emphysema Endocrine Medical History: Diabetes Type II Musculoskelatal History: Fractures, Degenerative Disk Disease GI Medical History: Hernia, Hepatitis History: No Pertinent History Pyscho-Social History: No Pertinent History Male Reproductive Disorders: No Pertinent History Comment: hep c,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 herniorr. as a child - Social History Smoking Status: Unknown if ever smoked How long have you smoked: 66 years Exposure to second hand smoke: No Alcohol: Rarely Drug Use: none - Physical Exam Vital Signs: Vital Signs - 24 hr Temp Pulse Resp BP Pulse Ox 11/28/21 12:00 98.1 F 71 20 117/56 90 L 11/28/21 08:00 97.8 F 72 20 137/60 92 L 11/28/21 07:51 93 L 11/28/21 04:00 97.3 F 71 18 142/63 92 L 11/27/21 23:56 97.9 F 74 18 131/66 94 L 11/27/21 19:53 96.4 F 62 16 160/73 94 L 11/27/21 18:50 94 L 11/27/21 18:00 97.2 F 80 18 151/76 96 11/27/21 17:00 80 18 151/76 96 11/27/21 16:14 95 11/27/21 16:07 78 15 147/70 95 11/27/21 15:14 72 17 158/84 95 11/27/21 14:02 84 20 140/72 97 11/27/21 13:31 90 18 139/75 95 11/27/21 12:46 97.2 F 87 20 149/73 99 General Appearance: no apparent distress, alert Neurologic Exam: alert, oriented x 3, cooperative, normal mood/affect, sensation nml, No motor deficits Eye Exam: PERRL/EOMI, eyes nml inspection Ears, Nose, Throat Exam: normal ENT inspection, TMs normal, pharynx normal, moist mucous membranes Neck Exam: normal inspection, non-tender, supple, full range of motion Respiratory Exam: diminished breath sounds, No respiratory distress Cardiovascular Exam: regular rate/rhythm, normal heart sounds, normal peripheral pulses Gastrointestinal/Abdomen Exam: soft, normal bowel sounds, No tenderness, No mass Back Exam: normal inspection, normal range of motion, No CVA tenderness, No vertebral tenderness Extremity Exam: normal inspection, normal range of motion, pelvis stable Skin Exam: normal color, warm, dry, No rash Lymphatic Exam: No adenopathy Results - Labs Lab/Micro Results: Lab Results-Last 24 Hours 11/27/21 11/27/21 11/27/21 Range/Units 12:56 12:56 12:56 WBC 6.5 (4.0-10.5) K/mm3 RBC 3.66 L (4.1-5.6) M/mm3 Hgb 9.7 L (12.5-18.0) gm/dl Hct 31.1 L (42-50) % MCV 85.0 (78-100) fl MCH 26.5 (26-32) pg MCHC 31.2 L (32-36) g/dl RDW 14.2 H (11.5-14.0) % Plt Count 208 (150-450) K/mm3 MPV 9.3 (7.5-11.0) fl Gran % 65.2 (36.0-66.0) % Eos # (Auto) 0.25 (0-0.5) Absolute Lymphs (auto) 1.35 (1.0-4.6) Absolute Monos (auto) 0.64 (0.0-1.3) Lymphocytes % 20.7 L (24.0-44.0) % Monocytes % 9.8 (0.0-12.0) % Eosinophils % 3.8 (0.00-5.0) % Basophils % 0.5 (0.0-0.4) % Absolute Granulocytes 4.25 (1.4-6.9) Basophils # 0.03 (0-0.4) Sodium 137 (137-145) mmol/L Potassium 4.4 (3.5-5.1) mmol/L Chloride 101 (98-107) mmol/L Carbon Dioxide 30 (22-30) mmol/L Anion Gap 10.3 (5-15) MEQ/L BUN 18 (9-20) mg/dL Creatinine 0.58 L (0.66-1.25) mg/dL Estimated GFR > 60.0 ML/MIN Glucose 270 H (74-106) mg/dL POC Glucometer (74 to 106) mg/dL Calcium 9.0 (8.4-10.2) mg/dL Total Bilirubin 0.60 (0.2-1.3) mg/dL AST 27 (17-59) U/L ALT 27 (0-50) U/L Alkaline Phosphatase 93 (38-126) U/L Troponin I 0.013 (0.000-0.034) ng/mL Serum Total Protein 6.1 L (6.3-8.2) g/dL Albumin 3.2 L (3.5-5.0) g/dL Urine Color (YELLOW) Urine Appearance (CLEAR) Urine pH (5-6) Ur Specific [place] (1.005-1.025) Urine Protein (Negative) Urine Ketones (NEGATIVE) Urine Blood (0-5) Alvarez/ul Urine Nitrite (NEGATIVE) Urine Bilirubin (NEGATIVE) Urine Urobilinogen (0-1) mg/dL Ur Leukocyte Esterase (NEGATIVE) Urine WBC (Auto) (0-5) /HPF Urine RBC (Auto) (0-2) /HPF U Epithel Cells (Auto) (FEW) /HPF Urine Bacteria (Auto) (NEGATIVE) /HPF Urine Culture Reflexed (NO) Urine Glucose (NEGATIVE) mg/dL Influenza Type A Ag (NEGATIVE) Influenza Type B Ag (NEGATIVE) RSV (PCR) (Negative) SARS-CoV-2 (PCR) (NEGATIVE) 11/27/21 11/27/21 11/27/21 Range/Units 13:03 15:11 15:36 WBC (4.0-10.5) K/mm3 RBC (4.1-5.6) M/mm3 Hgb (12.5-18.0) gm/dl Hct (42-50) % MCV (78-100) fl MCH (26-32) pg MCHC (32-36) g/dl RDW (11.5-14.0) % Plt Count (150-450) K/mm3 MPV (7.5-11.0) fl Gran % (36.0-66.0) % Eos # (Auto) (0-0.5) Absolute Lymphs (auto) (1.0-4.6) Absolute Monos (auto) (0.0-1.3) Lymphocytes % (24.0-44.0) % Monocytes % (0.0-12.0) % Eosinophils % (0.00-5.0) % Basophils % (0.0-0.4) % Absolute Granulocytes (1.4-6.9) Basophils # (0-0.4) Sodium (137-145) mmol/L Potassium (3.5-5.1) mmol/L Chloride (98-107) mmol/L Carbon Dioxide (22-30) mmol/L Anion Gap (5-15) MEQ/L BUN (9-20) mg/dL Creatinine (0.66-1.25) mg/dL Estimated GFR ML/MIN Glucose (74-106) mg/dL POC Glucometer (74 to 106) mg/dL Calcium (8.4-10.2) mg/dL Total Bilirubin (0.2-1.3) mg/dL AST (17-59) U/L ALT (0-50) U/L Alkaline Phosphatase (38-126) U/L Troponin I < 0.012 (0.000-0.034) ng/mL Serum Total Protein (6.3-8.2) g/dL Albumin (3.5-5.0) g/dL Urine Color YELLOW (YELLOW) Urine Appearance CLEAR (CLEAR) Urine pH 5.0 (5-6) Ur Specific [place] 1.012 (1.005-1.025) Urine Protein 30 (Negative) Urine Ketones TRACE (NEGATIVE) Urine Blood MODERATE (0-5) Alvarez/ul Urine Nitrite NEGATIVE (NEGATIVE) Urine Bilirubin NEGATIVE (NEGATIVE) Urine Urobilinogen NEGATIVE (0-1) mg/dL Ur Leukocyte Esterase TRACE (NEGATIVE) Urine WBC (Auto) 3-5 (0-5) /HPF Urine RBC (Auto) 26-50 (0-2) /HPF U Epithel Cells (Auto) RARE (FEW) /HPF Urine Bacteria (Auto) RARE (NEGATIVE) /HPF Urine Culture Reflexed YES (NO) Urine Glucose >=500 (NEGATIVE) mg/dL Influenza Type A Ag NEGATIVE (NEGATIVE) Influenza Type B Ag NEGATIVE (NEGATIVE) RSV (PCR) NEGATIVE (Negative) SARS-CoV-2 (PCR) NEGATIVE (NEGATIVE) 11/27/21 11/27/21 11/28/21 Range/Units 18:30 21:01 05:00 WBC 5.9 (4.0-10.5) K/mm3 RBC 3.43 L (4.1-5.6) M/mm3 Hgb 9.1 L (12.5-18.0) gm/dl Hct 29.5 L (42-50) % MCV 86.0 (78-100) fl MCH 26.5 (26-32) pg MCHC 30.8 L (32-36) g/dl RDW 14.2 H (11.5-14.0) % Plt Count 210 (150-450) K/mm3 MPV 9.7 (7.5-11.0) fl Gran % 52.4 (36.0-66.0) % Eos # (Auto) 0.41 (0-0.5) Absolute Lymphs (auto) 1.71 (1.0-4.6) Absolute Monos (auto) 0.66 (0.0-1.3) Lymphocytes % 29.0 (24.0-44.0) % Monocytes % 11.2 (0.0-12.0) % Eosinophils % 6.9 H (0.00-5.0) % Basophils % 0.5 (0.0-0.4) % Absolute Granulocytes 3.09 (1.4-6.9) Basophils # 0.03 (0-0.4) Sodium (137-145) mmol/L Potassium (3.5-5.1) mmol/L Chloride (98-107) mmol/L Carbon Dioxide (22-30) mmol/L Anion Gap (5-15) MEQ/L BUN (9-20) mg/dL Creatinine (0.66-1.25) mg/dL Estimated GFR ML/MIN Glucose (74-106) mg/dL POC Glucometer 153 H (74 to 106) mg/dL Calcium (8.4-10.2) mg/dL Total Bilirubin (0.2-1.3) mg/dL AST (17-59) U/L ALT (0-50) U/L Alkaline Phosphatase (38-126) U/L Troponin I < 0.012 (0.000-0.034) ng/mL Serum Total Protein (6.3-8.2) g/dL Albumin (3.5-5.0) g/dL Urine Color (YELLOW) Urine Appearance (CLEAR) Urine pH (5-6) Ur Specific [place] (1.005-1.025) Urine Protein (Negative) Urine Ketones (NEGATIVE) Urine Blood (0-5) Alvarez/ul Urine Nitrite (NEGATIVE) Urine Bilirubin (NEGATIVE) Urine Urobilinogen (0-1) mg/dL Ur Leukocyte Esterase (NEGATIVE) Urine WBC (Auto) (0-5) /HPF Urine RBC (Auto) (0-2) /HPF U Epithel Cells (Auto) (FEW) /HPF Urine Bacteria (Auto) (NEGATIVE) /HPF Urine Culture Reflexed (NO) Urine Glucose (NEGATIVE) mg/dL Influenza Type A Ag (NEGATIVE) Influenza Type B Ag (NEGATIVE) RSV (PCR) (Negative) SARS-CoV-2 (PCR) (NEGATIVE) 11/28/21 11/28/21 11/28/21 Range/Units 05:00 07:24 11:33 WBC (4.0-10.5) K/mm3 RBC (4.1-5.6) M/mm3 Hgb (12.5-18.0) gm/dl Hct (42-50) % MCV (78-100) fl MCH (26-32) pg MCHC (32-36) g/dl RDW (11.5-14.0) % Plt Count (150-450) K/mm3 MPV (7.5-11.0) fl Gran % (36.0-66.0) % Eos # (Auto) (0-0.5) Absolute Lymphs (auto) (1.0-4.6) Absolute Monos (auto) (0.0-1.3) Lymphocytes % (24.0-44.0) % Monocytes % (0.0-12.0) % Eosinophils % (0.00-5.0) % Basophils % (0.0-0.4) % Absolute Granulocytes (1.4-6.9) Basophils # (0-0.4) Sodium 137 (137-145) mmol/L Potassium 3.8 (3.5-5.1) mmol/L Chloride 103 (98-107) mmol/L Carbon Dioxide 29 (22-30) mmol/L Anion Gap 9.4 (5-15) MEQ/L BUN 12 (9-20) mg/dL Creatinine 0.62 L (0.66-1.25) mg/dL Estimated GFR > 60.0 ML/MIN Glucose 114 H (74-106) mg/dL POC Glucometer 93 187 H (74 to 106) mg/dL Calcium 8.6 (8.4-10.2) mg/dL Total Bilirubin 0.50 (0.2-1.3) mg/dL AST 26 (17-59) U/L ALT 23 (0-50) U/L Alkaline Phosphatase 83 (38-126) U/L Troponin I (0.000-0.034) ng/mL Serum Total Protein 6.1 L (6.3-8.2) g/dL Albumin 3.0 L (3.5-5.0) g/dL Urine Color (YELLOW) Urine Appearance (CLEAR) Urine pH (5-6) Ur Specific [place] (1.005-1.025) Urine Protein (Negative) Urine Ketones (NEGATIVE) Urine Blood (0-5) Alvarez/ul Urine Nitrite (NEGATIVE) Urine Bilirubin (NEGATIVE) Urine Urobilinogen (0-1) mg/dL Ur Leukocyte Esterase (NEGATIVE) Urine WBC (Auto) (0-5) /HPF Urine RBC (Auto) (0-2) /HPF U Epithel Cells (Auto) (FEW) /HPF Urine Bacteria (Auto) (NEGATIVE) /HPF Urine Culture Reflexed (NO) Urine Glucose (NEGATIVE) mg/dL Influenza Type A Ag (NEGATIVE) Influenza Type B Ag (NEGATIVE) RSV (PCR) (Negative) SARS-CoV-2 (PCR) (NEGATIVE) Microbiology 11/27/21 13:03 Urine Culture - Preliminary Clean Catch Midstream NO GROWTH TO DATE Accuchecks Date 11/28/21 Date 11/28/21 Time 11:34 Time 07:24 - Radiology Impressions Radiology Exams & Impressions: Radiology Procedures Category Date Time Status CHEST 1 VIEW (PORTABLE) Stat Exams 11/27/21 12:31 Completed HEAD WITHOUT CONTRAST [CT] Stat Exams 11/27/21 13:48 Completed Assessment/Plan (1) Confusion Current Visit: No Status: Acute Assessment & Plan: Chief Complaint Diagnosis generalized weakness Allergies Allergy/AdvReac Type Severity Reaction Status Date / Time No Known Drug Allergies Allergy Verified 11/27/21 13:22 Vital Signs (Last 24 hours) Temp Pulse Resp BP Pulse Ox 11/28/21 12:00 98.1 F 71 20 117/56 90 L 11/28/21 08:00 97.8 F 72 20 137/60 92 L 11/28/21 07:51 93 L 11/28/21 04:00 97.3 F 71 18 142/63 92 L 11/27/21 23:56 97.9 F 74 18 131/66 94 L 11/27/21 19:53 96.4 F 62 16 160/73 94 L 11/27/21 18:50 94 L 11/27/21 18:00 97.2 F 80 18 151/76 96 11/27/21 17:00 80 18 151/76 96 11/27/21 16:14 95 11/27/21 16:07 78 15 147/70 95 11/27/21 15:14 72 17 158/84 95 11/27/21 14:02 84 20 140/72 97 11/27/21 13:31 90 18 139/75 95 11/27/21 12:46 97.2 F 87 20 149/73 99 Home Medications Medication Instructions Recorded Confirmed Last Taken Type Amlodipine Besylate 5 mg 5 mg PO DAILY 11/28/21 11/28/21 Unknown History [Norvasc 5 mg] Atorvastatin Calcium [Lipitor] 80 mg PO HS 11/28/21 11/28/21 Unknown History Lisinopril 20 mg [Zestril 20 20 mg PO DAILY 11/28/21 11/28/21 Unknown History MG] Pramipexole Di-HCl 0.5 mg 0.5 mg PO DAILY 11/28/21 11/28/21 Unknown History [Mirapex 0.5 MG Tablet] Current Medications Generic Name Dose Route Start Last Admin Trade Name Freq PRN Reason Stop Dose Admin Morphine Sulfate 2 mg 11/27/21 18:00 11/28/21 02:14 Morphine Sulfate 2 Mg/Ml Inj IV 12/02/21 17:59 2 mg Q4H PRN PRN Administration PAIN Intake & Output (Last 24 hours) 11/26/21 11/27/21 11/28/21 11/29/21 11:59 11:59 11:59 11:59 Intake Total 630 Output Total 2000 Balance -1370 Weight 89.857 kg Microbiology Results (Last 24 hours) 11/27/21 13:03 Clean Catch Midstream Urine Culture - Preliminary NO GROWTH TO DATE 11/27/21 12:40 Blood Blood Culture Gram Stain - Pending 11/27/21 12:40 Blood Blood Culture - Pending 11/27/21 12:56 Blood Blood Culture Gram Stain - Pending 11/27/21 12:56 Blood Blood Culture - Pending Laboratory Results (Last 24 hours) 11/28/21 11/28/21 11/28/21 11:33 07:24 05:00 WBC RBC Hgb Hct MCV MCH MCHC RDW Plt Count MPV Gran % Eos # (Auto) Absolute Lymphs (auto) Absolute Monos (auto) Lymphocytes % Monocytes % Eosinophils % Basophils % Absolute Granulocytes Basophils # Sodium 137 Potassium 3.8 Chloride 103 Carbon Dioxide 29 Anion Gap 9.4 BUN 12 Creatinine 0.62 L Estimated GFR > 60.0 Glucose 114 H POC Glucometer 187 H 93 Calcium 8.6 Total Bilirubin 0.50 AST 26 ALT 23 Alkaline Phosphatase 83 Troponin I Serum Total Protein 6.1 L Albumin 3.0 L Urine Color Urine Appearance Urine pH Ur Specific [place] Urine Protein Urine Ketones Urine Blood Urine Nitrite Urine Bilirubin Urine Urobilinogen Ur Leukocyte Esterase Urine WBC (Auto) Urine RBC (Auto) U Epithel Cells (Auto) Urine Bacteria (Auto) Urine Culture Reflexed Urine Glucose Influenza Type A Ag Influenza Type B Ag RSV (PCR) SARS-CoV-2 (PCR) 11/28/21 11/27/21 11/27/21 05:00 21:01 18:30 WBC 5.9 RBC 3.43 L Hgb 9.1 L Hct 29.5 L MCV 86.0 MCH 26.5 MCHC 30.8 L RDW 14.2 H Plt Count 210 MPV 9.7 Gran % 52.4 Eos # (Auto) 0.41 Absolute Lymphs (auto) 1.71 Absolute Monos (auto) 0.66 Lymphocytes % 29.0 Monocytes % 11.2 Eosinophils % 6.9 H Basophils % 0.5 Absolute Granulocytes 3.09 Basophils # 0.03 Sodium Potassium Chloride Carbon Dioxide Anion Gap BUN Creatinine Estimated GFR Glucose POC Glucometer 153 H Calcium Total Bilirubin AST ALT Alkaline Phosphatase Troponin I < 0.012 Serum Total Protein Albumin Urine Color Urine Appearance Urine pH Ur Specific [place] Urine Protein Urine Ketones Urine Blood Urine Nitrite Urine Bilirubin Urine Urobilinogen Ur Leukocyte Esterase Urine WBC (Auto) Urine RBC (Auto) U Epithel Cells (Auto) Urine Bacteria (Auto) Urine Culture Reflexed Urine Glucose Influenza Type A Ag Influenza Type B Ag RSV (PCR) SARS-CoV-2 (PCR) 11/27/21 11/27/21 11/27/21 15:36 15:11 13:03 WBC RBC Hgb Hct MCV MCH MCHC RDW Plt Count MPV Gran % Eos # (Auto) Absolute Lymphs (auto) Absolute Monos (auto) Lymphocytes % Monocytes % Eosinophils % Basophils % Absolute Granulocytes Basophils # Sodium Potassium Chloride Carbon Dioxide Anion Gap BUN Creatinine Estimated GFR Glucose POC Glucometer Calcium Total Bilirubin AST ALT Alkaline Phosphatase Troponin I < 0.012 Serum Total Protein Albumin Urine Color YELLOW Urine Appearance CLEAR Urine pH 5.0 Ur Specific [place] 1.012 Urine Protein 30 Urine Ketones TRACE Urine Blood MODERATE Urine Nitrite NEGATIVE Urine Bilirubin NEGATIVE Urine Urobilinogen NEGATIVE Ur Leukocyte Esterase TRACE Urine WBC (Auto) 3-5 Urine RBC (Auto) 26-50 U Epithel Cells (Auto) RARE Urine Bacteria (Auto) RARE Urine Culture Reflexed YES Urine Glucose >=500 Influenza Type A Ag NEGATIVE Influenza Type B Ag NEGATIVE RSV (PCR) NEGATIVE SARS-CoV-2 (PCR) NEGATIVE 11/27/21 11/27/21 11/27/21 12:56 12:56 12:56 WBC 6.5 RBC 3.66 L Hgb 9.7 L Hct 31.1 L MCV 85.0 MCH 26.5 MCHC 31.2 L RDW 14.2 H Plt Count 208 MPV 9.3 Gran % 65.2 Eos # (Auto) 0.25 Absolute Lymphs (auto) 1.35 Absolute Monos (auto) 0.64 Lymphocytes % 20.7 L Monocytes % 9.8 Eosinophils % 3.8 Basophils % 0.5 Absolute Granulocytes 4.25 Basophils # 0.03 Sodium 137 Potassium 4.4 Chloride 101 Carbon Dioxide 30 Anion Gap 10.3 BUN 18 Creatinine 0.58 L Estimated GFR > 60.0 Glucose 270 H POC Glucometer Calcium 9.0 Total Bilirubin 0.60 AST 27 ALT 27 Alkaline Phosphatase 93 Troponin I 0.013 Serum Total Protein 6.1 L Albumin 3.2 L Urine Color Urine Appearance Urine pH Ur Specific [place] Urine Protein Urine Ketones Urine Blood Urine Nitrite Urine Bilirubin Urine Urobilinogen Ur Leukocyte Esterase Urine WBC (Auto) Urine RBC (Auto) U Epithel Cells (Auto) Urine Bacteria (Auto) Urine Culture Reflexed Urine Glucose Influenza Type A Ag Influenza Type B Ag RSV (PCR) SARS-CoV-2 (PCR) Orders (Last 24 hours) Category Date Time Status Bedrest ROUTINE Activity 11/27/21 18:00 Active Transformer Mechanic STAT Care 11/27/21 12:31 Completed Code Status Order ROUTINE Care 11/27/21 18:00 Active EKG-ER Only STAT Care 11/27/21 12:30 Completed IV Care Q6H Care 11/27/21 18:00 Active IV Insertion STAT Care 11/27/21 12:[address] in Observation ROUTINE Care 11/27/21 18:00 Active Pulse Oximetry (ED) STAT Care 11/27/21 12:30 Completed Infection Control Consult ROUTINE Cons 11/27/21 18:40 Completed Consistent Carbohydrate Diet 2000 Calorie Diet 11/27/21 Dinner Active CHEST 1 VIEW (PORTABLE) Stat Exams 11/27/21 12:31 Completed HEAD WITHOUT CONTRAST [CT] Stat Exams 11/27/21 13:48 Completed BLOOD CULTURE Stat Lab 11/27/21 12:40 Received CBC W DIFF AM.LAB Lab 11/28/21 05:00 Completed CBC W DIFF Stat Lab 11/27/21 12:56 Completed CMP AM.LAB Lab 11/28/21 05:00 Completed CMP Stat Lab 11/27/21 12:56 Completed CULTURE,URINE Stat Lab 11/27/21 13:03 Results POCT GLUCOSE Stat Lab 11/27/21 21:01 Completed POCT GLUCOSE Stat Lab 11/28/21 07:24 Completed POCT GLUCOSE Stat Lab 11/28/21 11:33 Completed TROPONIN Q3H Lab 11/27/21 12:56 Completed TROPONIN Q3H Lab 11/27/21 15:11 Completed TROPONIN Q3H Lab 11/27/21 18:30 Completed UA W/RFX UR CULTURE Stat Lab 11/27/21 13:03 Completed Morphine Sulfate 2 mg Inj Med 11/27/21 18:00 Active 2 mg IV Q4H PRN PRN PT Eval & Treat ( Order) ONCE PT 11/28/21 12:13 Active Pulse Oximetry CONTINUOUS RT 11/27/21 18:00 Active Patient Care Notes (Last 24 hours) 11/28/21 12:11 Case Management Note by Delmi Roque CALL TO [facility] AND SPOKE WITH [employer] TO SEE IF THEY ARE IN NETWORK WITH PT'S INSURANCE, HE IS GOING TO CALL BACK. Initialized on 11/28/21 12:11 - END OF NOTE 11/28/21 12:02 Case Management Note by Delmi Roque SPOKE WITH [facility] - DISCUSSED NEEDS FOR DISCHARGE. [facility] REPORTS THAT PT HAS NOT BEEN TAKING MEDS FOR PROBABLY THE LAST MONTH. REPORTS THAT HE IS INCREDIBLY STUBBORN, AND DOES WHAT HE WANTS TO DO. ALSO, REPORTS THAT HE HAS CHANGED HIS INSURANCE WITHOUT HIS KNOWLEDGE. [facility] REPORTS THAT PT IS EXTREMELY WEAK. 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 NOW HE IS SO WEAK THAT HE IS UNABLE TO T RANSFER SELF AND HAS BEEN FALLING AT HOME. REPORTS THAT HE HAS ALL EQUIP IN THE HOME NECESSARY TO CARE FOR HIMSELF, AND IT IS ALL IN WORKING ORDER. USES A WHEELCHAIR TO GET AROUND APARTMENT. REPORTS THAT HE USED TO HAVE A [facility] THAT CAME IN TO HELP BUT STATES, "I THINK HE MAY HAVE RUN THEM OFF". HE DID HAVE SOMEONE COME IN AND HELP HIS SHOWER ONCE A WEEK, BUT HE IS UNSURE IF SHE IS COMING EITHER. CAN NOT REMEMBER THE NAME OF COMPANY THAT HAS BEEN PROVIDING SERVICES. ASKED IF [facility], AND [facility] REPORTS THAT THEY HAVE TALKED WITH THEM, BUT THEY DO NOT PROVIDE ANY ASSIST AT THIS TIME. [facility]IC[facility] REPORTS THAT HE FEELS THAT PT NEEDS TO GO TO REHAB STAY ON DISCHARGE, AND THAT PT WOULD BE IN AGREEMENT. REPORTS THAT HE HAS BEEN IN BOTH [facility] AND [facility] IN THE PAST. REPORTS THAT THEY WOULD BE FINE WITH EITHER OF THEM, BUT ALSO, REPORTS THAT HE UNDERSTANDS THAT IF THEY ARE NOT IN NETWORK WITH PT'S INSURANCE THAT THEY ARE WILLING TO GO TO AN ALTERNATE FACILITY. NO ADDNL NEEDS AT THIS TIME. DR LARKIN IS AWARE OF THE ABOVE AND WANTS TO PURSUE REHAB STAY AT [facility] FOR PATIENT. 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
[2021-11-28] MEDS ORDERED: DUONEB 0.5-3 MG/3 ml Neb IH PRN (12:42)
[2021-11-28] MEDS: NEURONTIN 300 MG PO SCH ×2 (13:38→21:12)
[2021-11-28] MEDS: PLAVIX 75 MG Tablet PO SCH (13:39)
[2021-11-28] MEDS: ECOTRIN 81 MG PO SCH (13:39)
[2021-11-28] MEDS: Lexapro 10 MG PO SCH (13:39)
[2021-11-28] MEDS: Mirapex 0.5 MG Tablet PO SCH (13:39)
[2021-11-28] MEDS: NORVASC 5 MG PO SCH (13:39)
[2021-11-28] MEDS: Zestril 20 MG PO SCH (13:39)
[2021-11-28] MEDS: CEFTIN 500 MG PO SCH ×2 (13:39→21:13)
[2021-11-28] MEDS ORDERED: NON-FORMULARY ITEM (Metformin Hcl [Metformin Hcl Er] 750 MG Tab.Er.24h) PO SCH (17:00)
[2021-11-28] MEDS ORDERED: Glucophage 500 MG PO SCH (17:00)
[2021-11-28] MEDS: Glucophage XR 500 MG PO SCH (17:14)
[2021-11-28] MEDS: Flomax 0.4 MG PO SCH (21:13)
[2021-11-28] MEDS: ZOCOR 20MG PO SCH (21:13)
[2021-11-28] MEDS ORDERED: NON-FORMULARY ITEM (Cefdinir [Cefdinir] 300 MG Capsule) PO SCH (22:00)
[2021-11-28] MEDS ORDERED: NON-FORMULARY ITEM (Atorvastatin Calcium [Lipitor] 80 MG Tablet) PO SCH (22:00)
[2021-11-29] MEDS: NEURONTIN 300 MG PO SCH ×3 (08:56→21:08)
[2021-11-29] MEDS: Lexapro 10 MG PO SCH (08:56)
[2021-11-29] MEDS: ECOTRIN 81 MG PO SCH (08:56)
[2021-11-29] MEDS: NORVASC 5 MG PO SCH (08:56)
[2021-11-29] MEDS: CEFTIN 500 MG PO SCH ×2 (08:56→21:08)
[2021-11-29] MEDS: HUMALOG SQ PRN ×4 (08:56→21:08)
[2021-11-29] MEDS: PLAVIX 75 MG Tablet PO SCH (08:56)
[2021-11-29] MEDS: Mirapex 0.5 MG Tablet PO SCH (08:56)
[2021-11-29] MEDS: Zestril 20 MG PO SCH (08:56)
--- NOTE | 2021-11-29 11:32 | PCM.NOTE ---
Date and Time: 11/29/21 1130 Subjective Assessment: doing ok. - Review of Systems Constitutional: No Fever, No Chills Eyes: No Symptoms Ears, Nose, & Throat: No Symptoms Respiratory: No Cough, No Short Of Breath Cardiac: No Chest Pain, No Edema, No Syncope Abdominal/Gastrointestinal: No Abdominal Pain, No Nausea, No Vomiting, No Diarrhea Genitourinary Symptoms: No Dysuria Musculoskeletal: No Back Pain, No Neck Pain Skin: No Rash Neurological: No Dizziness, No Focal Weakness, No Sensory Changes Psychological: No Symptoms Endocrine: No Symptoms Hematologic/Lymphatic: No Symptoms Immunological/Allergic: No Symptoms Objective Exam General Appearance: no apparent distress, alert Neurologic Exam: alert, oriented x 3, cooperative, normal mood/affect, nml cerebellar function, sensation nml, No motor deficits Skin Exam: normal color, warm, dry Eye Exam: PERRL, EOMI, eyes nml inspection Ears, Nose, Throat Exam: normal ENT inspection, pharynx normal, moist mucous membranes Neck Exam: normal inspection, non-tender, supple, full range of motion Respiratory Exam: normal breath sounds, lungs clear, No respiratory distress Cardiovascular Exam: regular rate/rhythm, normal heart sounds Gastrointestinal/Abdomen Exam: soft, No tenderness, No mass Extremity Exam: normal inspection, normal range of motion Back Exam: normal inspection, normal range of motion, No CVA tenderness, No vertebral tenderness Male Genitalia Exam: deferred Rectal Exam: deferred OBJECTIVE DATA Vital Signs: Vital Signs - 24 hr Temp Pulse Resp BP Pulse Ox 11/29/21 07:56 97.2 F 68 19 124/67 92 L 11/29/21 07:09 87 18 92 L 11/29/21 04:00 97.5 F 88 16 116/70 91 L 11/28/21 23:59 97.5 F 73 24 115/57 90 L 11/28/21 20:00 97.3 F 70 20 111/61 92 L 11/28/21 18:54 77 20 89 L 11/28/21 16:00 98.2 F 79 20 139/68 92 L 11/28/21 15:36 77 20 91 L 11/28/21 12:00 98.1 F 71 20 117/56 90 L Pain Assessment - Last Documented Pain Intensity 0 Pain Scale Used FLACC Intake and Output: Intake & Output 11/26/21 11/27/21 11/28/21/28/22 11:59 11:59 11:59 11:59 Intake Total 630 1840 Output Total 1999 1125 Balance -1370 715 Weight 89.857 kg Lab Results: Lab Results-Last 24 Hours 11/28/21 11/28/21 11/28/21 Range/Units 11:33 15:00 16:21 POC Glucometer 187 H 213 H (74 to 106) mg/dL Hemoglobin A1c 9.96 H (4.5-6.0) % 11/28/21 11/29/21 Range/Units 23:08 07:28 POC Glucometer 310 H 384 H (74 to 106) mg/dL Hemoglobin A1c (4.5-6.0) % Radiology Exams: Radiology Procedures Category Date Time Status CHEST 1 VIEW (PORTABLE) Stat Exams 11/27/21 12:31 Completed HEAD WITHOUT CONTRAST [CT] Stat Exams 11/27/21 13:48 Completed Multi-Disciplinary Progress Notes: Multi-Disciplinary Progress Notes 11/29/21 11:09 Physical Therapy Note by Tia/lic.[id number] PT. IN ZACARIAS-CHAIR UPON P.T. ARRIVAL TO ROOM. NURSE REPORTS THAT PT. SLEPT IN CHAIR LAST NIGHT AND REFUSED TO GET IN BED. PT. REPORTS NO C/O PN. ALERT AND ORIENTED BUT MAKES SOME STATEMENTS THAT DON'T FOLLOW FLOW OF CONVERSATION. PERFORMED SEATED LE EX'S X 5 REPS R LE > L OF LAQS, MARCHES, ANKLE PUMPS, HIP ABD. PT. REPORTS HE CAN'T PERFORM THESE EX'S W/ L LE D/T CVA FROM 3 YRSA GO PER PT. PT. WOULD NOT EVEN ATTEMPTS W/ L LE. FINALLY AGREED TO LIE IN BED FOR A WHILE. SIT TO STAND - MOD ASSIST X 2. STOOD @ RW X ~ 2" W/ MOD ASSIST X 1 WHILE DEPEND WAS PULLED UP. PT. THEN TOOK 3-4 STEPS TO TRANSFER TO SIDE OF BED AND HTEN TOOK 3 STEPS TO SIDE-STEP TO HEAD OF BED W/ MOD ASSIST X 2. PT. REQUIRED MOD ASSIST FOR SIT TO SUPINE TRANSFER. UTILIZATION OF RW DIFFICULT D/T POOR LENS FINISHER L HAND D/T OLD CVA. WILL CONT. PT 5X/WK UNTIL D/C TO INCREASE STRENGTH AND PT. PERFORMANCE OF FUNCTIONAL MOBILITY TO PREP FOR REHAB STAY. AWAITING PA FROM INSURANCE FOR REHAB STAY @ THIS TIME. Initialized on 11/29/21 11:09 - END OF NOTE 11/29/21 09:25 Case Management Note by Delmi Roque SPOKE WITH FELIZ @ [facility], SHE HAS NOT HEARD BACK FROM HER CORPORATE OFFICE YET. SHE REPORTS THAT SHE WILL SEE IF SHE CAN REACH OUT TO THEM AND FIND OUT, AND WILL CALL BACK. Initialized on 11/29/21 09:25 - END OF NOTE 11/28/21 14:40 (created 11/29/21 09:24) Case Management Note by Delmi Roque CALL TO [facility] ([facility] FOR REFERRAL, TO ALSO CHECK IF THEY ARE IN NETWORK WITH PT'S INSURANCE PROVIDER. SPOKE WITH FELIZ. SHE WILL CALL BACK. Initialized on 11/29/21 09:24 - END OF NOTE 11/28/21 14:30 (created 11/29/21 09:23) Case Management Note by Delmi Roque CALLED BACK TO INFORM THIS MANU[employer]ED BUILDINGS SUPERVISOR THAT THEY ARE NOT IN NETWORK WITH PT'S INSURANCE PROVIDER. Initialized on 11/29/21 09:23 - END OF NOTE 11/28/21 12:11 Case Management Note by Delmi Roque CALL TO [facility] AND SPOKE WITH [employer] TO SEE IF THEY ARE IN NETWORK WITH PT'S INSURANCE, HE IS GOING TO CALL BACK. Initialized on 11/28/21 12:11 - END OF NOTE 11/28/21 12:02 Case Management Note by Delmi Roque SPOKE WITH ROSALIA LINDO - DISCUSSED NEEDS FOR DISCHARGE. GUICHO REPORTS THAT PT HAS NOT BEEN TAKING MEDS FOR PROBABLY THE LAST MONTH. REPORTS THAT HE IS INCREDIBLY STUBBORN, AND DOES WHAT HE WANTS TO DO. ALSO, REPORTS THAT HE HAS CHANGED HIS INSURANCE WITHOUT HIS KNOWLEDGE. GUICHO REPORTS THAT PT IS EXTREMELY WEAK. HAS HAD A STROKE IN THE PAST, SO HE DOES NOT WALK ANYMORE BUT HE IS A LWAYS ABLE TO TRANSFER HIMSELF. NOW HE IS SO WEAK THAT HE IS UNABLE TO TRANSFER SELF AND HAS BEEN FALLING AT HOME. REPORTS THAT HE HAS ALL EQUIP IN THE HOME NECESSARY TO CARE FOR HIMSELF, AND IT IS ALL IN WORKING ORDER. USES A WHEELCHAIR TO GET AROUND APARTMENT. REPORTS THAT HE USED TO HAVE A HOME HEALTH COMPANY THAT CAME IN TO HELP BUT STATES, "I THINK HE MAY HAVE RUN THEM OFF". HE DID HAVE SOMEONE COME IN AND HELP HIS SHOWER ONCE A WEEK, BUT HE IS UNSURE IF SHE IS COMING EITHER. CAN NOT REMEMBER THE NAME OF COMPANY THAT HAS BEEN PROVIDING SERVICES. ASKED IF [employer], AND GUICHO REPORTS THAT THEY HAVE TALKED WITH THEM, BUT THEY DO NOT PROVIDE ANY ASSIST AT THIS TIME. GUICHO REPORTS THAT HE FEELS THAT PT NEEDS TO GO TO REHAB STAY ON DISCHARGE, AND THAT PT WOULD BE IN AGREEMENT. REPORTS THAT HE HAS BEEN IN BOTH [employer] AND [employer] IN THE PAST. REPORTS THAT THEY WOULD BE FINE WITH EITHER OF THEM, BUT ALSO, REPORTS THAT HE UNDERSTANDS THAT IF THEY ARE NOT IN NETWORK WITH PT'S INSURANCE THAT THEY ARE WILLING TO GO TO AN ALTERNATE FACILITY. NO ADDNL NEEDS AT THIS TIME. DR LARKIN IS AWARE OF THE ABOVE AND WANTS TO PURSUE REHAB STAY AT [facility] FOR PATIENT. 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
[2021-11-29] MEDS: Glucophage XR 500 MG PO SCH (16:35)
[2021-11-29] MEDS: Flomax 0.4 MG PO SCH (21:08)
[2021-11-29] MEDS: ZOCOR 20MG PO SCH (21:08)
[2021-11-30] MEDS: MORPHINE SULFATE 2 MG INJ IV PRN (01:52)
[2021-11-30] MEDS: HUMALOG SQ PRN ×3 (08:55→21:29)
[2021-11-30] MEDS: CEFTIN 500 MG PO SCH ×2 (09:58→21:19)
[2021-11-30] MEDS: NORVASC 5 MG PO SCH (09:58)
[2021-11-30] MEDS: NEURONTIN 300 MG PO SCH ×3 (09:58→21:20)
[2021-11-30] MEDS: Lexapro 10 MG PO SCH (09:58)
[2021-11-30] MEDS: PLAVIX 75 MG Tablet PO SCH (09:58)
[2021-11-30] MEDS: Mirapex 0.5 MG Tablet PO SCH (09:58)
[2021-11-30] MEDS: ECOTRIN 81 MG PO SCH (09:58)
[2021-11-30] MEDS: Zestril 20 MG PO SCH (09:58)
[2021-11-30] MEDS: Glucophage XR 500 MG PO SCH (16:04)
--- NOTE | 2021-11-30 18:14 | PCM.NOTE ---
Date and Time: 11/30/211807 Subjective Assessment: Patient is sitting up in gerichair feeding himself fried chicken. He states he is breathing easier. Is talkative but not oriented to time or place.Is aware of being in the hospital. Nurse reports he is in and out of mentation but always pleasant and cooperative. Objective Exam General Appearance: no apparent distress Neurologic Exam: alert (oriented to person) Skin Exam: normal color Eye Exam: eyes nml inspection Ears, Nose, Throat Exam: normal ENT inspection Neck Exam: normal inspection Respiratory Exam: diminished breath sounds, crackles/rales (eew/harsh left mid posterior and anterior) Cardiovascular Exam: regular rate/rhythm Gastrointestinal/Abdomen Exam: soft (nontender) Extremity Exam: normal inspection OBJECTIVE DATA Vital Signs: Vital Signs - 24 hr Temp Pulse Resp BP Pulse Ox 11/30/21 16:00 96.6 F 64 19 117/56 91 L 11/30/21 12:00 96.2 F 75 19 115/63 89 L 11/30/21 08:00 96.9 F 68 21 141/63 92 L 11/30/21 07:57 71 16 91 L 11/30/21 04:00 98.3 F 76 20 136/76 92 L 11/29/21 23:30 98.4 F 78 18 132/61 92 L 11/29/21 19:40 75 20 91 L 11/29/21 19:28 98.1 F 83 20 124/60 91 L Pain Assessment - Last Documented Pain Intensity 0 Pain Scale Used 0-10 Pain Scale Intake and Output: Intake & Output 11/28/21 11/29/21 11/30/21 12/01/21 11:59 11:59 11:59 11:59 Intake Total 630 1840 1460 480 Output Total 1999 1125 0 800 Balance -1370 715 -590 -320 Weight 89.857 kg Lab Results: Lab Results-Last 24 Hours 11/29/21 11/30/21 11/30/21 Range/Units 20:38 07:38 11:39 POC Glucometer 210 H 185 H 390 H (74 to 106) mg/dL 11/30/21 Range/Units 16:20 POC Glucometer 295 H (74 to 106) mg/dL Assessment/Plan (1) COPD exacerbation Current Visit: Yes Status: Acute Assessment & Plan: improving Code(s): J44.1 - CHRONIC OBSTRUCTIVE PULMONARY DISEASE W (ACUTE) EXACERBATION (2) Dementia Current Visit: Yes Status: Acute Qualifiers: Dementia type: unspecified type Code(s): F03.90 - UNSPECIFIED DEMENTIA WITHOUT BEHAVIORAL DISTURBANCE
[2021-11-30] MEDS: Flomax 0.4 MG PO SCH (21:19)
[2021-11-30] MEDS: ZOCOR 20MG PO SCH (21:20)
[2021-12-01 06:25] LABS: Hematocrit 30.4 % (42-50); Hemoglobin 9.5 gm/dl (12.5-18.0); Mean Cell Volume 85.9 fl (78-100); Mean Corpuscular Hemoglobin 26.8 pg (26-32); Mean Corpuscular Hgb Concent. 31.3 g/dl (32-36); Mean Platelet Volume 9.9 fl (7.5-11.0); Platelet Count 225 K/mm3 (150-450); Red Blood Count 3.54 M/mm3 (4.1-5.6); Red Cell Distribution Width 14.2 % (11.5-14.0); White Blood Count 6.6 K/mm3 (4.0-10.5)
[2021-12-01 07:14] LABS: ALBUMIN 3.1 g/dL (3.5-5.0); ALKALINE PHOSPHATASE 96 U/L (38-126); ANION GAP 9.5 MEQ/L (5-15); BLOOD UREA NITROGEN 19 mg/dL (9-20); CHLORIDE 102 mmol/L (98-107); Calcium 8.4 mg/dL (8.4-10.2); Carbon Dioxide 30 mmol/L (22-30); Creatinine 1 0.69 mg/dL (0.66-1.25); EST GLOMERULAR FILTRATION RATE > 60.0 ML/MIN; Glucose 201 mg/dL (74-106); Potassium 4.4 mmol/L (3.5-5.1); SGOT/AST 20 U/L (17-59); SGPT/ALT 17 U/L (0-50); SODIUM 137 mmol/L (137-145); Total Protein 6.2 g/dL (6.3-8.2)
[2021-12-01] MEDS: Mirapex 0.5 MG Tablet PO SCH (10:14)
[2021-12-01] MEDS: PLAVIX 75 MG Tablet PO SCH (10:14)
[2021-12-01] MEDS: Lexapro 10 MG PO SCH (10:14)
[2021-12-01] MEDS: Zestril 20 MG PO SCH (10:14)
[2021-12-01] MEDS: NEURONTIN 300 MG PO SCH ×3 (10:14→21:16)
[2021-12-01] MEDS: NORVASC 5 MG PO SCH (10:14)
[2021-12-01] MEDS: CEFTIN 500 MG PO SCH ×2 (10:14→21:16)
[2021-12-01] MEDS: ECOTRIN 81 MG PO SCH (10:14)
[2021-12-01] MEDS: HUMALOG SQ PRN ×3 (10:15→21:17)
--- NOTE | 2021-12-01 17:12 | PCM.NOTE ---
Date and Time: 12/01/21 170 Subjective Assessment: Patient is doing about the same is friendly and talkative but confused . No new c/o. Objective Exam General Appearance: no apparent distress Neurologic Exam: alert (oriented to person) Skin Exam: normal color Respiratory Exam: diminished breath sounds Cardiovascular Exam: regular rate/rhythm Extremity Exam: other (no edema,has superficial abrasions from previous falls) OBJECTIVE DATA Vital Signs: Vital Signs - 24 hr Temp Pulse Resp BP BP Pulse Ox 12/01/21 12:00 97.0 F 78 16 105/61 93 L 12/01/21 08:00 97.6 F 80 16 123/67 93 L 12/01/21 07:20 84 16 91 L 12/01/21 04:05 98.3 F 81 20 131/69 93 L 11/30/21 23:49 98.6 F 82 18 116/58 93 L 11/30/21 19:44 81 20 93 L 11/30/21 19:29 98.3 F 87 20 127/88 92 L Pain Assessment - Last Documented Pain Intensity 0 Pain Scale Used 0-10 Pain Scale Intake and Output: Intake & Output 11/29/21 11/30/21 12/01/21 12/02/21 11:59 11:59 11:59 11:59 Intake Total 1840 1460 2280 240 Output Total 1125 2050 2475 Balance 715 -590 -195 240 Lab Results: Lab Results-Last 24 Hours 11/30/21 12/01/21 12/01/21 Range/Units 20:41 05:35 05:35 WBC 6.6 (4.0-10.5) K/mm3 RBC 3.54 L (4.1-5.6) M/mm3 Hgb 9.5 L (12.5-18.0) gm/dl Hct 30.4 L (42-50) % MCV 85.9 (78-100) fl MCH 26.8 (26-32) pg MCHC 31.3 L (32-36) g/dl RDW 14.2 H (11.5-14.0) % Plt Count 225 (150-450) K/mm3 MPV 9.9 (7.5-11.0) fl Sodium 137 (137-145) mmol/L Potassium 4.4 (3.5-5.1) mmol/L Chloride 102 (98-107) mmol/L Carbon Dioxide 30 (22-30) mmol/L Anion Gap 9.5 (5-15) MEQ/L BUN 19 (9-20) mg/dL Creatinine 0.69 (0.66-1.25) mg/dL Estimated GFR > 60.0 ML/MIN Glucose 201 H (74-106) mg/dL POC Glucometer 341 H (74 to 106) mg/dL Calcium 8.4 (8.4-10.2) mg/dL Total Bilirubin 0.30 (0.2-1.3) mg/dL AST 20 (17-59) U/L ALT 17 (0-50) U/L Alkaline Phosphatase 96 (38-126) U/L Serum Total Protein 6.2 L (6.3-8.2) g/dL Albumin 3.1 L (3.5-5.0) g/dL 12/01/21 12/01/21 12/01/21 Range/Units 07:47 11:40 16:01 WBC (4.0-10.5) K/mm3 RBC (4.1-5.6) M/mm3 Hgb (12.5-18.0) gm/dl Hct (42-50) % MCV (78-100) fl MCH (26-32) pg MCHC (32-36) g/dl RDW (11.5-14.0) % Plt Count (150-450) K/mm3 MPV (7.5-11.0) fl Sodium (137-145) mmol/L Potassium (3.5-5.1) mmol/L Chloride (98-107) mmol/L Carbon Dioxide (22-30) mmol/L Anion Gap (5-15) MEQ/L BUN (9-20) mg/dL Creatinine (0.66-1.25) mg/dL Estimated GFR ML/MIN Glucose (74-106) mg/dL POC Glucometer 223 H 216 H 268 H (74 to 106) mg/dL Calcium (8.4-10.2) mg/dL Total Bilirubin (0.2-1.3) mg/dL AST (17-59) U/L ALT (0-50) U/L Alkaline Phosphatase (38-126) U/L Serum Total Protein (6.3-8.2) g/dL Albumin (3.5-5.0) g/dL Assessment/Plan (1) COPD exacerbation Current Visit: Yes Status: Acute Assessment & Plan: improved Code(s): J44.1 - CHRONIC OBSTRUCTIVE PULMONARY DISEASE W (ACUTE) EXACERBATION (2) Dementia Current Visit: Yes Status: Acute Qualifiers: Dementia type: unspecified type Code(s): F03.90 - UNSPECIFIED DEMENTIA WITHOUT BEHAVIORAL DISTURBANCE (3) Falls frequently Current Visit: Yes Status: Chronic Assessment & Plan: PT and rehab/placement Code(s): R29.6 - REPEATED FALLS
[2021-12-01] MEDS: Glucophage XR 500 MG PO SCH (17:31)
[2021-12-01] MEDS: ZOCOR 20MG PO SCH (21:16)
[2021-12-01] MEDS: Flomax 0.4 MG PO SCH (21:16)
[2021-12-02 05:27] LABS: Hematocrit 31.3 % (42-50); Hemoglobin 9.5 gm/dl (12.5-18.0); Mean Cell Volume 87.2 fl (78-100); Mean Corpuscular Hemoglobin 26.5 pg (26-32); Mean Corpuscular Hgb Concent. 30.4 g/dl (32-36); Platelet Count 241 K/mm3 (150-450); Red Blood Count 3.59 M/mm3 (4.1-5.6); Red Cell Distribution Width 14.3 % (11.5-14.0); White Blood Count 6.7 K/mm3 (4.0-10.5)
[2021-12-02 05:45] LABS: ALKALINE PHOSPHATASE 98 U/L (38-126); ANION GAP 7.2 MEQ/L (5-15); BLOOD UREA NITROGEN 14 mg/dL (9-20); CHLORIDE 103 mmol/L (98-107); Calcium 8.1 mg/dL (8.4-10.2); Carbon Dioxide 31 mmol/L (22-30); Creatinine 1 0.66 mg/dL (0.66-1.25); EST GLOMERULAR FILTRATION RATE > 60.0 ML/MIN; Glucose 232 mg/dL (74-106); Potassium 4.3 mmol/L (3.5-5.1); SGOT/AST 23 U/L (17-59); SGPT/ALT 17 U/L (0-50); SODIUM 137 mmol/L (137-145)
[2021-12-02] MEDS: HUMALOG SQ PRN ×4 (08:36→21:42)
[2021-12-02] MEDS: PLAVIX 75 MG Tablet PO SCH (10:53)
[2021-12-02] MEDS: NORVASC 5 MG PO SCH (10:53)
[2021-12-02] MEDS: Zestril 20 MG PO SCH (10:53)
[2021-12-02] MEDS: NEURONTIN 300 MG PO SCH ×3 (10:53→21:04)
[2021-12-02] MEDS: CEFTIN 500 MG PO SCH ×2 (10:53→21:04)
[2021-12-02] MEDS: Lexapro 10 MG PO SCH (10:53)
[2021-12-02] MEDS: Mirapex 0.5 MG Tablet PO SCH (10:53)
[2021-12-02] MEDS: ECOTRIN 81 MG PO SCH (10:53)
[2021-12-02] MEDS: Glucophage XR 500 MG PO SCH (16:49)
--- NOTE | 2021-12-02 17:57 | PCM.NOTE ---
Date and Time: 12/02/211754 Subjective Assessment: doing ok - Review of Systems Constitutional: No Fever, No Chills Eyes: No Symptoms Ears, Nose, & Throat: No Symptoms Respiratory: No Cough, No Short Of Breath Cardiac: No Chest Pain, No Edema, No Syncope Abdominal/Gastrointestinal: No Abdominal Pain, No Nausea, No Vomiting, No Diarrhea Genitourinary Symptoms: No Dysuria Musculoskeletal: No Back Pain, No Neck Pain Skin: No Rash Neurological: No Dizziness, No Focal Weakness, No Sensory Changes Psychological: No Symptoms Endocrine: No Symptoms Hematologic/Lymphatic: No Symptoms Immunological/Allergic: No Symptoms Objective Exam General Appearance: no apparent distress, alert Neurologic Exam: alert, oriented x 3, cooperative, normal mood/affect, nml cerebellar function, sensation nml, No motor deficits Skin Exam: normal color, warm, dry Eye Exam: PERRL, EOMI, eyes nml inspection Ears, Nose, Throat Exam: normal ENT inspection, pharynx normal, moist mucous membranes Neck Exam: normal inspection, non-tender, supple, full range of motion Respiratory Exam: normal breath sounds, lungs clear, No respiratory distress Cardiovascular Exam: regular rate/rhythm, normal heart sounds Gastrointestinal/Abdomen Exam: soft, No tenderness, No mass Extremity Exam: normal inspection, normal range of motion Back Exam: normal inspection, normal range of motion, No CVA tenderness, No vertebral tenderness Male Genitalia Exam: deferred Rectal Exam: deferred OBJECTIVE DATA Vital Signs: Vital Signs - 24 hr Temp Pulse Resp BP BP Pulse Ox 12/02/21 16:00 97.8 F 61 22 126/58 93 L 12/02/21 12:00 98.2 F 67 16 137/60 92 L 12/02/21 08:00 98.3 F 68 16 138/92 92 L 12/02/21 07:03 67 18 93 L 12/02/21 04:00 97.7 F 70 16 141/72 92 L 12/02/21 00:00 98.6 F 78 18 120/63 92 L 12/01/21 20:00 98.4 F 74 16 145/65 92 L 12/01/21 19:10 72 18 93 L Pain Assessment - Last Documented Pain Intensity 0 Pain Scale Used 0-10 Pain Scale Intake and Output: Intake & Output 11/30/21 12/01/21 12/02/21 12/03/21 11:59 11:59 11:59 11:59 Intake Total 1460 2280 800 240 Output Total 2049 0205 300 Balance -590 -195 500 240 Lab Results: Lab Results-Last 24 Hours 12/01/21 12/02/21 12/02/21 Range/Units 21:11 04:30 04:30 WBC 6.7 (4.0-10.5) K/mm3 RBC 3.59 L (4.1-5.6) M/mm3 Hgb 9.5 L (12.5-18.0) gm/dl Hct 31.3 L (42-50) % MCV 87.2 (78-100) fl MCH 26.5 (26-32) pg MCHC 30.4 L (32-36) g/dl RDW 14.3 H (11.5-14.0) % Plt Count 241 (150-450) K/mm3 MPV 10.0 (7.5-11.0) fl Sodium 137 (137-145) mmol/L Potassium 4.3 (3.5-5.1) mmol/L Chloride 103 (98-107) mmol/L Carbon Dioxide 31 H (22-30) mmol/L Anion Gap 7.2 (5-15) MEQ/L BUN 14 (9-20) mg/dL Creatinine 0.66 (0.66-1.25) mg/dL Estimated GFR > 60.0 ML/MIN Glucose 232 H (74-106) mg/dL POC Glucometer 268 H (74 to 106) mg/dL Calcium 8.1 L (8.4-10.2) mg/dL Total Bilirubin 0.30 (0.2-1.3) mg/dL AST 23 (17-59) U/L ALT 17 (0-50) U/L Alkaline Phosphatase 98 (38-126) U/L Serum Total Protein 6.0 L (6.3-8.2) g/dL Albumin 3.0 L (3.5-5.0) g/dL 12/02/21 12/02/21 12/02/21 Range/Units 07:31 11:28 15:56 WBC (4.0-10.5) K/mm3 RBC (4.1-5.6) M/mm3 Hgb (12.5-18.0) gm/dl Hct (42-50) % MCV (78-100) fl MCH (26-32) pg MCHC (32-36) g/dl RDW (11.5-14.0) % Plt Count (150-450) K/mm3 MPV (7.5-11.0) fl Sodium (137-145) mmol/L Potassium (3.5-5.1) mmol/L Chloride (98-107) mmol/L Carbon Dioxide (22-30) mmol/L Anion Gap (5-15) MEQ/L BUN (9-20) mg/dL Creatinine (0.66-1.25) mg/dL Estimated GFR ML/MIN Glucose (74-106) mg/dL POC Glucometer 246 H 269 H 271 H (74 to 106) mg/dL Calcium (8.4-10.2) mg/dL Total Bilirubin (0.2-1.3) mg/dL AST (17-59) U/L ALT (0-50) U/L Alkaline Phosphatase (38-126) U/L Serum Total Protein (6.3-8.2) g/dL Albumin (3.5-5.0) g/dL Multi-Disciplinary Progress Notes: Multi-Disciplinary Progress Notes 12/02/21 16:31 Physical Therapy Note by Tia/lic.[id number] PT. IN ZACARIAS-CHAIR UPON P.T. ARRIVAL TO ROOM. AGREEABLE TO P.T. PT. PERFORMED LE ROM EX'S IN CAHIR OF QUAD SETS, HEEL SLIDES, ABD SLIDES, ANKLE PUMPS, AND SLRS. PT. 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 PT. PERFORMED SIT TO STAND W/ MIN ASSIST AND AMBULATED ~ 60' W/ ROLLER WALKER AND MIN-MOD ASSIST. PT. HAS SOME DIFFICULTY MAINTAINING OUTDOOR GUIDE ON ROLLER WALKER W/ L UE D/T HEMIPARESIS. PT. HAS DECREASED FOOT CLEARANCE AND DECREASED STRIDE L LE BUT OVERALL MAINTAINED FAIRLY GOOD KNEE STABILITY W/ GAIT. PT. THE PERFORMED SIT - SUPINE W/ MIN-MOD ASSIST TO LIFT LES ON TO BED. STILL AWAITING PA FOR SNF STAY. WILL CONT. PT 5X/WK TO ADDRESS WEAKNESS AND FUNCTIONAL DEFICITS TO PREP FOR REHAB STAY. 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
[2021-12-02] MEDS: Flomax 0.4 MG PO SCH (21:04)
[2021-12-02] MEDS: ZOCOR 20MG PO SCH (21:04)
--- NOTE | 2021-12-03 08:20 | PCM.NOTE ---
Date and Time: 12/03/21818 Subjective Assessment: awaiting NH placement - Review of Systems Constitutional: No Fever, No Chills Eyes: No Symptoms Ears, Nose, & Throat: No Symptoms Respiratory: No Cough, No Short Of Breath Cardiac: No Chest Pain, No Edema, No Syncope Abdominal/Gastrointestinal: No Abdominal Pain, No Nausea, No Vomiting, No Diarrhea Genitourinary Symptoms: No Dysuria Musculoskeletal: No Back Pain, No Neck Pain Skin: No Rash Neurological: No Dizziness, No Focal Weakness, No Sensory Changes Psychological: No Symptoms Endocrine: No Symptoms Hematologic/Lymphatic: No Symptoms Immunological/Allergic: No Symptoms Objective Exam General Appearance: no apparent distress, alert Neurologic Exam: alert, oriented x 3, cooperative, normal mood/affect, nml cerebellar function, sensation nml, No motor deficits Skin Exam: normal color, warm, dry Eye Exam: PERRL, EOMI, eyes nml inspection Ears, Nose, Throat Exam: normal ENT inspection, pharynx normal, moist mucous membranes Neck Exam: normal inspection, non-tender, supple, full range of motion Respiratory Exam: normal breath sounds, lungs clear, No respiratory distress Cardiovascular Exam: regular rate/rhythm, normal heart sounds Gastrointestinal/Abdomen Exam: soft, No tenderness, No mass Extremity Exam: normal inspection, normal range of motion Back Exam: normal inspection, normal range of motion, No CVA tenderness, No vertebral tenderness Male Genitalia Exam: deferred Rectal Exam: deferred OBJECTIVE DATA Vital Signs: Vital Signs - 24 hr Temp Pulse Resp BP BP Pulse Ox 12/03/21 07:07 97.9 F 58 L 16 109/54 93 L 12/03/21 06:37 73 18 94 L 12/03/21 04:00 96.5 F 74 18 133/94 90 L 12/02/21 23:47 96.7 F 74 18 109/53 92 L 12/02/21 19:13 97.9 F 73 18 138/62 91 L 12/02/21 17:54 93 L 12/02/21 16:00 97.8 F 61 22 126/58 93 L 12/02/21 12:00 98.2 F 67 16 137/60 92 L Pain Assessment - Last Documented Pain Intensity 0 Pain Scale Used 0-10 Pain Scale Intake and Output: Intake & Output 11/30/21 12/01/21 12/02/21 12/03/21 11:59 11:59 11:59 11:59 Intake Total 1460 2280 800 540 Output Total 2049 2025 300 Balance -590 -195 500 540 Lab Results: Lab Results-Last 24 Hours 12/02/21 12/02/21 12/02/21 Range/Units 11:28 15:56 21:25 POC Glucometer 269 H 271 H 362 H (74 to 106) mg/dL 12/03/21 Range/Units 06:44 POC Glucometer 257 H (74 to 106) mg/dL Multi-Disciplinary Progress Notes: Multi-Disciplinary Progress Notes 12/02/21 16:31 Physical Therapy Note by Tia/lic.[id number] PT. IN [place]ARI[place]-CHAIR UPON P.T. ARRIVAL TO ROOM. AGREEABLE TO P.T. PT. PERFORMED LE ROM EX'S IN CAHIR OF QUAD SETS, HEEL SLIDES, ABD SLIDES, ANKLE PUMPS, AND SLRS. PT. 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 PT. PERFORMED SIT TO STAND W/ MIN ASSIST AND AMBULATED ~ 60' W/ ROLLER WALKER AND MIN-MOD ASSIST. PT. HAS SOME DIFFICULTY MAINTAINING SOFT SHOE DANCER ON ROLLER WALKER W/ L UE D/T HEMIPARESIS. PT. HAS DECREASED FOOT CLEARANCE AND DECREASED STRIDE L LE BUT OVERALL MAINTAINED FAIRLY GOOD KNEE STABILITY W/ GAIT. PT. THE PERFORMED SIT - SUPINE W/ MIN-MOD ASSIST TO LIFT LES ON TO BED. STILL AWAITING PA FOR SNF STAY. WILL CONT. PT 5X/WK TO ADDRESS WEAKNESS AND FUNCTIONAL DEFICITS TO PREP FOR REHAB STAY. Initialized on 12/02/21 16:31 - END OF NOTE Assessment/Plan (1) Sepsis due to Bacteroides species Current Visit: Yes Status: Resolved Assessment & Plan: Chief Complaint Diagnosis generalized weakness and fall at home Allergies Allergy/AdvReac Type Severity Reaction Status Date / Time No Known Drug Allergies Allergy Verified 11/27/21 13:22 Vital Signs (Last 24 hours) Temp Pulse Resp BP BP Pulse Ox 12/03/21 07:07 97.9 F 58 L 16 109/54 93 L 12/03/21 06:37 73 18 94 L 12/03/21 04:00 96.5 F 74 18 133/94 90 L 12/02/21 23:47 96.7 F 74 18 109/53 92 L 12/02/21 19:13 97.9 F 73 18 138/62 91 L 12/02/21 17:54 93 L 12/02/21 16:00 97.8 F 61 22 126/58 93 L 12/02/21 12:00 98.2 F 67 16 137/60 92 L Home Medications Medication Instructions Recorded Confirmed Last Taken Type Amlodipine Besylate 5 mg 5 mg PO DAILY 11/28/21 11/28/21 Unknown History [Norvasc 5 mg] Atorvastatin Calcium [Lipitor] 80 mg PO HS 11/28/21 11/28/21 Unknown History Lisinopril 20 mg [Zestril 20 20 mg PO DAILY 11/28/21 11/28/21 Unknown History MG] Pramipexole Di-HCl 0.5 mg 0.5 mg PO DAILY 11/28/21 11/28/21 Unknown History [Mirapex 0.5 MG Tablet] Current Medications Generic Name Dose Route Start Last Admin Trade Name Freq PRN Reason Stop Dose Admin Albuterol/Ipratropium 3 ml 11/28/21 12:42 Ipratropium/Albuterol Sulfate 3 Ml Ampul.Neb IH 12/28/21 12:41 QIDPRN PRN SHORTNESS OF BREATH/WHEEZING Amlodipine Besylate 5 mg 11/28/21 14:00 12/02/21 10:53 Amlodipine Besylate 5 Mg Tablet PO 12/28/21 13:59 5 mg DAILY BEATRIZ Administration Aspirin 81 mg 11/28/21 14:00 12/02/21 10:53 Aspirin 81 Mg Tablet.Ec PO 12/28/21 13:59 81 mg DAILY BEATRIZ Administration Cefuroxime Axetil 500 mg 11/28/21 14:00 12/02/21 21:04 Cefuroxime Axetil 500 Mg Tablet PO 12/28/21 13:59 500 mg BID BEATRIZ Administration Clopidogrel Bisulfate 75 mg 11/28/21 14:00 12/02/21 10:53 Clopidogrel Bisulfate 75 Mg Tablet PO 12/28/21 13:59 75 mg DAILY BEATRIZ Administration Escitalopram Oxalate 10 mg 11/28/21 14:00 12/02/21 10:53 Escitalopram Oxalate 10 Mg Tablet PO 12/28/21 13:59 10 mg DAILY BEATRIZ Administration Gabapentin 300 mg 11/28/21 15:00 12/02/21 21:04 Gabapentin 300 Mg Capsule PO 12/28/21 14:59 300 mg TID BEATRIZ Administration Insulin Human Lispro 0 unit 11/29/21 08:19 12/02/21 21:42 Insulin Lispro 1 Unit SQ 12/29/21 08:18 11 unit UD PRN Administration HYPERGLYCEMIA Lisinopril 20 mg 11/28/21 14:00 12/02/21 10:53 Lisinopril 20 Mg Tablet PO 12/28/21 13:59 20 mg DAILY BEATRIZ Administration Metformin HCl 500 mg 11/28/21 17:00 12/02/21 16:49 Metformin Hcl Er 500 Mg Tab PO 12/28/21 16:59 500 mg DINNER BEATRIZ Administration Morphine Sulfate 2 mg 11/27/21 18:00 11/30/21 01:52 Morphine Sulfate 2 Mg/Ml Inj IV 12/05/21 12:00 2 mg Q4H PRN PRN Administration PAIN Pramipexole Dihydrochloride 0.5 mg 11/28/21 14:00 12/02/21 10:53 Pramipexole Di-Hcl 0.5 Mg Tab PO 12/28/21 13:59 0.5 mg DAILY BEATRIZ Administration Simvastatin 40 mg 11/28/21 22:00 12/02/21 21:04 Simvastatin 20 Mg Tablet PO 12/28/21 21:59 40 mg HS BEATRIZ Administration Tamsulosin HCl 0.4 mg 11/28/21 22:00 12/02/21 21:04 Tamsulosin Hcl 0.4 Mg Cap PO 12/28/21 21:59 0.4 mg HS BEATRIZ Administration Discontinued Medications Generic Name Dose Route Start Last Admin Trade Name Freq PRN Reason Stop Dose Admin Metformin HCl 500 mg 11/28/21 17:00 Metformin Hcl 500 Mg Tablet PO 12/28/21 16:59 DINNER BEATRIZ Intake & Output (Last 24 hours) 11/30/21 12/01/21 12/02/21 12/03/21 11:59 11:59 11:59 11:59 Intake Total 1460 2280 800 540 Output Total 2050 2475 300 Balance -590 -195 500 540 Microbiology Results (Last 24 hours) 11/27/21 12:40 Blood Aerobic Culture - Pending 11/27/21 12:56 Blood Blood Culture Gram Stain - Final Not Reportable 11/27/21 12:56 Blood Blood Culture - Final NO GROWTH Laboratory Results (Last 24 hours) 12/03/21 12/02/21 12/02/21 06:44 21:25 15:56 POC Glucometer 257 H 362 H 271 H 12/02/21 11:28 POC Glucometer 269 H Orders (Last 24 hours) Category Date Time Status POCT GLUCOSE Stat Lab 12/02/21 07:31 Completed POCT GLUCOSE Stat Lab 12/02/21 11:28 Completed POCT GLUCOSE Stat Lab 12/02/21 15:56 Completed POCT GLUCOSE Stat Lab 12/02/21 21:25 Completed POCT GLUCOSE Stat Lab 12/03/21 06:44 Completed Patient Care Notes (Last 24 hours) 12/02/21 16:31 Physical Therapy Note by [email or web address]/lic.[id number] PT. IN ZACARIAS-CHAIR UPON P.T. ARRIVAL TO ROOM. AGREEABLE TO P.T. PT. PERFORMED LE ROM EX'S IN CAHIR OF QUAD SETS, HEEL SLIDES, ABD SLIDES, ANKLE PUMPS, AND SLRS. PT. 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 PT. PERFORMED SIT TO STAND W/ MIN ASSIST AND AMBULATED ~ 60' W/ ROLLER WALKER AND MIN-MOD ASSIST. PT. HAS SOME DIFFICULTY MAINTAINING SOFT SHOE DANCER ON ROLLER WALKER W/ L UE D/T HEMIPARESIS. PT. HAS DECREASED FOOT CLEARANCE AND DECREASED STRIDE L LE BUT OVERALL MAINTAINED FAIRLY GOOD KNEE STABILITY W/ GAIT. PT. THE PERFORMED SIT - SUPINE W/ MIN-MOD ASSIST TO LIFT LES ON TO BED. STILL AWAITING PA FOR SNF STAY. WILL CONT. PT 5X/WK TO ADDRESS WEAKNESS AND FUNCTIONAL DEFICITS TO PREP FOR REHAB STAY. 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
[2021-12-03] MEDS: HUMALOG SQ PRN ×2 (08:59→11:53)
[2021-12-03] MEDS: CEFTIN 500 MG PO SCH (09:00)
[2021-12-03] MEDS: Mirapex 0.5 MG Tablet PO SCH (09:00)
[2021-12-03] MEDS: NORVASC 5 MG PO SCH (09:00)
[2021-12-03] MEDS: Zestril 20 MG PO SCH (09:00)
[2021-12-03] MEDS: NEURONTIN 300 MG PO SCH ×2 (09:00→14:54)
[2021-12-03] MEDS: Lexapro 10 MG PO SCH (09:00)
[2021-12-03] MEDS: ECOTRIN 81 MG PO SCH (09:00)
[2021-12-03] MEDS: PLAVIX 75 MG Tablet PO SCH (09:00)
[2021-12-03 11:37] VITALS: BP 113/79; PULSE 71; O2SAT 96
== END 2021-12-03 15:07 ==
LOC: ED 12:27 → MED SURG 17:50
PROVIDERS: ADMIT General Practice; ATTEND General Practice
DX: R41.0 Disorientation, unspecified (principal); J44.1 Chronic obstructive pulmonary disease with (acute) exacerbation; E11.9 Type 2 diabetes mellitus without complications; I69.054 Hemiplegia and hemiparesis following nontraumatic subarachnoid hemorrhage affecting left non-dominant side; R53.1 Weakness; F03.90 Unspecified dementia, unspecified severity, without behavioral disturbance, psychotic disturbance, mood disturbance, and anxiety; A41.4 Sepsis due to anaerobes; W18.30XA Fall on same level, unspecified, initial encounter; S00.03XA Contusion of scalp, initial encounter; S51.011A Laceration without foreign body of right elbow, initial encounter; Z91.81 History of falling; Z20.828 Contact with and (suspected) exposure to other viral communicable diseases; Z79.899 Other long term (current) drug therapy
CPT/HCPCS: 0241U; 36000; 36415; 70450; 71045; 80053; 81001; 82947; 83036; 84484; 85025; 85027; 87040; 87077; 87086; 93005; 93041; 94760; 94762; 97110; 97161; 97530; 99285; G0378; J1817; J2270; A9270-GY